=== PATIENT | female | born 1940 | race Caucasian/White ===

== ENCOUNTER 2021-08-12 15:00 | Emergency (ER) | payer MEDICARE, MEDICAID, SELFPAY ==
[2021-08-12 15:08] VITALS: BP 116/72; PULSE 76
[2021-08-12 16:00] VITALS: BP 136/63; PULSE 78; RESP 20; TEMP 35.8; O2SAT 100; BMI 29.2
--- NOTE | 2021-08-12 19:27 | PC.NURSE ---
Pt declining blood test, covid test, and urine test
[2021-08-12 20:21] VITALS: BP 125/51; PULSE 70; RESP 20; TEMP 36.7; O2SAT 96
--- NOTE | 2021-08-13 00:08 | PC.NURSE ---
Addendum entered by Jenise Gaspar 08/13/21 00:15: Pt's HR, RR and SpO2 reassessed at time of encounter. All WNL. Original Note: BINDU Bonilla notified this RN that pt is refusing labwork. This RN, Irene RUANO and Les, multi media specialist to pt. Pt aaox3, oriented to person place and situation, disoriented to time. Pt with granddaughter who states she is also a caregiver for pt. Pt refusing labwork, states I just want to go home, I don't want to be here. Pt's granddaughter also expressing I just wanted her oxygen and heart to be checked because the ambulance said it wasn't normal and she could . Why didn't they do bloodwork in the ambulance? This RN explains to pt and granddaughter that bloodwork is not obtained during EMS transport. This RN explains that upon pt's arrival to ED, orders were placed when pt was triaged and labs were attempted to be obtained at that time. Pt had refused at that time. Pt's granddaughter asks Can you do the bloodwork and then we can go home and come back tomorrow for the results and to have her checked out then? This RN explains that this is an ED and outpatient labs/scheduling a f/u is not a possibility. Pt's granddaughter verbalizes understanding. This RN provides re-education to patient and to family regarding significance of bloodwork as it r/t pt's presenting sx. Pt and granddaughter verbalize understanding, but continue to refuse lab work at this time. Irene RUANO to notify Dr Page of pt's refusal. This RN informs pt and granddaughter that without appropriate lab work, only a very limited assessment of pt is able to be accomplished during today's visit. Pt continues I just want to leave. This RN explains that pt is not being held against her will, though is encouraged to stay in ED to be seen by provider.
[2021-08-13 00:15] VITALS: PULSE 87; RESP 17; O2SAT 97
[2021-08-13 03:04] VITALS: BP 125/62; PULSE 85; RESP 18; TEMP 36.4; O2SAT 97
--- NOTE | 2021-08-13 03:30 | PC.NURSE ---
pt brought back to room, wanting to go home. granddaughter insisting pt be seen when patient is a&o, able to answer questions appropriately, pt refusing lab work and care. Provider in to discuss plan of care and pt rights.
--- NOTE | 2021-08-13 03:31 | ED.ABDPAIN ---
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 At home COVID testing on 08/11 she was negative in family reports patient has been spending more time in bed. On speaking with the patient and on multiple interactions in the waiting area patient is declining all labs, urinalysis, COVID swab, x-ray and continues to states that she wants to go home. She says that she does not know why her family call the ambulance and she denies any current problems at this time. She states that she wants to return home and does not wish to stay here against her will. Patient is alert and oriented and answering questions appropriately. Related Data Allergies Allergy/AdvReac Type Severity Reaction Status Date / Time hydrochlorothiazide Allergy Mild UNKNOWN Unverified 04/19/20 16:52 [Hydrochlorothiazide] penicillin G [Penicillin G] Allergy Mild UNKNOWN Unverified 04/19/20 16:52 penicillin V Allergy Unknown Verified 08/30/13 00:00 chlorthalidone AdvReac Severe hyponatremi Unverified 04/19/20 16:52 [CHLORTHALIDONE] a Review of Systems Review of Systems Pertinent positives and negatives as stated in HPI and 10 point review of systems is otherwise negative. Physical Exam Vital Signs: Vital Signs: Last Vital Signs Temp 97.5 F 08/13/21 03:04 Pulse 85 08/13/21 03:04 Resp 18 08/13/21 03:04 BP 125/62 08/13/21 03:04 Pulse Ox 97 08/13/21 03:04 BMI result Body Mass Index 29.2 VITAL SIGNS: Reviewed. GENERAL: Elderly, dressed appropriately,in no acute distress. HEAD: Normocephalic/atraumatic EYES: EOMI OROPHARYNX: no oral lesions noted, posterior pharynx clear LUNGS: No audible wheeze, tachypnea, increased work of breathing, SpO2<97> CARDIOVASCULAR: Regular rate and rhythm without noted murmurs, no JVD or lower extremity edema. ABDOMEN: Soft, non-tender, non-distended with bowel sounds. MUSCULOSKELETAL: No tenderness, deformities, or effusions noted on gross inspection. EXTREMITIES: No cyanosis, clubbing or edema. SKIN: Inspection of the skin reveals no rashes NEUROLOGIC: Alert and oriented x 3, steady gait noted, strength and sensation to light touch were grossly intact x 4, no facial asymmetry Course Course Course Narrative: 80-year-old female with history and clinical presentation of being brought in by her family, but patient adamantly states that she did not want to get onto the ambulance and does not want to be here in the hospital or undergo any lab or examinations. Patient states that she was unsure why the ambulance was called for her and denies experiencing any shortness of breath, chest pain, abdominal pain and states that she has been eating and drinking fine. The daughter was brought into the emergency room and a conversation was held with the loading rack supervisor to clarify the circumstances surrounding patient's evaluation in the emergency room. This explain to the daughter that the patient could not be held here against her will and that she could not half a workup against her permission. I fully reviewed patient's vital signs which demonstrate that the heart rate is within normal limits, patient is not febrile nor is she tachypneic and she is oxygenating well on room air. There is no evidence unsteady gait and patient communicates appropriately although she is irritated currently and keeps asking to go home and stating that she does not want to be here. The patient's request were honored and it was explained to the daughter that we were unable to do anything further at this time, but if anything changed she should call 911. MDM - Abdominal Pain Lab Data Result diagrams: 08/12/21 Unknown Labs: Lab Results 08/12/21 Range/Units Unknown Sodium Cancelled Potassium Cancelled Chloride Cancelled Carbon Dioxide Cancelled Anion Gap Cancelled BUN Cancelled Creatinine Cancelled Estim Creat Clear Calc Cancelled Estimated GFR Cancelled Random Glucose Cancelled Calcium Cancelled Total Bilirubin Cancelled Direct Bilirubin Cancelled AST Cancelled ALT Cancelled Alkaline Phosphatase Cancelled Total Protein Cancelled Albumin Cancelled Discharge Plan Discharge Clinical Impression: General medical exam Patient Disposition: Home, Self-Care Additional Instructions: Follow-up with your primary care provider. Interventions: ED Discharge Assessment Last Done: 08/13/21 04:13 Discharge Date/Time: 08/13/21 04:24 Print Language: Turkmen [facility] Past Medical History Source: nursing notes reviewed Medical History (Updated 08/13/21 @ 04:06 by Beverly Page MD) HTN (hypertension) Right eye symptoms Surgical History (Updated 08/12/21 @ 16:04 by Tiffany Ace) No pertinent past surgical history Social History Social History Advance Directives: No Advance Directives Information Provided: Yes
== END 2021-08-13 04:24 | disposition home or self-care (01) ==
PROVIDERS: Emergency Provider Student in an Organized Health Care Education/Training Program
DX: R10.9 Unspecified abdominal pain (principal); R05.9 Cough, unspecified; Z79.899 Other long term (current) drug therapy
CPT/HCPCS: 36415; 80053; 82248; 99283; 99284

== ENCOUNTER 2022-07-09 03:55 | Emergency (ER) | payer MEDICARE, MEDICAID, SELFPAY ==
--- NOTE | ~2022-07-09 | CT_ITS ---
EXAMINATION: IV contrast enhanced CT angiography of the head and neck; delayed IV contrast-enhanced CT the head CLINICAL INFORMATION: Left-sided weakness. COMPARISON: CT head 07/09/2022. TECHNIQUE: IV contrast enhanced CT angiography of the head and neck with multiple 3-D reformatted angiographic thick section MIPS images processed on the technologist workstation under concurrent supervision; delayed IV contrast-enhanced CT the head. Vascular stenoses are made with reference to the NASCET criteria less otherwise specified. This CT examination was performed using dose optimization techniques as appropriate, variously including the following: *Automated exposure control *Adjustment of mA and/or kV according to patient size (this includes techniques or standardized protocols for targeted exams where dose is matched to indication/reason for exam; i.e. extremities or head) *Use of iterative reconstruction technique Intravenous Contrast: Omnipaque 350 70 mL DLP: 1547 mGy-cm FINDINGS: IV contrast enhanced CT of the head: No intracranial hemorrhage or tumors are noted. No definitive acute infarcts are visualized. Mild diffuse commensurate prominence of ventricles and sulci is noted along with moderate subcortical and periventricular white matter patchy hypoattenuation. A right ocular lens extraction is noted. CT angiography neck: Diffuse moderate calcific atherosclerosis of the transverse aorta. Concentric calcific and noncalcific atherosclerotic plaque is present in the left and right carotid bulbs and results in mild (less than 50%) bilateral carotid bulb stenoses. Scattered nonocclusive calcific and noncalcific plaque is present in the left and right common carotid arteries. The right vertebral artery is dominant. No occlusions of the cervical segments of the vertebral artery systems noted. CT angiography head: Intraluminal opacification is absent within the distal cavernous and paraclinoid segment of the right internal carotid artery and within the M1 segment of the right middle cerebral artery. Intraluminal opacification is noted in the A1 segment of the right anterior cerebral artery. type origin of the right posterior cerebral artery is noted. Intraluminal opacification is present in the posterior aspect of the right posterior communicating artery and within the visualized right posterior cerebral artery. No intracranial aneurysms identified. Multilevel facet and endplate osteophytosis of the cervical spine is noted. CT/CT angio head neck stroke IMPRESSION: 1. Acute occlusion of the M1 segment of the right middle cerebral artery and distal cavernous and paraclinoid segments of the right internal carotid artery. 2. Mild (less than 50%) bilateral carotid bulb stenoses. 3. No acute intracranial hemorrhage or definitive acute intrarenal infarcts. 4. Moderate white matter chronic small vessel ischemic disease. This critical result was discussed with Rebecca Solorzano MD by telephone at 07/09/2022 5:19 AM and it was ascertained that the content and urgency of the report was understood at the time of direct communication.
--- NOTE | ~2022-07-09 | CT_ITS ---
EXAMINATION: CT HEAD WITHOUT CONTRAST (STROKE PROTOCOL) CLINICAL INFORMATION: Stroke protocol. Left weakness. COMPARISON: CT head 03/01/2015 TECHNIQUE: Contiguous axial imaging was performed from the skull base to vertex without intravenous administration of contrast. This CT examination was performed using dose optimization techniques as appropriate, variously including the following: *Automated exposure control *Adjustment of mA and/or kV according to patient size (this includes techniques or standardized protocols for targeted exams where dose is matched to indication/reason for exam; i.e. extremities or head) *Use of iterative reconstruction technique DLP: 705 mGy-cm FINDINGS: No intracranial hemorrhage or acute infarcts are noted. 5 mm hyperdensity is noted in the expected location of the proximal right middle cerebral artery and may represent thrombus in situ (series 2 image 31). Confluent subcortical and periventricular white matter patchy hypodensities are visualized. Segmental calcific atherosclerosis noted in the cavernous portions of the internal carotid arteries. Mild mucosal thickening present in the maxillary sinus, scattered ethmoid air cells and frontal sinuses. CT/CT head for stroke IMPRESSION: Possible acute thrombus within the M1 segment of the right middle cerebral artery. No intracranial hemorrhage. Moderate chronic microangiopathic ischemic changes. This critical result was discussed with Rebecca Solorzano MD by telephone at 07/09/2022 4:46 AM and it was ascertained that the content and urgency of the report was understood at the time of direct communication.
--- NOTE | ~2022-07-09 | XR_ITS ---
EXAMINATION: XR CHEST CLINICAL INFORMATION: Left-sided weakness. COMPARISON: Chest radiograph 07/06/2018. TECHNIQUE: Frontal view of the chest was obtained. FINDINGS: Diffuse osteopenia noted. The heart size is grossly normal. No effusions or pneumothoraces identified. Making allowances for underpenetrated technique, a normal pattern of pulmonary vasculature is noted. No focal pulmonary consolidation identified. XR/XR chest 1V IMPRESSION: No acute cardiopulmonary abnormalities.
[2022-07-09 04:02] VITALS: BP 133/88; PULSE 120; O2SAT 94
--- NOTE | 2022-07-09 04:03 | ECG_ITS ---
Test Reason : STROKE PROTOCOL Blood Pressure : / mmHG Vent. Rate : 118 BPM Atrial Rate : 000 BPM P-R Int : 000 ms QRS Dur : 086 ms QT Int : 318 ms P-R-T Axes : 000 036 270 degrees QTc Int : 445 ms Atrial fibrillation with rapid ventricular response ST depression, consider subendocardial injury Nonspecific T wave abnormality Abnormal ECG When compared with ECG of 01-MAR-2015 02:18, Atrial fibrillation has replaced Sinus rhythm Vent. rate has increased BY 59 BPM Nonspecific T wave abnormality now evident in Inferior leads Inverted T waves have replaced nonspecific T wave abnormality in Lateral leads Referred By: Rebecca Solorzano Electronically Signed By:BINH BELCHER MD
[2022-07-09 04:08] VITALS: BP 180/86; PULSE 122; RESP 17; O2SAT 95; BMI 28.5
--- NOTE | 2022-07-09 04:29 | ED.NEUROSD ---
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 Mode of arrival: EMS Limitations: no limitations History of Present Illness HPI Narrative: Found on the floor by her granddaughter who also a caregiver patient was not moving her left side with left-sided facial droop as per EMS report patient last was seen normal at 15:00 yesterday about 13 hours ago, however the granddaughter stated that last was seen at 21:00 last night about 7 hours before arrival, patient is refusing transportation to the hospital on arrival to the ED patient is refusing all tests, I spoke with the granddaughter explaining that time is sensitive and the option of intubation and sedation to get the CT scan but daughter who also contacted her family refuse intubating the patient is stating that this was the patient's wishes and patient is not competent to make a decision at this point, patient was given ketamine IV and was able to obtain CT and CTA. Stroke labs at [facility] was contacted at 04:30. Related Data Allergies Allergy/AdvReac Type Severity Reaction Status Date / Time hydrochlorothiazide Allergy Mild UNKNOWN Unverified 04/19/20 16:52 [Hydrochlorothiazide] penicillin G [Penicillin G] Allergy Mild UNKNOWN Unverified 04/19/20 16:52 penicillin V Allergy Unknown Verified 08/30/13 00:00 chlorthalidone AdvReac Severe hyponatremi Unverified 04/19/20 16:52 [CHLORTHALIDONE] a Review of Systems Review of Systems: Yes Unobtainable due to mental status PMFSH Past Medical History Medical History HTN (hypertension) Right eye symptoms Surgical History No pertinent past surgical history Social History Social History Advance Directives: No Advance Directives Information Provided: Yes Physical Exam Vital Signs: Vital Signs: Last Vital Signs Pulse 112 H 07/09/22 05:34 Resp 19 07/09/22 05:34 BP 121/82 07/09/22 05:34 Pulse Ox 98 07/09/22 05:34 O2 Del Method 07/09/22 05:34 BMI result Body Mass Index 28.5 Vital signs have been reviewed as appeared to be correct. Blood pressure elevated. Heart rate rapid. Respiration rate normal. Temperature normal. Oxygen saturation normal. Appearance: Alert. Oriented X3. No acute distress. Head: Normal external exam. Normocephalic. Atraumatic. No Recio signs noted. No raccoon eyes noted Eyes: PERRLA. EOMI. Conjunctiva and sclera normal. Eyelids normal. ENT: TM's Normal. Pharynx normal. Uvula midline. Moist mucous membranes. No trismus noted. No drooling noted. No muffled voice noted. Neck: Normal inspection. Neck supple. FROM. No adenopathy. Thyroid Normal. No meningeal signs. No neck mass noted. CVS: Normal heart rate and rhythm. Heart sound normal. No murmurs noted. Pulses normal throughout. Respiratory: No respiratory distress. Painless inspiration. Breath sounds normal. No wheezes/rales/rhonchi noted. Chest nontender. No accessory muscle usage noted or decreased air movement noted. Abdomen: Soft and nontender. Bowel sounds normal in all 4 quadrants. No distention noted. No organomegaly noted. No visible injury noted. Back: No CVA tenderness. Full range of motion noted. Skin: Skin warm and dry. Normal skin color. Normal skin turgor. No rashes/lesions/lacerations noted. Extremities: No lower extremity edema. Extremities exhibit normal range of motion. Extremities nontender. Neuro: Oriented X 3. Cranial nerve exam: Right facial droop. Right hemiparesis Course Course Course Narrative: 81-year-old female came in with left hemiparesis last seen normal was 7 hours before arrival to the hospital, CT/CTA was delayed because family was resisting intubation and sedation and patient required ketamine to get the CT done which show acute occlusive thrombus in right middle cerebral artery , family is simple minded needed time to understand that the patient's only option to recover from the stroke is going for intervention mechanical thrombectomy at [facility], family is hesitant to intubate the patient during the procedure but finally family agreed to transport the patient to [facility]. Patient also found to have rapid atrial fibrillation which appear to be new (also record not available and family is very poor historian to confirm the history). [facility] stroke intervention lab work conducted I spoke with Dr. Jerez who is on-call at [facility] recommended to transport the patient to the ED and give the patient 300 mg of aspirin rectally and keep the blood pressure around 180/80. Medications Administered Discontinued Medications Generic Name Dose Route Start Last Admin Trade Name Malcolm PRN Reason Stop Dose Admin Aspirin 325 mg 07/09/22 05:34 07/09/22 05:38 Aspirin 300 Mg Supp.Rect SD 07/09/22 05:35 325 mg ONCE ONE Administration Iohexol 70 ml 07/09/22 04:59 07/09/22 05:00 Iohexol 350 Mg/Ml 100 Ml Infus..Btl IV 07/09/22 05:00 70 ml ONCE ONE Administration Ketamine HCl 50 mg 07/09/22 04:25 07/09/22 04:30 Ketamine Hcl/Ns 50 Mg/5 Ml Syringe IVPUSH 07/09/22 04:26 50 mg ONCE ONE Administration Medical Decision Making Medical Decision Making Differential Diagnoses: Differential diagnosis Differential Diagnosis: The differential diagnosis associated with the patient?s presentation includes: Intracranial bleed, ischemic stroke, new onset atrial fibrillation Lab Attestation: I reviewed the patient's lab results. Independent interpretation of EKG, rhythm strip, radiology study: Independent interp EKG,rhythm strip, radiology study I performed an independent interpretation of the: EKG My interpretation is atrial fibrillation with rapid ventricular response at 01:18, normal axis deviation, otherwise normal intervals. Independent historian (e.g., spouse, EMS, friend): Independent historian (e.g., spouse, EMS, friend) Clinical information obtained from an independent historian. History obtained from or confirmed by: Other (Daughter/granddaughter) Additional Comments: Patient is having acute stroke and not able to give a good history. Core Measures Measure exclusions: not indicated NIH Stroke Scale Level of Consciousness: Alert Level of Consciousness Questions: Answers neither question correctly Level of Consciousness Commands: Performs neither task correctly Best Gaze: Normal Visual: No visual loss Facial Palsy: Partial paralysis Motor Arm (Right): No drift Motor Arm (Left): No effort against gravity Motor Leg (Right): No drift Motor Leg (Left): No effort against gravity Limb Ataxia: Absent Sensory: Normal Best Language: No aphasia Dysarthia: Normal Extinction and Inattention: No abnormality Score: 12 Critical Care Time Critical Care Time Critical Care Time: Yes Total Critical Care Time: 75 Attestation: I spent 75 minutes providing critical care service to the patient, this including time spent at the bedside to evaluate the patient, reassess the patient, monitoring vital signs, review labs, and radiographic studies, counseling the patient/family, discussing the case with consultants, disposition the patient. Discharge Plan Discharge Clinical Impression: Cerebrovascular accident, Atrial fibrillation, new onset Patient Disposition: [facility] Transfer Details: [facility] emergency department.
[2022-07-09] MEDS: Ketamine HCl/NS 50 MG/5 ML SYRINGE IVPUSH (04:30)
[2022-07-09 04:33] LABS: Basophils Absolute Auto 0.1 X10*3/uL (0.0-0.2); Basophils Percent Auto 0.8 % (0-2); Eosinophils Absolute Auto 0.1 X10*3/uL (0.0-0.4); Hematocrit 40.1 % (37.0-47.0); Hemoglobin 13.2 g/dl (12.0-16.0); Imm Gran Abs Auto 0.05 X10*3/uL (0.00-0.03); Imm Gran Pct Auto 0.6 % (0.0-0.4); Lymphocytes Absolute Auto 3.3 X10*3/uL (1.2-4.9); Lymphocytes Percent Auto 38.6 % (20-40); MANUAL DIFF FLAG SCAN; Mean Corpuscular HGB Conc 32.9 g/dl (31.0-35.0); Mean Corpuscular Hemoglobin 28.9 pg (27.0-33.0); Mean Corpuscular Volume 87.7 fL (80.0-98.0); Mean Platelet Volume 11.6 fL (9.4-12.3); Monocytes Absolute Auto 0.8 X10*3/uL (0.1-1.2); Monocytes Percent Auto 9.3 % (2-11); Neutrophils Absolute Auto 4.3 x10*3/uL (2.0-8.3); Neutrophils Percent Auto 49.7 % (45-73); Platelet Count 211 X10*3/uL (160-400); Red Blood Count 4.57 X10*6/uL (4.20-5.50); Red Cell Distribution Width 13.6 % (11.0-16.0); SCAN SMEAR FLAG 1; White Blood Count 8.6 X10*3/uL (4.8-10.8)
[2022-07-09 04:38] LABS: Prothrombin Time Whole Bld POC 16.1 sec (11.1-13.5); ~PT, ~INR - Anti Coag Clinic 1.3 (0.9-1.1)
[2022-07-09 04:42] LABS: INTERNATIONAL NORM RATIO 1.1 (0.9-1.1); Prothrombin Time 13.1 SEC (10.0-13.1)
[2022-07-09 04:46] LABS: Stroke Lab Use COMPLETE
[2022-07-09 04:53] LABS: Anion Gap 13 (12-20); Blood Urea Nitrogen 19 mg/dL (9-16); Calcium 9.2 mg/dL (8.4-10.2); Carbon Dioxide 35 mmol/L (22-29); Chloride 95 mmol/L (96-108); Creatinine Clr Calc Pharmacy 42.1; Estimated Glomerular Filt Rate > 60; Glucose Random 114 mg/dL (60-115); Potassium 3.8 mmol/L (3.3-5.1); Sodium 139 mmol/L (135-145)
[2022-07-09 04:55] LABS: SLIDE REVIEW VERIFIED
[2022-07-09 05:00] LABS: Troponin-I High Sensitivity 5.1 ng/L (<3.5-17.0)
[2022-07-09] MEDS: iohexoL 350 MG/ML 100 ML INFUS..BTL 70 ML IV (05:00)
[2022-07-09 05:01] LABS: Glucose, Whole Blood 100 mg/dL (60-115)
--- NOTE | 2022-07-09 05:02 | PC.NURSE ---
Patient back from CT/XRAY at this time on continuous monitoring with this RN present throughout. Delay to CT due to patient requiring ketamine/family unsure what patient's wishes are. Significant time with MD, vice president research, and this RN bedside with family to discuss goals of care. They confirm DNI but are agreeable to ketamine for scan. Patient remains alert, crying for coffee. She is oriented to self only (confused to birthday, other). Patient with wet/gurgly cough/secretions- requiring suctioning several times in CT and afterwards. HR tachycardic 1teens-120s AFIB - EKG complete and reviewed with MD. No hx AFIB per family. Patient takes 3 meds only - 81mg aspirin, 50mg atenolol, and 10mg amlodipine. Patient boosted/repositioned for comfort.
[2022-07-09 05:05] VITALS: BP 161/83; PULSE 119; RESP 19; O2SAT 96
--- NOTE | 2022-07-09 05:09 | PC.NURSE ---
Call out to [facility] Transfer line @[phone]
--- NOTE | 2022-07-09 05:33 | PC.NURSE ---
MD bedside with this RN and manager endoscopy to explain transfer to [facility]
[2022-07-09 05:34] VITALS: BP 121/82; PULSE 112; RESP 19; O2SAT 98
[2022-07-09] MEDS: Aspirin 300 MG SUPP.RECT 325 MG PR (05:38)
--- NOTE | 2022-07-09 05:55 | PC.NURSE ---
patient leaving [facility] [facility] ED now via EMS to [facility] ED. report, paperwork, and CD given to EMS crew.
== END 2022-07-09 06:14 | disposition short-term general hospital (02) ==
PROVIDERS: Emergency Provider Emergency Medicine
DX: I63.9 Cerebral infarction, unspecified (principal); I48.91 Unspecified atrial fibrillation; R29.712 NIHSS score 12; M54.2 Cervicalgia; R51.9 Headache, unspecified; R29.810 Facial weakness; Z79.899 Other long term (current) drug therapy
CPT/HCPCS: 36415; 70450; 70496; 70498; 71045; 80048; 82550; 82947; 84484; 85025; 85610; 85730; 93005; 96374; 99285; Q9967

== ENCOUNTER 2022-08-06 11:36 | Emergency (ER) | payer MEDICARE, MEDICAID, SELFPAY ==
--- NOTE | ~2022-08-06 | XR_ITS ---
EXAMINATION: XR CHEST CLINICAL INFORMATION: Shortness of breath COMPARISON: 07/09/2022 TECHNIQUE: Frontal view of the chest was obtained. FINDINGS: Lungs grossly clear. Heart size normal with normal caliber pulmonary vessels. XR/XR chest 1V IMPRESSION: No active disease.
[2022-08-06 11:50] VITALS: O2SAT 96; BMI 25.7
--- NOTE | 2022-08-06 11:50 | ED.WEAKNESS ---
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 Per family they have a home care nurse that comes and several times a week. She was checking the patient's pulse oximeter and noted that the patient was hypoxic and the patient was referred into the ER for further evaluation. Family have no concerns for they feel like the patient is recovering. She has had a slight cough. Patient has no other complaints. No chest pain, shortness of breath, fever, leg swelling or leg pain. Related Data Previous Rx's Medication Instructions Recorded nystatin 100,000 unit/mL oral 100,000 unit PO DAILY #60 mL 08/06/22 suspension Allergies Allergy/AdvReac Type Severity Reaction Status Date / Time hydrochlorothiazide Allergy Mild UNKNOWN Unverified 04/19/20 16:52 [Hydrochlorothiazide] penicillin G [Penicillin G] Allergy Mild UNKNOWN Unverified 04/19/20 16:52 penicillin V Allergy Unknown Verified 08/30/13 00:00 chlorthalidone AdvReac Severe hyponatremi Unverified 04/19/20 16:52 [CHLORTHALIDONE] a Review of Systems Review of Systems: Yes all other systems are reviewed and are negative Constitutional: Constitutional: Reports no additional constitutional complaints, Denies body ache(s), Denies chills, Denies fever(s), Denies headache(s) and Reports weakness Eyes: Eyes: Reports no additional eye complaints and Denies change in vision ENT: Reports system reviewed and no additional complaints, except as documented, Denies dizziness, Denies headache(s), Denies nasal congestion, Denies nasal discharge and Denies neck pain Cardiovascular: Cardiovascular: Reports no additional cardiovascular complaints, Denies chest pain, Denies leg edema and Denies dyspnea Respiratory: Respiratory: Reports no additional respiratory complaints, Reports cough and Denies dyspnea Gastrointestinal: Gastrointestinal: Reports no additional gastrointestinal complaints, Denies abdominal pain, Denies diarrhea, Denies nausea and Denies vomiting Genitourinary: Genitourinary: Reports no additional female genitourinary complaints and Denies urinary incontinence Musculoskeletal: Musculoskeletal: Reports no additional musculoskeletal complaints, Denies back pain, Denies arthralgias, Denies joint swelling, Denies neck pain, Denies numbness and Denies tingling Integumentary/Breasts: Skin/Breast: Reports system reviewed and no additional complaints, except as docu and Denies rash Neurologic: Reports system reviewed and no additional complaints, except as documented, Denies Abnormal speech present, Denies dizziness, Denies headache(s), Denies numbness, Denies tingling and Reports weakness PMFSH Past Medical History Attestation statement: The following information was validated with the patient. Source: old records reviewed and nursing notes reviewed Medical History HTN (hypertension) Right eye symptoms Surgical History No pertinent past surgical history Social History Social History Advance Directives: No Physical Exam Vital Signs: Vital Signs: Last Vital Signs Temp 97.2 F 08/06/22 12:03 Pulse 87 08/06/22 12:31 Resp 18 08/06/22 12:31 BP 110/62 08/06/22 12:03 Pulse Ox 96 08/06/22 11:50 O2 Del Method 08/06/22 12:03 BMI result Body Mass Index 25.7 Const: General: cooperative, healthy appearing, comfortable and no acute distress Orientation/consciousness: patient oriented x3 Limitations: no limitations HEENT: Head: Yes normal to inspection Ears: hearing grossly normal bilaterally and TM's normal bilaterally General nose exam: Normal external nose present Face and sinus: Yes normal facial exam Mouth: Normal oral and palatal mucosa present Mouth/tongue images: 1. thrush Throat: Yes posterior oropharynx normal, Yes tonsils normal and Yes uvula midline Eyes: General: appearance normal, both eyes and all related structures Pupils: Equal, round and reactive pupils present Neck: Neck: Yes normal visual inspection, Yes full ROM and Yes no lymphadenopathy Chest: Chest palpation & inspection: normal inspection of the chest Resp: Other: Expiratory wheezing throughout Effort & Inspection: normal respiratory effort Cardio: Rate: regular rate Rhythm: regular rhythm Peripheral pulses: Peripheral pulses 2+ throughout GI: Inspection: Yes normal to inspection Palpation (GI): Soft to palpation and nontender Auscultation: normal bowel sounds Back/Spine/Pelvis: Thoracic/Lumbar Spine: thoracic and lumbar spine normal to inspection Skin: General skin exam: no rashes or lesions noted Neuro: General: patient oriented x3, no focal motor deficits and normal sensation to monofilament Cranial nerves: Yes Equal, round and reactive pupils present Cognition (Neuro): normal cognition Speech: No Abnormal speech present Gait exam (Neuro): Normal gait present Motor exam (neuro): 5/5 motor strength present throughout Extrem: General: Yes normal to inspection Course Course Course Narrative: Testing for flu, COVID, RSV are negative. Chest x-ray shows no acute finding. Reviewed labs which show an indeterminate troponin. Patient with no reports of chest pain in a nonischemic EKG. Plan for repeat troponin. BUN mildly elevated. Patient has had decreased oral intake per family. Will give gentle hydration and reassess. Patient has not required any supplemental oxygen while she has been here in the emergency room. Anticipate discharge home Reevaluation(s) Reevaluation #1: TROPONIN X2 FLAT. Granddaughter at bedside. Patient is supposed for Hebert catheter change tomorrow by a home care nurse. She is asking if they can do this today. Therefore nursing will change her Hebert catheter reports she leaves today. Patient has not required any supplemental oxygen here in the emergency room her saturations are 97%. Her wheezing is improved after DuoNeb. Family denies history of asthma but tells me that after patient was released from [facility] she was sent home with both an albuterol inhaler and nebulizer machine to use. Recommend they continue this. Reviewed worrisome signs and symptoms of when to return to the emergency room. Comfortable plan for discharge home. Medications Administered Discontinued Medications Generic Name Dose Route Start Last Admin Trade Name Drewq PRN Reason Stop Dose Admin Albuterol Sulfate 2.5 mg/ 0 mg 08/06/22 12:08 08/06/22 12:26 Ipratropium [place] 0.5 mg INHALE 08/06/22 12:09 2.5 each ONCE ONE Administration Sodium Chloride 500 mls @ 999 mls/hr 08/06/22 14:56 08/06/22 15:45 Ns IV 08/06/22 15:26 Infused .Q31M STA Infusion Medical Decision Making Medical Decision Making [facility] Narrative: 81-year-old female with recent admission for stroke presents with concern from home care nurses the patient is hypoxic. On arrival to the ER patient with pulse oximeter 99% on room air. Patient with wheezing on exam. Patient with reports of cough but no shortness of breath, chest pain, fever, leg swelling or leg pain. Due to recent admission will check labs, chest x-ray, COVID screen Differential Diagnosis Differential Diagnoses: The differential diagnosis associated with the presentation includes Viral syndrome, pneumonia, influenza PE this patient is anticoagulated and compliant with her Eliquis Lab Data [facility] Lab Attestation statement: I reviewed the patient's lab results. Result Diagrams: 08/06/22 13:59 08/06/22 13:59 Labs: Lab Results 08/06/22 08/06/22 08/06/22 Range/Units 12:26 13:59 13:59 WBC 8.6 (4.8-10.8) X10*3/uL RBC 4.66 (4.20-5.50) X10*6/uL Hgb 13.3 (12.0-16.0) g/dl Hct 40.6 (37.0-47.0) % MCV 87.1 (80.0-98.0) fL MCH 28.5 (27.0-33.0) pg MCHC 32.8 (31.0-35.0) g/dl RDW 15.0 (11.0-16.0) % Plt Count 172 (160-400) X10*3/uL MPV 12.6 H (9.4-12.3) fL Immature Gran % (Auto) 0.3 (0.0-0.4) % Neut % (Auto) 71.0 (45-73) % Lymph % (Auto) 19.7 L (20-40) % [place] % (Auto) 7.2 (2-11) % Eos % (Auto) 1.2 (0-4) % Baso % (Auto) 0.6 (0-2) % Lymph # (Auto) 1.7 (1.2-4.9) X10*3/uL [place] # (Auto) 0.6 (0.1-1.2) X10*3/uL Eos # (Auto) 0.1 (0.0-0.4) X10*3/uL Baso # (Auto) 0.1 (0.0-0.2) X10*3/uL Abs Immat Gran (auto) 0.03 (0.00-0.03) X10*3/uL Absolute Neuts (auto) 6.1 (2.0-8.3) x10*3/uL Absolute Nucleated RBC 0.000 (0.0-0.012) X10*3/uL Nucleated RBC % (auto) 0.0 (0.0-0.2) /100WBC PT 22.0 H (10.0-13.1) SEC INR 1.9 H (0.9-1.1) Sodium (135-145) mmol/L Potassium (3.3-5.1) mmol/L Chloride (96-108) mmol/L Carbon Dioxide (22-29) mmol/L Anion Gap (12-20) BUN (9-16) mg/dL Creatinine (0.5-1.4) mg/dL Estim Creat Clear Calc Estimated GFR Random Glucose (60-115) mg/dL Lactic Acid (0.5-2.0) mmol/L Calcium (8.4-10.2) mg/dL Total Bilirubin (0.0-1.0) mg/dL Direct Bilirubin (0.0-0.5) mg/dL AST (5-31) U/L ALT (0-31) U/L Alkaline Phosphatase (39-117) U/L Troponin I High Sens (<3.5-17.0) ng/L B-Natriuretic Peptide (<100) pg/mL Total Protein (6.5-8.0) g/dL Albumin (3.5-5.0) g/dL Influenza Type A (PCR) NEGATIVE (Negative) Influenza Type B (PCR) NEGATIVE (Negative) RSV RNA Qual (PCR) NEGATIVE (Negative) SARS-CoV-2 RNA (RT-PCR) NEGATIVE (Negative) 08/06/22 08/06/22 08/06/22 Range/Units 13:59 13:59 13:59 WBC (4.8-10.8) X10*3/uL RBC (4.20-5.50) X10*6/uL Hgb (12.0-16.0) g/dl Hct (37.0-47.0) % MCV (80.0-98.0) fL MCH (27.0-33.0) pg MCHC (31.0-35.0) g/dl RDW (11.0-16.0) % Plt Count (160-400) X10*3/uL MPV (9.4-12.3) fL Immature Gran % (Auto) (0.0-0.4) % Neut % (Auto) (45-73) % Lymph % (Auto) (20-40) % [place] % (Auto) (2-11) % Eos % (Auto) (0-4) % Baso % (Auto) (0-2) % Lymph # (Auto) (1.2-4.9) X10*3/uL [place] # (Auto) (0.1-1.2) X10*3/uL Eos # (Auto) (0.0-0.4) X10*3/uL Baso # (Auto) (0.0-0.2) X10*3/uL Abs Immat Gran (auto) (0.00-0.03) X10*3/uL Absolute Neuts (auto) (2.0-8.3) x10*3/uL Absolute Nucleated RBC (0.0-0.012) X10*3/uL Nucleated RBC % (auto) (0.0-0.2) /100WBC PT (10.0-13.1) SEC INR (0.9-1.1) Sodium 142 (135-145) mmol/L Potassium 3.4 (3.3-5.1) mmol/L Chloride 102 (96-108) mmol/L Carbon Dioxide 28 (22-29) mmol/L Anion Gap 15 (12-20) BUN 35 H (9-16) mg/dL Creatinine 0.82 (0.5-1.4) mg/dL Estim Creat Clear Calc 51.1 Estimated GFR > 60 Random Glucose 94 (60-115) mg/dL Lactic Acid 0.9 (0.5-2.0) mmol/L Calcium 9.5 (8.4-10.2) mg/dL Total Bilirubin 1.2 H (0.0-1.0) mg/dL Direct Bilirubin 0.5 (0.0-0.5) mg/dL AST 30 (5-31) U/L ALT 17 (0-31) U/L Alkaline Phosphatase 79 (39-117) U/L Troponin I High Sens 63.5 H* D (<3.5-17.0) ng/L B-Natriuretic Peptide (<100) pg/mL Total Protein 6.1 L (6.5-8.0) g/dL Albumin 3.2 L (3.5-5.0) g/dL Influenza Type A (PCR) (Negative) Influenza Type B (PCR) (Negative) RSV RNA Qual (PCR) (Negative) SARS-CoV-2 RNA (RT-PCR) (Negative) 08/06/22 08/06/22 Range/Units 13:59 17:06 WBC (4.8-10.8) X10*3/uL RBC (4.20-5.50) X10*6/uL Hgb (12.0-16.0) g/dl Hct (37.0-47.0) % MCV (80.0-98.0) fL MCH (27.0-33.0) pg MCHC (31.0-35.0) g/dl RDW (11.0-16.0) % Plt Count (160-400) X10*3/uL MPV (9.4-12.3) fL Immature Gran % (Auto) (0.0-0.4) % Neut % (Auto) (45-73) % Lymph % (Auto) (20-40) % [place] % (Auto) (2-11) % Eos % (Auto) (0-4) % Baso % (Auto) (0-2) % Lymph # (Auto) (1.2-4.9) X10*3/uL [place] # (Auto) (0.1-1.2) X10*3/uL Eos # (Auto) (0.0-0.4) X10*3/uL Baso # (Auto) (0.0-0.2) X10*3/uL Abs Immat Gran (auto) (0.00-0.03) X10*3/uL Absolute Neuts (auto) (2.0-8.3) x10*3/uL Absolute Nucleated RBC (0.0-0.012) X10*3/uL Nucleated RBC % (auto) (0.0-0.2) /100WBC PT (10.0-13.1) SEC INR (0.9-1.1) Sodium (135-145) mmol/L Potassium (3.3-5.1) mmol/L Chloride (96-108) mmol/L Carbon Dioxide (22-29) mmol/L Anion Gap (12-20) BUN (9-16) mg/dL Creatinine (0.5-1.4) mg/dL Estim Creat Clear Calc Estimated GFR Random Glucose (60-115) mg/dL Lactic Acid (0.5-2.0) mmol/L Calcium (8.4-10.2) mg/dL Total Bilirubin (0.0-1.0) mg/dL Direct Bilirubin (0.0-0.5) mg/dL AST (5-31) U/L ALT (0-31) U/L Alkaline Phosphatase (39-117) U/L Troponin I High Sens 73.7 H* (<3.5-17.0) ng/L B-Natriuretic Peptide 101 H (<100) pg/mL Total Protein (6.5-8.0) g/dL Albumin (3.5-5.0) g/dL Influenza Type A (PCR) (Negative) Influenza Type B (PCR) (Negative) RSV RNA Qual (PCR) (Negative) SARS-CoV-2 RNA (RT-PCR) (Negative) Independent Interpretation I performed an independent interpretation of an: EKG and Plain X-Ray (Independently reviewed the chest x-ray which shows no acute finding) Interpretation: I independently reviewed the EKG which shows AFib with rate of 74, normal QRS, normal QT Radiology Impression Discussion of test interpretation with radiology: I have reviewed the radiologist's reading. Radiologist Impression: [address] [address] XRay Report Signed Patient: Michaela Bragg MR#: [id number] : 1940 Acct:[id number] Age/Sex: 81 / F ADM Date: 08/06/22 Loc: .ED Attending Dr: Ordering Physician: Natividad Gloria NP Date of Service: 08/06/22 Procedure(s): XR chest 1V Accession Number(s): [id number] cc: Natividad Gloria NP~ EXAMINATION: XR CHEST CLINICAL INFORMATION: Shortness of breath COMPARISON: 07/09/2022 TECHNIQUE: Frontal view of the chest was obtained. FINDINGS: Lungs grossly clear. Heart size normal with normal caliber pulmonary vessels. XR/XR chest 1V IMPRESSION: No active disease. ? Independent Historian Clinical information obtained from an independent historian. History obtained from or confirmed by: EMS and Other (caregiver) External Record Review External record reviewed: Outpatient record (Records from [facility]) Discharge Plan Discharge Clinical Impression: Encounter for medical screening examination, Dehydration, mild, Thrush Patient Disposition: Home, Self-Care Instructions: Dehydration (ED), Oral Candidiasis (ED), Normal Exam (ED) Additional Instructions: Las pruebas de COVID y gripe son negativas. La radiograf?a no muestra signos de neumon?a. Use haas inhalador seg?n sea necesario. Regresar por empeoramiento de los s?ntomas. Prescriptions: New nystatin 100,000 unit/mL suspension 100,000 unit PO DAILY Qty: 60 0RF Rx Instructions: administer 1/2 of dose in each side of the mouth Referrals: Opal Antunez NP [Primary Care Provider] -
[2022-08-06 12:03] VITALS: BP 110/62; PULSE 66; RESP 18; TEMP 36.2
--- NOTE | 2022-08-06 12:03 | ECG_ITS ---
Test Reason : Weakness Blood Pressure : / mmHG Vent. Rate : 074 BPM Atrial Rate : 000 BPM P-R Int : 000 ms QRS Dur : 090 ms QT Int : 362 ms P-R-T Axes : 000 001 128 degrees QTc Int : 401 ms Atrial fibrillation Moderate voltage criteria for LVH, may be normal variant ( R in aVL , Neri product ) ST & T wave abnormality, consider lateral ischemia Abnormal ECG When compared with ECG of 09-JUL-2022 04:19, Vent. rate has decreased BY 44 BPM Referred By: Natividad Gloria Electronically Signed By:LETTY PHILIP
[2022-08-06 12:31] VITALS: PULSE 87; RESP 18; O2SAT 92
[2022-08-06 13:18] LABS: Influenza A PCR NEGATIVE (Negative); Influenza B PCR NEGATIVE (Negative); Resp Syncy Virus RNA Qual PCR NEGATIVE (Negative); SARS COV2 PCR INHOUSE NEGATIVE (Negative)
[2022-08-06 14:03] LABS: MANUAL DIFF FLAG NO
[2022-08-06 14:05] LABS: Basophils Absolute Auto 0.1 X10*3/uL (0.0-0.2); Basophils Percent Auto 0.6 % (0-2); Eosinophils Absolute Auto 0.1 X10*3/uL (0.0-0.4); Eosinophils Percent Auto 1.2 % (0-4); Hematocrit 40.6 % (37.0-47.0); Hemoglobin 13.3 g/dl (12.0-16.0); Imm Gran Abs Auto 0.03 X10*3/uL (0.00-0.03); Imm Gran Pct Auto 0.3 % (0.0-0.4); Lymphocytes Absolute Auto 1.7 X10*3/uL (1.2-4.9); Lymphocytes Percent Auto 19.7 % (20-40); Mean Corpuscular HGB Conc 32.8 g/dl (31.0-35.0); Mean Corpuscular Hemoglobin 28.5 pg (27.0-33.0); Mean Corpuscular Volume 87.1 fL (80.0-98.0); Mean Platelet Volume 12.6 fL (9.4-12.3); Monocytes Absolute Auto 0.6 X10*3/uL (0.1-1.2); Monocytes Percent Auto 7.2 % (2-11); Neutrophils Absolute Auto 6.1 x10*3/uL (2.0-8.3); Platelet Count 172 X10*3/uL (160-400); Red Blood Count 4.66 X10*6/uL (4.20-5.50); White Blood Count 8.6 X10*3/uL (4.8-10.8)
[2022-08-06 14:15] LABS: Lactic Acid 0.9 mmol/L (0.5-2.0)
[2022-08-06 14:24] LABS: INTERNATIONAL NORM RATIO 1.9 (0.9-1.1)
[2022-08-06 14:25] LABS: B Type Natriuretic Peptide 101 pg/mL (<100)
[2022-08-06 14:30] LABS: Troponin-I High Sensitivity 63.5 ng/L (<3.5-17.0)
[2022-08-06 14:32] LABS: Alanine Aminotransferase 17 U/L (0-31); Albumin Level 3.2 g/dL (3.5-5.0); Alkaline Phosphatase 79 U/L (39-117); Anion Gap 15 (12-20); Aspartate Amino Transferase 30 U/L (5-31); Bilirubin Direct 0.5 mg/dL (0.0-0.5); Blood Urea Nitrogen 35 mg/dL (9-16); Calcium 9.5 mg/dL (8.4-10.2); Carbon Dioxide 28 mmol/L (22-29); Chloride 102 mmol/L (96-108); Creatinine Clr Calc Pharmacy 51.1; Estimated Glomerular Filt Rate > 60; Glucose Random 94 mg/dL (60-115); Potassium 3.4 mmol/L (3.3-5.1); Sodium 142 mmol/L (135-145); Total Protein 6.1 g/dL (6.5-8.0)
[2022-08-06 14:38] LABS: Bilirubin Total 1.2 mg/dL (0.0-1.0)
[2022-08-06] MEDS: 0.9 % Sodium Chloride 500 ML 999 ML IV (15:12)
--- NOTE | 2022-08-06 15:19 | MHC.EDTECH ---
spoke with Natividad about blood cultures being drawn. Plan is to hold for now.
[2022-08-06 17:37] LABS: Troponin-I High Sensitivity 73.7 ng/L (<3.5-17.0)
== END 2022-08-06 19:08 | disposition home or self-care (01) ==
PROVIDERS: Nurse Practitioner Family; Emergency Provider Emergency Medicine Emergency Medical Services; PCP Nurse Practitioner Primary Care
DX: E86.0 Dehydration (principal); B37.9 Candidiasis, unspecified; R06.2 Wheezing; R09.02 Hypoxemia; E11.9 Type 2 diabetes mellitus without complications; I10 Essential (primary) hypertension; E78.5 Hyperlipidemia, unspecified; I48.91 Unspecified atrial fibrillation; Z79.01 Long term (current) use of anticoagulants; Z20.822 Contact with and (suspected) exposure to COVID-19
CPT/HCPCS: 0241U; 36415; 51702; 71045; 80048; 80076; 83605; 83880; 84484; 85025; 85610; 87040; 93005; 94640; 96360; 99284

== ENCOUNTER 2022-08-24 19:27 | Observation (INO) | payer MEDICARE, MEDICAID, SELFPAY ==
--- NOTE | ~2022-08-24 | CT_ITS ---
EXAMINATION: CT HEAD WITHOUT CONTRAST CLINICAL INFORMATION: Altered mental status. Syncope. On Eliquis. COMPARISON: 07/09/2022 TECHNIQUE: Contiguous axial imaging was performed from the skull base to vertex without intravenous contrast. This CT examination was performed using dose optimization techniques as appropriate, variously including the following: * Automated exposure control * Adjustment of mA and/or kV according to patient size (this includes techniques or standardized protocols for targeted exams where dose is matched to indication/reason for exam; i.e. extremities or head) Use of iterative reconstruction technique DLP: 573 mGy-cm. FINDINGS: Evolution of a right MCA territory infarct. This is a change from prior. There is no evidence of acute intracranial hemorrhage or territorial infarction. No abnormal mass effect or midline shift is seen. Mcdonough to white matter differentiation is otherwise well preserved. No extra-axial fluid collections are identified. No hydrocephalus. Proportional prominence of the ventricles and sulcal spaces is consistent with mild volume loss. Patchy periventricular and deep white matter hypoattenuation is consistent with moderate small vessel ischemic changes. Chronic lacunar infarct in the left cerebellar hemisphere. The osseous structures and soft tissues are normal. Partial effusion of the bilateral mastoid air cells. Layering fluid in the left sphenoid sinus and right maxillary sinus. CT/CT head/brain wo IV con IMPRESSION: No acute intracranial pathology. Evolution of the right MCA territory infarct.
[2022-08-24 19:32] VITALS: BP 117/76; BP 90/40; PULSE 103; PULSE 88; RESP 16; O2SAT 85; BMI 21.5
--- NOTE | 2022-08-24 19:32 | ECG_ITS ---
Test Reason : syncope Blood Pressure : / mmHG Vent. Rate : 107 BPM Atrial Rate : 000 BPM P-R Int : 000 ms QRS Dur : 086 ms QT Int : 326 ms P-R-T Axes : 000 -07 186 degrees QTc Int : 435 ms Atrial fibrillation with rapid ventricular response Moderate voltage criteria for LVH, may be normal variant ( R in aVL , Neri product ) Nonspecific ST and T wave abnormality Abnormal ECG When compared with ECG of 06-AUG-2022 14:01, increase in ventricular rate Referred By: Generic ED Physician Electronically Signed By:LETTY PHILIP
--- NOTE | 2022-08-24 19:56 | ED.SYNCOPE ---
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 Patient was in the bathroom family was giving her the shower sitting on his chair suddenly patient passed out became unresponsive lasted for 4-5 minutes by the time EMS came patient was back to normal. No seizure activity no head injury. Patient has similar episode 2 weeks ago which lasted for only 1-2 minute and was unable to see the PCP yet. Otherwise patient today was at stable health denies any chest pain no fever chills no cough Related Data Home Medications Medication Instructions Recorded Confirmed apixaban 5 mg tablet (Eliquis) 1 tab PO BID 08/24/22 08/24/22 aspirin 81 mg tablet,delayed 1 tab PO QAM 08/24/22 08/24/22 release atorvastatin 40 mg tablet 1 tab PO DAILY 08/24/22 08/24/22 diltiazem HCl 60 mg tablet 0.5 tab PO Q6H 08/24/22 08/24/22 doxazosin 2 mg tablet 1 tab PO DAILY 08/24/22 08/24/22 metoprolol tartrate 100 mg tablet 1 tab PO BID 08/24/22 08/24/22 Previous Rx's Medication Instructions Recorded nystatin 100,000 unit/mL oral 100,000 unit PO DAILY #60 mL 08/06/22 suspension Allergies Allergy/AdvReac Type Severity Reaction Status Date / Time hydrochlorothiazide Allergy Mild UNKNOWN Verified 08/24/22 19:41 [Hydrochlorothiazide] penicillin G [Penicillin G] Allergy Mild UNKNOWN Verified 08/24/22 19:41 penicillin V Allergy Unknown Unknown Verified 08/24/22 19:41 chlorthalidone AdvReac Severe hyponatremi Verified 08/24/22 19:41 [CHLORTHALIDONE] a Review of Systems Review of Systems: Yes all other systems are reviewed and are negative COUNTS INCLUDE 234 BEDS AT THE [facility] Past Medical History Medical History Acute right MCA stroke Atrial fibrillation HTN (hypertension) Right eye symptoms 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 Oriented X2-3. No acute distress. Eyes: Left corneal opacity, No Nystagmus ENT: Pharynx normal. Oral Mucosa moist Neck: Normal inspection. Neck supple. CVS: Irregularly irregular heart rate. Pulses normal. Respiratory: No respiratory distress. Equal air entry bilateral, no wheezing/rales/rhonchi Abdomen: Soft and nontender. Bowel sounds are present, no mass palpable, no CVA tenderness Skin: Skin warm and dry. Normal skin color. Normal skin turgor. Extremities: No lower extremity edema. No calf tenderness Neuro: Oriented X2- 3. Left-sided residual focal deficit. No sensory deficit.No cerebellar signs , cranial nerves II-XII intact Medical Decision Making Medical Decision Making [facility] Narrative: Patient with recurrent syncope episode etiology not very clear likely cardiac origin possible Alexis arrhythmias/sick sinus syndrome/medication side-effect of diltiazem and metoprolol will continue to watch admit for further evaluation Differential Diagnosis Differential Diagnoses: The differential diagnosis associated with the presentation includes CVA/acute mi/sick sinus syndrome/cardiac arrhythmias/atrial fibrillation/seizure Consult Healthcare Provider Management of the patient was discussed with: Hospitalist Lab Data [facility] Lab Attestation statement: I reviewed the patient's lab results. 08/24/22 20:18 08/24/22 20:18 Labs: Lab Results 08/24/22 08/24/22 08/24/22 Range/Units 20:18 20:18 20:18 WBC 8.0 (4.8-10.8) X10*3/uL RBC 4.66 (4.20-5.50) X10*6/uL Hgb 13.3 (12.0-16.0) g/dl Hct 40.5 (37.0-47.0) % MCV 86.9 (80.0-98.0) fL MCH 28.5 (27.0-33.0) pg MCHC 32.8 (31.0-35.0) g/dl RDW 15.1 (11.0-16.0) % Plt Count 183 (160-400) X10*3/uL MPV 11.1 (9.4-12.3) fL Immature Gran % (Auto) 0.4 (0.0-0.4) % Neut % (Auto) 68.9 (45-73) % Lymph % (Auto) 20.9 (20-40) % [place] % (Auto) 8.6 (2-11) % Eos % (Auto) 0.8 (0-4) % Baso % (Auto) 0.4 (0-2) % Lymph # (Auto) 1.7 (1.2-4.9) X10*3/uL [place] # (Auto) 0.7 (0.1-1.2) X10*3/uL Eos # (Auto) 0.1 (0.0-0.4) X10*3/uL Baso # (Auto) 0.0 (0.0-0.2) X10*3/uL Abs Immat Gran (auto) 0.03 (0.00-0.03) X10*3/uL Absolute Neuts (auto) 5.5 (2.0-8.3) x10*3/uL Absolute Nucleated RBC 0.000 (0.0-0.012) X10*3/uL Nucleated RBC % (auto) 0.0 (0.0-0.2) /100WBC PT (10.0-13.1) SEC INR (0.9-1.1) Sodium 141 (135-145) mmol/L Potassium 3.6 (3.3-5.1) mmol/L Chloride 95 L (96-108) mmol/L Carbon Dioxide 30 H (22-29) mmol/L Anion Gap 20 (12-20) BUN 16 (9-16) mg/dL Creatinine 0.86 (0.5-1.4) mg/dL Estim Creat Clear Calc 44.5 Estimated GFR > 60 Random Glucose 147 H (60-115) mg/dL Calcium 9.0 (8.4-10.2) mg/dL Total Bilirubin 2.1 H (0.0-1.0) mg/dL Direct Bilirubin 0.8 H (0.0-0.5) mg/dL AST 42 H (5-31) U/L ALT 37 H (0-31) U/L Alkaline Phosphatase 97 (39-117) U/L Troponin I High Sens 47.8 H (<3.5-17.0) ng/L Total Protein 6.2 L (6.5-8.0) g/dL Albumin 3.4 L (3.5-5.0) g/dL COVID-19 (SUZANNE) (Negative) COVID-19 Clin Com 08/24/22 08/24/22 08/24/22 Range/Units 20:18 20:18 20:34 WBC (4.8-10.8) X10*3/uL RBC (4.20-5.50) X10*6/uL Hgb (12.0-16.0) g/dl Hct (37.0-47.0) % MCV (80.0-98.0) fL MCH (27.0-33.0) pg MCHC (31.0-35.0) g/dl RDW (11.0-16.0) % Plt Count (160-400) X10*3/uL MPV (9.4-12.3) fL Immature Gran % (Auto) (0.0-0.4) % Neut % (Auto) (45-73) % Lymph % (Auto) (20-40) % [place] % (Auto) (2-11) % Eos % (Auto) (0-4) % Baso % (Auto) (0-2) % Lymph # (Auto) (1.2-4.9) X10*3/uL [place] # (Auto) (0.1-1.2) X10*3/uL Eos # (Auto) (0.0-0.4) X10*3/uL Baso # (Auto) (0.0-0.2) X10*3/uL Abs Immat Gran (auto) (0.00-0.03) X10*3/uL Absolute Neuts (auto) (2.0-8.3) x10*3/uL Absolute Nucleated RBC (0.0-0.012) X10*3/uL Nucleated RBC % (auto) (0.0-0.2) /100WBC PT 20.7 H (10.0-13.1) SEC INR 1.8 H (0.9-1.1) Sodium (135-145) mmol/L Potassium (3.3-5.1) mmol/L Chloride (96-108) mmol/L Carbon Dioxide (22-29) mmol/L Anion Gap (12-20) BUN (9-16) mg/dL Creatinine (0.5-1.4) mg/dL Estim Creat Clear Calc Estimated GFR Random Glucose (60-115) mg/dL Calcium (8.4-10.2) mg/dL Total Bilirubin Cancelled (0.0-1.0) mg/dL Direct Bilirubin Cancelled (0.0-0.5) mg/dL AST Cancelled (5-31) U/L ALT Cancelled (0-31) U/L Alkaline Phosphatase Cancelled (39-117) U/L Troponin I High Sens (<3.5-17.0) ng/L Total Protein Cancelled (6.5-8.0) g/dL Albumin Cancelled (3.5-5.0) g/dL COVID-19 (SUZANNE) Negative (Negative) COVID-19 Clin Com See Note Independent Interpretation I performed an independent interpretation of an: EKG Interpretation: Atrial fibrillation with heart rate 107 beats per minute no acute ST-T changes no acute ischemia L via Discharge Plan Discharge Clinical Impression: Syncope, Atrial fibrillation Patient Disposition: Admitted As Inpatient
[2022-08-24 20:23] LABS: MANUAL DIFF FLAG NO
[2022-08-24 20:24] LABS: Basophils Percent Auto 0.4 % (0-2); Eosinophils Absolute Auto 0.1 X10*3/uL (0.0-0.4); Eosinophils Percent Auto 0.8 % (0-4); Hematocrit 40.5 % (37.0-47.0); Hemoglobin 13.3 g/dl (12.0-16.0); Imm Gran Abs Auto 0.03 X10*3/uL (0.00-0.03); Imm Gran Pct Auto 0.4 % (0.0-0.4); Lymphocytes Absolute Auto 1.7 X10*3/uL (1.2-4.9); Lymphocytes Percent Auto 20.9 % (20-40); Mean Corpuscular HGB Conc 32.8 g/dl (31.0-35.0); Mean Corpuscular Hemoglobin 28.5 pg (27.0-33.0); Mean Corpuscular Volume 86.9 fL (80.0-98.0); Mean Platelet Volume 11.1 fL (9.4-12.3); Monocytes Absolute Auto 0.7 X10*3/uL (0.1-1.2); Monocytes Percent Auto 8.6 % (2-11); Neutrophils Absolute Auto 5.5 x10*3/uL (2.0-8.3); Neutrophils Percent Auto 68.9 % (45-73); Platelet Count 183 X10*3/uL (160-400); Red Blood Count 4.66 X10*6/uL (4.20-5.50); Red Cell Distribution Width 15.1 % (11.0-16.0)
[2022-08-24 20:31] LABS: INTERNATIONAL NORM RATIO 1.8 (0.9-1.1); Prothrombin Time 20.7 SEC (10.0-13.1)
[2022-08-24 20:43] LABS: Troponin-I High Sensitivity 47.8 ng/L (<3.5-17.0)
[2022-08-24 20:48] LABS: Alanine Aminotransferase 37 U/L (0-31); Albumin Level 3.4 g/dL (3.5-5.0); Alkaline Phosphatase 97 U/L (39-117); Anion Gap 20 (12-20); Aspartate Amino Transferase 42 U/L (5-31); Bilirubin Direct 0.8 mg/dL (0.0-0.5); Bilirubin Total 2.1 mg/dL (0.0-1.0); Blood Urea Nitrogen 16 mg/dL (9-16); Carbon Dioxide 30 mmol/L (22-29); Chloride 95 mmol/L (96-108); Creatinine Clr Calc Pharmacy 44.5; Estimated Glomerular Filt Rate > 60; Glucose Random 147 mg/dL (60-115); Potassium 3.6 mmol/L (3.3-5.1); Sodium 141 mmol/L (135-145); Total Protein 6.2 g/dL (6.5-8.0)
[2022-08-24 21:03] LABS: COVID-19 Test Negative (Negative); IDNOW Serial# 6674DD1D
--- NOTE | 2022-08-24 22:19 | P.HPHOSP_ITS ---
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 As per the granddaughter at bedside, she was giving but to the patient while she was sitting on chair. Suddenly the patient passed out and became unresponsive for about couple of minutes. She called EMS and by the time EMS arrived patient was back to baseline. No facial droop, drooling of saliva, jerking movement of extremities, eye rolling, focal weakness, tongue bite, urinary or bowel incontinence. Patient is a poor historian and does not recall the events. Denies chest discomfort, dizziness, lightheadedness prior to the episode. Patient is getting physical therapy for the stroke that happened in t he week of July. Patient denies any acute complaints at this time. in the emergency department, CT head without any acute events Review of Systems Review of Systems: Yes Unobtainable due to mental condition [facility] Medical History Acute right MCA stroke Atrial fibrillation HTN (hypertension) Right eye symptoms 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 Pertinent family history: Not significant Surgical History H/O carotid endarterectomy Social History Smoked in Last 30 Days: No Use of substances other than those prescribed or required for medical reasons: No Advance Directives: No Advance Directives Information Provided: No Meds Allergies Allergy/AdvReac Type Severity Reaction Status Date / Time hydrochlorothiazide Allergy Mild UNKNOWN Verified 08/24/22 19:41 [Hydrochlorothiazide] penicillin G [Penicillin G] Allergy Mild UNKNOWN Verified 08/24/22 19:41 penicillin V Allergy Unknown Unknown Verified 08/24/22 19:41 chlorthalidone AdvReac Severe hyponatremi Verified 08/24/22 19:41 [CHLORTHALIDONE] a Active Medications: Current Medications Pharmacy Consult (Consult Rx Perform Med Rec) 1 each MISCELLANE ONCE PRN PRN Reason: Consult order Home Medications Medication Instructions Recorded Confirmed Last Taken Type apixaban 5 mg tablet (Eliquis) 1 tab PO BID 08/24/22 08/24/22 Unknown History aspirin 81 mg tablet,delayed 1 tab PO QAM 08/24/22 08/24/22 Unknown History release atorvastatin 40 mg tablet 1 tab PO DAILY 08/24/22 08/24/22 Unknown History diltiazem HCl 60 mg tablet 0.5 tab PO Q6H 08/24/22 08/24/22 Unknown History doxazosin 2 mg tablet 1 tab PO DAILY 08/24/22 08/24/22 Unknown History metoprolol tartrate 100 mg tablet 1 tab PO BID 08/24/22 08/24/22 Unknown History Physical Exam Vital Signs and Narrative: Vital Signs: Last Vital Signs Pulse 103 H 08/24/22 19:32 Resp 16 08/24/22 19:32 BP 117/76 08/24/22 19:32 O2 Del Method 08/24/22 19:32 BMI result Body Mass Index 21.5 elderly female lying in bed in no distress Neck supple, no JVD Irregularly irregular, S1-S2 heard Regular breath sounds bilaterally, no wheezing or crackles appreciated Abdomen soft nontender, no guarding, no rigidity Patient is awake, alert and oriented to self and place, disoriented to time and person; no acute motor deficits Psych: Normal mood No pedal edema Results Labs 08/24/22 20:18 08/24/22 20:18 Labs: Laboratory Results - last 24 hr 08/24/22 08/24/22 08/24/22 20:18 20:18 20:18 MCV 86.9 MCH 28.5 MCHC 32.8 RDW 15.1 Plt Count 183 MPV 11.1 Immature Gran % (Auto) 0.4 Neut % (Auto) 68.9 Lymph % (Auto) 20.9 [place] % (Auto) 8.6 Eos % (Auto) 0.8 Baso % (Auto) 0.4 Lymph # (Auto) 1.7 [place] # (Auto) 0.7 Eos # (Auto) 0.1 Baso # (Auto) 0.0 Abs Immat Gran (auto) 0.03 Absolute Neuts (auto) 5.5 Absolute Nucleated RBC 0.000 Nucleated RBC % (auto) 0.0 PT INR Anion Gap 20 Estim Creat Clear Calc 44.5 Estimated GFR > 60 Random Glucose 147 H Calcium 9.0 Total Bilirubin 2.1 H Direct Bilirubin 0.8 H AST 42 H ALT 37 H Alkaline Phosphatase 97 Troponin I High Sens 47.8 H Total Protein 6.2 L Albumin 3.4 L COVID-19 (SU[facility]ANNE) COVID-19 Clin Com 08/24/22 08/24/22 08/24/22 20:18 20:18 20:34 MCV MCH MCHC RDW Plt Count MPV Immature Gran % (Auto) Neut % (Auto) Lymph % (Auto) [place] % (Auto) Eos % (Auto) Baso % (Auto) Lymph # (Auto) [place] # (Auto) Eos # (Auto) Baso # (Auto) Abs Immat Gran (auto) Absolute Neuts (auto) Absolute Nucleated RBC Nucleated RBC % (auto) PT 20.7 H INR 1.8 H Anion Gap Estim Creat Clear Calc Estimated GFR Random Glucose Calcium Total Bilirubin Cancelled Direct Bilirubin Cancelled AST Cancelled ALT Cancelled Alkaline Phosphatase Cancelled Troponin I High Sens Total Protein Cancelled Albumin Cancelled COVID-19 (SUZANNE) Negative COVID-19 Clin Com See Note Assessment and Plan (1) Syncope: Status: Acute Plan This is a 81-year-old female with pertinent history of essential hypertension, 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 #. questionable syncope: Unclear etiology. Obtain orthostatic vital signs. Will keep patient on monitoring and evaluation advisor to rule out cardiogenic etiology. #. paroxysmal atrial fibrillation on Eliquis. Continue rate-controlling agents #. essential hypertension: Continue home anti hypertensives #. right MCA stroke: On antiplatelet agent and statin. Continue physical therapy while in the hospital #. elevated troponin: Likely due to increased demand. No chest pain. Repeat troponin Med rec pending DVT prophylaxis: Eliquis Full code . Discussed with granddaughter at bedside Cardiac diet Time Spent With Patient Time: Total time managing care of this patient today ____ minutes. Quality Stroke Does the patient have a stroke diagnosis?: No VTE Prior VTE?: No VTE Risk Level:: Medical - moderate - high VTE Device Contraindication: Treatment Not Indicated VTE Drug Contraindication: N/A - Med Ordered
--- NOTE | 2022-08-24 22:26 | PC.NURSE ---
med rec performed by this rn. Dr Leggett made aware. pt home pct at bedside. pt resting on back at this time
[2022-08-24 23:19] VITALS: O2SAT 94
[2022-08-24 23:49] VITALS: BP 107/62; PULSE 107; RESP 15; O2SAT 99
[2022-08-25] VITALS (9 sets, daily range): BP systolic 98–168; BP diastolic 54–108; PULSE 67–113; RESP 18–20; TEMP 36.1–37.1; O2SAT 92–99; BMI 20.4
--- NOTE | 2022-08-25 00:28 | PC.NURSE ---
This RN at bedside attempting IV access. Family asking why and if an IV is necessary as pt is sleeping, resting comfortably at this time. This RN explaining that nothing was ordered IV however since she is being admitted, the provider ordered one. Family refusing at this time. Primary RN Pamela aware.
--- NOTE | 2022-08-25 01:32 | PC.NURSE ---
nurse to nurse report given to kaya. pt comfortable on back at this time. pt granddaughter present at bedside at this time
--- NOTE | 2022-08-25 02:53 | PC.NURSE ---
Pt arrived from the ED per stretcher, alert, w/ pt's granddaughter, ux developer designer called to assist, pt is oriented x2, forgetful, most of the questions were answered by the granddaughter, denies any pain, west cath noted intact to urine bag with foul smelling yellow and cloudy urine, Af 90s-100 in tele, instructed to use call roberts with needs, bed alarm on, IV inserted aseptically on the rt forearm g 20, pt complied and tolerated.
[2022-08-25 06:05] LABS: MANUAL DIFF FLAG NO
[2022-08-25 06:08] LABS: Basophils Percent Auto 0.6 % (0-2); Eosinophils Absolute Auto 0.1 X10*3/uL (0.0-0.4); Eosinophils Percent Auto 0.8 % (0-4); Hematocrit 35.8 % (37.0-47.0); Hemoglobin 11.6 g/dl (12.0-16.0); Imm Gran Abs Auto 0.02 X10*3/uL (0.00-0.03); Imm Gran Pct Auto 0.3 % (0.0-0.4); Lymphocytes Absolute Auto 1.7 X10*3/uL (1.2-4.9); Lymphocytes Percent Auto 26.8 % (20-40); Mean Corpuscular HGB Conc 32.4 g/dl (31.0-35.0); Mean Corpuscular Hemoglobin 28.9 pg (27.0-33.0); Mean Corpuscular Volume 89.3 fL (80.0-98.0); Mean Platelet Volume 11.8 fL (9.4-12.3); Monocytes Absolute Auto 0.7 X10*3/uL (0.1-1.2); Monocytes Percent Auto 10.5 % (2-11); Neutrophils Absolute Auto 3.8 x10*3/uL (2.0-8.3); Platelet Count 149 X10*3/uL (160-400); Red Blood Count 4.01 X10*6/uL (4.20-5.50); Red Cell Distribution Width 14.9 % (11.0-16.0); White Blood Count 6.2 X10*3/uL (4.8-10.8)
[2022-08-25 06:26] LABS: Troponin-I High Sensitivity 41.1 ng/L (<3.5-17.0)
[2022-08-25 06:43] LABS: Anion Gap 16 (12-20); Blood Urea Nitrogen 18 mg/dL (9-16); Calcium 8.3 mg/dL (8.4-10.2); Carbon Dioxide 28 mmol/L (22-29); Chloride 98 mmol/L (96-108); Creatinine Clr Calc Pharmacy 54.1; Estimated Glomerular Filt Rate > 60; Glucose Random 92 mg/dL (60-115); Potassium 3.4 mmol/L (3.3-5.1); Sodium 139 mmol/L (135-145)
--- NOTE | 2022-08-25 08:37 | MHC.CM.PN ---
CM spoke with Patient's Granddaughter/Isabel @[phone] and addressed ODELL. Patient lives in an apartment with her Granddaughter/Soy JORDAN(40 hours/week)/Isabel and she uses a walker to assist with mobility. Home/resume said services is the goal and CM has initiated and will follow for dc planning. Patient has received no Covid vax and her PCP is Dr. Oniel Antunez.
[2022-08-25] MEDS: dilTIAZem HCL 30 MG TABLET PO ×3 (09:19→20:04)
[2022-08-25] MEDS: Atorvastatin Calcium 40 MG TABLET PO (09:19)
[2022-08-25] MEDS: Aspirin Enteric Coated 81 MG TABLET.DR PO (09:20)
[2022-08-25] MEDS: Doxazosin Mesylate 2 MG TABLET PO (09:20)
[2022-08-25] MEDS: Metoprolol Tartrate 100 MG TABLET PO ×2 (09:20→20:04)
[2022-08-25] MEDS: Apixaban 5 MG TABLET PO ×2 (09:20→20:04)
[2022-08-25] MEDS: 0.9 % Sodium Chloride Flush 3 ML SYRINGE IVFLUSH ×3 (09:20→20:05)
--- NOTE | 2022-08-25 09:34 | PHA.MEDREC ---
Pharmacy Consult ? Medication Reconciliation Pharmacy has completed the medication reconciliation.
--- NOTE | 2022-08-25 11:07 | PM.NEUROCN ---
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 Apparently yesterday she was sitting when she became unresponsive and passed out. There was no convulsion. It lasted for few seconds to a minute or so and then she was okay. Couple of weeks ago she was at therapy and was walking when something happened to her she held her belly hunched over and almost fell but did not fall or pass out. Family stated that her memory was good. Review of Systems Review of Systems: No recent cold or flu-like illness or complain of headaches PMF[facility] Past Medical History Medical History Acute right MCA stroke Atrial fibrillation HTN (hypertension) Right eye symptoms 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 Surgical History Surgical History H/O carotid endarterectomy Social History Social History Household Members: Family and Caregiver Housing: Apartment Do you presently have visiting nurse or other home services: Yes Patient Tobacco Use Status: Never used Tobacco service: No Current occupational status: disabled Meds Allergies Allergy/AdvReac Type Severity Reaction Status Date / Time hydrochlorothiazide Allergy Mild UNKNOWN Verified 08/24/22 19:41 [Hydrochlorothiazide] penicillin G [Penicillin G] Allergy Mild UNKNOWN Verified 08/24/22 19:41 penicillin V Allergy Unknown Unknown Verified 08/24/22 19:41 chlorthalidone AdvReac Severe hyponatremi Verified 08/24/22 19:41 [CHLORTHALIDONE] a Active Medications: Current Medications Acetaminophen (Acetaminophen 325 Mg Tablet) 650 mg PO Q6H PRN PRN Reason: Pain, Mild (Pain Scale 1-3) Apixaban (Apixaban 5 Mg Tablet) 5 mg PO BID RHIANNON Last Admin: 08/25/22 09:20 Dose: 5 mg Aspirin (Aspirin Enteric Coated 81 Mg Tablet.) 81 mg PO DAILY [facility] Last Admin: 08/25/22 09:20 Dose: 81 mg Atorvastatin Calcium (Atorvastatin Calcium 40 Mg Tablet) 40 mg PO DAILY [facility] Last Admin: 08/25/22 09:19 Dose: 40 mg Diltiazem HCl (Diltiazem Hcl 30 Mg Tablet) 30 mg PO Q6H [facility]; Protocol Last Admin: 08/25/22 09:19 Dose: 30 mg Doxazosin Mesylate (Doxazosin Mesylate 2 Mg Tablet) 2 mg PO DAILY [facility]; Protocol Last Admin: 08/25/22 09:20 Dose: 2 mg Melatonin (Melatonin 3 Mg Tablet) 6 mg PO BEDTIME PRN PRN Reason: Insomnia Metoprolol Tartrate (Metoprolol Tartrate 100 Mg Tablet) 100 mg PO BID [facility]; Protocol Last Admin: 08/25/22 09:20 Dose: 100 mg Ondansetron HCl (Ondansetron Hcl 4 Mg/2 Ml Vial) 4 mg IVPUSH Q8H PRN PRN Reason: Nausea and Vomiting Pharmacy Consult (Consult Rx Perform Med Rec) 1 each MISCELLANE ONCE PRN PRN Reason: Consult order Sodium Chloride (0.9 % Sodium Chloride Flush 3 Ml Syringe) 3 ml IVFLUSH QSHIFT [facility] Last Admin: 08/25/22 09:20 Dose: 3 ml Home Medications Medication Instructions Recorded Confirmed Last Taken Type apixaban 5 mg tablet (Eliquis) 1 tab PO BID 08/24/22 08/24/22 Unknown History aspirin 81 mg tablet,delayed 1 tab PO QAM 08/24/22 08/24/22 Unknown History release atorvastatin 40 mg tablet 1 tab PO DAILY 08/24/22 08/24/22 Unknown History diltiazem HCl 60 mg tablet 0.5 tab PO Q6H 08/24/22 08/24/22 Unknown History doxazosin 2 mg tablet 1 tab PO DAILY 08/24/22 08/24/22 Unknown History metoprolol tartrate 100 mg tablet 1 tab PO BID 08/24/22 08/24/22 Unknown History Physical Exam Vital Signs: Vital Signs: Last Vital Signs Temp 96.9 F 08/25/22 07:29 Pulse 111 H 08/25/22 07:47 Resp 20 08/25/22 07:29 BP 130/66 08/25/22 07:47 Pulse Ox 99 08/25/22 07:29 O2 Del Method 08/25/22 07:29 O2 Flow Rate 2 08/25/22 07:29 Oxygen Flow Rate 2 08/24/22 23:19 BMI result Body Mass Index 20.4 Neuro: Other: Left eye was opaque. Right eye visual dimas were okay. She was alert and awake with normal spontaneity of speech fluency comprehension and affect. She was following commands. She recognize all family members in her room. Face seems symmetrical. Left hemiparesis. The might also be left hemianopsia. Results Labs 08/25/22 05:36 08/25/22 05:36 Labs: Short CBC 08/24/22 08/25/22 Range/Units 20:18 05:36 WBC 8.0 6.2 (4.8-10.8) X10*3/uL Hgb 13.3 11.6 L (12.0-16.0) g/dl Hct 40.5 35.8 L (37.0-47.0) % Plt Count 183 149 L (160-400) X10*3/uL BMP 08/24/22 08/25/22 20:18 05:36 Sodium 141 139 Potassium 3.6 3.4 Chloride 95 L 98 Carbon Dioxide 30 H 28 BUN 16 18 H Creatinine 0.86 0.69 Calcium 9.0 8.3 L D Liver Function 08/24/22 08/24/22 Range/Units 20:18 20:18 Total Bilirubin 2.1 H Cancelled (0.0-1.0) mg/dL Direct Bilirubin 0.8 H Cancelled (0.0-0.5) mg/dL AST 42 H Cancelled (5-31) U/L ALT 37 H Cancelled (0-31) U/L Alkaline Phosphatase 97 Cancelled (39-117) U/L Albumin 3.4 L Cancelled (3.5-5.0) g/dL Noncontrast head CT revealed a large right middle cerebral artery chronic infarction extensive microvascular ischemic changes and some atrophy. CTA in July revealed right M1 occlusion. Assessment and Plan (1) Syncope: Status: Acute 81 years old woman with large right middle cerebral artery infarct causing left hemiparesis in July associated with M1 occlusion. This time she was brought to hospital after an episode of unresponsiveness. She was back to baseline. This episode could have been a seizure and she was at high risk for seizure disorder. If possible an EEG should be done. If EEGs was not possible and there was no other cause of syncope, I would consider starting her on an anti epileptic such as levetiracetam 250 mg twice a day. Time Spent With Patient Time: Total time managing care of this patient today ____ minutes. Procedures Date of Service Date of Service: 08/25/22
--- NOTE | 2022-08-25 12:18 | HO.PM.IMPN ---
Subjective Subjective Date of Service: 08/25/22 Interval History: All info via industrial workers; no events since admission Review of Systems Denies chest pain Denies shortness of breath Denies nausea vomiting diarrhea Physical Exam Vital Signs: Vital Signs: Last Vital Signs Temp 97.8 F 08/25/22 11:13 Pulse 74 08/25/22 11:13 Resp 20 08/25/22 11:13 BP 98/54 L 08/25/22 11:13 Pulse Ox 96 08/25/22 11:13 O2 Del Method 08/25/22 11:13 O2 Flow Rate 2 08/25/22 07:29 Oxygen Flow Rate 2 08/24/22 23:19 BMI result Body Mass Index 20.4 Const: Other: Awake alert no acute distress Resp: Other: Clear to auscultation bilaterally no rales rhonchi or wheezes Cardio: Other: No S4; positive S1-S2; no S3 murmurs rubs or gallops GI: Other: Soft nontender nondistended normoactive bowel sounds Neuro: Other: Left hemiparesis Extrem: Other: No edema bilaterally Objective Data Active Medications Acetaminophen (Acetaminophen 325 Mg Tablet) 650 mg PO Q6H PRN PRN Reason: Pain, Mild (Pain Scale 1-3) Apixaban (Apixaban 5 Mg Tablet) 5 mg PO BID COUNTS INCLUDE 234 BEDS AT THE [facility] Last Admin: 08/25/22 09:20 Dose: 5 mg Documented By: JENSEN Aspirin (Aspirin Enteric Coated 81 Mg Tablet.) 81 mg PO DAILY COUNTS INCLUDE 234 BEDS AT THE [facility] Last Admin: 08/25/22 09:20 Dose: 81 mg Documented By: JENSEN Atorvastatin Calcium (Atorvastatin Calcium 40 Mg Tablet) 40 mg PO DAILY COUNTS INCLUDE 234 BEDS AT THE [facility] Last Admin: 08/25/22 09:19 Dose: 40 mg Documented By: JENSEN Diltiazem HCl (Diltiazem Hcl 30 Mg Tablet) 30 mg PO Q6H COUNTS INCLUDE 234 BEDS AT THE [facility]; Protocol Last Admin: 08/25/22 09:19 Dose: 30 mg Documented By: JENSEN Doxazosin Mesylate (Doxazosin Mesylate 2 Mg Tablet) 2 mg PO DAILY COUNTS INCLUDE 234 BEDS AT THE [facility]; Protocol Last Admin: 08/25/22 09:20 Dose: 2 mg Documented By: JENSEN Melatonin (Melatonin 3 Mg Tablet) 6 mg PO BEDTIME PRN PRN Reason: Insomnia Metoprolol Tartrate (Metoprolol Tartrate 100 Mg Tablet) 100 mg PO BID COUNTS INCLUDE 234 BEDS AT THE [facility]; Protocol Last Admin: 08/25/22 09:20 Dose: 100 mg Documented By: JENSEN Ondansetron HCl (Ondansetron Hcl 4 Mg/2 Ml Vial) 4 mg IVPUSH Q8H PRN PRN Reason: Nausea and Vomiting Pharmacy Consult (Consult Rx Perform Med Rec) 1 each MISCELLANE ONCE PRN PRN Reason: Consult order Sodium Chloride (0.9 % Sodium Chloride Flush 3 Ml Syringe) 3 ml IVFLUSH QSHIFT COUNTS INCLUDE 234 BEDS AT THE [facility] Last Admin: 08/25/22 09:20 Dose: 3 ml Documented By: JENSEN Labs 08/25/22 05:36 08/25/22 05:36 Labs: Laboratory Results - last 24 hr 08/24/22 08/24/22 08/24/22 20:18 20:18 20:18 MCV 86.9 MCH 28.5 MCHC 32.8 RDW 15.1 Plt Count 183 MPV 11.1 Immature Gran % (Auto) 0.4 Neut % (Auto) 68.9 Lymph % (Auto) 20.9 [place] % (Auto) 8.6 Eos % (Auto) 0.8 Baso % (Auto) 0.4 Lymph # (Auto) 1.7 [place] # (Auto) 0.7 Eos # (Auto) 0.1 Baso # (Auto) 0.0 Abs Immat Gran (auto) 0.03 Absolute Neuts (auto) 5.5 Absolute Nucleated RBC 0.000 Nucleated RBC % (auto) 0.0 PT INR Anion Gap 20 Estim Creat Clear Calc 44.5 Estimated GFR > 60 Random Glucose 147 H Calcium 9.0 Total Bilirubin 2.1 H Direct Bilirubin 0.8 H AST 42 H ALT 37 H Alkaline Phosphatase 97 Troponin I High Sens 47.8 H Total Protein 6.2 L Albumin 3.4 L COVID-19 ([facility]) COVID-19 Clin Com 08/24/22 08/24/22 08/24/22 20:18 20:18 20:34 MCV MCH MCHC RDW Plt Count MPV Immature Gran % (Auto) Neut % (Auto) Lymph % (Auto) [place] % (Auto) Eos % (Auto) Baso % (Auto) Lymph # (Auto) [place] # (Auto) Eos # (Auto) Baso # (Auto) Abs Immat Gran (auto) Absolute Neuts (auto) Absolute Nucleated RBC Nucleated RBC % (auto) PT 20.7 H INR 1.8 H Anion Gap Estim Creat Clear Calc Estimated GFR Random Glucose Calcium Total Bilirubin Cancelled Direct Bilirubin Cancelled AST Cancelled ALT Cancelled Alkaline Phosphatase Cancelled Troponin I High Sens Total Protein Cancelled Albumin Cancelled COVID-19 ([facility]) Negative COVID-19 Clin Com See Note 08/25/22 08/25/22 08/25/22 05:36 05:36 05:36 MCV 89.3 MCH 28.9 MCHC 32.4 RDW 14.9 Plt Count 149 L MPV 11.8 Immature Gran % (Auto) 0.3 Neut % (Auto) 61.0 Lymph % (Auto) 26.8 [place] % (Auto) 10.5 Eos % (Auto) 0.8 Baso % (Auto) 0.6 Lymph # (Auto) 1.7 [place] # (Auto) 0.7 Eos # (Auto) 0.1 Baso # (Auto) 0.0 Abs Immat Gran (auto) 0.02 Absolute Neuts (auto) 3.8 Absolute Nucleated RBC 0.000 Nucleated RBC % (auto) 0.0 PT INR Anion Gap 16 Estim Creat Clear Calc 54.1 Estimated GFR > 60 Random Glucose 92 Calcium 8.3 L D Total Bilirubin Direct Bilirubin AST ALT Alkaline Phosphatase Troponin I High Sens 41.1 H Total Protein Albumin COVID-19 ([facility]) COVID-19 Clin Com Assessment and Plan (1) Syncope: Status: Acute (2) Paroxysmal A-fib: Status: Acute (3) HTN (hypertension): Status: Acute (4) Acute right MCA stroke: Status: Acute Plan This is a 81-year-old female with pertinent history of essential hypertension, 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 Granddaughter describes mild abdominal pain and nausea prior to event; states event lasted only minutes and then grandmother returned to baseline 1. Vasovagal syncope -monitor overnight AFib with controlled ventricular rate -check EEG to rule out seizure -as per Neurology; history of large MCA stroke status post embolectomy .... Keppra 250 b.i.d. 2.Paroxysmal atrial fibrillation -continue Eliquis -acceptable rate control on calcium channel she/beta-she -adjust as indicated 3.Hypertension -acceptable control on current therapies -adjust as indicated 4.Right MCA stroke -Eliquis/ASA/statin Eliquis Full code . Requires ongoing hospitalization for continued monitoring in completing his seizure workup Time Spent With Patient Time: Total time managing care of this patient today ____ minutes. Quality Stroke Does the patient have a stroke diagnosis?: No VTE Prior VTE?: No VTE Risk Level:: Medical - moderate - high VTE Device Contraindication: Treatment Not Indicated VTE Drug Contraindication: N/A - Med Ordered
[2022-08-25] MEDS: levETIRAcetam 250 MG TABLET PO ×2 (13:26→20:04)
--- NOTE | 2022-08-25 14:50 | PC.NURSE ---
Patient returns from EEG at this time, per support service tech could not complete test because hair was knotted. Patient's hair combed out and prepped to attempt testing again tomorrow. Dr. Monaco aware.
[2022-08-25] MEDS: Acetaminophen 325 MG TABLET 650 MG PO (20:03)
--- NOTE | 2022-08-26 | EEG_ITS ---
This is a 16-channel EEG with an EKG lead. The patient is reported awake but unable to follow commands during the tracing. Background EEG rhythm is slow to medium amplitude, mixed theta beta with no obvious asymmetry and paroxysmal tendency. Photic stimulation does not produce any significant driving. Hyperventilation is not performed. Cardiac lead revealed irregularly irregular rhythm. No definite sharp waves, spikes, or paroxysmal tendencies noted. IMPRESSION: 1. Generalized slowing with no evidence of seizure disorder. 2. Irregularly irregular cardiac rhythm. MD JHOAN Renee/MAR / [id number]
[2022-08-26 04:00] VITALS: BP 138/60; PULSE 86; RESP 20; TEMP 37.1; O2SAT 98
[2022-08-26 07:45] VITALS: BP 121/60; PULSE 99; RESP 12; TEMP 36.1; O2SAT 100
[2022-08-26] MEDS: 0.9 % Sodium Chloride Flush 3 ML SYRINGE IVFLUSH ×3 (09:20→21:27)
[2022-08-26] MEDS: Metoprolol Tartrate 100 MG TABLET PO ×2 (09:20→21:26)
[2022-08-26] MEDS: levETIRAcetam 250 MG TABLET PO ×2 (09:20→21:26)
[2022-08-26] MEDS: Apixaban 5 MG TABLET PO ×2 (09:20→21:27)
[2022-08-26] MEDS: Doxazosin Mesylate 2 MG TABLET PO (09:20)
[2022-08-26] MEDS: Aspirin Enteric Coated 81 MG TABLET.DR PO (09:20)
[2022-08-26] MEDS: dilTIAZem HCL 30 MG TABLET PO ×3 (09:20→21:26)
[2022-08-26] MEDS: Atorvastatin Calcium 40 MG TABLET PO (09:20)
[2022-08-26 12:00] VITALS: BP 100/60; PULSE 84; RESP 16; TEMP 36.3; O2SAT 94
--- NOTE | 2022-08-26 13:57 | MHC.CM.PN ---
per rounds pt might be dcd today plan remanis home with manas
--- NOTE | 2022-08-26 14:34 | P.PNIM_ITS ---
Subjective Subjective Date of Service: 08/26/22 Interval History: No seizure activity/vagal episode since admission Review of Systems Denies chest pain Denies shortness of breath Denies nausea vomiting diarrhea Physical Exam Vital Signs: Vital Signs: Last Vital Signs Temp 97.3 F 08/26/22 12:00 Pulse 84 08/26/22 12:00 Resp 16 08/26/22 12:00 BP 100/60 08/26/22 12:00 Pulse Ox 94 08/26/22 12:00 O2 Del Method 08/26/22 12:00 O2 Flow Rate 2 08/26/22 12:00 Oxygen Flow Rate 2 08/24/22 23:19 BMI result Body Mass Index 20.4 Const: Other: Awake alert no acute distress Resp: Other: Clear to auscultation bilaterally no rales rhonchi or wheezes Cardio: Other: No S4; positive S1-S2; no S3 murmurs rubs or gallops GI: Other: Soft nontender nondistended normoactive bowel sounds Neuro: Other: Left hemiparesis Extrem: Other: No edema bilaterally Objective Data Active Medications Acetaminophen (Acetaminophen 325 Mg Tablet) 650 mg PO Q6H PRN PRN Reason: Pain, Mild (Pain Scale 1-3) Last Admin: 08/25/22 20:03 Dose: 650 mg Documented By: NBA Apixaban (Apixaban 5 Mg Tablet) 5 mg PO BID [facility] Last Admin: 08/26/22 09:20 Dose: 5 mg Documented By: RADHA Aspirin (Aspirin Enteric Coated 81 Mg Tablet.) 81 mg PO DAILY [facility] Last Admin: 08/26/22 09:20 Dose: 81 mg Documented By: RADHA Atorvastatin Calcium (Atorvastatin Calcium 40 Mg Tablet) 40 mg PO DAILY [facility] Last Admin: 08/26/22 09:20 Dose: 40 mg Documented By: RADHA Diltiazem HCl (Diltiazem Hcl 30 Mg Tablet) 30 mg PO Q6H [facility]; Protocol Last Admin: 08/26/22 13:59 Dose: 30 mg Documented By: RADHA Doxazosin Mesylate (Doxazosin Mesylate 2 Mg Tablet) 2 mg PO DAILY [facility]; Protocol Last Admin: 08/26/22 09:20 Dose: 2 mg Documented By: RADHA Levetiracetam (Levetiracetam 250 Mg Tablet) 250 mg PO BID [facility] Last Admin: 08/26/22 09:20 Dose: 250 mg Documented By: RADHA Melatonin (Melatonin 3 Mg Tablet) 6 mg PO BEDTIME PRN PRN Reason: Insomnia Metoprolol Tartrate (Metoprolol Tartrate 100 Mg Tablet) 100 mg PO BID [facility]; P rotocol Last Admin: 08/26/22 09:20 Dose: 100 mg Documented By: RADHA Ondansetron HCl (Ondansetron Hcl 4 Mg/2 Ml Vial) 4 mg IVPUSH Q8H PRN PRN Reason: Nausea and Vomiting Pharmacy Consult (Consult Rx Perform Med Rec) 1 each MISCELLANE ONCE PRN PRN Reason: Consult order Sodium Chloride (0.9 % Sodium Chloride Flush 3 Ml Syringe) 3 ml IVFLUSH QSHIFT [facility] Last Admin: 08/26/22 14:00 Dose: 3 ml Documented By: RADHA Labs 08/25/22 05:36 08/25/22 05:36 Assessment and Plan (1) Syncope: Status: Acute (2) Paroxysmal A-fib: Status: Acute (3) HTN (hypertension): Status: Acute (4) Acute right MCA stroke: Status: Acute Plan This is a 81-year-old female with pertinent history of essential hypertension, 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 Granddaughter describes mild abdominal pain and nausea prior to event; states event lasted only minutes and then grandmother returned to baseline 1. Vasovagal syncope -monitor overnight AFib with controlled ventricular rate -EEG ; await reading -as per Neurology; history of large MCA stroke status post embolectomy .... Keppra 250 b.i.d. 2.Paroxysmal atrial fibrillation -continue Eliquis -acceptable rate control on calcium channel she/beta-she -adjust as indicated 3.Hypertension -acceptable control on current therapies -adjust as indicated 4.Right MCA stroke -Eliquis/ASA/statin Eliquis Full code . Requires ongoing hospitalization for continued monitoring in completing his seizure workup Time Spent With Patient Time: Total time managing care of this patient today ____ minutes. Quality Stroke Does the patient have a stroke diagnosis?: No VTE Prior VTE?: No VTE Risk Level:: Medical - moderate - high VTE Device Contraindication: Treatment Not Indicated VTE Drug Contraindication: N/A - Med Ordered
[2022-08-26 15:21] VITALS: BP 97/55; PULSE 60; RESP 17; TEMP 37.2; O2SAT 100
[2022-08-26 19:43] VITALS: BP 129/70; PULSE 80; RESP 18; TEMP 37; O2SAT 98
[2022-08-26 23:36] VITALS: BP 115/56; PULSE 73; RESP 16; TEMP 36.4; O2SAT 100
[2022-08-27 04:00] VITALS: BP 124/85; PULSE 114; RESP 18; TEMP 36.6; O2SAT 99
[2022-08-27 07:15] VITALS: BP 117/61; PULSE 75; RESP 12; TEMP 37.2; O2SAT 100
[2022-08-27] MEDS: Metoprolol Tartrate 100 MG TABLET PO ×2 (09:02→19:53)
[2022-08-27] MEDS: Doxazosin Mesylate 2 MG TABLET PO (09:02)
[2022-08-27] MEDS: Aspirin Enteric Coated 81 MG TABLET.DR PO (09:02)
[2022-08-27] MEDS: dilTIAZem HCL 30 MG TABLET PO (09:02)
[2022-08-27] MEDS: Atorvastatin Calcium 40 MG TABLET PO (09:02)
[2022-08-27] MEDS: Apixaban 5 MG TABLET PO ×2 (09:03→19:53)
[2022-08-27] MEDS: 0.9 % Sodium Chloride Flush 3 ML SYRINGE IVFLUSH ×2 (09:03→19:59)
[2022-08-27] MEDS: levETIRAcetam 250 MG TABLET PO ×2 (09:03→19:53)
--- NOTE | 2022-08-27 10:30 | PC.NURSE ---
pt Rhythm at the baseline is Afib At 0956, pt HR dropped to 40s-60s. Assessed pt- Asymptomatic At 10:11, pt had 3.0 paused. Assessed pt- Asymptomatic At 10:17, pt had 3,2 paused. Assessed pt- Asymptomatic MD notified about events. Continue to monitor
--- NOTE | 2022-08-27 11:33 | MHC.STROKE ---
Addendum entered by Emma Melendez RN 08/29/22 09:54: I ROUNDED ON THE PATIENT AND SPOKE WITH THE GREAT GRANDSON THIS MORNING. I CONFIRMED THAT SHE WAS TAKING HER PRESCRIBED MEDICINES AT HOME, HE SAID THEY HAD TO CRUSH THEM FIRST. HER APPETITE HAS BEEN INCONSISTENT AND I REFERRED HER TO THE [employer] TO EVALUATE HER CALORIE INTACT. I GOT AN UPDATE FROM THE RN BERTHA AND HE AND I ARE ALSO RECOMMENDING A SPEECH EVALUATION DUE TO HER INCONSISTENCIES WITH SWALLOW AND WILL LIKE THEIR RECOMMENDATIONS. HE WILL RECOMMEND THIS TO THE PROVIDER IN PATIENT CARE ROUNDS. Original Note: THIS PATIENT IS KNOWN TO THE STROKE SERVICE FROM 07/09/22 WHEN SHE CAME IN WITH A LARGE RIGHT MCA STROKE AND WAS TRANSFERRED TO [facility] FOR A THROMBECTOMY WHICH SHE DID RECEIVED. 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 I MET WITH THE GRANDDAUGHTER AND GRANDSON, THEY SAID SHE WENT O REHAB FOR 4 HOURS AND REFUSED TO STAY THERE. THEY TOOK HER HOME AND HAVE BEEN CARING FOR HER EVER SINCE. THEY WERE ABLE TO GET A HOSPITAL BED AND HAVE ALL THE DME ITEMS THEY NEED. I DID REINFORCE STROKE EDUCATION, AND I GAVE THEM ADDITIONAL INFORMATION TO ASSIST THEM, I ALSO GAVE THEM A SCREEN SHOT OF HER CT SCAN AND THE LOCATION OF THE STROKE AND CORRELATING SYMPTOMS. I THANKED THEM FOR THE CARE THEY PROVIDE AND ASKED IF THERE WAS ANYTHING ADDITIONAL THEY NEED. I ENCOURAGED THEM TO CONTACT ME IF THEY HAD ANY FURTHER QUESTIONS.
[2022-08-27 11:52] VITALS: BP 111/51; PULSE 62; RESP 12; TEMP 36.5; O2SAT 99
--- NOTE | 2022-08-27 12:37 | MHC.CM.PN ---
per rounds pt not ready for dc going to have an egd plan rmanins home with manas
--- NOTE | 2022-08-27 15:01 | P.PNIM_ITS ---
Subjective Subjective Date of Service: 08/27/22 Interval History: EEG reviewed; no seizure activities. Noted to have bradycardia on monitor with prolonged pauses Review of Systems Denies chest pain Denies shortness of breath Denies nausea vomiting diarrhea Physical Exam Vital Signs: Vital Signs: Last Vital Signs Temp 97.7 F 08/27/22 11:52 Pulse 62 08/27/22 11:52 Resp 12 08/27/22 11:52 BP 111/51 L 08/27/22 11:52 Pulse Ox 99 08/27/22 11:52 O2 Del Method 08/27/22 11:52 O2 Flow Rate 2 08/27/22 11:52 Oxygen Flow Rate 2 08/24/22 23:19 BMI result Body Mass Index 20.4 Const: Other: Awake alert no acute distress Resp: Other: Clear to auscultation bilaterally no rales rhonchi or wheezes Cardio: Other: No S4; positive S1-S2; no S3 murmurs rubs or gallops GI: Other: Soft nontender nondistended normoactive bowel sounds Neuro: Other: Left hemiparesis Extrem: Other: No edema bilaterally Objective Data Active Medications Acetaminophen (Acetaminophen 325 Mg Tablet) 650 mg PO Q6H PRN PRN Reason: Pain, Mild (Pain Scale 1-3) Last Admin: 08/25/22 20:03 Dose: 650 mg Apixaban (Apixaban 5 Mg Tablet) 5 mg PO BID [facility] Last Admin: 08/27/22 09:03 Dose: 5 mg Documented By: RADHA Aspirin (Aspirin Enteric Coated 81 Mg Tablet.) 81 mg PO DAILY [facility] Last Admin: 08/27/22 09:02 Dose: 81 mg Documented By: RADHA Atorvastatin Calcium (Atorvastatin Calcium 40 Mg Tablet) 40 mg PO DAILY [facility] Last Admin: 08/27/22 09:02 Dose: 40 mg Documented By: RADHA Doxazosin Mesylate (Doxazosin Mesylate 2 Mg Tablet) 2 mg PO DAILY [facility]; Protocol Last Admin: 08/27/22 09:02 Dose: 2 mg Documented By: RADHA Fluconazole (Fluconazole 100 Mg Tablet) 100 mg PO DAILY [facility] Levetiracetam (Levetiracetam 250 Mg Tablet) 250 mg PO BID [facility] Last Admin: 08/27/22 09:03 Dose: 250 mg Documented By: RADHA Melatonin (Melatonin 3 Mg Tablet) 6 mg PO BEDTIME PRN PRN Reason: Insomnia Metoprolol Tartrate (Metoprolol Tartrate 100 Mg Tablet) 100 mg PO BID [facility]; Protocol Last Admin: 08/27/22 09:02 Dose: 100 mg Documented By: RADHA Ondansetron HCl (Ondansetron Hcl 4 Mg/2 Ml Vial) 4 mg IVPUSH Q8H PRN PRN Reason: Nausea and Vomiting Pharmacy Consult (Consult Rx Perform Med Rec) 1 each MISCELLANE ONCE PRN PRN Reason: Consult order Sodium Chloride (0.9 % Sodium Chloride Flush 3 Ml Syringe) 3 ml IVFLUSH QSHIFT [facility] Last Admin: 08/27/22 09:03 Dose: 3 ml Documented By: RADHA Labs 08/25/22 05:36 08/25/22 05:36 Assessment and Plan (1) Syncope: Status: Acute (2) Paroxysmal A-fib: Status: Acute (3) HTN (hypertension): Status: Acute (4) Acute right MCA stroke: Status: Acute Plan This is a 81-year-old female with pertinent history of essential hypertension, 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 Granddaughter describes mild abdominal pain and nausea prior to event; states event lasted only minutes and then grandmother returned to baseline 1. Vasovagal syncope -monitor overnight AFib : Noted to be bradycardic with prolonged pauses -EEG without evidence of acute seizure activity; given history of large MCA stroke status post embolectomy be will continue Keppra 250 b.i.d. 2.Paroxysmal atrial fibrillation -continue Eliquis -Cardizem DC'd: Continue metoprolol and follow response of rate -cardiology consult 3.Hypertension -acceptable control on current therapies -adjust as indicated 4.Right MCA stroke -Eliquis/ASA/statin Eliquis Full code . Requires ongoing hospitalization for continued monitoring in completing his seizure workup Time Spent With Patient Time: Total time managing care of this patient today ____ minutes. Quality Stroke Does the patient have a stroke diagnosis?: No VTE Prior VTE?: No VTE Risk Level:: Medical - moderate - high VTE Device Contraindication: Treatment Not Indicated VTE Drug Contraindication: N/A - Med Ordered
[2022-08-27 15:48] VITALS: BP 133/61; PULSE 95; RESP 18; TEMP 37.1; O2SAT 97
[2022-08-27 19:23] VITALS: BP 119/56; PULSE 94; RESP 18; TEMP 37; O2SAT 97
[2022-08-27 23:06] VITALS: BP 97/59; PULSE 78; RESP 18; TEMP 37.1; O2SAT 94
[2022-08-28 03:12] VITALS: BP 125/73; PULSE 93; RESP 20; TEMP 37.1; O2SAT 98
[2022-08-28 07:30] VITALS: BP 140/70; PULSE 108; RESP 20; TEMP 36.7; O2SAT 99
[2022-08-28] MEDS: Apixaban 5 MG TABLET PO ×2 (08:49→21:46)
[2022-08-28] MEDS: levETIRAcetam 250 MG TABLET PO ×2 (08:49→21:46)
[2022-08-28] MEDS: Atorvastatin Calcium 40 MG TABLET PO (08:49)
[2022-08-28] MEDS: Fluconazole 100 MG TABLET PO (08:49)
[2022-08-28] MEDS: Doxazosin Mesylate 2 MG TABLET PO (08:49)
[2022-08-28] MEDS: Aspirin Enteric Coated 81 MG TABLET.DR PO (08:49)
[2022-08-28] MEDS: 0.9 % Sodium Chloride Flush 3 ML SYRINGE IVFLUSH ×2 (08:49→20:13)
[2022-08-28] MEDS: Metoprolol Tartrate 100 MG TABLET PO ×2 (08:50→21:46)
--- NOTE | 2022-08-28 09:41 | PM.CNCAR ---
History of Present Illness History of Present Illness Date of Service: 08/28/22 Chief complaint: Syncope Narrative: This is a cardiology consultation regarding pauses on telemetry. Patient herself does not really say much. Discussed with daughter who stated that she was recently at [facility]. Those records were reviewed. It seems that she was admitted for management of stroke with right internal carotid artery occlusion; underwent mechanical thrombectomy. It seems that she was also intubated. Then had atrial fibrillation rapid rate and respiratory failure. She was apparently on a Cardizem drip. Then orally meds were adjusted. The time of discharge, she was put on metoprolol diltiazem as well as digoxin. It seems that she is recently started on anticoagulation. Current consultation is because of pauses that the hospital is noted on telemetry. Patient herself does not have any clear cardiac symptoms. Seems very frail. Based on admission documentation, brought in for syncope. Review of Systems Review of Systems: Yes all other systems are reviewed and are negative Constitutional: Constitutional: Reports as per HPI Eyes: Eyes: Reports as per HPI ENT: Reports as per HPI Cardiovascular: Cardiovascular: Reports as per HPI, Denies acrocyanosis, Denies cool extremities, Denies chest pain, Denies leg edema, Denies lightheadedness, Denies palpitations and Denies dyspnea Respiratory: Respiratory: Reports as per HPI, Reports no additional respiratory complaints and Denies dyspnea Gastrointestinal: Gastrointestinal: Reports as per HPI and Reports no additional gastrointestinal complaints Genitourinary: Genitourinary: Reports as per HPI Musculoskeletal: Musculoskeletal: Reports no additional musculoskeletal complaints and Reports as per HPI Integumentary/Breasts: Skin/Breast: Reports system reviewed and no additional complaints, except as docu Neurologic: Reports system reviewed and no additional complaints, except as documented and Reports as per HPI Psychiatric: Psychiatric: Reports no additional psychiatric complaints and Reports as per HPI Endocrine: Endocrine: Reports no additional endocrine complaints, Reports as per HPI and Denies palpitations Hematologic/Lymphatic: Hematologic/Lymphatic: Reports no additional hematologic/lymphatic complaints and Reports as per HPI Allergic/Immunologic: Allergic/Immunologic: Reports no additional allergic/immunologic complaints and Reports as per HPI [facility] Past Medical History Medical History (Updated 08/28/22 @ 10:04 by Eleazar Lange MD) Acute right MCA stroke Atrial fibrillation HTN (hypertension) Right eye symptoms 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 Family History Family History (Updated 08/28/22 @ 10:02 by Eleazar Lange MD) Mother Heart problem Surgical History Surgical History H/O carotid endarterectomy Social History Social History Household Members: Family and Caregiver Housing: Apartment Do you presently have visiting nurse or other home services: Yes Patient Tobacco Use Status: Never used Tobacco service: No Current occupational status: disabled Meds Allergies Allergy/AdvReac Type Severity Reaction Status Date / Time hydrochlorothiazide Allergy Mild UNKNOWN Verified 08/24/22 19:41 [Hydrochlorothiazide] penicillin G [Penicillin G] Allergy Mild UNKNOWN Verified 08/24/22 19:41 penicillin V Allergy Unknown Unknown Verified 08/24/22 19:41 chlorthalidone AdvReac Severe hyponatremi Verified 08/24/22 19:41 [CHLORTHALIDONE] a Active Medications: Current Medications Acetaminophen (Acetaminophen 325 Mg Tablet) 650 mg PO Q6H PRN PRN Reason: Pain, Mild (Pain Scale 1-3) Last Admin: 08/25/22 20:03 Dose: 650 mg Apixaban (Apixaban 5 Mg Tablet) 5 mg PO BID [facility] Last Admin: 08/28/22 08:49 Dose: 5 mg Aspirin (Aspirin Enteric Coated 81 Mg Tablet.Dr) 81 mg PO DAILY [facility] Last Admin: 08/28/22 08:49 Dose: 81 mg Atorvastatin Calcium (Atorvastatin Calcium 40 Mg Tablet) 40 mg PO DAILY [facility] Last Admin: 08/28/22 08:49 Dose: 40 mg Doxazosin Mesylate (Doxazosin Mesylate 2 Mg Tablet) 2 mg PO DAILY [facility]; Protocol Last Admin: 08/28/22 08:49 Dose: 2 mg Fluconazole (Fluconazole 100 Mg Tablet) 100 mg PO DAILY [facility] Last Admin: 08/28/22 08:49 Dose: 100 mg Levetiracetam (Levetiracetam 250 Mg Tablet) 250 mg PO BID [facility] Last Admin: 08/28/22 08:49 Dose: 250 mg Melatonin (Melatonin 3 Mg Tablet) 6 mg PO BEDTIME PRN PRN Reason: Insomnia Metoprolol Tartrate (Metoprolol Tartrate 100 Mg Tablet) 100 mg PO BID [facility]; Protocol Last Admin: 08/28/22 08:50 Dose: 100 mg Ondansetron HCl (Ondansetron Hcl 4 Mg/2 Ml Vial) 4 mg IVPUSH Q8H PRN PRN Reason: Nausea and Vomiting Pharmacy Consult (Consult Rx Perform Med Rec) 1 each MISCELLANE ONCE PRN PRN Reason: Consult order Sodium Chloride (0.9 % Sodium Chloride Flush 3 Ml Syringe) [facility] Last Admin: 08/28/22 08:49 Dose: 3 ml Home Medications Medication Instructions Recorded Confirmed Last Taken Type apixaban 5 mg tablet (Eliquis) 1 tab PO BID 08/24/22 08/24/22 Unknown History aspirin 81 mg tablet,delayed 1 tab PO QAM 08/24/22 08/24/22 Unknown History release atorvastatin 40 mg tablet 1 tab PO DAILY 08/24/22 08/24/22 Unknown History diltiazem HCl 60 mg tablet 0.5 tab PO Q6H 08/24/22 08/24/22 Unknown History doxazosin 2 mg tablet 1 tab PO DAILY 08/24/22 08/24/22 Unknown History metoprolol tartrate 100 mg tablet 1 tab PO BID 08/24/22 08/24/22 Unknown History Physical Exam Vital Signs: Vital Signs: Last Vital Signs Temp 98.0 F 08/28/22 07:30 Pulse 108 H 08/28/22 07:30 Resp 20 08/28/22 07:30 BP 140/70 H 08/28/22 07:30 Pulse Ox 99 08/28/22 07:30 O2 Del Method 08/28/22 07:30 O2 Flow Rate 2 08/28/22 07:30 Oxygen Flow Rate 2 08/24/22 23:19 BMI result Body Mass Index 20.4 Const: General: comfortable and no acute distress Orientation/consciousness: patient oriented x3 HEENT: Other: Unremarkable Head: Yes normal to inspection Neck: Neck: Yes normal visual inspection Chest: Chest palpation & inspection: normal inspection of the chest Resp: Auscultation: clear to auscultation bilaterally Cardio: Palpation: normal PMI Heart sounds: S1 normal heart sound present, S2 normal heart sound present, no gallops, no murmurs and no rubs GI: Palpation (GI): Soft to palpation Back/Spine/Pelvis: Other: unremarkable Skin: General skin exam: no rashes or lesions noted Neuro: General: patient oriented x3 Extrem: General: Yes normal to inspection Psych: Mental Status: mental status grossly normal Objective Labs and Meds 08/25/22 05:36 08/25/22 05:36 ECG Interpretation: EKG with atrial fibrillation at a rate of 107/Min; what is criteria for LVH; nonspecific ST-T changes. Assessment and Plan (1) Persistent atrial fibrillation: Status: Acute (2) Syncope: Status: Acute Plan In the recent echocardiogram at [facility], LVEF 55-65%. No wall motion abnormalities. Severely dilated left atrium. Low-grade troponin leak at [address] shows no acute pathology. Evaluation of right MCA territory infarct. On telemetry, atrial fibrillation rate of 100-105/Min. With regard to the pauses, 3.2nd pauses today and other on 2nd pause. Nothing quite significant. At the time of discharge from [facility], meds include metoprolol 100 mg b.i.d., diltiazem 60 mg every 6 hours and digoxin 125 mcg daily. Upon review of meds here, it seems diltiazem has been discontinued and she is not on digoxin at all. However, the rate is slightly on the fast side, we can probably add back either. Probably monitor for another day or so. Discussed with Dr. Noyola. Using sign language interpreter to discuss this with daughter. Time Spent With Patient Time: Total time managing care of this patient today 75 minutes. Procedures Date of Service Date of Service: 08/28/22
--- NOTE | 2022-08-28 09:42 | P.PNIM_ITS ---
Subjective Subjective Date of Service: 08/28/22 Interval History: f/u on syncope interval history: no new issues, no new cardiac pauses overnight Physical Exam Vital Signs: Vital Signs: Last Vital Signs Temp 98.0 F 08/28/22 07:30 Pulse 108 H 08/28/22 07:30 Resp 20 08/28/22 07:30 BP 140/70 H 08/28/22 07:30 Pulse Ox 99 08/28/22 07:30 O2 Del Method 08/28/22 07:30 O2 Flow Rate 2 08/28/22 07:30 Oxygen Flow Rate 2 08/24/22 23:19 BMI result Body Mass Index 20.4 Const: Other: General: AO X 3, no acute distress Resp: CTA bilateral CVS: S1,S2, iregular iregular GI: +BS, NT, no distention Skin: No rash Neuro: motor grossly intact Psych: appropriate affect Objective Data Active Medications Acetaminophen (Acetaminophen 325 Mg Tablet) 650 mg PO Q6H PRN PRN Reason: Pain, Mild (Pain Scale 1-3) Last Admin: 08/25/22 20:03 Dose: 650 mg Apixaban (Apixaban 5 Mg Tablet) 5 mg PO BID [facility] Last Admin: 08/28/22 08:49 Dose: 5 mg Documented By: GONZALO Aspirin (Aspirin Enteric Coated 81 Mg Tablet.) 81 mg PO DAILY [facility] Last Admin: 08/28/22 08:49 Dose: 81 mg Documented By: GONZALO Atorvastatin Calcium (Atorvastatin Calcium 40 Mg Tablet) 40 mg PO DAILY [facility] Last Admin: 08/28/22 08:49 Dose: 40 mg Documented By: GONZALO Doxazosin Mesylate (Doxazosin Mesylate 2 Mg Tablet) 2 mg PO DAILY [facility]; Protocol Last Admin: 08/28/22 08:49 Dose: 2 mg Documented By: GONZALO Fluconazole (Fluconazole 100 Mg Tablet) 100 mg PO DAILY [facility] Last Admin: 08/28/22 08:49 Dose: 100 mg Documented By: GONZALO Levetiracetam (Levetiracetam 250 Mg Tablet) 250 mg PO BID [facility] Last Admin: 08/28/22 08:49 Dose: 250 mg Documented By: GONZALO Melatonin (Melatonin 3 Mg Tablet) 6 mg PO BEDTIME PRN PRN Reason: Insomnia Metoprolol Tartrate (Metoprolol Tartrate 100 Mg Tablet) 100 mg PO BID [facility]; Protocol Last Admin: 08/28/22 08:50 Dose: 100 mg Documented By: GONZALO Ondansetron HCl (Ondansetron Hcl 4 Mg/2 Ml Vial) 4 mg IVPUSH Q8H PRN PRN Reason: Nausea and Vomiting Pharmacy Consult (Consult Rx Perform Med Rec) 1 each MISCELLANE ONCE PRN PRN Reason: Consult order Sodium Chloride (0.9 % Sodium Chloride Flush 3 Ml Syringe) 3 ml IVFLUSH QSHIFT [facility] Last Admin: 08/28/22 08:49 Dose: 3 ml Documented By: GONZALO Labs 08/25/22 05:36 08/25/22 05:36 Assessment and Plan (1) Syncope: Status: Acute (2) Paroxysmal A-fib: Status: Acute (3) HTN (hypertension): Status: Acute (4) Acute right MCA stroke: Status: Acute Plan 81-year-old female with pertinent history of essential hypertension, 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 Granddaughter describes mild abdominal pain and nausea prior to event; states event lasted only minutes and then grandmother returned to baseline 1.syncope, believed to be vasovagal but was noted to have episode of bradycardia with up to 3 seconds pause but not necessary cause. Cardiology is assessing this. EEG showed no seizure. 2.Paroxysmal atrial fibrillation -continue Eliquis -Cardizem stopped, to continue metoprolol and monitor -Dr. Lange following 3.Hypertension -acceptable control on current therapies -adjust as indicated 4. remote history of Right MCA stroke d/t carotid occulusion s/p thrombectomy -Eliquis/ASA/statin, Keppra for preventative seizure Eliquis Full code . Requires ongoing hospitalization for continued monitoring in completing his seizure workup Time Spent With Patient Time: Total time managing care of this patient today ____ minutes. Quality Stroke Does the patient have a stroke diagnosis?: No VTE Prior VTE?: No VTE Risk Level:: Medical - moderate - high VTE Device Contraindication: Treatment Not Indicated VTE Drug Contraindication: N/A - Med Ordered
--- NOTE | 2022-08-28 09:43 | MHC.CM.PN ---
PT is recommending STR; CM will follow.
[2022-08-28 11:22] VITALS: BP 118/89; PULSE 95; RESP 20; TEMP 37.1; O2SAT 100
[2022-08-28 15:22] VITALS: BP 115/57; PULSE 82; RESP 15; TEMP 36.7; O2SAT 91
[2022-08-28 19:13] VITALS: BP 97/55; PULSE 99; RESP 15; TEMP 36.4; O2SAT 99
[2022-08-29] VITALS: BP 123/69; PULSE 102; RESP 18; TEMP 36.2; O2SAT 96
[2022-08-29 03:56] VITALS: BP 149/66; PULSE 95; RESP 18; TEMP 36.9; O2SAT 99
[2022-08-29 07:28] VITALS: BP 115/66; PULSE 96; RESP 12; TEMP 36.4; O2SAT 99
[2022-08-29 09:05] VITALS: BP 115/66; PULSE 96; O2SAT 99
[2022-08-29] MEDS: Aspirin Enteric Coated 81 MG TABLET.DR PO (09:21)
[2022-08-29] MEDS: Metoprolol Tartrate 100 MG TABLET PO (09:21)
[2022-08-29] MEDS: 0.9 % Sodium Chloride Flush 3 ML SYRINGE IVFLUSH (09:21)
[2022-08-29] MEDS: Apixaban 5 MG TABLET PO (09:22)
[2022-08-29] MEDS: Doxazosin Mesylate 2 MG TABLET PO (09:22)
[2022-08-29] MEDS: levETIRAcetam 250 MG TABLET PO (09:22)
[2022-08-29] MEDS: Atorvastatin Calcium 40 MG TABLET PO (09:22)
[2022-08-29] MEDS: dilTIAZem HCL CD 120 MG CAP.ER.DEG PO (09:22)
[2022-08-29] MEDS: Fluconazole 100 MG TABLET PO (09:22)
--- NOTE | 2022-08-29 09:31 | PC.NURSE ---
during morning medication administration, patient began refusing about [address] Since pills were mostly crushed in puree, it was difficult to tell what medications were given wholly and which were not. Velext sent to provider
[2022-08-29 11:07] VITALS: BP 139/59; PULSE 100; RESP 16; TEMP 36.8; O2SAT 93
--- NOTE | 2022-08-29 11:10 | P.PNCA_ITS ---
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 She states she is okay and not having any active Review of Systems Review of Systems Yes all other systems are reviewed and are negative Constitutional: Reports as per HPI Eyes: Reports as per HPI Reports as per HPI Cardiovascular: Reports as per HPI, Denies acrocyanosis, Denies cool extremities, Denies chest pain, Denies leg edema, Denies lightheadedness, Denies palpitations and Denies dyspnea Respiratory: Reports as per HPI, Reports no additional respiratory complaints and Denies dyspnea Gastrointestinal: Reports as per HPI and Reports no additional gastrointestinal complaints Genitourinary: Reports as per HPI Musculoskeletal: Reports no additional musculoskeletal complaints and Reports as per HPI Skin/Breast: Reports system reviewed and no additional complaints, except as doc u Reports system reviewed and no additional complaints, except as documented and Reports as per HPI Psychiatric: Reports no additional psychiatric complaints and Reports as per HPI Endocrine: Reports no additional endocrine complaints, Reports as per HPI and Denies palpitations Hematologic/Lymphatic: Reports no additional hematologic/lymphatic complaints and Reports as per HPI Allergic/Immunologic: Reports no additional allergic/immunologic complaints and Reports as per HPI Physical Exam Vital Signs: Last Vital Signs Temp 98.2 F 08/29/22 11:07 Pulse 100 08/29/22 11:07 Resp 16 08/29/22 11:07 BP 139/59 L 08/29/22 11:07 Pulse Ox 93 08/29/22 11:07 O2 Del Method 08/29/22 11:07 O2 Flow Rate 2 08/29/22 07:28 Oxygen Flow Rate 2 08/24/22 23:19 BMI result Body Mass Index 20.4 Const General: comfortable and no acute distress Orientation/consciousness: patient oriented x3 HEENT Other: Unremarkable Head: Yes normal to inspection Neck Neck: Yes normal visual inspection Chest Chest palpation & inspection: normal inspection of the chest Resp Auscultation: clear to auscultation bilaterally Cardio Palpation: normal PMI Heart sounds: S1 normal heart sound present, S2 normal heart sound present, no gallops, no murmurs and no rubs GI Palpation (GI): Soft to palpation Back/Spine/Pelvis Other: unremarkable Skin General skin exam: no rashes or lesions noted Neuro General: patient oriented x3 Extrem General: Yes normal to inspection Psych Mental Status: mental status grossly normal Objective Labs and Meds 08/25/22 05:36 08/25/22 05:36 Progress Note: A&P Assessment and plan (1) Persistent atrial fibrillation: Status: Acute (2) Syncope: Status: Acute Plan In the recent echocardiogram at [facility], LVEF 55-65%. No wall motion abnormalities. Severely dilated left atrium. Low-grade troponin leak at [address] shows no acute pathology. Evaluation of right MCA territory infarct. On reviewing medications from [facility], she was discharged on metoprolol 100 mg b.i.d., diltiazem 60 mg every 6 hours and digoxin 125 mcg daily. She had pauses up to 3.2 seconds on telemetry but nothing more prolonged. Other current time, she is on metoprolol 100 mg b.i.d. and diltiazem 120 mg daily. Her heart rate is about 100/Min. Slightly fast but not too fast. We can probably get an outpatient Holter and then make further changes. Continue anticoagulation. Discussed with hospitalist. Discussed with patient using developer relations manager. However, not sure how much she understood. Yesterday, also discussed with daughter who seems rather understand a bit. Will try to call her for an appointment and if she can come then we can follow- up. Time Spent With Patient Time: Total time managing care of this patient today 40 minutes. Progress Note: Quality Stroke Does the patient have a stroke diagnosis?: No Procedures Date of Service Date of Service: 08/29/22
--- NOTE | 2022-08-29 12:01 | MHC.CLN ---
PO INTAKE VARIABLE SPOKE WITH GREAT GRAND SON WHO AGREED APPETITE IS VARIABLE PT TO TRIAL ENSURE SUPPLEMENTS TO INCREASE KCALS SUPP TO PROVIDE 700KCALS, 40G PROTEIN WITH 100% ACCEPTANCE MONITOR PO INTAKE AND SUPPLEMENT ACCEPTANCE
--- NOTE | 2022-08-29 12:44 | MHC.CM.PN ---
pt to be dcd home at 4 family will be there to meet her by ambulance pts family confirmed that pt will have someone with her 23/02
--- NOTE | 2022-08-29 13:04 | PM.DS ---
DS: Providers Provider Date of Service: 08/29/22 Date of admission: 08/24/22 22:49 Date of discharge: 08/29/22 Primary care physician: Opal Antunez NP Consults: 08/25/22 08:05 Consult to Neurology Routine Consulting Provider: [facility] Reason for consultation: syncope ?seizure Has provider been notified: No 08/27/22 10:22 Consult to Cardiology Routine Consulting Provider: Eleazar Lange Reason for consultation: AFib with pauses Has provider been notified: Yes Attending physician on discharge: Tania Bueno Discharging clinician: Rebecca Tan DS: Diagnosis Discharge Diagnosis (1) Syncope: Status: Acute (2) Persistent atrial fibrillation: Status: Acute DS: Summary Hospital Course Hospital Course: From H&P on day of admission This is a 81-year-old female with pertinent history of essential hypertension, 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 As per the granddaughter at bedside, she was giving but to the patient while she was sitting on chair.? Suddenly the patient passed out and became unresponsive for about couple of minutes.? She called EMS and by the time EMS arrived patient was back to baseline.? No facial droop, drooling of saliva, jerking movement of extremities, eye rolling, focal weakness, tongue bite, urinary or bowel incontinence.? Patient is a poor historian and does not recall the events.? Denies chest discomfort, dizziness, lightheadedness prior to the episode.? Patient is getting physical therapy for the stroke that happened in the 3rd week of July.? Patient denies any acute complaints at this time. ?in the emergency department, CT head without any acute events probable syncope believed to be vasovagal noted to have episode of bradycardia with 3 seconds pause on telemetry- seen by cardiology, less likely contributing factor. Recommend outpatient follow up and holter monitor. Seen by neurology, EEG showed no seizure. Given recent stroke and high risk for seizure disorder she was started on keppra 250 bid no further events during hospitalization recommend outpatient follow up with cardiology and PCP Paroxysmal atrial fibrillation continue Eliquis continued on metorpolol, diltiazem changed to 120 daily. no further pauses noted. outpatient follow up with cardiology as above. history of Right MCA stroke d/t carotid occlusion [place] [facility] [place] continue on Eliquis/ASA/statin Keppra started for preventative seizure seen by speech, recommend mechanical ground diet with thin liquids; can consider outpatient MBSS seen by PT who recommended 24/7 care. Family is able to provide 24/7 care and does not want her to go to rehab. recommend goals of care/code status discussion with PCP Time Spent with Patient Time attestation: Total time managing care of this patient today ____ minutes. Discharge coordination time: Greater than 30 minutes Quality: Safe Use of Opioids Does Pt have an Active Cancer Diagnosis on the Problem List?: No Quality: Stroke Does the patient have a stroke diagnosis?: No Physical Exam Vital Signs: Vital Signs: Last Vital Signs Temp 98.2 F 08/29/22 11:07 Pulse 100 08/29/22 11:07 Resp 16 08/29/22 11:07 BP 139/59 L 08/29/22 11:07 Pulse Ox 93 08/29/22 11:07 O2 Del Method 08/29/22 11:07 O2 Flow Rate 2 08/29/22 07:28 Oxygen Flow Rate 2 08/24/22 23:19 BMI result Body Mass Index 20.4 Const: General: comfortable, alert and awake Nutritional Appearance: thin Resp: Effort & Inspection: normal respiratory effort and able to speak in complete sentences Cardio: Rate: regular rate Heart sounds: S1 normal heart sound present and S2 normal heart sound present GI: Palpation (GI): Soft to palpation Extrem: Other: able to move all extremities, weaker on left side Discharge Plan Discharge Patient Disposition: Home, Self-Care Referrals: Opal Antunez NP [Primary Care Provider] - 1 Week Eleazar Lange MD [Physician] - 1 Week Discharge Medications: New diltiazem HCl [Cardizem CD] 120 mg Capsule,Extended Release 24hr 120 mg PO DAILY 30 Days Qty: 30 0RF Protocol: Hold for SBP/HR < HOLD for SBP < : 90 HOLD for HR < : 60 levetiracetam 250 mg Tablet 250 mg PO BID 30 Days Qty: 60 0RF Continued atorvastatin 40 mg tablet 1 tab PO DAILY metoprolol tartrate 100 mg tablet 1 tab PO BID aspirin 81 mg tablet,delayed release (DR/EC) 1 tab PO QAM doxazosin 2 mg tablet 1 tab PO DAILY Eliquis 5 mg tablet 1 tab PO BID Discontinued diltiazem HCl 60 mg tablet 0.5 tab PO Q6H Discharge Orders: Discharge Order (Routine); Ordered 08/29/22 Ordered By: Rebecca Tan Activity on Discharge: As tolerated Stand Alone Forms: Patient Portal Discharge page Care Plan Goals: see below. Health Concerns: possible syncope - vasovagal in nature at risk for seizure due to recent stroke, started on keprra, take as prescribed call to schedule follow up with cardiology for management of atrial fibrillation, control of heart rate and possible Holter monitor cardizem changed from 60 mg every 6 hours to long acting once daily. stop taking previous dose and start taking cardizem cd call to schedule follow up with PCP seen by speech prior to discharge - rec mechanical ground diet with thin liquids and small sips. recommend small bites 1/4 teaspoon or less, alternate between solids and liquis, moisten solids in sauce/gravy, full supervision during mealtime. do not feed if patient lethargic or not engaged in meal. no straws. Can consider outpatient MBSS per PCP if difficulty swallowing. recommend / care Plan of Treatment: see above Assessment: see discharge summary. would recommend goals of care discussion with PCP Discharge Date/Time: 08/29/22 16:45
[2022-08-29 14:47] VITALS: BP 168/62; PULSE 88; RESP 20; TEMP 36.3; O2SAT 91
--- NOTE | 2022-08-29 16:02 | MHC.SL.SWA ---
Addendum entered and electronically signed by Syl Cuello MA, CCC-NATURAL RESOURCE TECHNICIAN 08/29/22 17:56: D.S. Original Note: Speech Pathologist Impression: Oral Phase Dysphagia Risk of Aspiration Due to: Medically Fragile Weak Cough Dysphasia Diet Status: Downgrade Liquid Consistency and Strategies for Safe Swallow: Liquid Intake Recommendation: Thin Liquid Intake Strategies: Small Sips No Straws Solid Food Consistency: Dietary Recommendations: Grnd/Mech Altered (NDD2) Additional Modifications to Solid Foods: Moisten solids w/ sauce/gravy Oral Medication Intake: Crushed with Puree Please contact the pharmacy regarding appropriate crushable or liquid drug formulations that are available whenever modified delivery is recommended. Compensatory Strategies and Precautions to be Taken for Safe Swallow: Sitting Upright (90 deg) No Straw Liquids from Cup Liquids from Spoon Small Bites and Sips Alternate Liquids/Solids Oral Check Avoid Specific Foods Supervision While Eating and Drinking for Safe Swallow: Total Supervision (1:1) Foods to Avoid: Avoid hard, sticky, and tough to chew foods Swallowing Recommended Treatments: Compens. Strategy Educat. Recommendation for Speech: Outpatient Speech Therapy Inpatient Speech Therapy Comment: Recommend GROUND solids (NDD2), THIN liquids (via teaspoon or controlled small cup sips, no straw), pills CRUSHED in puree. Recommend small bites (1/4 teaspoon or less), alternate between solids and liquids, moisten solids in sauce/gravy. Pt demonstrated difficulty with larger bites of tuna salad sandwich, had to spit out bolus. Pt presented w/ prolonged mastication and clear oral cavity with smaller bites (approx. 1/4 teaspoon). Recommend full supervision during mealtime to monitor for s/s of aspiration, check oral cavity for pocketed food. Do not feed if pt presents lethargic or not engaged in meal. Recommend MBSS as outpatient if patient's difficulty swallowing continues or worsens. Db2 Dba Clinican/Clinical Fellow: Yes: Robyn Ayers Supervisory Statement: I have reviewed and agree with the student/clinical fellow's documentation: Speech Language Pathologist:
== END 2022-08-29 16:45 | disposition home or self-care (01) ==
LOC: HO.ED 19:57 → HO.EDOVER 22:50 → HO.IMC 23:46
PROVIDERS: Admitting Provider Student in an Organized Health Care Education/Training Program; Emergency Provider Internal Medicine; PCP Nurse Practitioner Primary Care; Visit Provider Physician Assistant Medical
DX: R55 Syncope and collapse (principal); I48.0 Paroxysmal atrial fibrillation; I10 Essential (primary) hypertension; I69.354 Hemiplegia and hemiparesis following cerebral infarction affecting left non-dominant side; Z20.822 Contact with and (suspected) exposure to COVID-19; Z79.01 Long term (current) use of anticoagulants; Z79.82 Long term (current) use of aspirin; Z79.02 Long term (current) use of antithrombotics/antiplatelets; Z79.899 Other long term (current) drug therapy
CPT/HCPCS: 36415; 51798; 70450; 80048; 80076; 84484; 85025; 85610; 87635; 92610; 93005; 95816; 97110; 97162; 99222; 99285

== ENCOUNTER → 2022-09-03 10:42 | Outpatient (BNVA) | payer MEDICARE, MEDICAID, SELFPAY | PROVIDERS: PCP Nurse Practitioner Primary Care; Referring Provider Nurse Practitioner Primary Care; Visit Provider Internal Medicine | DX: Z13.89 Encounter for screening for other disorder (principal) | CPT/HCPCS: 99212 ==

== ENCOUNTER 2022-09-03 11:27 | Emergency (ER) | payer MEDICARE, MEDICAID, SELFPAY ==
--- NOTE | ~2022-09-03 | CT_ITS ---
EXAMINATION: CT ABDOMEN AND PELVIS WITHOUT CONTRAST CLINICAL INFORMATION: Abdominal pain, nausea. COMPARISON: None TECHNIQUE: Multidetector volumetric imaging was performed from the superior aspect of the liver through the pubic symphysis. Sagittal and coronal reformatted images were obtained on the technologist's workstation. This CT examination was performed using dose optimization techniques as appropriate, variously including the following: *Automated exposure control *Adjustment of mA and/or kV according to patient size (this includes techniques or standardized protocols for targeted exams where dose is matched to indication/reason for exam; i.e. extremities or head) *Use of iterative reconstruction technique DLP: 771 mGy-cm FINDINGS: LUNG BASES: The visualized lung bases are unremarkable. LIVER, GALLBLADDER, AND BILIARY TREE: Unremarkable. PANCREAS: Moderate fatty atrophy. No pancreatic ductal dilatation. No peripancreatic abnormality. SPLEEN: Unremarkable. ADRENAL GLANDS: Unremarkable. Fluid attenuation adrenal nodules measuring 2.2 cm on the right (image 14, series 3) and left adrenal nodule measuring 1.3 cm present image 57, series 7). KIDNEYS AND URETERS: The kidneys are normal in size, shape, and attenuation. No hydronephrosis, hydroureter, or calculi seen. No perinephric stranding. BLADDER: Unremarkable. GASTROINTESTINAL TRACT: Very small hiatal hernia. The remainder the stomach is unremarkable. Small to moderate second segment duodenal diverticulum without associated abnormality. The remainder of the small bowel as well as the appendix is unremarkable. The proximal colon is unremarkable. Mild to moderate mural thickening is seen in the distal sigmoid colon and rectum, most pronounced in the rectum. Mild surrounding infiltrative changes are seen without focal abnormality. ABDOMINAL WALL: No significant hernia is appreciated. LYMPH NODES: No lymphadenopathy. VASCULAR: The visualized ascending aorta measures up to 4.1 cm (image 2, series 3). Moderate to severe atherosclerosis with generalized ectasia in the descending thoracic aorta inferiorly. The 3.5 cm in transverse dimension (image 1, series 3). No focal aneurysmal dilatation in the infrarenal abdominal segment. PELVIC VISCERA: Small calcifications without suspicious abnormality. No adnexal abnormality. OSSEOUS STRUCTURES: Compression deformities are seen at T12-L1. Mild superior plate compression deformity at L4. CT/CT abdomen pelvis wo IV con IMPRESSION: 1. Mild to moderate mural thickening in the distal sigmoid colon and rectum, most pronounced in the rectum. Mild surrounding infiltrative changes are seen without focal abnormality. These findings are nonspecific, but could be secondary to an infectious/inflammatory colitis. 2. Ascending aortic aneurysm measuring up to 4.1 cm. 3. Bilateral adrenal nodules demonstrate benign features most consistent with adrenal adenomas. 4. Very small hiatal hernia. Small to moderate second segment duodenal diverticulum without associated abnormality. 5. Moderate pancreatic fatty atrophy without acute abnormality. 6. T12, L1 and L4 vertebral body compression deformities are of indeterminate age, but overall demonstrate chronic features. Correlate with physical exam and patient history.
--- NOTE | ~2022-09-03 | XR_ITS ---
EXAMINATION: XR CHEST CLINICAL INFORMATION: Vomiting COMPARISON: August 06, 2022 TECHNIQUE: Frontal view of the chest was obtained. Images rotated. FINDINGS: There are small lung volumes. The cardiopericardial silhouette appears to be mildly enlarged. No evidence of pulmonary edema. No pneumothorax or pleural effusion. Aortic calcification is present. XR/XR chest 1V IMPRESSION: No acute disease.
[2022-09-03 11:34] VITALS: BP 96/50; PULSE 91; RESP 20; TEMP 36.6; O2SAT 99; BMI 27.3
--- NOTE | 2022-09-03 11:34 | ED.NAVMDI ---
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 Patient herself denies any shortness of breath/chest pain/nausea/vomiting/abdominal pain. <Beverly Page MD - Last Filed: 09/03/22 17:37> Related Data Home medications: Home Medications Medication Instructions Recorded Confirmed apixaban 5 mg tablet (Eliquis) 5 mg PO BID 09/03/22 09/03/22 aspirin 81 mg tablet,delayed 81 mg PO QAM 09/03/22 09/03/22 release atorvastatin 40 mg tablet 40 mg PO DAILY 09/03/22 09/03/22 diltiazem HCl 120 mg 120 mg PO DAILY 09/03/22 09/03/22 capsule,extended release 24 hr (Cardizem CD) doxazosin 2 mg tablet 2 mg PO DAILY 09/03/22 09/03/22 metoprolol tartrate 100 mg tablet 100 mg PO BID 09/03/22 09/03/22 Previous Rx's Medication Instructions Recorded levetiracetam 250 mg tablet 250 mg PO BID 30 days #60 tabs 08/29/22 <Natividad Raines NP - Last Filed: 09/03/22 11:38> Allergies/Adverse reactions: Allergies Allergy/AdvReac Type Severity Reaction Status Date / Time hydrochlorothiazide Allergy Mild UNKNOWN Verified 08/24/22 19:41 [Hydrochlorothiazide] penicillin G [Penicillin G] Allergy Mild UNKNOWN Verified 08/24/22 19:41 penicillin V Allergy Unknown Unknown Verified 08/24/22 19:41 chlorthalidone AdvReac Severe hyponatremi Verified 08/24/22 19:41 [CHLORTHALIDONE] a <Natividad Raines NP - Last Filed: 09/03/22 11:38> Review of Systems Review of Systems: Pertinent positives and negatives as stated in HPI <Beverly Page MD - Last Filed: 09/03/22 17:37> PMFSH Past Medical History Source: nursing notes reviewed <Beverly Page MD - Last Filed: 09/03/22 17:37> Medical History: Medical History Acute right MCA stroke Atrial fibrillation HTN (hypertension) Right eye symptoms 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 <Natividad Raines NP - Last Filed: 09/03/22 11:38> Surgical History: Surgical History H/O carotid endarterectomy <Natividad Raines NP - Last Filed: 09/03/22 11:38> Family History Family History: Family History Mother Heart problem <Natividad Raines NP - Last Filed: 09/03/22 11:38> Social History Social History: Social History Household Members: Family and Caregiver Housing: Apartment Do you presently have visiting nurse or other home services: Yes Patient Tobacco Use Status: Never used Tobacco Advance Directives: Yes Advance Directives Information Provided: No Advance Directives on File: No service: No Current occupational status: disabled <Natividad Raines NP - Last Filed: 09/03/22 11:38> Physical Exam Vital Signs: Vital Signs: Last Vital Signs Temp 97.8 F 09/03/22 14:33 Pulse 88 09/03/22 14:33 Resp 14 09/03/22 14:33 BP 112/65 09/03/22 14:33 Pulse Ox 100 09/03/22 14:33 O2 Del Method 09/03/22 14:33 BMI result Body Mass Index 27.3 <Natividad Raines NP - Last Filed: 09/03/22 11:38> Vital Signs: Last Vital Signs Temp 97.8 F 09/03/22 14:33 Pulse 88 09/03/22 14:33 Resp 14 09/03/22 14:33 BP 112/65 09/03/22 14:33 Pulse Ox 100 09/03/22 14:33 O2 Del Method 09/03/22 14:33 BMI result Body Mass Index 27.3 VITAL SIGNS: Reviewed. GENERAL: Well developed, well nourished, in no acute distress. HEAD: Normocephalic/atraumatic EYES: PERRLA, EOMI EARS: Ext canals without abnormality OROPHARYNX: no oral lesions noted, posterior pharynx clear, dry mucosa NECK: Supple, no adenopathy LUNGS: Normal breath sounds. No adventitious sounds or accessory muscle use. SpO2<100> CARDIOVASCULAR: Regular rate and rhythm without noted murmurs, no JVD or lower extremity edema. ABDOMEN: Soft, non-tender, non-distended with bowel sounds. MUSCULOSKELETAL: No tenderness, deformities, or effusions noted on gross inspection. EXTREMITIES: No cyanosis, clubbing or edema. SKIN: Inspection of the skin reveals no rashes NEUROLOGIC: Alert and oriented x 2. Left-sided hemiparesis consistent with prior right MCA stroke <Beverly Page MD - Last Filed: 09/03/22 17:37> Course Course Course Narrative: This is rapid medical exam. deferred additional HPI, ROS, PE to primary provider. 81 yo female with history of afib on eliquis, HLD, HTN, diabetes, recent MCA stroke which required IR for clot retrieval at [facility] 3 weeks ago here with several episodes of vomiting after drinking some water just MEDICAL RECEPTION. No abdominal pain, diarrhea. Will obtain labs, EKG, CXR, covid screen, UA. VSS <Natividad Raines NP - Last Filed: 09/03/22 11:38> Medications Administered Discontinued Medications Generic Name Dose Route Start Last Admin Trade Name Freq PRN Reason Stop Dose Admin Sodium Chloride 500 mls @ 500 mls/hr 09/03/22 13:15 09/03/22 15:09 Ns IV 09/03/22 14:14 Infused .Q1H RHIANNON Infusion Magnesium Sulfate/Dextrose 1 gm in 100 mls @ 100 mls/hr 09/03/22 13:39 09/03/22 15:07 Magnesium Sulfate/D5w IV 09/03/22 14:38 100 mls/hr ONCE ONE Administration Ondansetron HCl 4 mg 09/03/22 14:43 09/03/22 15:08 Ondansetron Hcl 4 Mg/2 Ml Vial IVPUSH 09/03/22 14:44 4 mg ONCE ONE Administration <Natividad Raines NP - Last Filed: 09/03/22 11:38> Medications Administered Discontinued Medications Generic Name Dose Route Start Last Admin Trade Name Malcolm PRN Reason Stop Dose Admin Sodium Chloride 500 mls @ 500 mls/hr 09/03/22 13:15 09/03/22 15:09 Ns IV 09/03/22 14:14 Infused .Q1H RHIANNON Infusion Magnesium Sulfate/Dextrose 1 gm in 100 mls @ 100 mls/hr 09/03/22 13:39 09/03/22 15:07 Magnesium Sulfate/D5w IV 09/03/22 14:38 100 mls/hr ONCE ONE Administration Ondansetron HCl 4 mg 09/03/22 14:43 09/03/22 15:08 Ondansetron Hcl 4 Mg/2 Ml Vial IVPUSH 09/03/22 14:44 4 mg ONCE ONE Administration <Beverly Page MD - Last Filed: 09/03/22 17:37> Medical Decision Making Medical Decision Making MDM Narrative: 81-year-old female with nonspecific nausea and vomiting, she ate breakfast this morning according to family members and has no acute complaints currently. On review of all investigations her lab work is chronically stable with the exception of mildly low magnesium which was repleted with 1 g of magnesium sulfate. EKG shows stable atrial fibrillation without RVR and persistent ST depressions in V4 and V5 which are consistent with prior EKG at previous visit. In addition, she denies any chest pain at this time. Troponins are chronically stable. Patient is noted to become nauseous once again we and will proceed with abdomen pelvis CT scan despite her denying any abdominal pain. Signed out to Dr. Solomon to follow-up CT scan, patient without any subsequent episodes of vomiting and serial troponins are flat and there remains stable chronic changes of patient's EKG without complaints of chest pain. <Beverly Page MD - Last Filed: 09/03/22 17:37> Differential Diagnosis Differential Diagnoses: The differential diagnosis associated with the presentation includes <Beverly Page MD - Last Filed: 09/03/22 17:37> Please see the discussion above <Beverly Page MD - Last Filed: 09/03/22 17:37> Lab Data MDM Lab Attestation statement: I reviewed the patient's lab results. <Beverly Page MD - Last Filed: 09/03/22 17:37> Please see the discussion above <Beverly Page MD - Last Filed: 09/03/22 17:37> Result Diagrams: 09/03/22 12:05 09/03/22 12:05 <Natividad Raines NP - Last Filed: 09/03/22 11:38> Labs: Lab Results 09/03/22 09/03/22 09/03/22 Range/Units 12:05 12:05 12:05 WBC 5.7 (4.8-10.8) X10*3/uL RBC 4.38 (4.20-5.50) X10*6/uL Hgb 12.5 (12.0-16.0) g/dl Hct 39.1 (37.0-47.0) % MCV 89.3 (80.0-98.0) fL MCH 28.5 (27.0-33.0) pg MCHC 32.0 (31.0-35.0) g/dl RDW 14.8 (11.0-16.0) % Plt Count 217 D (160-400) X10*3/uL MPV 11.6 (9.4-12.3) fL Immature Gran % (Auto) 0.9 H (0.0-0.4) % Neut % (Auto) 52.3 (45-73) % Lymph % (Auto) 33.5 (20-40) % [place] % (Auto) 8.2 (2-11) % Eos % (Auto) 4.2 H (0-4) % Baso % (Auto) 0.9 (0-2) % Lymph # (Auto) 1.9 (1.2-4.9) X10*3/uL [place] # (Auto) 0.5 (0.1-1.2) X10*3/uL Eos # (Auto) 0.2 (0.0-0.4) X10*3/uL Baso # (Auto) 0.1 (0.0-0.2) X10*3/uL Abs Immat Gran (auto) 0.05 H (0.00-0.03) X10*3/uL Absolute Neuts (auto) 3.0 (2.0-8.3) x10*3/uL Absolute Nucleated RBC 0.000 (0.0-0.012) X10*3/uL Nucleated RBC % (auto) 0.0 (0.0-0.2) /100WBC Sodium 140 (135-145) mmol/L Potassium 3.3 (3.3-5.1) mmol/L Chloride 99 (96-108) mmol/L Carbon Dioxide 28 (22-29) mmol/L Anion Gap 16 (12-20) BUN 21 H (9-16) mg/dL Creatinine 0.82 (0.5-1.4) mg/dL Estim Creat Clear Calc 43.2 Estimated GFR > 60 Random Glucose 114 (60-115) mg/dL Calcium 9.1 D (8.4-10.2) mg/dL Magnesium 1.5 L (1.6-2.6) mg/dL Total Bilirubin 1.6 H (0.0-1.0) mg/dL Direct Bilirubin 0.5 (0.0-0.5) mg/dL AST 34 H (5-31) U/L ALT 23 (0-31) U/L Alkaline Phosphatase 90 (39-117) U/L Troponin I High Sens 28.0 H (<3.5-17.0) ng/L Total Protein 5.8 L (6.5-8.0) g/dL Albumin 3.1 L (3.5-5.0) g/dL COVID-19 (SUZANNE) (Negative) COVID-19 Clin Com 09/03/22 09/03/22 Range/Units 12:05 16:01 WBC (4.8-10.8) X10*3/uL RBC (4.20-5.50) X10*6/uL Hgb (12.0-16.0) g/dl Hct (37.0-47.0) % MCV (80.0-98.0) fL MCH (27.0-33.0) pg MCHC (31.0-35.0) g/dl RDW (11.0-16.0) % Plt Count (160-400) X10*3/uL MPV (9.4-12.3) fL Immature Gran % (Auto) (0.0-0.4) % Neut % (Auto) (45-73) % Lymph % (Auto) (20-40) % [place] % (Auto) (2-11) % Eos % (Auto) (0-4) % Baso % (Auto) (0-2) % Lymph # (Auto) (1.2-4.9) X10*3/uL [place] # (Auto) (0.1-1.2) X10*3/uL Eos # (Auto) (0.0-0.4) X10*3/uL Baso # (Auto) (0.0-0.2) X10*3/uL Abs Immat Gran (auto) (0.00-0.03) X10*3/uL Absolute Neuts (auto) (2.0-8.3) x10*3/uL Absolute Nucleated RBC (0.0-0.012) X10*3/uL Nucleated RBC % (auto) (0.0-0.2) /100WBC Sodium (135-145) mmol/L Potassium (3.3-5.1) mmol/L Chloride (96-108) mmol/L Carbon Dioxide (22-29) mmol/L Anion Gap (12-20) BUN (9-16) mg/dL Creatinine (0.5-1.4) mg/dL Estim Creat Clear Calc Estimated GFR Random Glucose (60-115) mg/dL Calcium (8.4-10.2) mg/dL Magnesium (1.6-2.6) mg/dL Total Bilirubin (0.0-1.0) mg/dL Direct Bilirubin (0.0-0.5) mg/dL AST (5-31) U/L ALT (0-31) U/L Alkaline Phosphatase (39-117) U/L Troponin I High Sens 22.0 H (<3.5-17.0) ng/L Total Protein (6.5-8.0) g/dL Albumin (3.5-5.0) g/dL COVID-19 (SUZANNE) Negative (Negative) COVID-19 Clin Com See Note <Natividadzeeshan Raines, [employer]PER[employer] - Last Filed: 09/03/22 11:38> Lab Results 09/03/22 09/03/22 09/03/22 Range/Units 12:05 12:05 12:05 WBC 5.7 (4.8-10.8) X10*3/uL RBC 4.38 (4.20-5.50) X10*6/uL Hgb 12.5 (12.0-16.0) g/dl Hct 39.1 (37.0-47.0) % MCV 89.3 (80.0-98.0) fL MCH 28.5 (27.0-33.0) pg MCHC 32.0 (31.0-35.0) g/dl RDW 14.8 (11.0-16.0) % Plt Count 217 D (160-400) X10*3/uL MPV 11.6 (9.4-12.3) fL Immature Gran % (Auto) 0.9 H (0.0-0.4) % Neut % (Auto) 52.3 (45-73) % Lymph % (Auto) 33.5 (20-40) % [place] % (Auto) 8.2 (2-11) % Eos % (Auto) 4.2 H (0-4) % Baso % (Auto) 0.9 (0-2) % Lymph # (Auto) 1.9 (1.2-4.9) X10*3/uL [place] # (Auto) 0.5 (0.1-1.2) X10*3/uL Eos # (Auto) 0.2 (0.0-0.4) X10*3/uL Baso # (Auto) 0.1 (0.0-0.2) X10*3/uL Abs Immat Gran (auto) 0.05 H (0.00-0.03) X10*3/uL Absolute Neuts (auto) 3.0 (2.0-8.3) x10*3/uL Absolute Nucleated RBC 0.000 (0.0-0.012) X10*3/uL Nucleated RBC % (auto) 0.0 (0.0-0.2) /100WBC Sodium 140 (135-145) mmol/L Potassium 3.3 (3.3-5.1) mmol/L Chloride 99 (96-108) mmol/L Carbon Dioxide 28 (22-29) mmol/L Anion Gap 16 (12-20) BUN 21 H (9-16) mg/dL Creatinine 0.82 (0.5-1.4) mg/dL Estim Creat Clear Calc 43.2 Estimated GFR > 60 Random Glucose 114 (60-115) mg/dL Calcium 9.1 D (8.4-10.2) mg/dL Magnesium 1.5 L (1.6-2.6) mg/dL Total Bilirubin 1.6 H (0.0-1.0) mg/dL Direct Bilirubin 0.5 (0.0-0.5) mg/dL AST 34 H (5-31) U/L ALT 23 (0-31) U/L Alkaline Phosphatase 90 (39-117) U/L Troponin I High Sens 28.0 H (<3.5-17.0) ng/L Total Protein 5.8 L (6.5-8.0) g/dL Albumin 3.1 L (3.5-5.0) g/dL COVID-19 (SUZANNE) (Negative) COVID-19 Clin Com 09/03/22 09/03/22 Range/Units 12:05 16:01 WBC (4.8-10.8) X10*3/uL RBC (4.20-5.50) X10*6/uL Hgb (12.0-16.0) g/dl Hct (37.0-47.0) % MCV (80.0-98.0) fL MCH (27.0-33.0) pg MCHC (31.0-35.0) g/dl RDW (11.0-16.0) % Plt Count (160-400) X10*3/uL MPV (9.4-12.3) fL Immature Gran % (Auto) (0.0-0.4) % Neut % (Auto) (45-73) % Lymph % (Auto) (20-40) % [place] % (Auto) (2-11) % Eos % (Auto) (0-4) % Baso % (Auto) (0-2) % Lymph # (Auto) (1.2-4.9) X10*3/uL [place] # (Auto) (0.1-1.2) X10*3/uL Eos # (Auto) (0.0-0.4) X10*3/uL Baso # (Auto) (0.0-0.2) X10*3/uL Abs Immat Gran (auto) (0.00-0.03) X10*3/uL Absolute Neuts (auto) (2.0-8.3) x10*3/uL Absolute Nucleated RBC (0.0-0.012) X10*3/uL Nucleated RBC % (auto) (0.0-0.2) /100WBC Sodium (135-145) mmol/L Potassium (3.3-5.1) mmol/L Chloride (96-108) mmol/L Carbon Dioxide (22-29) mmol/L Anion Gap (12-20) BUN (9-16) mg/dL Creatinine (0.5-1.4) mg/dL Estim Creat Clear Calc Estimated GFR Random Glucose (60-115) mg/dL Calcium (8.4-10.2) mg/dL Magnesium (1.6-2.6) mg/dL Total Bilirubin (0.0-1.0) mg/dL Direct Bilirubin (0.0-0.5) mg/dL AST (5-31) U/L ALT (0-31) U/L Alkaline Phosphatase (39-117) U/L Troponin I High Sens 22.0 H (<3.5-17.0) ng/L Total Protein (6.5-8.0) g/dL Albumin (3.5-5.0) g/dL COVID-19 (SUZANNE) Negative (Negative) COVID-19 Clin Com See Note <Beverly Page MD - Last Filed: 09/03/22 17:37> Independent Interpretation I performed an independent interpretation of an: EKG <Beverly Page MD - Last Filed: 09/03/22 17:37> Interpretation: 1156: Atrial fibrillation, HR-80, no STEMI but noted ST depressions in the lateral leads that appear to be present at baseline, QRS/QTC is within normal limits. 1517: Atrial fibrillation, HR-81, no STEMI, ST depressions persisted in the lateral leads, QRS/QTC is within normal limits. <Beverly Page MD - Last Filed: 09/03/22 17:37> Chronic Conditions Patient?s care impacted by: Hypertension <Beverly Page MD - Last Filed: 09/03/22 17:37> Critical Care Time Critical Care Time Critical Care Time: Yes <Beverly Page MD - Last Filed: 09/03/22 17:37> Total Critical Care Time: 45 <Beverly Page MD - Last Filed: 09/03/22 17:37> Attestation: I personally attest to this time spent taking care of the patient. <Beverly Page MD - Last Filed: 09/03/22 17:37> Discharge Plan Discharge Clinical Impression: Nausea & vomiting <Natividad Raines NP - Last Filed: 09/03/22 11:38> Patient Disposition: Still a Patient <Natividad Raines NP - Last Filed: 09/03/22 11:38> Prescriptions: No Action levetiracetam 250 mg Tablet 250 mg PO BID 30 Days Qty: 60 0RF Eliquis 5 mg tablet 5 mg PO BID aspirin 81 mg tablet,delayed release (DR/EC) 81 mg PO QAM atorvastatin 40 mg tablet 40 mg PO DAILY doxazosin 2 mg tablet 2 mg PO DAILY metoprolol tartrate 100 mg tablet 100 mg PO BID diltiazem HCl [Cardizem CD] 120 mg capsule,extended release 24hr 120 mg PO DAILY Protocol: Hold for SBP/HR < HOLD for SBP < : 90 HOLD for HR < : 60 <Natividad Raines NP - Last Filed: 09/03/22 11:38>
--- NOTE | 2022-09-03 11:36 | ECG_ITS ---
Test Reason : vomiting Blood Pressure : / mmHG Vent. Rate : 080 BPM Atrial Rate : 000 BPM P-R Int : 000 ms QRS Dur : 090 ms QT Int : 374 ms P-R-T Axes : 000 -07 178 degrees QTc Int : 431 ms Atrial fibrillation Moderate voltage criteria for LVH, may be normal variant ( R in aVL , Neri product ) Marked ST abnormality, possible inferolateral subendocardial injury Abnormal ECG When compared with ECG of 24-AUG-2022 19:40, No significant change was found Referred By: Natividad Raines Electronically Signed By:Jacek Cali
[2022-09-03 12:10] LABS: MANUAL DIFF FLAG NO
[2022-09-03 12:16] LABS: Basophils Absolute Auto 0.1 X10*3/uL (0.0-0.2); Basophils Percent Auto 0.9 % (0-2); Eosinophils Absolute Auto 0.2 X10*3/uL (0.0-0.4); Eosinophils Percent Auto 4.2 % (0-4); Hematocrit 39.1 % (37.0-47.0); Hemoglobin 12.5 g/dl (12.0-16.0); Imm Gran Abs Auto 0.05 X10*3/uL (0.00-0.03); Imm Gran Pct Auto 0.9 % (0.0-0.4); Lymphocytes Absolute Auto 1.9 X10*3/uL (1.2-4.9); Lymphocytes Percent Auto 33.5 % (20-40); Mean Corpuscular Hemoglobin 28.5 pg (27.0-33.0); Mean Corpuscular Volume 89.3 fL (80.0-98.0); Mean Platelet Volume 11.6 fL (9.4-12.3); Monocytes Absolute Auto 0.5 X10*3/uL (0.1-1.2); Monocytes Percent Auto 8.2 % (2-11); Neutrophils Percent Auto 52.3 % (45-73); Platelet Count 217 X10*3/uL (160-400); Red Blood Count 4.38 X10*6/uL (4.20-5.50); Red Cell Distribution Width 14.8 % (11.0-16.0); White Blood Count 5.7 X10*3/uL (4.8-10.8)
[2022-09-03 12:24] LABS: COVID-19 Test Negative (Negative); IDNOW Serial# 9DB6401D
[2022-09-03 12:29] LABS: Alanine Aminotransferase 23 U/L (0-31); Albumin Level 3.1 g/dL (3.5-5.0); Alkaline Phosphatase 90 U/L (39-117); Anion Gap 16 (12-20); Aspartate Amino Transferase 34 U/L (5-31); Bilirubin Direct 0.5 mg/dL (0.0-0.5); Bilirubin Total 1.6 mg/dL (0.0-1.0); Blood Urea Nitrogen 21 mg/dL (9-16); Calcium 9.1 mg/dL (8.4-10.2); Carbon Dioxide 28 mmol/L (22-29); Chloride 99 mmol/L (96-108); Creatinine Clr Calc Pharmacy 43.2; Estimated Glomerular Filt Rate > 60; Glucose Random 114 mg/dL (60-115); Magnesium 1.5 mg/dL (1.6-2.6); Potassium 3.3 mmol/L (3.3-5.1); Sodium 140 mmol/L (135-145); Total Protein 5.8 g/dL (6.5-8.0)
[2022-09-03] MEDS: 0.9 % Sodium Chloride 500 ML IV (13:28)
[2022-09-03 14:33] VITALS: BP 112/65; PULSE 88; RESP 14; TEMP 36.6; O2SAT 100
--- NOTE | 2022-09-03 14:43 | ECG_ITS ---
Test Reason : VOMITING Blood Pressure : / mmHG Vent. Rate : 081 BPM Atrial Rate : 000 BPM P-R Int : 000 ms QRS Dur : 088 ms QT Int : 386 ms P-R-T Axes : 000 -12 101 degrees QTc Int : 448 ms Atrial fibrillation Moderate voltage criteria for LVH, may be normal variant ( R in aVL , Neri product ) Nonspecific ST and T wave abnormality Abnormal ECG When compared with ECG of 03-SEP-2022 11:56, No significant change was found Referred By: Beverly Page Electronically Signed By:Jacek Cali
[2022-09-03] MEDS: Magnesium Sulfate/D5W 1 GM/100 ML PIGGYBACK IV (15:07)
[2022-09-03] MEDS: ondansetron HCL 4 MG/2 ML VIAL IVPUSH (15:08)
--- NOTE | 2022-09-03 16:11 | MHC.EDTECH ---
pt soiled. Ileana Valencia and myself changed the pt. pt is now resting comfortable on the stretcher.
[2022-09-03 19:07] VITALS: BP 86/64; PULSE 75; RESP 18; O2SAT 98
[2022-09-03] MEDS: levoFLOXacin 250 MG TABLET PO (19:53)
[2022-09-03] MEDS: metroNIDAZOLE 250 MG TABLET PO (19:53)
== END 2022-09-03 21:15 | disposition home or self-care (01) ==
PROVIDERS: Nurse Practitioner Family; Student in an Organized Health Care Education/Training Program; Emergency Provider Emergency Medicine; PCP Nurse Practitioner Primary Care
DX: R11.12 Projectile vomiting (principal); R11.2 Nausea with vomiting, unspecified; I48.91 Unspecified atrial fibrillation; Z79.01 Long term (current) use of anticoagulants; Z79.899 Other long term (current) drug therapy; Z20.822 Contact with and (suspected) exposure to COVID-19
CPT/HCPCS: 36415; 71045; 74176; 80048; 80076; 83735; 84484; 85025; 87635; 93005; 96361; 96365; 96366; 96375; 99212; 99285; J2405; J3475

== ENCOUNTER → 2022-09-08 14:16 | Outpatient (REF) | payer MEDICARE, MEDICAID, SELFPAY ==
--- NOTE | 2022-09-08 14:19 | HM_ITS ---
Conclusion: 1. Patient was monitored for total period of 2 days and 17 hours 2. Baseline was atrial fibrillation with average heart rate of 83 beats per minute with adequate rate control 3. No significant pauses greater than 3 seconds noted 4. Total of 1259 PVCs accounting for 0.4% total beats account for occasional PVCs 5. No patient reported events MTDD
== END ==
LOC: HO.CARD 14:16
PROVIDERS: PCP Nurse Practitioner Primary Care; Visit Provider Internal Medicine
DX: I48.19 Other persistent atrial fibrillation (principal)
CPT/HCPCS: 93242

== ENCOUNTER 2022-09-11 08:51 | Emergency (ER) | payer MEDICARE, MEDICAID, SELFPAY ==
--- NOTE | ~2022-09-11 | CT_ITS ---
EXAMINATION: CT ABDOMEN AND PELVIS WITHOUT CONTRAST CLINICAL INFORMATION: Vomiting. No bowel movement for 4 days. Colitis. COMPARISON: CT scan abdomen pelvis 09/03/2022 TECHNIQUE: Multidetector volumetric imaging was performed from the superior aspect of the liver through the pubic symphysis. Sagittal and coronal reformatted images were obtained on the technologist's workstation. This CT examination was performed using dose optimization techniques as appropriate, variously including the following: *Automated exposure control *Adjustment of mA and/or kV according to patient size (this includes techniques or standardized protocols for targeted exams where dose is matched to indication/reason for exam; i.e. extremities or head) *Use of iterative reconstruction technique DLP: 408 mGy-cm FINDINGS: LUNG BASES: Heart size is enlarged. Small volume pericardial effusion. Moderate volume of coronary artery calcification. Normal aeration of lung bases. LIVER, GALLBLADDER, AND BILIARY TREE: The liver is normal in size, shape, and attenuation. No focal hepatic lesion or biliary ductal dilatation is present. The gallbladder is unremarkable with no evidence of radiopaque gallstones, gallbladder wall thickening, or obvious pericholecystic inflammatory changes. PANCREAS: Fatty atrophy of the pancreas. SPLEEN: Unremarkable. ADRENAL GLANDS: Stable right adrenal adenoma measuring 2.2 x 1.5 cm. Stable left adrenal adenoma measuring 1.3 cm. KIDNEYS AND URETERS: The kidneys are normal in size, shape, and attenuation. No hydronephrosis, hydroureter, or calculi seen. No perinephric stranding. BLADDER: Unremarkable. GASTROINTESTINAL TRACT: No acute abnormality. There is no bowel wall thickening /edema. There is no bowel obstruction. There is a moderate volume of stool in the colon. The appendix is normal . The small bowel loops are unremarkable. The stomach is normal. There is no hiatal hernia. ABDOMINAL WALL: No significant hernia is appreciated. LYMPH NODES: Normal. VASCULAR: Atherosclerotic vascular calcifications of aorta. There is no aneurysm. PELVIC VISCERA: Unremarkable. 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 There is a compression deformities of the superior endplate of L4 with about 25% loss of height of the central endplate. There is approximately 75% loss of height of the T12 and L1 vertebrae. These appear to be chronic compression deformities. Mild kyphosis of the spine at the thoracolumbar junction. CT/CT abdomen pelvis wo IV con IMPRESSION: 1. No acute abnormality CT scan abdomen pelvis. No evidence of constipation. No acute change of the bowel. 2. Stable bilateral adrenal adenomas. 3. Cardiomegaly. Small pericardial effusion. Fleischner guidelines were followed.
[2022-09-11 08:59] VITALS: BP 136/62; BP 136/80; PULSE 109; RESP 16; O2SAT 95; BMI 27.3
--- NOTE | 2022-09-11 09:00 | ED.NAVMDI ---
HPI - Nausea/Vomiting/Diarrhea General Chief complaint: Abdominal Pain <AUSTIN Seo Last Filed: 09/11/22 16:48> Stated complaint: NAUSEA W/VOMITING PER EMS <AUSTIN Seo Last Filed: 09/11/22 16:48> Time Seen by Provider: 09/11/22 08:55 <AUSTIN Seo - Last Filed: 09/11/22 16:48> Source: patient, family, EMS and old records reviewed <AUSTIN Seo Last Filed: 09/11/22 16:48> Mode of arrival: EMS <AUSTIN Seo Last Filed: 09/11/22 16:48> Limitations: no limitations <AUSTIN Seo Last Filed: 09/11/22 16:48> History of Present Illness HPI Narrative: 81 yo female with history of right MCA stroke in July 2022 s/p thrombectomy right internal carotid artery at [facility], bedbound since, history of afib on apixaban, AAA, HTN, recent diagnosis of colitis on 09/03 currently on Levaquin and Flagyl who presents to the ER from home via EMS for evaluation of nausea and vomiting, unable to tolerate her home medications or any PO. Her granddaughter reports she vomited twice yesterday and once early this morning. She has not had a BM in 4 days. She threw up her medications this morning. Patient c/o diffuse abdominal pain that improved once she vomited. She has no complaints on arrival to the ER. <AUSTIN Seo Last Filed: 09/11/22 16:48> MD elicited complaint: nausea, vomiting and abdominal pain <AUSTIN Seo Last Filed: 09/11/22 16:48> Onset (ago): day(s) <AUSTIN Seo Last Filed: 09/11/22 16:48> Description of vomiting: watery <AUSTIN Seo Last Filed: 09/11/22 16:48> Associated nausea: Yes <AUSTIN Seo Last Filed: 09/11/22 16:48> Associated abdominal pain: Yes <AUSTIN Seo Last Filed: 09/11/22 16:48> Location of pain: diffuse <AUSTIN Seo Last Filed: 09/11/22 16:48> Radiation: diffuse <AUSTIN Seo Last Filed: 09/11/22 16:48> Pain consistency: now resolved <AUSTIN Seo Last Filed: 09/11/22 16:48> Severity: moderate <AUSTIN Seo Last Filed: 09/11/22 16:48> Quality: cramping <AUSTIN Seo Last Filed: 09/11/22 16:48> Exacerbating factors: eating <AUSTIN Seo Last Filed: 09/11/22 16:48> Relieving factors: none <AUSTIN Seo Last Filed: 09/11/22 16:48> Context: recent antibiotic use <AUSTIN Seo Last Filed: 09/11/22 16:48> Associated symptoms: loss of appetite, malaise, nausea/vomiting, weakness and decreased urine output <AUSTIN Seo Last Filed: 09/11/22 16:48> Related Data Home medications: Home Medications Medication Instructions Recorded Confirmed apixaban 5 mg tablet (Eliquis) 5 mg PO BID 09/03/22 09/03/22 aspirin 81 mg tablet,delayed 81 mg PO QAM 09/03/22 09/03/22 release atorvastatin 40 mg tablet 40 mg PO DAILY 09/03/22 09/03/22 diltiazem HCl 120 mg 120 mg PO DAILY 09/03/22 09/03/22 capsule,extended release 24 hr (Cardizem CD) doxazosin 2 mg tablet 2 mg PO DAILY 09/03/22 09/03/22 metoprolol tartrate 100 mg tablet 100 mg PO BID 09/03/22 09/03/22 Previous Rx's Medication Instructions Recorded levetiracetam 250 mg tablet 250 mg PO BID 30 days #60 tabs 08/29/22 levofloxacin 250 mg tablet 250 mg PO DAILY #7 tabs 09/03/22 metronidazole 250 mg tablet 250 mg PO BID #14 tabs 09/03/22 ondansetron 4 mg disintegrating 4 mg PO Q8H PRN nausea and 09/03/22 tablet vomiting #7 tabs cefdinir 250 mg/5 mL oral 300 mg (6 mL) PO BID 7 days #84 mL 09/11/22 suspension ondansetron 4 mg disintegrating 4 mg PO Q8H PRN nausea and 09/11/22 tablet vomiting #10 tabs <AUSTIN Seo - Last Filed: 09/11/22 16:48> Allergies/Adverse reactions: Allergies Allergy/AdvReac Type Severity Reaction Status Date / Time hydrochlorothiazide Allergy Mild UNKNOWN Verified 08/24/22 19:41 [Hydrochlorothiazide] penicillin G [Penicillin G] Allergy Mild UNKNOWN Verified 08/24/22 19:41 penicillin V Allergy Unknown Unknown Verified 08/24/22 19:41 chlorthalidone AdvReac Severe hyponatremi Verified 08/24/22 19:41 [CHLORTHALIDONE] a <AUSTIN Seo - Last Filed: 09/11/22 16:48> Review of Systems Review of Systems: Yes all other systems are reviewed and are negative <AUSTIN Seo - Last Filed: 09/11/22 16:48> Gastrointestinal: Gastrointestinal: Reports nausea <AUSTIN Seo - Last Filed: 09/11/22 16:48> [facility] Past Medical History Medical History: Medical History Acute right MCA stroke Atrial fibrillation HTN (hypertension) Right eye symptoms 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 <AUSTIN Seo - Last Filed: 09/11/22 16:48> Surgical History: Surgical History H/O carotid endarterectomy <AUSTIN Seo - Last Filed: 09/11/22 16:48> Family History Family History: Family History Mother Heart problem <AUSTIN Seo - Last Filed: 09/11/22 16:48> Social History Social History: Social History Household Members: Family and Caregiver Housing: Apartment Do you presently have visiting nurse or other home services: Yes Patient Tobacco Use Status: Never used Tobacco Advance Directives: Yes Advance Directives on File: No service: No Current occupational status: disabled <AUSTIN Seo - Last Filed: 09/11/22 16:48> Physical Exam Vital Signs: Vital Signs: Last Vital Signs Temp 97.6 F 09/11/22 19:46 Pulse 100 09/11/22 19:46 Resp 16 09/11/22 19:46 BP 136/68 09/11/22 19:46 Pulse Ox 94 09/11/22 19:46 O2 Del Method 09/11/22 19:46 O2 Flow Rate 2 09/11/22 12:51 BMI result Body Mass Index 27.3 <AUSTIN Seo - Last Filed: 09/11/22 16:48> Vital Signs: Last Vital Signs Temp 97.6 F 09/11/22 19:46 Pulse 100 09/11/22 19:46 Resp 16 09/11/22 19:46 BP 136/68 09/11/22 19:46 Pulse Ox 94 09/11/22 19:46 O2 Del Method 09/11/22 19:46 O2 Flow Rate 2 09/11/22 12:51 BMI result Body Mass Index 27.3 <Won Patricio MD - Last Filed: 09/13/22 01:24> Appearance: Alert elderly female. Oriented X2. No acute distress. Eyes: Pupils equal, round and reactive to light. Hazy cornea on the left with deviation to the left, chronic ENT: Pharynx with dry mucus membranes. Neck: Normal inspection. Neck supple. CVS: Normal heart rate and rhythm. Pulses normal. Respiratory: No respiratory distress. Breath sounds normal. Abdomen: Soft and nontender. present +BS x4 Skin: Skin warm and dry. Normal skin color. Poor skin turgor. No rashes. Extremities: No lower extremity edema. Neuro: Oriented to person and place, not to time. left sided UE weakness >RUE. unable to life either <AUSTIN Seo - Last Filed: 09/11/22 16:48> Course Course Course Narrative: 81 yo bedbound female with history of recent MCA stroke, afib, recent colitis on levaquin and flagyl presenting to the ER for evaluation of 3 episodes of vomiting, decreased PO intake and abd pain. Abd soft with good bowel sounds on arrival, nontender. Will get labs and CT scan for further evaluation. <AUSTIN Seo - Last Filed: 09/11/22 16:48> Reevaluation(s) Reevaluation #1: Lab workup was unremarkable. CT scan is unremarkable. No evidence of colitis. Additional history was taken from the patient's granddaughter who is the caregiver. She reports that the patient has had decreased p.o. intake, difficulty tolerating crushed pills in puree since her stroke. She does not have a good appetite. She states that with the crushed pills she often complains of a bitter taste and has nausea or vomiting afterward. She was given p.o. trial here and is tolerating alfonso cynthia and crackers. She complains of constipation, bowel regimen ordered. No evidence of obstruction, bowel sounds remain normal. If she continues tolerate p.o. and has no vomiting or abdominal pain here, will plan to discharge home with rina Pelayo. She has a appointment with her PCP on Thursday to help get more care at home. Family abdomen on keeping her home and not putting her in a rehab or long-term care facility. <AUSTIN Seo - Last Filed: 09/11/22 16:48> Reevaluation #2: Patient found to have a urinary tract infection. Will give 1 dose of IV Rocephin now and plan to discharge home with oral antibiotics that are liquid form to the she tolerates them better. Patient's current ever did like to take her home tonight. Will need EMS transport home given bedbound status. They will follow up with PCP on Thursday. Comfortable discharge home with oral antibiotics and antiemetics. Discussed results and importance of close follow-up with the granddaughter. She expressed understanding all questions were answered. Stable for discharge home. <AUSTIN Seo - Last Filed: 09/11/22 16:48> Medications Administered Discontinued Medications Generic Name Dose Route Start Last Admin Trade Name Freq PRN Reason Stop Dose Admin Docusate Sodium 200 mg 09/11/22 15:33 09/11/22 15:51 Docusate Sodium 100 Mg Capsule PO 09/11/22 15:34 200 mg ONCE ONE Administration Sodium Chloride 1,000 mls @ 999 mls/hr 09/11/22 09:15 09/11/22 11:02 Ns IVCONT 09/11/22 10:15 Infused .Q1H1M RHIANNON Infusion Magnesium Sulfate 2 gm in 50 mls @ 25 mls/hr 09/11/22 12:19 09/11/22 17:53 Magnesium Sulfate/H2o IV 09/11/22 14:18 Infused ONCE ONE Infusion Ceftriaxone Sodium 1 gm/ 50 mls @ 100 mls/hr 09/11/22 16:40 09/11/22 17:53 Sodium Chloride IV 09/11/22 17:09 Infused ONCE ONE Infusion Ondansetron HCl 4 mg 09/11/22 09:01 09/11/22 09:49 Ondansetron Hcl 4 Mg/2 Ml Vial IVPUSH 09/11/22 09:02 4 mg ONCE ONE Administration Polyethylene Glycol 17 gm 09/11/22 15:33 09/11/22 15:51 Polyethylene Glycol 3350 17 Gm Powd.Pack PO 09/11/22 15:34 17 gm ONCE ONE Administration Senna 15 ml 09/11/22 15:33 09/11/22 15:52 Senna [place] Extract Oral Syrup 15 Ml Syrup PO 09/11/22 15:34 15 ml ONCE ONE Administration <AUSTIN Seo - Last Filed: 09/11/22 16:48> Medications Administered Discontinued Medications Generic Name Dose Route Start Last Admin Trade Name Freq PRN Reason Stop Dose Admin Docusate Sodium 200 mg 09/11/22 15:33 09/11/22 15:51 Docusate Sodium 100 Mg Capsule PO 09/11/22 15:34 200 mg ONCE ONE Administration Sodium Chloride 1,000 mls @ 999 mls/hr 09/11/22 09:15 09/11/22 11:02 Ns IVCONT 09/11/22 10:15 Infused .Q1H1M RHIANNON Infusion Magnesium Sulfate 2 gm in 50 mls @ 25 mls/hr 09/11/22 12:19 09/11/22 17:53 Magnesium Sulfate/H2o IV 09/11/22 14:18 Infused ONCE ONE Infusion Ceftriaxone Sodium 1 gm/ 50 mls @ 100 mls/hr 09/11/22 16:40 09/11/22 17:53 Sodium Chloride IV 09/11/22 17:09 Infused ONCE ONE Infusion Ondansetron HCl 4 mg 09/11/22 09:01 09/11/22 09:49 Ondansetron Hcl 4 Mg/2 Ml Vial IVPUSH 09/11/22 09:02 4 mg ONCE ONE Administration Polyethylene Glycol 17 gm 09/11/22 15:33 09/11/22 15:51 Polyethylene Glycol 3350 17 Gm Powd.Pack PO 09/11/22 15:34 17 gm ONCE ONE Administration Senna 15 ml 09/11/22 15:33 09/11/22 15:52 Senna [place] Extract Oral Syrup 15 Ml Syrup PO 09/11/22 15:34 15 ml ONCE ONE Administration <Won Patricio MD - Last Filed: 09/13/22 01:24> Medical Decision Making Differential Diagnosis Differential Diagnoses: The differential diagnosis associated with the presentation includes <AUSTIN Seo - Last Filed: 09/11/22 16:48> Gastroenteritis, bowel obstruction, dysphagia, UTI, constipation, dehydration, ACS <AUSTIN Seo - Last Filed: 09/11/22 16:48> Admission/Observation Consideration of admission/observation: Escalation of care including admission/observation considered <AUSTIN Seo - Last Filed: 09/11/22 16:48> Lab Data MDM Lab Attestation statement: I reviewed the patient's lab results. <AUSTIN Seo - Last Filed: 09/11/22 16:48> No major metabolic derangement, stable anemia no leukocytosis <AUSTIN Seo - Last Filed: 09/11/22 16:48> Result Diagrams: 09/11/22 09:20 09/11/22 09:20 <AUSTIN Seo Last Filed: 09/11/22 16:48> Labs: Lab Results 09/11/22 09/11/22 09/11/22 Range/Units 09:20 09:20 09:20 WBC 7.4 (4.8-10.8) X10*3/uL RBC 3.91 L (4.20-5.50) X10*6/uL Hgb 11.2 L (12.0-16.0) g/dl Hct 34.2 L (37.0-47.0) % MCV 87.5 (80.0-98.0) fL MCH 28.6 (27.0-33.0) pg MCHC 32.7 (31.0-35.0) g/dl RDW 15.6 (11.0-16.0) % Plt Count 204 (160-400) X10*3/uL MPV 11.9 (9.4-12.3) fL Immature Gran % (Auto) 0.5 H (0.0-0.4) % Neut % (Auto) 65.0 (45-73) % Lymph % (Auto) 21.7 (20-40) % [place] % (Auto) 11.1 H (2-11) % Eos % (Auto) 0.9 (0-4) % Baso % (Auto) 0.8 (0-2) % Lymph # (Auto) 1.6 (1.2-4.9) X10*3/uL [place] # (Auto) 0.8 (0.1-1.2) X10*3/uL Eos # (Auto) 0.1 (0.0-0.4) X10*3/uL Baso # (Auto) 0.1 (0.0-0.2) X10*3/uL Abs Immat Gran (auto) 0.04 H (0.00-0.03) X10*3/uL Absolute Neuts (auto) 4.8 (2.0-8.3) x10*3/uL Absolute Nucleated RBC 0.000 (0.0-0.012) X10*3/uL Nucleated RBC % (auto) 0.0 (0.0-0.2) /100WBC Sodium (135-145) mmol/L Potassium (3.3-5.1) mmol/L Chloride (96-108) mmol/L Carbon Dioxide (22-29) mmol/L Anion Gap (12-20) BUN (9-16) mg/dL Creatinine (0.5-1.4) mg/dL Estim Creat Clear Calc Estimated GFR Random Glucose (60-115) mg/dL Calcium (8.4-10.2) mg/dL Magnesium (1.6-2.6) mg/dL Total Bilirubin (0.0-1.0) mg/dL Direct Bilirubin (0.0-0.5) mg/dL AST (5-31) U/L ALT (0-31) U/L Alkaline Phosphatase (39-117) U/L Total Protein (6.5-8.0) g/dL Albumin (3.5-5.0) g/dL Lipase (8-78) U/L Urine Color Urine Appearance Urine pH (5.0-9.0) Ur Specific [place] (1.005-1.025) Urine Protein (Neg-Trace) mg/dL Urine Glucose (UA) (Negative) mg/dL Urine Ketones (Negative) mg/dL Urine Blood (Negative) Urine Nitrite (Negative) Ur Leukocyte Esterase (Negative) Urine RBC (0-2) /HPF Urine WBC (0-5) /HPF Ur Squamous Epith Cells (0-2) /HPF Urine Bacteria (None Seen) Hyaline Casts (0-2) /LPF COVID-19 (SUZANNE) Negative (Negative) COVID-19 Clin Com See Note Influenza Type A (JESÚS) Negative (Negative) Influenza Type B (JESÚS) Negative (Negative) Influenza A & B Note See Note 09/11/22 09/11/22 Range/Units 10:52 16:14 WBC (4.8-10.8) X10*3/uL RBC (4.20-5.50) X10*6/uL Hgb (12.0-16.0) g/dl Hct (37.0-47.0) % MCV (80.0-98.0) fL MCH (27.0-33.0) pg MCHC (31.0-35.0) g/dl RDW (11.0-16.0) % Plt Count (160-400) X10*3/uL MPV (9.4-12.3) fL Immature Gran % (Auto) (0.0-0.4) % Neut % (Auto) (45-73) % Lymph % (Auto) (20-40) % [place] % (Auto) (2-11) % Eos % (Auto) (0-4) % Baso % (Auto) (0-2) % Lymph # (Auto) (1.2-4.9) X10*3/uL [place] # (Auto) (0.1-1.2) X10*3/uL Eos # (Auto) (0.0-0.4) X10*3/uL Baso # (Auto) (0.0-0.2) X10*3/uL Abs Immat Gran (auto) (0.00-0.03) X10*3/uL Absolute Neuts (auto) (2.0-8.3) x10*3/uL Absolute Nucleated RBC (0.0-0.012) X10*3/uL Nucleated RBC % (auto) (0.0-0.2) /100WBC Sodium 143 (135-145) mmol/L Potassium 3.2 L (3.3-5.1) mmol/L Chloride 102 (96-108) mmol/L Carbon Dioxide 31 H (22-29) mmol/L Anion Gap 13 (12-20) BUN 13 (9-16) mg/dL Creatinine 0.70 (0.5-1.4) mg/dL Estim Creat Clear Calc 50.7 Estimated GFR > 60 Random Glucose 107 (60-115) mg/dL Calcium 8.3 L D (8.4-10.2) mg/dL Magnesium 1.2 L* (1.6-2.6) mg/dL Total Bilirubin 1.4 H (0.0-1.0) mg/dL Direct Bilirubin 0.4 (0.0-0.5) mg/dL AST 25 (5-31) U/L ALT 14 (0-31) U/L Alkaline Phosphatase 62 (39-117) U/L Total Protein 5.0 L (6.5-8.0) g/dL Albumin 2.7 L (3.5-5.0) g/dL Lipase 5 L (8-78) U/L Urine Color Dark Yellow Urine Appearance Cloudy Urine pH 5.5 (5.0-9.0) Ur Specific [place] 1.015 (1.005-1.025) Urine Protein Trace (Neg-Trace) mg/dL Urine Glucose (UA) Negative (Negative) mg/dL Urine Ketones Trace (Negative) mg/dL Urine Blood Large (3+) H (Negative) Urine Nitrite Negative (Negative) Ur Leukocyte Esterase Large (3+) H (Negative) Urine RBC >20 H (0-2) /HPF Urine WBC 0-5 (0-5) /HPF Ur Squamous Epith Cells 3-5 (0-2) /HPF Urine Bacteria Trace (None Seen) Hyaline Casts 6-10 (0-2) /LPF COVID-19 (SUZANNE) (Negative) COVID-19 Clin Com Influenza Type A (JESÚS) (Negative) Influenza Type B (JESÚS) (Negative) Influenza A & B Note <AUSTIN Seo - Last Filed: 09/11/22 16:48> Lab Results 09/11/22 09/11/22 09/11/22 Range/Units 09:20 09:20 09:20 WBC 7.4 (4.8-10.8) X10*3/uL RBC 3.91 L (4.20-5.50) X10*6/uL Hgb 11.2 L (12.0-16.0) g/dl Hct 34.2 L (37.0-47.0) % MCV 87.5 (80.0-98.0) fL MCH 28.6 (27.0-33.0) pg MCHC 32.7 (31.0-35.0) g/dl RDW 15.6 (11.0-16.0) % Plt Count 204 (160-400) X10*3/uL MPV 11.9 (9.4-12.3) fL Immature Gran % (Auto) 0.5 H (0.0-0.4) % Neut % (Auto) 65.0 (45-73) % Lymph % (Auto) 21.7 (20-40) % [place] % (Auto) 11.1 H (2-11) % Eos % (Auto) 0.9 (0-4) % Baso % (Auto) 0.8 (0-2) % Lymph # (Auto) 1.6 (1.2-4.9) X10*3/uL [place] # (Auto) 0.8 (0.1-1.2) X10*3/uL Eos # (Auto) 0.1 (0.0-0.4) X10*3/uL Baso # (Auto) 0.1 (0.0-0.2) X10*3/uL Abs Immat Gran (auto) 0.04 H (0.00-0.03) X10*3/uL Absolute Neuts (auto) 4.8 (2.0-8.3) x10*3/uL Absolute Nucleated RBC 0.000 (0.0-0.012) X10*3/uL Nucleated RBC % (auto) 0.0 (0.0-0.2) /100WBC Sodium (135-145) mmol/L Potassium (3.3-5.1) mmol/L Chloride (96-108) mmol/L Carbon Dioxide (22-29) mmol/L Anion Gap (12-20) BUN (9-16) mg/dL Creatinine (0.5-1.4) mg/dL Estim Creat Clear Calc Estimated GFR Random Glucose (60-115) mg/dL Calcium (8.4-10.2) mg/dL Magnesium (1.6-2.6) mg/dL Total Bilirubin (0.0-1.0) mg/dL Direct Bilirubin (0.0-0.5) mg/dL AST (5-31) U/L ALT (0-31) U/L Alkaline Phosphatase (39-117) U/L Total Protein (6.5-8.0) g/dL Albumin (3.5-5.0) g/dL Lipase (8-78) U/L Urine Color Urine Appearance Urine pH (5.0-9.0) Ur Specific [place] (1.005-1.025) Urine Protein (Neg-Trace) mg/dL Urine Glucose (UA) (Negative) mg/dL Urine Ketones (Negative) mg/dL Urine Blood (Negative) Urine Nitrite (Negative) Ur Leukocyte Esterase (Negative) Urine RBC (0-2) /HPF Urine WBC (0-5) /HPF Ur Squamous Epith Cells (0-2) /HPF Urine Bacteria (None Seen) Hyaline Casts (0-2) /LPF COVID-19 (SUZANNE) Negative (Negative) COVID-19 Clin Com See Note Influenza Type A (JESÚS) Negative (Negative) Influenza Type B (JESÚS) Negative (Negative) Influenza A & B Note See Note 09/11/22 09/11/22 Range/Units 10:52 16:14 WBC (4.8-10.8) X10*3/uL RBC (4.20-5.50) X10*6/uL Hgb (12.0-16.0) g/dl Hct (37.0-47.0) % MCV (80.0-98.0) fL MCH (27.0-33.0) pg MCHC (31.0-35.0) g/dl RDW (11.0-16.0) % Plt Count (160-400) X10*3/uL MPV (9.4-12.3) fL Immature Gran % (Auto) (0.0-0.4) % Neut % (Auto) (45-73) % Lymph % (Auto) (20-40) % [place] % (Auto) (2-11) % Eos % (Auto) (0-4) % Baso % (Auto) (0-2) % Lymph # (Auto) (1.2-4.9) X10*3/uL [place] # (Auto) (0.1-1.2) X10*3/uL Eos # (Auto) (0.0-0.4) X10*3/uL Baso # (Auto) (0.0-0.2) X10*3/uL Abs Immat Gran (auto) (0.00-0.03) X10*3/uL Absolute Neuts (auto) (2.0-8.3) x10*3/uL Absolute Nucleated RBC (0.0-0.012) X10*3/uL Nucleated RBC % (auto) (0.0-0.2) /100WBC Sodium 143 (135-145) mmol/L Potassium 3.2 L (3.3-5.1) mmol/L Chloride 102 (96-108) mmol/L Carbon Dioxide 31 H (22-29) mmol/L Anion Gap 13 (12-20) BUN 13 (9-16) mg/dL Creatinine 0.70 (0.5-1.4) mg/dL Estim Creat Clear Calc 50.7 Estimated GFR > 60 Random Glucose 107 (60-115) mg/dL Calcium 8.3 L D (8.4-10.2) mg/dL Magnesium 1.2 L* (1.6-2.6) mg/dL Total Bilirubin 1.4 H (0.0-1.0) mg/dL Direct Bilirubin 0.4 (0.0-0.5) mg/dL AST 25 (5-31) U/L ALT 14 (0-31) U/L Alkaline Phosphatase 62 (39-117) U/L Total Protein 5.0 L (6.5-8.0) g/dL Albumin 2.7 L (3.5-5.0) g/dL Lipase 5 L (8-78) U/L Urine Color Dark Yellow Urine Appearance Cloudy Urine pH 5.5 (5.0-9.0) Ur Specific [place] 1.015 (1.005-1.025) Urine Protein Trace (Neg-Trace) mg/dL Urine Glucose (UA) Negative (Negative) mg/dL Urine Ketones Trace (Negative) mg/dL Urine Blood Large (3+) H (Negative) Urine Nitrite Negative (Negative) Ur Leukocyte Esterase Large (3+) H (Negative) Urine RBC >20 H (0-2) /HPF Urine WBC 0-5 (0-5) /HPF Ur Squamous Epith Cells 3-5 (0-2) /HPF Urine Bacteria Trace (None Seen) Hyaline Casts 6-10 (0-2) /LPF COVID-19 (SUZANNE) (Negative) COVID-19 Clin Com Influenza Type A (JESÚS) (Negative) Influenza Type B (JESÚS) (Negative) Influenza A & B Note <Won Patricio MD - Last Filed: 09/13/22 01:24> Independent Interpretation I performed an independent interpretation of an: CT Scan <AUSTIN Seo - Last Filed: 09/11/22 16:48> Interpretation: No visualized bowel obstruction, no appreciated colitis <AUSTIN Seo - Last Filed: 09/11/22 16:48> Radiology Impression Discussion of test interpretation with radiology: I have reviewed the radiologist's reading. <AUSTIN Seo - Last Filed: 09/11/22 16:48> Radiologist Impression: CT/CT abdomen pelvis wo IV con IMPRESSION: 1.? No acute abnormality CT scan abdomen pelvis. No evidence of constipation. No acute change of the bowel. 2.? Stable bilateral adrenal adenomas. 3.? Cardiomegaly. Small pericardial effusion. <AUSTIN Seo - Last Filed: 09/11/22 16:48> Independent Historian Clinical information obtained from an independent historian. History obtained from or confirmed by: Other (Patient's granddaughter which is her caregiver/RADIATION ONCOLOGY MANAGER) <AUSTIN Seo - Last Filed: 09/11/22 16:48> External Record Review External record reviewed: Inpatient record, Office record, Outpatient record, Prior outpatient labs and Prior outpatient radiology <AUSTIN Seo - Last Filed: 09/11/22 16:48> Prescription Management I considered prescription management with: Pain Medication and Antibiotic <AUSTIN Seo - Last Filed: 09/11/22 16:48> Chronic Conditions Patient?s care impacted by: Other (stroke) <AUSTIN Seo - Last Filed: 09/11/22 16:48> Attestation Attending Attestation: I reviewed SOCIAL SECURITY BENEFITS INTERVIEWER/PA/Resident note, assessment and plan. I agree with the documentation, assessment and plan unless otherwise stated. <Won Patricio MD - Last Filed: 09/13/22 01:24> Critical Care Time Critical Care Time Critical Care Time: No <AUSTIN Seo - Last Filed: 09/11/22 16:48> Discharge Plan Discharge Clinical Impression: Acute UTI, Vomiting, Dysphagia <AUSTIN Seo - Last Filed: 09/11/22 16:48> Patient Disposition: Home, Self-Care <AUSTIN Seo - Last Filed: 09/11/22 16:48> Instructions: Acute Nausea and Vomiting (ED), Urinary Tract Infection in Older Adults (ED) <AUSTIN Seo - Last Filed: 09/11/22 16:48> Additional Instructions: Your labs today were unremarkable. Your CT scan was normal Urine test showed infection Recommend STOP taking the previously prescribed antibiotics, and START the new antibiotic tomorrow - she was given 1st dose in the ER today. Take the prescribed nausea medication as needed Stick to a bland diet while you are not feeling well. Make sure you are drinking plenty of fluids. Follow-up with your doctor on Thursday as scheduled. Tus laboratorios de hoy fueron normales. Vivar tomograf?a computarizada fue normal Examen de orina mostr? infecci?n Recomiende DEJAR de edu los antibi?ticos recetados anteriormente y COMENZAR el nuevo antibi?maricruz ma?vaishali; hoy se le administr? la primera dosis en la madeline de emergencias. [place] el medicamento recetado para las n?useas seg?n sea necesario. Sigue ino dieta blanda mientras no te sientas basilia. Aseg?rese de beber muchos l?quidos. Seguimiento con vivar m?dico el seg?n lo programado. <AUSTIN Seo - Last Filed: 09/11/22 16:48> Prescriptions: New ondansetron 4 mg tablet,disintegrating 4 mg PO Q8H PRN (Reason: nausea and vomiting) Qty: 10 0RF cefdinir 250 mg/5 mL suspension for reconstitution 300 mg PO BID 7 Days Qty: 84 0RF No Action levetiracetam 250 mg Tablet 250 mg PO BID 30 Days Qty: 60 0RF Eliquis 5 mg tablet 5 mg PO BID aspirin 81 mg tablet,delayed release (DR/EC) 81 mg PO QAM atorvastatin 40 mg tablet 40 mg PO DAILY doxazosin 2 mg tablet 2 mg PO DAILY metoprolol tartrate 100 mg tablet 100 mg PO BID levofloxacin 250 mg tablet 250 mg PO DAILY Qty: 7 0RF metronidazole 250 mg tablet 250 mg PO BID Qty: 14 0RF ondansetron 4 mg tablet,disintegrating 4 mg PO Q8H PRN (Reason: nausea and vomiting) Qty: 7 0RF diltiazem HCl [Cardizem CD] 120 mg capsule,extended release 24hr 120 mg PO DAILY Protocol: Hold for SBP/HR < HOLD for SBP < : 90 HOLD for HR < : 60 <AUSTIN Seo - Last Filed: 09/11/22 16:48> Referrals: Opal Antunez, [employer] [Primary Care Provider] - <AUSTIN Seo - Last Filed: 09/11/22 16:48> Interventions: ED Discharge Assessment Last Done: 09/11/22 20:47 <AUSTIN Seo - Last Filed: 09/11/22 16:48> Discharge Date/Time: 09/11/22 20:49 <AUSTIN Seo - Last Filed: 09/11/22 16:48> Print Language: French <AUSTIN Seo - Last Filed: 09/11/22 16:48>
--- NOTE | 2022-09-11 09:07 | ECG_ITS ---
Test Reason : weakness Blood Pressure : / mmHG Vent. Rate : 097 BPM Atrial Rate : 000 BPM P-R Int : 000 ms QRS Dur : 090 ms QT Int : 306 ms P-R-T Axes : 000 -05 175 degrees QTc Int : 388 ms Atrial fibrillation Moderate voltage criteria for LVH, may be normal variant ( R in aVL , Neri product ) ST & T wave abnormality, consider lateral ischemia Abnormal ECG When compared with ECG of 03-SEP-2022 15:17, QT has shortened Referred By: Vangie Burks Electronically Signed By:BINH BELCHER MD
[2022-09-11 09:45] LABS: MANUAL DIFF FLAG NO
[2022-09-11] MEDS: ondansetron HCL 4 MG/2 ML VIAL IVPUSH (09:49)
[2022-09-11] MEDS: 0.9 % Sodium Chloride 1,000 ML 999 ML IVCONT (09:49)
[2022-09-11 09:51] LABS: Basophils Absolute Auto 0.1 X10*3/uL (0.0-0.2); Basophils Percent Auto 0.8 % (0-2); Eosinophils Absolute Auto 0.1 X10*3/uL (0.0-0.4); Eosinophils Percent Auto 0.9 % (0-4); Hematocrit 34.2 % (37.0-47.0); Hemoglobin 11.2 g/dl (12.0-16.0); Imm Gran Abs Auto 0.04 X10*3/uL (0.00-0.03); Imm Gran Pct Auto 0.5 % (0.0-0.4); Lymphocytes Absolute Auto 1.6 X10*3/uL (1.2-4.9); Lymphocytes Percent Auto 21.7 % (20-40); Mean Corpuscular HGB Conc 32.7 g/dl (31.0-35.0); Mean Corpuscular Hemoglobin 28.6 pg (27.0-33.0); Mean Corpuscular Volume 87.5 fL (80.0-98.0); Mean Platelet Volume 11.9 fL (9.4-12.3); Monocytes Absolute Auto 0.8 X10*3/uL (0.1-1.2); Monocytes Percent Auto 11.1 % (2-11); Neutrophils Absolute Auto 4.8 x10*3/uL (2.0-8.3); Platelet Count 204 X10*3/uL (160-400); Red Blood Count 3.91 X10*6/uL (4.20-5.50); Red Cell Distribution Width 15.6 % (11.0-16.0); White Blood Count 7.4 X10*3/uL (4.8-10.8)
[2022-09-11 10:02] VITALS: BP 134/55; PULSE 80; RESP 18; TEMP 36.7; O2SAT 100
[2022-09-11 10:02] LABS: COVID-19 Test Negative (Negative); IDNOW Serial# 55D5AD1C
[2022-09-11 10:09] LABS: IDNOW Serial# 9DB6401D; Influenza A Negative (Negative); Influenza B2 Negative (Negative)
[2022-09-11 11:39] LABS: Alanine Aminotransferase 14 U/L (0-31); Albumin Level 2.7 g/dL (3.5-5.0); Alkaline Phosphatase 62 U/L (39-117); Anion Gap 13 (12-20); Aspartate Amino Transferase 25 U/L (5-31); Bilirubin Direct 0.4 mg/dL (0.0-0.5); Bilirubin Total 1.4 mg/dL (0.0-1.0); Blood Urea Nitrogen 13 mg/dL (9-16); Calcium 8.3 mg/dL (8.4-10.2); Carbon Dioxide 31 mmol/L (22-29); Chloride 102 mmol/L (96-108); Creatinine Clr Calc Pharmacy 50.7; Estimated Glomerular Filt Rate > 60; Glucose Random 107 mg/dL (60-115); Lipase 5 U/L (8-78); Magnesium 1.2 mg/dL (1.6-2.6); Potassium 3.2 mmol/L (3.3-5.1); Sodium 143 mmol/L (135-145)
[2022-09-11] MEDS: Magnesium Sulfate/H2O 2 GM/50 ML PIGGYBACK IV (12:47)
[2022-09-11 12:51] VITALS: BP 124/61; PULSE 95; RESP 16; O2SAT 99
[2022-09-11] MEDS: polyethylene glycoL 3350 17 GM POWD.PACK PO (15:51)
[2022-09-11] MEDS: Docusate Sodium 100 MG CAPSULE 200 MG PO (15:51)
[2022-09-11 16:33] LABS: Appearance Urine Cloudy; Color Urine Dark Yellow; Glucose Urine UA Negative (Negative); Leukocyte Esterase Urine Large (3+) (Negative); Nitrite Urine Negative (Negative); PH 5.5 (5.0-9.0); Specific Gravity - Urine 1.015 (1.005-1.025); UMIC TRIGGER UACC YES; Urine Blood Large (3+) (Negative); Urine Ketones Trace mg/dL (Negative); Urine Protein Trace mg/dL (Neg-Trace)
[2022-09-11 16:44] LABS: Bacteria Urine Trace (None Seen); RBC Urine >20 /HPF (0-2); UACC Culture Trigger YES; WBC Urine 0-5 /HPF (0-5)
[2022-09-11] MEDS: cefTRIAXone sodium 1 GM in 0.9 % Sodium Chloride 50 ML IV (16:52)
--- NOTE | 2022-09-11 16:52 | MHC.EDTECH ---
Brought patient ice water.
[2022-09-11 19:46] VITALS: BP 136/68; PULSE 100; RESP 16; TEMP 36.4; O2SAT 94
== END 2022-09-11 20:49 | disposition home or self-care (01) ==
PROVIDERS: Physician Assistant; Emergency Provider Emergency Medicine; PCP Nurse Practitioner Primary Care
DX: N39.0 Urinary tract infection, site not specified (principal); R11.10 Vomiting, unspecified; R13.10 Dysphagia, unspecified; Z20.822 Contact with and (suspected) exposure to COVID-19; I10 Essential (primary) hypertension; I48.91 Unspecified atrial fibrillation; Z86.73 Personal history of transient ischemic attack (TIA), and cerebral infarction without residual deficits; Z79.01 Long term (current) use of anticoagulants; Z79.899 Other long term (current) drug therapy; I48.19 Other persistent atrial fibrillation
CPT/HCPCS: 74176; 80048; 80076; 81001; 83690; 83735; 85025; 87086; 87502; 87635; 93005; 96361; 96365; 96366; 96375; 99284; 99285; J0696; J2405; J3475

== ENCOUNTER 2022-09-15 11:38 | Inpatient (IN) | payer MEDICARE, MEDICAID, SELFPAY ==
[2022-09-15] VITALS (14 sets, daily range): BP systolic 79–130; BP diastolic 37–74; PULSE 59–98; RESP 11–15; TEMP 36.2–37.7; O2SAT 88–100; BMI 25.9
--- NOTE | ~2022-09-15 | XR_ITS ---
EXAMINATION: XR CHEST CLINICAL INFORMATION: Cough COMPARISON: Chest radiographs 09/03/2022, 08/06/2022, 07/09/2022; CT abdomen 09/11/2022 TECHNIQUE: Portable upright AP view of the chest was obtained. FINDINGS: Exam performed with patient slightly rotated to left. There are low lung volumes. No lobar or segmental airspace consolidation or groundglass opacity or effusion. Heart size within normal. Vascularity within normal. There is some mild coarsening of the central bronchiolar markings again seen. XR/XR chest 1V IMPRESSION: No acute intrathoracic disease.
--- NOTE | ~2022-09-15 | CT_ITS ---
EXAMINATION: CT CHEST, ABDOMEN AND PELVIS WITH CONTRAST CLINICAL INFORMATION: Cough. Abdominal pain. COMPARISON: CT abdomen pelvis 09/11/2022. Chest x-ray 09/15/2022 TECHNIQUE: Multidetector volumetric CT imaging of the chest, abdomen and pelvis was obtained after the administration of 85 mL of intravenous Omnipaque 350 without immediate adverse reactions. Coronal and sagittal reformatted images are performed at CT scanner [This CT examination was performed using dose optimization techniques as appropriate, variously including the following: *Automated exposure control *Adjustment of mA and/or kV according to patient size (this includes techniques or standardized protocols for targeted exams where dose is matched to indication/reason for exam; i.e. extremities or head) *Use of iterative reconstruction technique] DLP: 822 mGy-cm. FINDINGS: There is breathing motion which limits study. CT CHEST: Lungs: Dependent atelectasis left lung base. Right lung normally aerated. No evidence of central pulmonary emboli. Mediastinum: There is no mediastinal mass or significant lymphadenopathy. Heart size is prominent. No pericardial effusion. Moderate volume of coronary calcification. No aneurysm of aorta. Ascending aorta measures 3.8 cm transverse. No aortic dissection. There are scattered vascular wall calcifications of thoracic aorta. There is a moderate volume of calcifications of thoracic aortic wall. Heart size is enlarged. Moderate volume of coronary artery calcification. 5 mm hypodense nodule right lobe of thyroid. No further follow-up imaging recommended. Pleura: Trace dependent left pleural effusion. Axilla: No lymphadenopathy. CT ABDOMEN AND PELVIS: Liver, Gallbladder and Biliary Tree: The liver is normal in size, shape, and attenuation. No focal hepatic lesion or biliary ductal dilatation is present. The gallbladder is unremarkable with no evidence of radiopaque gallstones, gallbladder wall thickening, or obvious pericholecystic inflammatory changes. Pancreas: Diffuse fatty atrophy of the pancreas. Spleen: Spleen normal in size and contour. No focal lesion. Adrenal Glands: Stable right adrenal gland adenoma measuring 2 x 1.6 cm. Stable left adrenal adenoma measuring 1.3 cm. Kidneys and Ureters: The kidneys are normal in size, shape, and attenuation. No hydronephrosis, hydroureter, or calculi seen. No perinephric stranding. Bladder: Unremarkable. Gastrointestinal Tract: No acute abnormality. There is no bowel wall thickening /edema. There is no bowel obstruction. There is a moderate volume of stool in the colon. The appendix is normal . The small bowel loops are unremarkable. The stomach is normal. There is no hiatal hernia. Mesentery: No focal inflammation. No free fluid. No free air. Abdominal Wall: No significant hernia is appreciated. Lymph Nodes: Normal. Vascular: Vascular calcifications throughout the abdomen and pelvis. There is no aneurysm. Pelvic Viscera: Unremarkable. Osseous Structures: Multilevel degenerative spondylosis spine. Stable Compression deformity of T12 and L1 with about 75% loss of height of vertebrae. Stable Compression deformity of the L4 vertebrae with about 25% loss of height. Multilevel degenerative spondylosis spine. Mild kyphosis of the spine at thoracolumbar junction. CT/CT abdomen pelvis w IV con IMPRESSION: 1. Dependent atelectasis left lung base. 2. Trace dependent left pleural effusion. 3. Cardiomegaly. 4. Stable bilateral adrenal adenomas. 5. No acute abnormality the abdomen or pelvis.
--- NOTE | 2022-09-15 11:53 | ECG_ITS ---
Test Reason : HYPOTENSION Blood Pressure : / mmHG Vent. Rate : 058 BPM Atrial Rate : 000 BPM P-R Int : 000 ms QRS Dur : 090 ms QT Int : 400 ms P-R-T Axes : 000 -01 123 degrees QTc Int : 392 ms Atrial fibrillation with slow ventricular response Minimal voltage criteria for LVH, may be normal variant ( R in aVL ) Nonspecific ST and T wave abnormality Abnormal ECG When compared with ECG of 11-SEP-2022 09:21, Vent. rate has decreased BY 39 BPM Referred By: Kaur Haskins Electronically Signed By:Jacek Cali
--- NOTE | 2022-09-15 11:57 | ED.GENADULT ---
HPI - General Adult General Chief complaint: General Medical Stated complaint: From home, Low BP (100/64) per EMS Time Seen by Provider: 09/15/22 11:53 Source: patient, family (daughter) and EMS Mode of arrival: EMS Limitations: no limitations History of Present Illness HPI narrative: 81 [id number], divehi speaking only, presents with daughter from home c/o abdominal pain and low blood pressure. Daughter sts pt took blood pressure medications this morning and rechecked with low reading. Also reports pt has c/o generalized abdominal pain over the past few days. Recently treated for UTI here on 09/11. Last BM 9 days ago. Denies fever, chills, fatigue, dysuria, N/V/D, rashes. 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 Onset (ago): hour(s) Severity: mild Relieving factors: none Exacerbating factors: none Treatments prior to arrival: none Related Data Home Medications Medication Instructions Recorded Confirmed apixaban 5 mg tablet (Eliquis) 5 mg PO BID 09/03/22 09/15/22 aspirin 81 mg tablet,delayed 81 mg PO QAM 09/03/22 09/15/22 release atorvastatin 40 mg tablet 40 mg PO DAILY 09/03/22 09/15/22 diltiazem HCl 120 mg 120 mg PO DAILY 09/03/22 09/15/22 capsule,extended release 24 hr (Cardizem CD) doxazosin 2 mg tablet 2 mg PO DAILY 09/03/22 09/15/22 metoprolol tartrate 100 mg tablet 100 mg PO BID 09/03/22 09/15/22 Previous Rx's Medication Instructions Recorded levetiracetam 250 mg tablet 250 mg PO BID 30 days #60 tabs 08/29/22 Allergies Allergy/AdvReac Type Severity Reaction Status Date / Time hydrochlorothiazide Allergy Mild UNKNOWN Verified 08/24/22 19:41 [Hydrochlorothiazide] penicillin G [Penicillin G] Allergy Mild UNKNOWN Verified 08/24/22 19:41 penicillin V Allergy Unknown Unknown Verified 08/24/22 19:41 chlorthalidone AdvReac Severe hyponatremi Verified 08/24/22 19:41 [CHLORTHALIDONE] a Review of Systems Constitutional: Constitutional: Reports no additional constitutional complaints, Denies chills, Denies fever(s) and Denies night sweats Eyes: Eyes: Reports no additional eye complaints, Denies blurry vision, Denies change in vision, Denies diplopia, Denies eye discharge, Denies loss of vision and Denies eye pain ENT: Denies dizziness Cardiovascular: Cardiovascular: Reports no additional cardiovascular complaints, Denies chest pain, Denies lightheadedness, Denies Loss of Consciousness and Denies dyspnea Respiratory: Respiratory: Reports no additional respiratory complaints, Denies cough and Denies dyspnea Gastrointestinal: Gastrointestinal: Reports no additional gastrointestinal complaints, Reports abdominal pain, Denies melena, Denies hematochezia, Denies change in bowel habits, Denies change in stool character and Reports constipation Genitourinary: Genitourinary: Denies hematuria, Denies urinary frequency, Denies dysuria, Denies urinary incontinence, Denies urinary hesitancy and Denies urinary urgency Musculoskeletal: Musculoskeletal: Reports no additional musculoskeletal complaints, Denies numbness and Denies tingling Neurologic: Denies dizziness, Denies loss of vision, Denies numbness and Denies tingling Psychiatric: Psychiatric: Reports no additional psychiatric complaints Endocrine: Endocrine: Reports no additional endocrine complaints Hematologic/Lymphatic: Hematologic/Lymphatic: Reports no additional hematologic/lymphatic complaints Allergic/Immunologic: Allergic/Immunologic: Reports no additional allergic/immunologic complaints PMFSH Past Medical History Attestation statement: The following information was validated with the patient. 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 Surgical History H/O carotid endarterectomy Family History Family History Mother Heart problem Social History Social History Household Members: Family and Caregiver Housing: Apartment Do you presently have visiting nurse or other home services: Yes Alcohol intake: never Patient Tobacco Use Status: Never used Tobacco Smoked in Last 30 Days: No Use of substances other than those prescribed or required for medical reasons: No Advance Directives: Yes Advance Directives on File: No Nutrition Risks: Dental problems and Difficulty chewing service: No Current occupational status: disabled Physical Exam ED Vital Signs: Vital Signs - 24 hr 09/15/22 11:44 09/15/22 12:11 09/15/22 12:39 Temperature 99.8 F Pulse Rate 59 62 59 Respiratory Rate 14 13 14 Blood Pressure 81/50 L 79/41 L 85/37 L Pulse Oximetry 96 94 93 Oxygen Delivery Method Room Air Room Air Room Air Oxygen Flow Rate 09/15/22 13:01 09/15/22 14:12 09/15/22 14:46 Temperature 97.6 F Pulse Rate 72 81 74 Respiratory Rate 13 15 13 Blood Pressure 107/55 L 101/44 L 93/43 L Pulse Oximetry 96 93 92 Oxygen Delivery Method Room Air Room Air Room Air Oxygen Flow Rate 09/15/22 15:24 09/15/22 15:30 09/15/22 16:07 Temperature Pulse Rate 71 88 80 Respiratory Rate 13 12 13 Blood Pressure 86/40 L 105/45 L 103/55 L Pulse Oximetry 88 L 100 98 Oxygen Delivery Method Room Air Nasal Cannula Nasal Cannula Oxygen Flow Rate 2 2 BMI result Body Mass Index 25.9 Const General: cooperative, no acute distress, alert and awake Nutritional Appearance: well nourished Orientation/consciousness: patient oriented x3 Limitations: no limitations [facility] Head: Yes normal to inspection and Yes atraumatic Ears: hearing grossly normal bilaterally and external ears normal General nose exam: Normal external nose present, no nasal discharge noted and no epistaxis Face and sinus: Yes normal facial exam, No abrasion and No laceration Mouth: Normal oral and palatal mucosa present, no drooling and no muffled voice Eyes General: appearance normal, both eyes and all related structures Periorbital: periorbital findings normal Eyelids: Yes eyelids normal Conjunctivae: conjunctivae normal Pupils: Equal, round and reactive pupils present EOM: EOMs intact bilaterally Neck Neck: Yes normal visual inspection, Yes full ROM and Yes no lymphadenopathy Chest Chest palpation & inspection: normal inspection of the chest Resp Effort & Inspection: normal respiratory effort and able to speak in complete sentences Auscultation: crackles and diminished lung sounds on the right in the lower lung dimas and throughout and on the left in the lower lung dimas Cardio Rhythm: abnormal rhythm GI Inspection: Yes distended Palpation (GI): Firmness to palpation present (GI) Auscultation: normal bowel sounds Neuro General: patient oriented x3 and moves all extremities Cranial nerves: Yes Equal, round and reactive pupils present Cognition (Neuro): normal cognition Motor exam (neuro): 5/5 motor strength present throughout Sensory Exam: Normal double simultaneous stimulation for sensation Coordination: [id number] test normal Extrem General: Yes normal to inspection, Yes full ROM and Yes capillary refill normal Psych Appearance: grossly normal Mental Status: mental status grossly normal Affect: normal affect Attitude: cooperative Thought process: Normal thought process present Thought content: Normal thought content present Insight: Good insight present (Psych) Medications Administered Discontinued Medications Generic Name Dose Route Start Last Admin Trade Name Freq PRN Reason Stop Dose Admin Sodium Chloride 1,746 mls @ 1,746 mls/hr 09/15/22 11:53 09/15/22 14:10 Ns 30 ml/kg infuse over 1 hr (1746 ml) 09/15/22 12:52 Infused IV Infusion .Q1H STA Magnesium Sulfate 2 gm in 50 mls @ 25 mls/hr 09/15/22 12:53 09/15/22 14:46 Magnesium Sulfate/H2o IV 09/15/22 14:52 Infused ONCE ONE Infusion Iohexol 100 ml 09/15/22 14:03 09/15/22 14:05 Iohexol 350 Mg/Ml 100 Ml Infus..Btl IV 09/15/22 14:04 85 ml ONCE ONE Administration Potassium Chloride 40 meq 09/15/22 12:55 09/15/22 13:04 Potassium Chloride Packet 20 Meq Packet PO 09/15/22 12:56 40 meq ONCE ONE Administration Medical Decision Making Medical Decision Making [facility] Narrative: Patient is an 81 year old assigned female at with a history of atrial fibrillation, on Eliquis, presenting to the emergency department today with low blood pressure. Patient's physical exam showed hypoxia of 88% on room air and initially low blood pressures of 80/50. Patient's blood work showed a potassium of 3.2 and a magnesium of 1.4. Patient was given IV magnesium and PO potassium. Patient's urine showed no acute process. Patient's EKG showed a-fib which is consistent with the patient's baseline. Patient's chest x-ray showed no acute process. Patient's chest and abdomen/pelvis CT showed small left pleural effusion and mild stool burden in the colon but was otherwise unremarkable. Patient was placed on 2lpm of oxygen via nasal cannula which brought her up to 100%. Patient was given 1L of NS which resolved her low blood pressure. Patient's clinical presentation is most consistent with hypoxia and general deconditioning. Patient's clinical presentation is not consistent with sepsis (@1600). I explained my physical exam findings as well as all test results to the patient and the patient's daughter. I answered all questions asked by the patient and the patient's daughter. I spoke to the hospitalist team who agreed to admission. Patient and the patient's daughter verbalized agreement and understanding with this treatment plan and admission. Differential Diagnosis Differential Diagnoses: The differential diagnosis associated with the presentation includes general deconditioning, hypoxia Consult Healthcare Provider Management of the patient was discussed with: Hospitalist (agreed to hospital admission) Lab Data MDM Lab Attestation statement: I reviewed the patient's lab results. 09/15/22 12:01 09/15/22 12:00 Labs: Lab Results 09/15/22 09/15/22 09/15/22 Range/Units 12:00 12:00 12:01 WBC 6.2 (4.8-10.8) X10*3/uL RBC 3.80 L (4.20-5.50) X10*6/uL Hgb 11.0 L (12.0-16.0) g/dl Hct 33.6 L (37.0-47.0) % MCV 88.4 (80.0-98.0) fL MCH 28.9 (27.0-33.0) pg MCHC 32.7 (31.0-35.0) g/dl RDW 15.2 (11.0-16.0) % Plt Count 212 (160-400) X10*3/uL MPV 11.7 (9.4-12.3) fL Immature Gran % (Auto) 0.5 H (0.0-0.4) % Neut % (Auto) 45.7 (45-73) % Lymph % (Auto) 36.6 (20-40) % [place] % (Auto) 11.1 H (2-11) % Eos % (Auto) 5.0 H (0-4) % Baso % (Auto) 1.1 (0-2) % Lymph # (Auto) 2.3 (1.2-4.9) X10*3/uL [place] # (Auto) 0.7 (0.1-1.2) X10*3/uL Eos # (Auto) 0.3 (0.0-0.4) X10*3/uL Baso # (Auto) 0.1 (0.0-0.2) X10*3/uL Abs Immat Gran (auto) 0.03 (0.00-0.03) X10*3/uL Absolute Neuts (auto) 2.9 (2.0-8.3) x10*3/uL Absolute Nucleated RBC 0.000 (0.0-0.012) X10*3/uL Nucleated RBC % (auto) 0.0 (0.0-0.2) /100WBC PT (10.0-13.1) SEC INR (0.9-1.1) APTT (26.0-36.4) SEC Sodium 139 (135-145) mmol/L Potassium 3.2 L (3.3-5.1) mmol/L Chloride 97 (96-108) mmol/L Carbon Dioxide 30 H (22-29) mmol/L Anion Gap 15 (12-20) BUN 14 (9-16) mg/dL Creatinine 0.66 (0.5-1.4) mg/dL Estim Creat Clear Calc 50.2 Estimated GFR > 60 Random Glucose 113 (60-115) mg/dL Lactic Acid 1.6 (0.5-2.0) mmol/L Calcium 8.6 (8.4-10.2) mg/dL Magnesium 1.4 L* (1.6-2.6) mg/dL Total Bilirubin 1.4 H (0.0-1.0) mg/dL AST 19 (5-31) U/L ALT 9 (0-31) U/L Alkaline Phosphatase 65 (39-117) U/L B-Natriuretic Peptide (<100) pg/mL Total Protein 5.4 L (6.5-8.0) g/dL Albumin 2.8 L (3.5-5.0) g/dL Urine Color Urine Appearance Urine pH (5.0-9.0) Ur Specific [place] (1.005-1.025) Urine Protein (Neg-Trace) mg/dL Urine Glucose (UA) (Negative) mg/dL Urine Ketones (Negative) mg/dL Urine Blood (Negative) Urine Nitrite (Negative) Ur Leukocyte Esterase (Negative) Urine RBC (0-2) /HPF Urine WBC (0-5) /HPF Ur Squamous Epith Cells (0-2) /HPF Urine Bacteria (None Seen) Hyaline Casts (0-2) /LPF Respiratory Panel John Adenovirus (Rapid PCR) (Not Detect.) B.pert (TEM-PCR) (Not Detect.) B.parapertussis DNA PCR (Not Detect.) C. pneumoniae DNA (PCR) (Not Detect.) Coronavirus OC43 (PCR) (Not Detect.) Coronavirus HKU1 (PCR) (Not Detect.) Coronavirus 229E (PCR) (Not Detect.) Coronavirus NL63 (PCR) (Not Detect.) Human Metapneumovir PCR (Not Detect.) Influenza A (RT-PCR) (Not Detect.) Influenza Type A (PCR) (Negative) Influenza B (RT-PCR) (Not Detect.) Influenza Type B (PCR) (Negative) M. pneumoniae (PCR) (Not Detect.) Parainfluenza 1 (PCR) (Not Detect.) Parainfluenza 2 (PCR) (Not Detect.) Parainfluenza 3 (PCR) (Not Detect.) Parainfluenza 4 (PCR) (Not Detect.) RSV (PCR) (Not Detect.) RSV RNA Qual (PCR) (Negative) Entero/Rhino (PCR) (Not Detect.) SARS-CoV-2 RNA (RT-PCR) (Negative) 09/15/22 09/15/22 09/15/22 Range/Units 12:01 12:01 12:06 WBC (4.8-10.8) X10*3/uL RBC (4.20-5.50) X10*6/uL Hgb (12.0-16.0) g/dl Hct (37.0-47.0) % MCV (80.0-98.0) fL MCH (27.0-33.0) pg MCHC (31.0-35.0) g/dl RDW (11.0-16.0) % Plt Count (160-400) X10*3/uL MPV (9.4-12.3) fL Immature Gran % (Auto) (0.0-0.4) % Neut % (Auto) (45-73) % Lymph % (Auto) (20-40) % [place] % (Auto) (2-11) % Eos % (Auto) (0-4) % Baso % (Auto) (0-2) % Lymph # (Auto) (1.2-4.9) X10*3/uL [place] # (Auto) (0.1-1.2) X10*3/uL Eos # (Auto) (0.0-0.4) X10*3/uL Baso # (Auto) (0.0-0.2) X10*3/uL Abs Immat Gran (auto) (0.00-0.03) X10*3/uL Absolute Neuts (auto) (2.0-8.3) x10*3/uL Absolute Nucleated RBC (0.0-0.012) X10*3/uL Nucleated RBC % (auto) (0.0-0.2) /100WBC PT 20.7 H (10.0-13.1) SEC INR 1.8 H (0.9-1.1) APTT 32.0 (26.0-36.4) SEC Sodium (135-145) mmol/L Potassium (3.3-5.1) mmol/L Chloride (96-108) mmol/L Carbon Dioxide (22-29) mmol/L Anion Gap (12-20) BUN (9-16) mg/dL Creatinine (0.5-1.4) mg/dL Estim Creat Clear Calc Estimated GFR Random Glucose (60-115) mg/dL Lactic Acid (0.5-2.0) mmol/L Calcium (8.4-10.2) mg/dL Magnesium (1.6-2.6) mg/dL Total Bilirubin (0.0-1.0) mg/dL AST (5-31) U/L ALT (0-31) U/L Alkaline Phosphatase (39-117) U/L B-Natriuretic Peptide 163 H (<100) pg/mL Total Protein (6.5-8.0) g/dL Albumin (3.5-5.0) g/dL Urine Color Urine Appearance Urine pH (5.0-9.0) Ur Specific [place] (1.005-1.025) Urine Protein (Neg-Trace) mg/dL Urine Glucose (UA) (Negative) mg/dL Urine Ketones (Negative) mg/dL Urine Blood (Negative) Urine Nitrite (Negative) Ur Leukocyte Esterase (Negative) Urine RBC (0-2) /HPF Urine WBC (0-5) /HPF Ur Squamous Epith Cells (0-2) /HPF Urine Bacteria (None Seen) Hyaline Casts (0-2) /LPF Respiratory Panel John Adenovirus (Rapid PCR) (Not Detect.) B.pert (TEM-PCR) (Not Detect.) B.parapertussis DNA PCR (Not Detect.) C. pneumoniae DNA (PCR) (Not Detect.) Coronavirus OC43 (PCR) (Not Detect.) Coronavirus HKU1 (PCR) (Not Detect.) Coronavirus 229E (PCR) (Not Detect.) Coronavirus NL63 (PCR) (Not Detect.) Human Metapneumovir PCR (Not Detect.) Influenza A (RT-PCR) (Not Detect.) Influenza Type A (PCR) NEGATIVE (Negative) Influenza B (RT-PCR) (Not Detect.) Influenza Type B (PCR) NEGATIVE (Negative) M. pneumoniae (PCR) (Not Detect.) Parainfluenza 1 (PCR) (Not Detect.) Parainfluenza 2 (PCR) (Not Detect.) Parainfluenza 3 (PCR) (Not Detect.) Parainfluenza 4 (PCR) (Not Detect.) RSV (PCR) (Not Detect.) RSV RNA Qual (PCR) NEGATIVE (Negative) Entero/Rhino (PCR) (Not Detect.) SARS-CoV-2 RNA (RT-PCR) NEGATIVE (Negative) 09/15/22 09/15/22 Range/Units 12:33 15:25 WBC (4.8-10.8) X10*3/uL RBC (4.20-5.50) X10*6/uL Hgb (12.0-16.0) g/dl Hct (37.0-47.0) % MCV (80.0-98.0) fL MCH (27.0-33.0) pg MCHC (31.0-35.0) g/dl RDW (11.0-16.0) % Plt Count (160-400) X10*3/uL MPV (9.4-12.3) fL Immature Gran % (Auto) (0.0-0.4) % Neut % (Auto) (45-73) % Lymph % (Auto) (20-40) % [place] % (Auto) (2-11) % Eos % (Auto) (0-4) % Baso % (Auto) (0-2) % Lymph # (Auto) (1.2-4.9) X10*3/uL [place] # (Auto) (0.1-1.2) X10*3/uL Eos # (Auto) (0.0-0.4) X10*3/uL Baso # (Auto) (0.0-0.2) X10*3/uL Abs Immat Gran (auto) (0.00-0.03) X10*3/uL Absolute Neuts (auto) (2.0-8.3) x10*3/uL Absolute Nucleated RBC (0.0-0.012) X10*3/uL Nucleated RBC % (auto) (0.0-0.2) /100WBC PT (10.0-13.1) SEC INR (0.9-1.1) APTT (26.0-36.4) SEC Sodium (135-145) mmol/L Potassium (3.3-5.1) mmol/L Chloride (96-108) mmol/L Carbon Dioxide (22-29) mmol/L Anion Gap (12-20) BUN (9-16) mg/dL Creatinine (0.5-1.4) mg/dL Estim Creat Clear Calc Estimated GFR Random Glucose (60-115) mg/dL Lactic Acid (0.5-2.0) mmol/L Calcium (8.4-10.2) mg/dL Magnesium (1.6-2.6) mg/dL Total Bilirubin (0.0-1.0) mg/dL AST (5-31) U/L ALT (0-31) U/L Alkaline Phosphatase (39-117) U/L B-Natriuretic Peptide (<100) pg/mL Total Protein (6.5-8.0) g/dL Albumin (3.5-5.0) g/dL Urine Color Dark Yellow Urine Appearance Clear Urine pH 6.0 (5.0-9.0) Ur Specific [place] 1.015 (1.005-1.025) Urine Protein Trace (Neg-Trace) mg/dL Urine Glucose (UA) Negative (Negative) mg/dL Urine Ketones Trace (Negative) mg/dL Urine Blood Negative (Negative) Urine Nitrite Negative (Negative) Ur Leukocyte Esterase Small (1+) H (Negative) Urine RBC 0-2 (0-2) /HPF Urine WBC 0-5 (0-5) /HPF Ur Squamous Epith Cells 0-2 (0-2) /HPF Urine Bacteria None Seen (None Seen) Hyaline Casts 0-2 (0-2) /LPF Respiratory Panel John See Note Adenovirus (Rapid PCR) Not Detected (Not Detect.) B.pert (TEM-PCR) Not Detected (Not Detect.) B.parapertussis DNA PCR Not Detected (Not Detect.) C. pneumoniae DNA (PCR) Not Detected (Not Detect.) Coronavirus OC43 (PCR) Not Detected (Not Detect.) Coronavirus HKU1 (PCR) Not Detected (Not Detect.) Coronavirus 229E (PCR) Not Detected (Not Detect.) Coronavirus NL63 (PCR) Not Detected (Not Detect.) Human Metapneumovir PCR Not Detected (Not Detect.) Influenza A (RT-PCR) Not Detected (Not Detect.) Influenza Type A (PCR) (Negative) Influenza B (RT-PCR) Not Detected (Not Detect.) Influenza Type B (PCR) (Negative) M. pneumoniae (PCR) Not Detected (Not Detect.) Parainfluenza 1 (PCR) Not Detected (Not Detect.) Parainfluenza 2 (PCR) Not Detected (Not Detect.) Parainfluenza 3 (PCR) Not Detected (Not Detect.) Parainfluenza 4 (PCR) Not Detected (Not Detect.) RSV (PCR) Not Detected (Not Detect.) RSV RNA Qual (PCR) (Negative) Entero/Rhino (PCR) Not Detected (Not Detect.) SARS-CoV-2 RNA (RT-PCR) Not Detected (Negative) Independent Interpretation I performed an independent interpretation of an: EKG Interpretation: Vent. Rate: 058 BPM ? ? Atrial Rate: 000 BPM P-R Int: 000 ms? QRS Dur: 090 ms QT Int: 400 ms ? ? ? P-R-T Axes: 000 -01 123 degrees QTc Int: 392 ms ? Atrial fibrillation with slow ventricular response Minimal voltage criteria for LVH, may be normal variant ( R in aVL ) Nonspecific ST and T wave abnormality Abnormal ECG When compared with ECG of 11-SEP-2022 09:21, Vent. rate has decreased BY? 39 BPM DD/ 1212 Radiology Impression Radiologist Impression: My interpretation is in agreement with the radiologist's impression of these imaging studies. EXAMINATION: XR CHEST CLINICAL INFORMATION: Cough COMPARISON: Chest radiographs 09/03/2022, 08/06/2022, 07/09/2022; CT abdomen 09/11/2022 TECHNIQUE: Portable upright AP view of the chest was obtained. FINDINGS: Exam performed with patient slightly rotated to left. There are low lung volumes. No lobar or segmental airspace consolidation or groundglass opacity or effusion. Heart size within normal. Vascularity within normal. There is some mild coarsening of the central bronchiolar markings again seen. XR/XR chest 1V IMPRESSION: No acute intrathoracic disease. Dictated By: Gene Mason MD Signed By: Electronically signed by Gene Mason MD 09/15/22 1326 EXAMINATION: CT CHEST, ABDOMEN AND PELVIS WITH CONTRAST CLINICAL INFORMATION: Cough. Abdominal pain.? COMPARISON: CT abdomen pelvis 09/11/2022. Chest x-ray 09/15/2022? TECHNIQUE: Multidetector volumetric CT imaging of the chest, abdomen and pelvis was obtained after the administration of 85 mL of intravenous Omnipaque 350 without immediate adverse reactions. Coronal and sagittal reformatted images are performed at CT scanner [This CT examination was performed using dose optimization techniques as appropriate, variously including the following: *Automated exposure control *Adjustment of mA and/or kV according to patient size (this includes techniques or standardized protocols for targeted exams where dose is matched to indication/reason for exam; i.e. extremities or head) *Use of iterative reconstruction technique] DLP: 822 mGy-cm. FINDINGS: There is breathing motion which limits study. CT CHEST: Lungs: Dependent atelectasis left lung base. Right lung normally aerated. No evidence of central pulmonary emboli. Mediastinum: There is no mediastinal mass or significant lymphadenopathy. Heart size is prominent. No pericardial effusion. Moderate volume of coronary calcification. No aneurysm of aorta. Ascending aorta measures 3.8 cm transverse. No aortic dissection. There are scattered vascular wall calcifications of thoracic aorta. There is a moderate volume of calcifications of thoracic aortic wall.? Heart size is enlarged. Moderate volume of coronary artery calcification. 5 mm hypodense nodule right lobe of thyroid. No further follow-up imaging recommended. Pleura: Trace dependent left pleural effusion.? Axilla: No lymphadenopathy.? CT ABDOMEN AND PELVIS: Liver, Gallbladder and Biliary Tree: The liver is normal in size, shape, and attenuation. No focal hepatic lesion or biliary ductal dilatation is present. The gallbladder is unremarkable with no evidence of radiopaque gallstones, gallbladder wall thickening, or obvious pericholecystic inflammatory changes.? Pancreas: Diffuse fatty atrophy of the pancreas.? Spleen: Spleen normal in size and contour. No focal lesion.? Adrenal Glands: Stable right adrenal gland adenoma measuring 2 x 1.6 cm. Stable left adrenal adenoma measuring 1.3 cm. Kidneys and Ureters: The kidneys are normal in size, shape, and attenuation. No hydronephrosis, hydroureter, or calculi seen. No perinephric stranding. ? Bladder: Unremarkable.? Gastrointestinal Tract: No acute abnormality. There is no bowel wall thickening /edema. There is no bowel obstruction. There is a moderate volume of stool in the colon. The appendix is normal . The small bowel loops are unremarkable. The stomach is normal. There is no hiatal hernia.? Mesentery: No focal inflammation. No free fluid. No free air. Abdominal Wall: No significant hernia is appreciated.? Lymph Nodes: Normal. Vascular: Vascular calcifications throughout the abdomen and pelvis. There is no aneurysm. Pelvic Viscera: Unremarkable.? Osseous Structures: Multilevel degenerative spondylosis spine. Stable Compression deformity of T12 and L1 with about 75% loss of height of vertebrae. Stable Compression deformity of the L4 vertebrae with about 25% loss of height. Multilevel degenerative spondylosis spine. Mild kyphosis of the spine at thoracolumbar junction.? CT/CT abdomen pelvis w IV con IMPRESSION: 1.? Dependent atelectasis left lung base. 2.? Trace dependent left pleural effusion. 3.? Cardiomegaly. 4.? Stable bilateral adrenal adenomas. 5.? No acute abnormality the abdomen or pelvis. Dictated By: Ramón Kasper MD Signed By: Electronically signed by Ramón Kasper MD 09/15/22 1153 Independent Historian Clinical information obtained from an independent historian. History obtained from or confirmed by: Other (Patient's daughter) Critical Care Time Critical Care Time Critical Care Time: Yes Total Critical Care Time: 30 Attestation: I spent 30 minutes of Critical Care Time with this patient. This does not include time spent on separately reported billable procedures. Discharge Plan Discharge Clinical Impression: Hypokalemia, Hypomagnesemia, Hypoxia Patient Disposition: Admitted As Inpatient
--- NOTE | 2022-09-15 12:05 | PHA.MEDREC ---
Pharmacy Consult ? Medication Reconciliation Pharmacy has completed the medication reconciliation. Patient had a recent admission
[2022-09-15 12:06] LABS: MANUAL DIFF FLAG NO
[2022-09-15 12:09] LABS: Basophils Absolute Auto 0.1 X10*3/uL (0.0-0.2); Basophils Percent Auto 1.1 % (0-2); Eosinophils Absolute Auto 0.3 X10*3/uL (0.0-0.4); Hematocrit 33.6 % (37.0-47.0); Imm Gran Abs Auto 0.03 X10*3/uL (0.00-0.03); Imm Gran Pct Auto 0.5 % (0.0-0.4); Lymphocytes Absolute Auto 2.3 X10*3/uL (1.2-4.9); Lymphocytes Percent Auto 36.6 % (20-40); Mean Corpuscular HGB Conc 32.7 g/dl (31.0-35.0); Mean Corpuscular Hemoglobin 28.9 pg (27.0-33.0); Mean Corpuscular Volume 88.4 fL (80.0-98.0); Mean Platelet Volume 11.7 fL (9.4-12.3); Monocytes Absolute Auto 0.7 X10*3/uL (0.1-1.2); Monocytes Percent Auto 11.1 % (2-11); Neutrophils Absolute Auto 2.9 x10*3/uL (2.0-8.3); Neutrophils Percent Auto 45.7 % (45-73); Platelet Count 212 X10*3/uL (160-400); Red Cell Distribution Width 15.2 % (11.0-16.0); White Blood Count 6.2 X10*3/uL (4.8-10.8)
[2022-09-15 12:20] LABS: Lactic Acid 1.6 mmol/L (0.5-2.0)
[2022-09-15 12:52] LABS: Alanine Aminotransferase 9 U/L (0-31); Albumin Level 2.8 g/dL (3.5-5.0); Alkaline Phosphatase 65 U/L (39-117); Anion Gap 15 (12-20); Aspartate Amino Transferase 19 U/L (5-31); Bilirubin Total 1.4 mg/dL (0.0-1.0); Blood Urea Nitrogen 14 mg/dL (9-16); Calcium 8.6 mg/dL (8.4-10.2); Carbon Dioxide 30 mmol/L (22-29); Chloride 97 mmol/L (96-108); Creatinine Clr Calc Pharmacy 50.2; Estimated Glomerular Filt Rate > 60; Glucose Random 113 mg/dL (60-115); Magnesium 1.4 mg/dL (1.6-2.6); Potassium 3.2 mmol/L (3.3-5.1); Sodium 139 mmol/L (135-145); Total Protein 5.4 g/dL (6.5-8.0)
[2022-09-15 12:56] LABS: Appearance Urine Clear; Color Urine Dark Yellow; Glucose Urine UA Negative (Negative); Leukocyte Esterase Urine Small (1+) (Negative); Nitrite Urine Negative (Negative); Specific Gravity - Urine 1.015 (1.005-1.025); UMIC TRIGGER UACC YES; Urine Blood Negative (Negative); Urine Ketones Trace mg/dL (Negative); Urine Protein Trace mg/dL (Neg-Trace)
[2022-09-15 13:03] LABS: Influenza A PCR NEGATIVE (Negative); Influenza B PCR NEGATIVE (Negative); Resp Syncy Virus RNA Qual PCR NEGATIVE (Negative); SARS COV2 PCR INHOUSE NEGATIVE (Negative)
[2022-09-15 13:04] LABS: Bacteria Urine None Seen (None Seen); Hyaline Casts Urine 0-2 /LPF (0-2); RBC Urine 0-2 /HPF (0-2); Squamous Epithelial Cell Urine 0-2 /HPF (0-2); UACC Culture Trigger YES; WBC Urine 0-5 /HPF (0-5)
[2022-09-15] MEDS: Potassium Chloride Packet 20 MEQ PACKET 40 MEQ PO (13:04)
[2022-09-15] MEDS: Magnesium Sulfate/H2O 2 GM/50 ML PIGGYBACK IV (13:04)
--- NOTE | 2022-09-15 13:17 | PC.NURSE ---
sepsis fluids decreased per [place]USTIN Dietrich/Dr Gonzalez as pt at risk for ? CHF. will only given 1L NS instead of ordered 30cc/kg
[2022-09-15 13:22] LABS: B Type Natriuretic Peptide 163 pg/mL (<100)
[2022-09-15] MEDS: iohexoL 350 MG/ML 100 ML INFUS..BTL IV (14:05)
[2022-09-15 15:14] LABS: INTERNATIONAL NORM RATIO 1.8 (0.9-1.1); Prothrombin Time 20.7 SEC (10.0-13.1)
[2022-09-15 17:01] LABS: Adenovirus PCR Not Detected (Not Detect.); Bordetella parapertussis PCR Not Detected (Not Detect.); Bordetella pertussis PCR Not Detected (Not Detect.); Chlamydia pneumoniae PCR Not Detected (Not Detect.); Coronavirus 229E PCR Not Detected (Not Detect.); Coronavirus HKU1 PCR Not Detected (Not Detect.); Coronavirus NL63 PCR Not Detected (Not Detect.); Coronavirus OC43 PCR Not Detected (Not Detect.); Human metapneumovirus PCR Not Detected (Not Detect.); Influenza A PCR Not Detected (Not Detect.); Influenza B PCR Not Detected (Not Detect.); Mycoplasma pneumoniae PCR Not Detected (Not Detect.); Parainfluenza 1 PCR Not Detected (Not Detect.); Parainfluenza 2 PCR Not Detected (Not Detect.); Parainfluenza 3 PCR Not Detected (Not Detect.); Parainfluenza 4 PCR Not Detected (Not Detect.); RSV PCR Not Detected (Not Detect.); Rhino/Enterovirus PCR Not Detected (Not Detect.); SARS-CoV-2 PCR Not Detected (Not Detect.)
--- NOTE | 2022-09-15 17:04 | P.HPHOSP_ITS ---
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, history of paroxysmal atrial fibrillation on Eliquis, history of essential hypertension recently patient evaluated in the emergency room on September 03 and diagnosed to have colitis was treated with antibiotics, on September 11 patient was re-evaluated in the emergency room with symptoms of nausea vomiting and was diagnosed to have UTI, antibiotic was prescribed but as per family pharmacy did not have the antibiotics so no antibiotic was dispensed, therefore patient was not treated, patient was brought in to [place] [facility] this morning since patient was noted to have low blood pressures at home after receiving morning antihypertensives, patient also complained of abdominal pain with last bowel movement 9 days ago, most of the history obtained by patient's granddaughter at bedside via supervisor furnace process since patient is somnolent easily arousable but unable to provide detailed history, patient had no chest pain, no palpitation, she is bedbound for last 2 months no history of alcohol no smoking patient tolerates diet no nausea, no vomiting, no recent fevers, workup in the emergency room showed a low magnesium 1.4, potassium 3.2, INR of 1.8, normal WBC, stable hematocrit and platelet count, CT abdomen pelvis and CT chest showed no acute abnormality other than moderate stool, urinalysis is unremarkable, on arrival patient was noted to have low blood pressures 81/50 patient was treated with IV fluids blood pressure now 103/55, patient is mentating fine is speech remains clear now being admitted to [facility] due to multiple electrolyte abnormality and hypotension. Review of Systems Review of Systems: General no headache, no dizziness no fever chills. CVS no chest pain, no palpitation. Respiratory no cough, no sob Gastrointestinal no nausea, no vomiting, no abdominal pain no urgency, no frequency Yes all other systems are reviewed and are negative [facility] Medical History Acute right MCA stroke Atrial fibrillation HTN (hypertension) Right eye symptoms 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 Family History Mother Heart problem Surgical History H/O carotid endarterectomy Social History Household Members: Family and Caregiver Housing: Apartment Do you presently have visiting nurse or other home services: Yes Alcohol intake: never Patient Tobacco Use Status: Never used Tobacco Smoked in Last 30 Days: No Use of substances other than those prescribed or required for medical reasons: No Advance Directives: Yes Advance Directives on File: No service: No Current occupational status: disabled Meds Allergies Allergy/AdvReac Type Severity Reaction Status Date / Time hydrochlorothiazide Allergy Mild UNKNOWN Verified 08/24/22 19:41 [Hydrochlorothiazide] penicillin G [Penicillin G] Allergy Mild UNKNOWN Verified 08/24/22 19:41 penicillin V Allergy Unknown Unknown Verified 08/24/22 19:41 chlorthalidone AdvReac Severe hyponatremi Verified 08/24/22 19:41 [CHLORTHALIDONE] a Active Medications: Current Medications Acetaminophen (Acetaminophen 325 Mg Tablet) 650 mg PO Q6H PRN PRN Reason: Pain, Mild (Pain Scale 1-3) Benzonatate (Benzonatate 100 Mg Capsule) 100 mg PO TID PRN PRN Reason: Cough Docusate Sodium (Docusate Sodium 100 Mg Capsule) 100 mg PO BID RHIANNON Magnesium Hydroxide (Milk Of Magnesia 30 Ml Oral.Susp) 30 ml PO DAILY PRN PRN Reason: Constipation Ondansetron HCl (Ondansetron Hcl 4 Mg/2 Ml Vial) 4 mg IVPUSH Q8H PRN PRN Reason: Nausea and Vomiting Pharmacy Consult (Consult Rx Perform Med Rec) 1 each MISCELLANE ONCE PRN PRN Reason: Consult order Sodium Chloride (0.9 % Sodium Chloride Flush 3 Ml Syringe) 3 ml IVFLUSH QSHIFT [facility] Home Medications Medication Instructions Recorded Confirmed Last Taken Type apixaban 5 mg tablet (Eliquis) 5 mg PO BID 09/03/22 09/15/22 Unknown History aspirin 81 mg tablet,delayed 81 mg PO QAM 09/03/22 09/15/22 Unknown History release atorvastatin 40 mg tablet 40 mg PO DAILY 09/03/22 09/15/22 Unknown History diltiazem HCl 120 mg 120 mg PO DAILY 09/03/22 09/15/22 Unknown History capsule,extended release 24 hr (Cardizem CD) doxazosin 2 mg tablet 2 mg PO DAILY 09/03/22 09/15/22 Unknown History metoprolol tartrate 100 mg tablet 100 mg PO BID 09/03/22 09/15/22 Unknown History Physical Exam Vital Signs and Narrative: Vital Signs: Last Vital Signs Temp 97.6 F 09/15/22 14:12 Pulse 80 09/15/22 16:07 Resp 13 09/15/22 16:07 BP 103/55 L 09/15/22 16:07 Pulse Ox 98 09/15/22 16:07 O2 Del Method 09/15/22 16:07 O2 Flow Rate 2 09/15/22 16:07 BMI result Body Mass Index 25.9 Const: Other: General resting comfortably,in no acute distress. Anicteric sclera Neck supple no JVD. CVS regular rate rhythm, Respiratory lungs clear to auscultation, no respiratory distress, no wheeze, no rhonchi. Gastrointestinal abdomen soft, nontender, bowel sounds audible, no guarding , no rigidity. Extremities no edema. Mild left hand swelling chronic Neuro speech clear, face symmetrical left upper extremity mild weakness. Psych appropriate affect Results Labs 09/15/22 12:01 09/15/22 12:00 Labs: Laboratory Results - last 24 hr 09/15/22 09/15/22 09/15/22 12:00 12:00 12:01 MCV 88.4 MCH 28.9 MCHC 32.7 RDW 15.2 Plt Count 212 MPV 11.7 Immature Gran % (Auto) 0.5 H Neut % (Auto) 45.7 Lymph % (Auto) 36.6 Woodson % (Auto) 11.1 H Eos % (Auto) 5.0 H Baso % (Auto) 1.1 Lymph # (Auto) 2.3 Woodson # (Auto) 0.7 Eos # (Auto) 0.3 Baso # (Auto) 0.1 Abs Immat Gran (auto) 0.03 Absolute Neuts (auto) 2.9 Absolute Nucleated RBC 0.000 Nucleated RBC % (auto) 0.0 PT INR APTT Anion Gap 15 Estim Creat Clear Calc 50.2 Estimated GFR > 60 Random Glucose 113 Lactic Acid 1.6 Calcium 8.6 Magnesium 1.4 L* Total Bilirubin 1.4 H AST 19 ALT 9 Alkaline Phosphatase 65 B-Natriuretic Peptide Total Protein 5.4 L Albumin 2.8 L Urine Color Urine Appearance Urine pH Ur Specific [place] Urine Protein Urine Glucose (UA) Urine Ketones Urine Blood Urine Nitrite Ur Leukocyte Esterase Urine RBC Urine WBC Ur Squamous Epith Cells Urine Bacteria Hyaline Casts Respiratory Panel John Adenovirus (Rapid PCR) B.pert (TEM-PCR) B.parapertussis DNA PCR C. pneumoniae DNA (PCR) Coronavirus OC43 (PCR) Coronavirus HKU1 (PCR) Coronavirus 229E (PCR) Coronavirus NL63 (PCR) Human Metapneumovir PCR Influenza A (RT-PCR) Influenza Type A (PCR) Influenza B (RT-PCR) Influenza Type B (PCR) M. pneumoniae (PCR) Parainfluenza 1 (PCR) Parainfluenza 2 (PCR) Parainfluenza 3 (PCR) Parainfluenza 4 (PCR) RSV (PCR) RSV RNA Qual (PCR) Entero/Rhino (PCR) SARS-CoV-2 RNA (RT-PCR) 09/15/22 09/15/22 09/15/22 12:01 12:01 12:06 MCV MCH MCHC RDW Plt Count MPV Immature Gran % (Auto) Neut % (Auto) Lymph % (Auto) Woodson % (Auto) Eos % (Auto) Baso % (Auto) Lymph # (Auto) Woodson # (Auto) Eos # (Auto) Baso # (Auto) Abs Immat Gran (auto) Absolute Neuts (auto) Absolute Nucleated RBC Nucleated RBC % (auto) PT 20.7 H INR 1.8 H APTT 32.0 Anion Gap Estim Creat Clear Calc Estimated GFR Random Glucose Lactic Acid Calcium Magnesium Total Bilirubin AST ALT Alkaline Phosphatase B-Natriuretic Peptide 163 H Total Protein Albumin Urine Color Urine Appearance Urine pH Ur Specific [place] Urine Protein Urine Glucose (UA) Urine Ketones Urine Blood Urine Nitrite Ur Leukocyte Esterase Urine RBC Urine WBC Ur Squamous Epith Cells Urine Bacteria Hyaline Casts Respiratory Panel John Adenovirus (Rapid PCR) B.pert (TEM-PCR) B.parapertussis DNA PCR C. pneumoniae DNA (PCR) Coronavirus OC43 (PCR) Coronavirus HKU1 (PCR) Coronavirus 229E (PCR) Coronavirus NL63 (PCR) Human Metapneumovir PCR Influenza A (RT-PCR) Influenza Type A (PCR) NEGATIVE Influenza B (RT-PCR) Influenza Type B (PCR) NEGATIVE M. pneumoniae (PCR) Parainfluenza 1 (PCR) Parainfluenza 2 (PCR) Parainfluenza 3 (PCR) Parainfluenza 4 (PCR) RSV (PCR) RSV RNA Qual (PCR) NEGATIVE Entero/Rhino (PCR) SARS-CoV-2 RNA (RT-PCR) NEGATIVE 09/15/22 09/15/22 12:33 15:25 MCV MCH MCHC RDW Plt Count MPV Immature Gran % (Auto) Neut % (Auto) Lymph % (Auto) Woodson % (Auto) Eos % (Auto) Baso % (Auto) Lymph # (Auto) Woodson # (Auto) Eos # (Auto) Baso # (Auto) Abs Immat Gran (auto) Absolute Neuts (auto) Absolute Nucleated RBC Nucleated RBC % (auto) PT INR APTT Anion Gap Estim Creat Clear Calc Estimated GFR Random Glucose Lactic Acid Calcium Magnesium Total Bilirubin AST ALT Alkaline Phosphatase B-Natriuretic Peptide Total Protein Albumin Urine Color Dark Yellow Urine Appearance Clear Urine pH 6.0 Ur Specific [place] 1.015 Urine Protein Trace Urine Glucose (UA) Negative Urine Ketones Trace Urine Blood Negative Urine Nitrite Negative Ur Leukocyte Esterase Small (1+) H Urine RBC 0-2 Urine WBC 0-5 Ur Squamous Epith Cells 0-2 Urine Bacteria None Seen Hyaline Casts 0-2 Respiratory Panel John See Note Adenovirus (Rapid PCR) Not Detected B.pert (TEM-PCR) Not Detected B.parapertussis DNA PCR Not Detected C. pneumoniae DNA (PCR) Not Detected Coronavirus OC43 (PCR) Not Detected Coronavirus HKU1 (PCR) Not Detected Coronavirus 229E (PCR) Not Detected Coronavirus NL63 (PCR) Not Detected Human Metapneumovir PCR Not Detected Influenza A (RT-PCR) Not Detected Influenza Type A (PCR) Influenza B (RT-PCR) Not Detected Influenza Type B (PCR) M. pneumoniae (PCR) Not Detected Parainfluenza 1 (PCR) Not Detected Parainfluenza 2 (PCR) Not Detected Parainfluenza 3 (PCR) Not Detected Parainfluenza 4 (PCR) Not Detected RSV (PCR) Not Detected RSV RNA Qual (PCR) Entero/Rhino (PCR) Not Detected SARS-CoV-2 RNA (RT-PCR) Not Detected Imaging Radiologist's Impressions: Impressions Chest X-Ray 09/15/22 12:53 IMPRESSION: No acute intrathoracic disease. Abdomen/Pelvis CT 09/15/22 14:20 IMPRESSION: 1. Dependent atelectasis left lung base. 2. Trace dependent left pleural effusion. 3. Cardiomegaly. 4. Stable bilateral adrenal adenomas. 5. No acute abnormality the abdomen or pelvis. Chest CT 09/15/22 14:20 IMPRESSION: 1. Dependent atelectasis left lung base. 2. Trace dependent left pleural effusion. 3. Cardiomegaly. 4. Stable bilateral adrenal adenomas. 5. No acute abnormality the abdomen or pelvis. 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 Hypotension with underlying history of hypertension No acute infection found, no recent fluid loss no nausea no vomiting Question related to multiple antihypertensive will hold Cardizem and metoprolol, monitor blood pressure closely On IV fluid normal saline Hypomagnesemia likely related to poor by mouth intake will replete and follow labs Hypokalemia replete and follow BMP Constipation no bowel movement in last 9 days history of chronic constipation wi ll place on MiraLax/Colace Paroxysmal atrial fibrillation continue Eliquis, hold Cardizem and metoprolol due to hypotension resume metoprolol once blood pressure allows Remote history of right MCA stroke, continue Eliquis aspirin and statin, Keppra for prevention of seizures. DVT prophylaxis on Eliquis Full code Patient need 2 night inpatient stay for hypotension and aggressive repletion of electrolyte abnormalities. Time Spent With Patient Time: Total time managing care of this patient today ____ minutes. Quality Stroke Does the patient have a stroke diagnosis?: No VTE Prior VTE?: No VTE Risk Level:: Medical - moderate - high VTE Device Contraindication: Treatment Not Indicated VTE Drug Contraindication: N/A - Med Ordered
[2022-09-15] MEDS: 0.9 % Sodium Chloride 1,000 ML 100 ML IVCONT (17:54)
--- NOTE | 2022-09-15 18:21 | PC.NURSE ---
CRUSHED MEDS IN PUDDING, pt does not like applesauce
--- NOTE | 2022-09-15 19:46 | PC.NURSE ---
Multiple attempts made to medicate pt with Asp as ordered. Pt refused all attempts. [place] text sent to .
--- NOTE | 2022-09-15 19:56 | PC.NURSE ---
Attempted to give RN report as pt is transferring to [facility] [place] [place] room 487 with no success. [place] text sent to GRETEL De Paz to call the ED when ready for report.
--- NOTE | 2022-09-15 20:37 | PC.NURSE ---
RN to RN report given to GRETEL Segura. Pt being transferred to [facility] room 487. Pt aware of plan of care.
[2022-09-16] VITALS (9 sets, daily range): BP systolic 131–148; BP diastolic 67–82; PULSE 73–145; RESP 18–20; TEMP 36–36.8; O2SAT 94–98
[2022-09-16] MEDS: 0.9 % Sodium Chloride Flush 3 ML SYRINGE IVFLUSH ×4 (00:18→23:59)
--- NOTE | 2022-09-16 06:24 | PC.NURSE ---
Patient left hand ad right knee noted to be swollen, present since last week per grandson at bedside. MD notified.
[2022-09-16 06:36] LABS: Anion Gap 15 (12-20); Blood Urea Nitrogen 10 mg/dL (9-16); Calcium 8.2 mg/dL (8.4-10.2); Carbon Dioxide 26 mmol/L (22-29); Chloride 102 mmol/L (96-108); Creatinine Clr Calc Pharmacy 61.3; Estimated Glomerular Filt Rate > 60; Glucose Random 85 mg/dL (60-115); Magnesium 1.6 mg/dL (1.6-2.6); Potassium 2.8 mmol/L (3.3-5.1); Sodium 140 mmol/L (135-145)
--- NOTE | 2022-09-16 08:47 | MHC.CM.PN ---
CM met with Patient, her Granddaughter/HCP/GREASER OPERATOR/Isabel, and Isabel's Son at bedside and addressed IMM with them (original was given to Isabel and a copy has been placed on the chart). Patient lives in an apartment with her Granddaughter, who is her Soy GREASER OPERATOR 40 hours/week and she explained that [facility] services recently ended. Home/resume GREASER OPERATOR services is the goal and CM has initiated and will follow for dc planning. Patient has received no Covid vax and her PCP is Dr. Opal Antunez.
[2022-09-16] MEDS: levETIRAcetam 250 MG TABLET PO ×2 (09:36→20:30)
[2022-09-16] MEDS: Apixaban 5 MG TABLET PO ×2 (09:36→20:30)
[2022-09-16] MEDS: Doxazosin Mesylate 2 MG TABLET PO (09:36)
[2022-09-16] MEDS: Atorvastatin Calcium 40 MG TABLET PO (09:36)
[2022-09-16] MEDS: Aspirin 81 MG TAB.CHEW PO (09:36)
[2022-09-16] MEDS: Potassium Chloride Packet 20 MEQ PACKET 40 MEQ PO ×2 (09:37→14:59)
[2022-09-16] MEDS: polyethylene glycoL 3350 17 GM POWD.PACK PO (09:37)
--- NOTE | 2022-09-16 13:55 | HO.PM.IMPN ---
Subjective Subjective Date of Service: 09/16/22 Interval History: Patient awake alert offers no acute complaints granddaughter at bedside, history obtained via gas line installer supervisor patient denies lightheadedness, no dizziness, no chest pain, no palpitation, no headache, is not on home oxygen denies recent bout of nausea, no vomiting, no diarrhea, denies urinary symptoms of urgency. Review of Systems Review of Systems: Yes all other systems are reviewed and are negative Physical Exam Vital Signs: Vital Signs: Last Vital Signs Temp 97.7 F 09/16/22 07:37 Pulse 90 09/16/22 07:37 Resp 18 09/16/22 07:37 BP 138/72 09/16/22 07:37 Pulse Ox 94 09/16/22 07:37 O2 Del Method 09/16/22 03:12 O2 Flow Rate 2 09/16/22 03:12 BMI result Body Mass Index 25.9 Const: Other: General? resting comfortably,in no acute distress. Anicteric sclera Neck supple no JVD. CVS? regular rate rhythm, Respiratory lungs clear to auscultation, no respiratory distress, no wheeze, no rhonchi. Gastrointestinal abdomen soft, nontender, bowel sounds audible, no guarding , no rigidity. Extremities no edema.? Mild left hand swelling chronic Neuro speech clear, face symmetrical left upper extremity chronic mild weakness. Psych appropriate affect Objective Data Active Medications Acetaminophen (Acetaminophen 325 Mg Tablet) 650 mg PO Q6H PRN PRN Reason: Pain, Mild (Pain Scale 1-3) Apixaban (Apixaban 5 Mg Tablet) 5 mg PO BID [facility] Last Admin: 09/16/22 09:36 Dose: 5 mg Documented By: RADHA Aspirin (Aspirin 81 Mg Tab.Chew) 81 mg PO DAILY [facility] Last Admin: 09/16/22 09:36 Dose: 81 mg Documented By: RADHA Atorvastatin Calcium (Atorvastatin Calcium 40 Mg Tablet) 40 mg PO DAILY [facility] Last Admin: 09/16/22 09:36 Dose: 40 mg Documented By: RADHA Benzonatate (Benzonatate 100 Mg Capsule) 100 mg PO TID PRN PRN Reason: Cough Docusate Sodium (Docusate Sodium 100 Mg Capsule) 100 mg PO BID [facility] Last Admin: 09/16/22 09:48 Dose: Not Given Documented By: RADHA Non-Admin Reason: Patient Refused Docusate Sodium (Docusate Sodium 100 Mg Capsule) 200 mg PO DAILY [facility] Last Admin: 09/16/22 09:48 Dose: Not Given Documented By: RADHA Non-Admin Reason: Patient Refused Doxazosin Mesylate (Doxazosin Mesylate 2 Mg Tablet) 2 mg PO DAILY [facility]; Protocol Last Admin: 09/16/22 09:36 Dose: 2 mg Documented By: RADHA Levetiracetam (Levetiracetam 250 Mg Tablet) 250 mg PO BID [facility] Last Admin: 09/16/22 09:36 Dose: 250 mg Documented By: RADHA Magnesium Hydroxide (Milk Of Magnesia 30 Ml Oral.Susp) 30 ml PO DAILY PRN PRN Reason: Constipation Magnesium Hydroxide (Milk Of Magnesia 30 Ml Oral.Susp) 30 ml PO DAILY PRN PRN Reason: constipation Ondansetron HCl (Ondansetron Hcl 4 Mg/2 Ml Vial) 4 mg IVPUSH Q8H PRN PRN Reason: Nausea and Vomiting Pharmacy Consult (Consult Rx Perform Med Rec) 1 each MISCELLANE ONCE PRN PRN Reason: Consult order Polyethylene Glycol (Polyethylene Glycol 3350 17 Gm Powd.Pack) 17 gm PO DAILY [facility] Last Admin: 09/16/22 09:37 Dose: 17 gm Documented By: RADHA Sodium Chloride (0.9 % Sodium Chloride Flush 3 Ml Syringe) 3 ml IVFLUSH QSHIFT [facility] Last Admin: 09/16/22 09:37 Dose: 3 ml Documented By: RADHA Labs 09/15/22 12:01 09/16/22 06:01 Labs: Laboratory Results - last 24 hr 09/15/22 09/15/22 09/16/22 12:06 15:25 06:01 PT 20.7 H INR 1.8 H Anion Gap 15 Estim Creat Clear Calc 61.3 Estimated GFR > 60 Random Glucose 85 Calcium 8.2 L Magnesium 1.6 Respiratory Panel John See Note Adenovirus (Rapid PCR) Not Detected B.pert (TEM-PCR) Not Detected B.parapertussis DNA PCR Not Detected C. pneumoniae DNA (PCR) Not Detected Coronavirus OC43 (PCR) Not Detected Coronavirus HKU1 (PCR) Not Detected Coronavirus 229E (PCR) Not Detected Coronavirus NL63 (PCR) Not Detected Human Metapneumovir PCR Not Detected Influenza A (RT-PCR) Not Detected Influenza B (RT-PCR) Not Detected M. pneumoniae (PCR) Not Detected Parainfluenza 1 (PCR) Not Detected Parainfluenza 2 (PCR) Not Detected Parainfluenza 3 (PCR) Not Detected Parainfluenza 4 (PCR) Not Detected RSV (PCR) Not Detected Entero/Rhino (PCR) Not Detected SARS-CoV-2 RNA (RT-PCR) Not Detected Microbiology Microbiology Results: Microbiology 09/15/22 Unknown Urine Culture - Preliminary Urine Catheterized - Straight Catheter Culture in progress. 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 Hypotension with underlying history of hypertension Blood pressure improved No acute infection found, no recent fluid loss, no nausea, no vomiting, no diarrhea. Question related to multiple antihypertensives will discontinue Cardizem Resume low-dose metoprolol and follow blood pressure closely. Hypoxia likely due to atelectasis, will add incentive spirometry and wean oxygen as tolerated, CT chest showed no acute abnormality. Hypomagnesemia likely related to poor by mouth intake repleted and normalized. Hypokalemia potassium dropped to 2.8 will aggressively replete and follow BMP. Constipation no bowel movement in last 9 days history of chronic constipation, added MiraLax/Colace and as needed milk of Mag if no result will give lactulose Paroxysmal atrial fibrillation continue Eliquis, hold Cardizem and resume low-dose metoprolol follow BP pulse closely Remote history of right MCA stroke, continue Eliquis aspirin and statin, Keppra for prevention of seizures. DVT prophylaxis on Eliquis Full code Patient need continued inpatient hospitalization for electrolyte replacement and close monitoring of blood pressure . Time Spent With Patient Time: Total time managing care of this patient today ____ minutes. Quality Stroke Does the patient have a stroke diagnosis?: No VTE Prior VTE?: No VTE Risk Level:: Medical - moderate - high VTE Device Contraindication: Treatment Not Indicated VTE Drug Contraindication: N/A - Med Ordered
[2022-09-16 14:59] LABS: Prot Elec - Albumin 2.2 g/dL (3.8-4.8); Prot Elec - Alpha1 0.4 g/dL (0.2-0.3); Prot Elec - Beta 1 0.2 g/dL (0.4-0.6); Prot Elec - Beta 2 0.3 g/dL (0.2-0.5); Prot Elec - Gamma 0.8 g/dL (0.8-1.7); Prot Elec - Total Protein 4.9 g/dL (6.1-8.1)
--- NOTE | 2022-09-16 17:10 | PC.NURSE ---
at 1702 , 1706 pt HR was increase up to 150s and then down to 130s, 120, and 100s, Assessed pt multiple times, pt asymptomatic and remained calm and resting in bed, MD notified. New order of Metoprolol 25 mg PO was put in but pt keep refusing to take the meds, notified at 1710 pt has an episode of Afib RVR with HR up to 160s. Assessed pt and pt was asymptomatic. A new order of IV Metoprolol 5mg/5mL was ordered and given. pt HR decreased with afib (pt baseline) in 100s. Continue to monitor
[2022-09-16] MEDS: Metoprolol Tartrate 5 MG/5 ML VIAL IVPUSH ×3 (17:23→23:59)
[2022-09-16] MEDS: Milk of Magnesia 30 ML ORAL.SUSP PO (20:41)
[2022-09-16] MEDS: Metoprolol Tartrate 25 MG TABLET PO (23:04)
--- NOTE | 2022-09-16 23:56 | PC.NURSE ---
2245; rapid rate afib, HR sustaining 130s-160s. On assessment, patient asymptomatic, denies pain, discomfort or palpitations, bp 148/77. Md notified, orders for IV Lopressor and PO Lopressor. Continue to monitor
[2022-09-16] MEDS: ondansetron HCL 4 MG/2 ML VIAL IVPUSH (23:58)
[2022-09-17] VITALS (8 sets, daily range): BP systolic 122–150; BP diastolic 61–89; PULSE 88–146; RESP 14–20; TEMP 36.1–36.7; O2SAT 94–100
--- NOTE | 2022-09-17 02:45 | MHC.PIE ---
P.AFIB RVR 130-150 I.Pt returned to AFIB,RVR,HR 120-150,BP 127/61. updated.New order for Lopressor 5mg IV X 1 now given E.Cont to monitor.
[2022-09-17] MEDS: Metoprolol Tartrate 5 MG/5 ML VIAL IVPUSH ×3 (03:20→12:41)
[2022-09-17 08:11] LABS: Blood Urea Nitrogen 12 mg/dL (9-16); Calcium 8.6 mg/dL (8.4-10.2); Creatinine Clr Calc Pharmacy 51.7; Estimated Glomerular Filt Rate > 60; Glucose Random 123 mg/dL (60-115)
[2022-09-17 08:18] LABS: Anion Gap 15 (12-20); Carbon Dioxide 26 mmol/L (22-29); Chloride 101 mmol/L (96-108); Potassium 4.4 mmol/L (3.3-5.1); Sodium 138 mmol/L (135-145)
[2022-09-17] MEDS: Atorvastatin Calcium 40 MG TABLET PO (09:06)
[2022-09-17] MEDS: dilTIAZem HCL CD 120 MG CAP.ER.DEG PO (09:06)
[2022-09-17] MEDS: Doxazosin Mesylate 2 MG TABLET PO (09:06)
[2022-09-17] MEDS: levETIRAcetam 250 MG TABLET PO ×3 (09:06→22:01)
[2022-09-17] MEDS: 0.9 % Sodium Chloride Flush 3 ML SYRINGE IVFLUSH ×2 (09:07→15:04)
[2022-09-17] MEDS: Aspirin 81 MG TAB.CHEW PO (09:07)
[2022-09-17] MEDS: polyethylene glycoL 3350 17 GM POWD.PACK PO (09:07)
[2022-09-17] MEDS: Apixaban 5 MG TABLET PO ×2 (09:07→21:50)
--- NOTE | 2022-09-17 10:46 | MHC.CM.PN ---
IMM 09/16/22 Female 81 DX Hypotension Per MD rounds no discharge today. Patient is in rapid afib. 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 Patient will require BLS transport.
--- NOTE | 2022-09-17 12:20 | P.CDIC_ITS ---
CDI Concurrent Query Documentation Clarification: PHYSICIAN'S DOCUMENTATION REQUEST Date of Query: 09/17/22 1220 Patient Name: Michaela Bragg Admit Date: 09/15/22 Dear Doctor, A review of the medical record indicates additional documentation may be needed. Please review below and update the documentation accordingly. Clinical Indicators: Is there a diagnosis that correlates with these lab findings below: Risk Factors/Clinical Indicators/Treatments Labs: Albumin on 09/15: 2.8 Albumin (PEP) on 09/15: 2.2 Based on the above, could you clarify in the Progress Notes the appropriate diagnosis, if significant, that supports the above abnormalities and additional evaluation, monitoring, and/or treatment rendered: * Hypoalbuminemia * Other (please specify) * Unable to determine Use of terms such as suspected, likely, concern for, or probable (associated with a specific diagnosis that is being evaluated, monitored, or treated as if it exists) are acceptable and can be coded in the inpatient setting, when documented at the time of discharge. Thank you, Estephania Palacio MS, RN, CCRN Extension: [phone] Please use your independent medical judgment in providing your response. THIS QUERY IS PART OF THE PERMANENT MEDICAL RECORD Provider Response: Other Other Diagnosis: see note
--- NOTE | 2022-09-17 12:58 | HO.PM.IMPN ---
Subjective Subjective Date of Service: 09/17/22 Interval History: Patient moved her bowel, had 1 episode of nausea and vomiting last night now feeling better denies abdominal pain, denies chest pain, no headache, no dizziness, no palpitations, tele monitor showed atrial fibrillation with ventricular rate in 130s. Review of Systems Review of Systems: Yes all other systems are reviewed and are negative Physical Exam Vital Signs: Vital Signs: Last Vital Signs Temp 97.4 F 09/17/22 11:33 Pulse 124 H 09/17/22 11:33 Resp 20 09/17/22 11:33 BP 122/63 09/17/22 11:33 Pulse Ox 97 09/17/22 11:33 O2 Del Method 09/17/22 11:33 O2 Flow Rate 1 09/17/22 11:33 BMI result Body Mass Index 25.9 Const: Other: General? resting comfortably,in no acute distress. Anicteric sclera Neck supple no JVD. CVS? irregular rate rhythm, Respiratory lungs clear to auscultation, no respiratory distress, no wheeze, no rhonchi. Gastrointestinal abdomen soft, nontender, bowel sounds audible, no guarding , no rigidity. Extremities no edema.? Mild left hand swelling chronic, left knee puffiness no tenderness, no warmth good range of motion. Neuro speech clear, face symmetrical left upper extremity chronic mild weakness. Psych appropriate affect Objective Data Active Medications Acetaminophen (Acetaminophen 325 Mg Tablet) 650 mg PO Q6H PRN PRN Reason: Pain, Mild (Pain Scale 1-3) Apixaban (Apixaban 5 Mg Tablet) 5 mg PO BID [facility] Last Admin: 09/17/22 09:07 Dose: 5 mg Documented By: RADHA Aspirin (Aspirin 81 Mg Tab.Chew) 81 mg PO DAILY [facility] Last Admin: 09/17/22 09:07 Dose: 81 mg Documented By: RADHA Atorvastatin Calcium (Atorvastatin Calcium 40 Mg Tablet) 40 mg PO DAILY [facility] Last Admin: 09/17/22 09:06 Dose: 40 mg Documented By: RADHA Benzonatate (Benzonatate 100 Mg Capsule) 100 mg PO TID PRN PRN Reason: Cough Diltiazem HCl (Diltiazem Hcl Cd 120 Mg Cap.Er.Deg) 120 mg PO DAILY [facility]; Protocol Last Admin: 09/17/22 09:06 Dose: 120 mg Documented By: RADHA Docusate Sodium (Docusate Sodium 100 Mg Capsule) 100 mg PO BID [facility] Last Admin: 09/17/22 09:07 Dose: Not Given Documented By: RADHA Non-Admin Reason: CANNOT CRUSH MED Docusate Sodium (Docusate Sodium 100 Mg Capsule) 200 mg PO DAILY [facility] Last Admin: 09/17/22 09:07 Dose: Not Given Documented By: RADHA Non-Admin Reason: CANNOT CRUSH MED Doxazosin Mesylate (Doxazosin Mesylate 2 Mg Tablet) 2 mg PO DAILY [facility]; Protocol Last Admin: 09/17/22 09:06 Dose: 2 mg Documented By: RADHA Levetiracetam (Levetiracetam 250 Mg Tablet) 250 mg PO BID [facility] Last Admin: 09/17/22 09:06 Dose: 250 mg Documented By: RADHA Magnesium Hydroxide (Milk Of Magnesia 30 Ml Oral.Susp) 30 ml PO DAILY PRN PRN Reason: Constipation Last Admin: 09/16/22 20:41 Dose: 30 ml Documented By: ELY Magnesium Hydroxide (Milk Of Magnesia 30 Ml Oral.Susp) 30 ml PO DAILY PRN PRN Reason: constipation Metoprolol Tartrate (Metoprolol Tartrate 5 Mg/5 Ml Vial) 5 mg IVPUSH Q6H [facility] Last Admin: 09/17/22 12:41 Dose: 5 mg Documented By: RADHA Ondansetron HCl (Ondansetron Hcl 4 Mg/2 Ml Vial) 4 mg IVPUSH Q8H PRN PRN Reason: Nausea and Vomiting Last Admin: 09/16/22 23:58 Dose: 4 mg Documented By: ROBERT Pharmacy Consult (Consult Rx Perform Med Rec) 1 each MISCELLANE ONCE PRN PRN Reason: Consult order Polyethylene Glycol (Polyethylene Glycol 3350 17 Gm Powd.Pack) 17 gm PO DAILY [facility] Last Admin: 09/17/22 09:07 Dose: 17 gm Documented By: RADHA Sodium Chloride (0.9 % Sodium Chloride Flush 3 Ml Syringe) 3 ml IVFLUSH QSHIFT [facility] Last Admin: 09/17/22 09:07 Dose: 3 ml Documented By: RADHA Labs 09/15/22 12:01 09/17/22 07:39 Labs: Laboratory Results - last 24 hr 09/15/22 09/17/22 14:23 07:39 Anion Gap 15 Estim Creat Clear Calc 51.7 Estimated GFR > 60 Random Glucose 123 H Calcium 8.6 Total Protein (PEP) 4.9 L Albumin (PEP) 2.2 L Tccuf-5-Dhszezgkr 0.4 H Dbpni-7-Ekqoxmhxd 1.0 H Bacj-8-Lqgsgbam 0.2 L Rpnx-2-Whsbfxbj 0.3 Gamma Globulins 0.8 PEP Interpretation SEE NOTE Microbiology Microbiology Results: Microbiology 09/15/22 Unknown Urine Culture - Preliminary Urine Catheterized - Straight Catheter Enterococcus/Streptococcus sp 09/15/22 12:06 Blood Culture - Preliminary Blood - Venous Prelim: GPC Gram Stain only 09/15/22 12:00 Blood Culture - Preliminary Blood - Venous No growth after 24 hours. 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 Hypotension with underlying history of hypertension Blood pressure improved No acute infection found, no recent fluid loss, no nausea, no vomiting, no diarrhea. Question related to multiple antihypertensives and decreased by mouth intake Hypoxia likely due to atelectasis, incentive spirometry and wean oxygen as tolerated, CT chest showed no acute abnormality. Hypomagnesemia likely related to poor by mouth intake repleted and normalized. Hypokalemia repleted and normalized Constipation resolved continue MiraLax/Colace and as needed milk of Mag Paroxysmal atrial fibrillation went into AFib with RVR last evening patient treated with IV Lopressor, Cardizem CD restarted, will place patient back on Lopressor 25 mg by mouth q.8 hours, continue Eliquis Ventricular rate improved to 98 this morning Remote history of right MCA stroke, continue Eliquis aspirin and statin, Keppra for prevention of seizures. Hypoalbuminemia question due to decreased by mouth intake will place on Ensure bid, mildly elevated globulin, follow complete report. DVT prophylaxis on Eliquis Full code Patient need continued inpatient hospitalization for AFib with RVR and close monitoring of blood pressure and pulse . Time Spent With Patient Time: Total time managing care of this patient today ____ minutes. Quality Stroke Does the patient have a stroke diagnosis?: No VTE Prior VTE?: No VTE Risk Level:: Medical - moderate - high VTE Device Contraindication: Treatment Not Indicated VTE Drug Contraindication: N/A - Med Ordered
--- NOTE | 2022-09-17 13:33 | MHC.CLN ---
RE: CONSULT PT WITH POOR PO INTAKE MD ADDED ENSURE BID TO INCREASE KCALS SUPP TO PROVIDE 700KCALS, 40G PROTEIN WITH 100% ACCEPTANCE WILL TRIAL MAGIC CUP TID WITH MEALS FOR ADDED ADDITIONAL CALORIES MONITOR PO INTAKE CLOSELY
[2022-09-17] MEDS: Metoprolol Tartrate 25 MG TABLET PO ×2 (14:58→21:49)
[2022-09-18] MEDS: 0.9 % Sodium Chloride Flush 3 ML SYRINGE IVFLUSH ×2 (01:00→08:39)
[2022-09-18 04:00] VITALS: BP 141/79; PULSE 106; RESP 16; TEMP 36.5; O2SAT 96
[2022-09-18 07:34] VITALS: BP 125/57; PULSE 99; RESP 12; TEMP 36.8; O2SAT 98
[2022-09-18] MEDS: levETIRAcetam 250 MG TABLET PO (08:37)
[2022-09-18] MEDS: Doxazosin Mesylate 2 MG TABLET PO (08:37)
[2022-09-18] MEDS: Atorvastatin Calcium 40 MG TABLET PO (08:37)
[2022-09-18] MEDS: Docusate Sodium 100 MG CAPSULE PO (08:38)
[2022-09-18] MEDS: Apixaban 5 MG TABLET PO (08:38)
[2022-09-18] MEDS: Metoprolol Tartrate 50 MG TABLET PO ×2 (08:38→15:55)
[2022-09-18] MEDS: Aspirin 81 MG TAB.CHEW PO (08:38)
[2022-09-18] MEDS: dilTIAZem HCL CD 120 MG CAP.ER.DEG PO (08:38)
[2022-09-18] MEDS: polyethylene glycoL 3350 17 GM POWD.PACK PO (08:39)
--- NOTE | 2022-09-18 11:53 | PM.DS ---
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, history of paroxysmal atrial fibrillation on Eliquis, history of essential hypertension recently patient evaluated in the emergency room on September 03 and diagnosed to have colitis was treated with antibiotics, on September 11 patient was re-evaluated in the emergency room with symptoms of nausea vomiting and was diagnosed to have UTI, antibiotic was prescribed but as per family pharmacy did not have the antibiotics so no antibiotic was dispensed, therefore patient was not treated, patient was brought in to [place] [facility] this morning since patient was noted to have low blood pressures at home after receiving morning antihypertensives, patient also complained of abdominal pain with last bowel movement 9 days ago, most of the history obtained by patient's granddaughter at bedside via american sign language interpreter since patient is somnolent easily arousable but unable to provide detailed history, patient had no chest pain, no palpitation, she is bedbound for last 2 months no history of alcohol no smoking patient tolerates diet no nausea, no vomiting, no recent fevers, workup in the emergency room showed a low magnesium 1.4, potassium 3.2, INR of 1.8, normal WBC, stable hematocrit and platelet count, CT abdomen pelvis and CT chest showed no acute abnormality other than moderate stool, urinalysis is unremarkable, on arrival patient was noted to have low blood pressures 81/50 patient was treated with IV fluids blood pressure now 103/55, patient is mentating fine is speech remains clear now being admitted to [facility] due to multiple electrolyte abnormality and hypotension. 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 Patient admitted with Hypotension with underlying history of hypertension, blood pressure medications Cardizem CD and metoprolol 100 mg b.i.d. were held blood pressure improved urinalysis as well as CT abdomen, CT chest Were unremarkable, patient blood pressure improved with IV fluids therefore blood pressure medications were reintroduced she is now being discharged home on Cardizem CD 1 20 mg home dose and dose of Lopressor has been reduced from 100 mg twice daily to 50 mg every 8 hours, recommend close outpatient blood pressure monitoring with PCP. Hypotension likely related to decreased by mouth intake. Hypoxia likely due to atelectasis, CT chest showed no acute abnormality, oxygenation improved. Hypomagnesemia likely related to poor by mouth intake repleted and normalized. Hypokalemia repleted and normalized Constipation resolved continue MiraLax/and as needed Colace. Paroxysmal atrial fibrillation went into AFib with RVR treated with IV Lopressor, Cardizem CD home dose and placed on Lopressor 50 mg q.8 hours with good heart rate control, continue Eliquis. Remote history of right MCA stroke, continue Eliquis aspirin and statin, Keppra for prevention of seizures. Hypoalbuminemia question due to decreased by mouth intake , recommend Ensure b.i.d.. Time Spent with Patient Time attestation: Total time managing care of this patient today ____ minutes. Discharge coordination time: Greater than 30 minutes Quality: Safe Use of Opioids Does Pt have an Active Cancer Diagnosis on the Problem List?: No Quality: Stroke Does the patient have a stroke diagnosis?: No Physical Exam Vital Signs: Vital Signs: Last Vital Signs Temp 98.3 F 09/18/22 07:34 Pulse 99 09/18/22 07:34 Resp 12 09/18/22 07:34 BP 125/57 L 09/18/22 07:34 Pulse Ox 98 09/18/22 07:34 O2 Del Method 09/18/22 07:34 O2 Flow Rate 1 09/18/22 07:34 BMI result Body Mass Index 25.9 Const: Other: General? resting comfortably,in no acute distress. Anicteric sclera Neck supple no JVD. CVS? irregular rate rhythm, Respiratory lungs clear to auscultation, no respiratory distress, no wheeze, no rhonchi. Gastrointestinal abdomen soft, nontender, bowel sounds audible, no guarding , no rigidity. Extremities no edema.? Mild left hand swelling chronic, left knee puffiness no tenderness, no warmth good range of motion. Neuro speech clear, face symmetrical left upper extremity chronic mild weakness. Psych appropriate affect DS: Data Data Completed and Pending Labs on day of discharge: Preliminary micro results at discharge 09/15/22 12:00 Blood Culture - Preliminary Blood - Venous No growth after 48 hours. Discharge Plan Discharge Anticipated Discharge Date/Time: 09/18/22 11:41 Patient Disposition: Home, Self-Care Discharge Diagnosis: Hypotension Atrial fibrillation with RVR Hypokalemia Hypo magnesemia Constipation Referrals: Opal Antunez, AUTOMOTIVE ENGINEERING TECHNICIAN [Primary Care Provider] - 1 Week Discharge Medications: New polyethylene glycol 3350 17 gram Powder In Packet 17 g PO DAILY Qty: 30 0RF docusate sodium 100 mg Capsule 100 mg PO NEEDED Qty: 30 0RF metoprolol tartrate 50 mg Tablet 50 mg PO TID Qty: 90 0RF Protocol: Hold for SBP/HR < HOLD for SBP < : 90 HOLD for HR < : 60 famotidine [Pepcid] 20 mg tablet 20 mg PO DAILY Qty: 30 0RF Continued levetiracetam 250 mg Tablet 250 mg PO BID 30 Days Qty: 60 0RF Eliquis 5 mg tablet 5 mg PO BID aspirin 81 mg tablet,delayed release (DR/EC) 81 mg PO QAM atorvastatin 40 mg tablet 40 mg PO DAILY doxazosin 2 mg tablet 2 mg PO DAILY diltiazem HCl [Cardizem CD] 120 mg capsule,extended release 24hr 120 mg PO DAILY Protocol: Hold for SBP/HR < HOLD for SBP < : 90 HOLD for HR < : 60 Discontinued metoprolol tartrate 100 mg tablet 100 mg PO BID Discharge Orders: Discharge Order (Routine); Ordered 09/18/22 Ordered By: Stefany Nowak Diet: Advance to usual diet Activity on Discharge: As tolerated Stand Alone Forms: Patient Portal Discharge page Care Plan Goals: Pepcid 20 mg by mouth daily for abdominal discomfort Dose of metoprolol reduced to 50 mg 3 times per day, stop metoprolol 100 mg twice daily ensure can once or twice daily. Health Concerns: Constipation take MiraLax daily, and use Colace as needed if noted to have no bowel movement in 2 days. Take all other home medications as before. Plan of Treatment: Outpatient follow-up with primary care physician. Assessment: as above
[2022-09-18 11:56] VITALS: BP 116/54; PULSE 101; RESP 12; TEMP 36.7; O2SAT 96
--- NOTE | 2022-09-18 13:14 | P.CDIC_ITS ---
CDI Concurrent Query Documentation Clarification: PHYSICIAN'S DOCUMENTATION REQUEST Date of Query: 09/18/22 1315 Patient Name: Michaela Bragg Admit Date: 09/15/22 Dear Doctor, A review of the medical record indicates additional documentation may be needed. Please review below and update the documentation accordingly. Clinical Indicators: Documentation on progress note dated [ ] included the diagnosis of sepsis. The patient's infectious clinical indicators include: Risk Factors/Clinical Indicators/Treatments Recognized standard criteria for this condition and other infectious definitions includes: Bacteremia Abnormal laboratory test - does not indicate a clinically ill patient Sepsis Systemic manifestations of infection, with 2 or more SIRS criteria which include: * Fever > 100.4?F or hypothermia < 96.8?F * Leukocytosis ? WBC > 12,000 or leukopenia, WBC < 4,000, or > 10% bands * Tachycardia- > 90 beats/minute * Tachypnea- RR > 20 breaths/minute or PaCO2 < 32mmHg Source: Merck Manual 2013 Documentation should include the known or suspected organism, and the underlying infection, such as UTI or pneumonia Severe Sepsis Sepsis with associated acute organ dysfunction, such as renal or respiratory failure Documentation should indicate the association between the sepsis and the organ dysfunction Septic Shock Severe sepsis with associated with circulatory failure, evidenced by hypotension and hypoperfusion Based on the above information and the recognized standard for sepsis, could you please clarify in the Progress Notes if this diagnoses is still accurate and reflective of the patient's condition to ensure quality of the medical record. * Sepsis is/was present and is a clinical diagnosis based on (please include this additional support in the medical record) * After study (the condition) has been ruled out * Other (please specify) * Unable to determine Use of terms such as suspected, likely, concern for, or probable (associated with a specific diagnosis that is being evaluated, monitored, or treated as if it exists) are acceptable and can be coded in the inpatient setting, when documented at the time of discharge. Thank you, Estephania Hernandez [insert CDI's credentials] Extension: [4-digit phone extension] Please use your independent medical judgment in providing your response. THIS QUERY IS PART OF THE PERMANENT MEDICAL RECORD
--- NOTE | 2022-09-18 13:19 | MHC.CM.PN ---
IMM 09/18/22 Patient is discharged to home today. [facility] services will resume. Patient will transport via [facility] 4pm oyster picker from [facility] [place]. He grdtr/[facility] will accept the patient from [facility] at home.
== END 2022-09-18 18:15 | disposition home or self-care (01) | DRG 315 ==
LOC: HO.ED 13:19 → HO.EDOVER 17:10 → HO.IMC 19:35 → HO.S3 09-17 23:31 → HO.IMC 09-17 23:42
PROVIDERS: Physician Assistant Medical; Admitting Provider Hospitalist; Emergency Provider Emergency Medicine; PCP Nurse Practitioner Primary Care; Visit Provider Hospitalist
DX: I95.9 Hypotension, unspecified (principal); I69.354 Hemiplegia and hemiparesis following cerebral infarction affecting left non-dominant side; J98.11 Atelectasis; E87.6 Hypokalemia; I48.0 Paroxysmal atrial fibrillation; I10 Essential (primary) hypertension; E88.09 Other disorders of plasma-protein metabolism, not elsewhere classified; E83.42 Hypomagnesemia; K59.09 Other constipation; Z20.822 Contact with and (suspected) exposure to COVID-19; Z88.0 Allergy status to penicillin; Z88.8 Allergy status to other drugs, medicaments and biological substances; Z79.01 Long term (current) use of anticoagulants; Z79.82 Long term (current) use of aspirin; Z79.899 Other long term (current) drug therapy
CPT/HCPCS: 0241U; 36415; 71045; 71260; 74177; 80048; 80053; 81001; 83605; 83735; 83880; 84165; 85025; 85610; 85730; 87040; 87086; 87088; 87147; 87186; 87205; 87633; 93005; 99285; J2405; J3475; Q9967

== ENCOUNTER 2022-09-25 13:33 | Inpatient (IN) | payer MEDICARE, MEDICAID, SELFPAY ==
--- NOTE | ~2022-09-25 | CT_ITS ---
EXAMINATION: CT ABDOMEN AND PELVIS WITHOUT CONTRAST CLINICAL INFORMATION: Severe abdominal pain COMPARISON: Previous CT of the abdomen and pelvis most recent 09/15/2022 TECHNIQUE: Multidetector volumetric imaging was performed from the superior aspect of the liver through the pubic symphysis. Sagittal and coronal reformatted images were obtained on the technologist's workstation. This CT examination was performed using dose optimization techniques as appropriate, variously including the following: *Automated exposure control *Adjustment of mA and/or kV according to patient size (this includes techniques or standardized protocols for targeted exams where dose is matched to indication/reason for exam; i.e. extremities or head) *Use of iterative reconstruction technique DLP: 505 mGy-cm FINDINGS: LUNG BASES: The heart is enlarged. There is coronary artery calcification. There is a small pericardial effusion. The thoracic aorta is slightly dilated and is tortuous. There are very small bilateral pleural effusions, left greater than right. There is subsegmental atelectasis in the left lower lobe. LIVER, GALLBLADDER, AND BILIARY TREE: The liver is normal in size, shape, and attenuation. No focal hepatic lesion or biliary ductal dilatation is present. The gallbladder is unremarkable with no evidence of radiopaque gallstones, gallbladder wall thickening, or obvious pericholecystic inflammatory changes. PANCREAS: Unremarkable. SPLEEN: Unremarkable. ADRENAL GLANDS: There is a stable low-attenuation right adrenal lesion measuring 1.5 x 3 cm. This likely represents a benign lipid rich adenoma. No imaging follow-up recommended. The left adrenal gland is normal. KIDNEYS AND URETERS: The kidneys are normal in size, shape, and attenuation. No hydronephrosis, hydroureter, or calculi seen. No perinephric stranding. BLADDER: Not optimally distended but appears unremarkable. GASTROINTESTINAL TRACT: There is stool throughout the colon suggestive of constipation. There is new wall thickening of the cecum questionable for colitis. There is new wall thickening and edema of the rectum questionable for proctitis. There is new mild fat stranding in the presacral space. Small and large bowel is otherwise normal. The appendix is normal. No ascites or free air. The stomach is normal. ABDOMINAL WALL: Small left inguinal hernia containing fat. LYMPH NODES: Normal. VASCULAR: There is atherosclerotic disease. No aneurysm. PELVIC VISCERA: Small uterine calcification probably representing a calcified fibroid. Uterus and adnexa are otherwise unremarkable. OSSEOUS STRUCTURES: Severe osteopenia. T12 and L1 vertebral body compression fractures and question mild L4 compression fracture versus Schmorl's node. This appears unchanged from recent exam 09/15/2022. CT/CT abdomen pelvis wo IV con IMPRESSION: Constipation. Question mild colitis of the cecum and mild proctitis. Other stable findings described above similar to recent exam 09/15/2022 Fleischner guidelines were followed.
--- NOTE | ~2022-09-25 | CT_ITS ---
EXAMINATION: CT head/brain wo IV con CLINICAL INFORMATION: Altered mental status COMPARISON: CT head 08/24/2022 TECHNIQUE: Contiguous axial imaging was performed from the skull base to vertex without intravenous contrast. Sagittal and coronal reformatted images were obtained. This CT examination was performed using dose optimization techniques as appropriate, variously including the following: * Automated exposure control * Adjustment of mA and/or kV according to patient size (this includes techniques or standardized protocols for targeted exams where dose is matched to indication/reason for exam; i.e. extremities or head) Use of iterative reconstruction technique DLP: 1058.89 mGy-cm mGy-cm FINDINGS: Continued evolution of a right MCA territory infarct with associated ex vacuo dilatation of the right lateral ventricle. No new territorial loss of ivy-white differentiation, noting MRI is a more sensitive modality for detection of acute ischemia. 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 No acute intracranial hemorrhage or extra-axial fluid collection. No mass lesion, significant mass effect, or herniation pattern. Intracranial calcifications atherosclerotic disease. 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 The orbits are grossly normal. Increased layering dependent debris in the left sphenoid sinus. The mastoid air cells are well aerated. Osseous structures are intact. CT/CT head/brain wo IV con IMPRESSION: Continued evolution of a right MCA territory infarct. 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 No new acute cranial abnormality, noting MRI is a more sensitive modality for detection of acute ischemia.
[2022-09-25 13:42] VITALS: BP 100/42; BP 85/47; PULSE 66; PULSE 71; RESP 18; TEMP 36.7; O2SAT 97; O2SAT 98; BMI 27.3
--- NOTE | 2022-09-25 15:39 | ECG_ITS ---
Test Reason : WEAKNESS Blood Pressure : / mmHG Vent. Rate : 094 BPM Atrial Rate : 000 BPM P-R Int : 000 ms QRS Dur : 088 ms QT Int : 348 ms P-R-T Axes : 000 006 233 degrees QTc Int : 435 ms Atrial fibrillation Nonspecific ST and T wave abnormality Abnormal ECG When compared with ECG of 15-SEP-2022 12:12, Vent. rate has increased BY 36 BPM Referred By: Darby Aguirre Electronically Signed By:LETTY PHILIP
[2022-09-25 16:00] VITALS: BP 123/57; PULSE 90; RESP 16; TEMP 36.8; O2SAT 95
--- NOTE | 2022-09-25 16:09 | ED_ITS ---
HPI - General Adult General Chief complaint: Altered Mental Status Stated complaint: ams,Abd pain Time Seen by Provider: 09/25/22 16:08 Source: patient, family and EMS Mode of arrival: EMS Limitations: other (patient poor historian ) History of Present Illness HPI narrative: This is an 81-year-old female history of atrial fibrillation anticoagulated on Eliquis, syncope, right MCA stroke in July 2022 status post thrombectomy in the right internal carotid artery at [facility], AAA, hypertension, colitis presenting to the emergency department with family was concerned that today patient had a brief episode of unresponsiveness just prior to arrival. Patient it is daughter reports that earlier today patient was also complaining of severe abdominal pain throughout, she tried to vomit however was unable to, an patient has she is feeling now she tells me she is feeling well and has no complaints. She tells me she just feels cold. According to daughter she has also been more weak than usual and slightly altered. Denies chest pain, shortness of breath, fevers, chills, headache, vision changes, dizziness, weakness, abdominal pain, nausea, vomiting, dizziness, changes in bowel habits or urination at this time. Related Data Home Medications Medication Instructions Recorded Confirmed apixaban 5 mg tablet (Eliquis) 5 mg PO BID 09/03/22 09/15/22 aspirin 81 mg tablet,delayed 81 mg PO QAM 09/03/22 09/15/22 release atorvastatin 40 mg tablet 40 mg PO DAILY 09/03/22 09/15/22 diltiazem HCl 120 mg 120 mg PO DAILY 09/03/22 09/15/22 capsule,extended release 24 hr (Cardizem CD) doxazosin 2 mg tablet 2 mg PO DAILY 09/03/22 09/15/22 Previous Rx's Medication Instructions Recorded levetiracetam 250 mg tablet 250 mg PO BID 30 days #60 tabs 08/29/22 docusate sodium 100 mg capsule 100 mg PO NEEDED constipation 09/18/22 #30 caps famotidine 20 mg tablet (Pepcid) 20 mg PO DAILY #30 tabs 09/18/22 metoprolol tartrate 50 mg tablet 50 mg PO TID #90 tabs 09/18/22 polyethylene glycol 3350 17 gram 17 g PO DAILY #30 ea 09/18/22 oral powder packet Allergies Allergy/AdvReac Type Severity Reaction Status Date / Time hydrochlorothiazide Allergy Mild UNKNOWN Verified 08/24/22 19:41 [Hydrochlorothiazide] penicillin G [Penicillin G] Allergy Mild UNKNOWN Verified 08/24/22 19:41 penicillin V Allergy Unknown Unknown Verified 08/24/22 19:41 chlorthalidone AdvReac Severe hyponatremi Verified 08/24/22 19:41 [CHLORTHALIDONE] a Review of Systems Review of Systems: Constitutional : No Weight loss, No Fever, No Chills, No Fatigue, No Malaise ENT/Mouth : No sore throat, No Rhinorrhea Eyes: No Eye Pain, No Swelling, No Redness Cardiovascular : No Chest Pain, No SOB, No Dyspnea on Exertion, No Orthopnea, No Edema, No Palpitations Respiratory : No Cough, No Sputum, No Wheezing Gastrointestinal : No Nausea, No Vomiting, No Diarrhea, No Constipation, No abdominal Pain, No Hematochezia, No Melena Genitourinary : No Dysuria, No Urinary Frequency, No Hematuria, Musculoskeletal : No joint pain, No Myalgias, No Joint Swelling Skin : No Skin Lesions, No rash Neuro : No Weakness, No Numbness, No Dizziness, No Headache Psych : No Anxiety/Panic, No Depression All other systems reviewed and are negative Yes all other systems are reviewed and are negative [facility] Past Medical History Attestation statement: The following information was validated with the patient. 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 Surgical History H/O carotid endarterectomy Family History Family History Mother Heart problem Social History Social History Household Members: Family and Caregiver Housing: Apartment Do you presently have visiting nurse or other home services: Yes (HOME CARE ADMINISTRATOR) Alcohol intake: never Patient Tobacco Use Status: Never used Tobacco Advance Directives: No Advance Directives Information Provided: No service: No Current occupational status: disabled Physical Exam ED Vital Signs: Vital Signs - 24 hr 09/25/22 13:42 09/25/22 16:00 09/25/22 19:07 Temperature 98.0 F 98.3 F 98.6 F Pulse Rate 66 90 94 Respiratory Rate 18 16 15 Blood Pressure 100/42 L 123/57 L 113/60 Pulse Oximetry 98 95 95 Oxygen Delivery Method Room Air Room Air Room Air 09/25/22 20:00 09/25/22 22:00 Temperature 98.6 F 98.2 F Pulse Rate 85 112 H Respiratory Rate 15 15 Blood Pressure 111/52 L 116/54 L Pulse Oximetry 95 98 Oxygen Delivery Method Room Air Room Air BMI result Body Mass Index 27.3 vss Appearance: Alert.? Oriented X3.? No acute distress.?Intermittent dry cough during exam Head: Normocephalic, atraumatic, no step-offs or deformities Eyes: Pupils equal, round and reactive to light.? ENT: Pharynx normal.? Neck: Normal inspection.? Neck supple.? CVS: Normal heart rate and rhythm.? Pulses normal.? Respiratory: No respiratory distress.? Breath sounds normal.? Abdomen: Soft and nontender.? Normoactive bowel sounds Skin: Skin warm and dry.? Normal skin color.? Normal skin turgor.? Extremities: No lower extremity edema.? No calf ttp. Global weakness. Back: No midline tenderness, no C-spine tenderness, full range of motion, no CVA tenderness bilaterally Neuro: Oriented X 3.? No motor deficit.? No sensory deficit. CN 2-12 intact Course Reevaluation(s) Reevaluation #1: CBC appears to be around patient's baseline. Chemistry with low magnesium 1.3, IV Mag given. Total bilirubin of 1.5 this appears to be around patient's baseline. Patient's troponin elevated 24.7 however, patient's troponin chronically elevated, EKG showing atrial fibrillation with premature ventricular conduction. No signs of ischemia, patient without chest pain. Patient's urine with trace leukocyte esterases. Patient is COVID positive. Could be contributing to patient's symptoms. Repeat troponin pending patient is now having dry cough. CT scan with no acute findings, I did discuss CT scan results with my attending Dr. Bowman I do not suspect acute stroke CT abd and pelvis with colits, proctitis patient w/ hx of this. Time: 23:25 Reevaluation #2: Patient too weak to stand up, now again reporting abdominal pain. Will give pain medicine for abdominal pain. Plan is to admit patient for syncopal episode, COVID-19, weakness, colitis. Patient with decreased p.o. intake as well, not eating and drinking much. Patient will be admitted to the hospital for further evaluation and treatment. Time: 23:35 Medications Administered Discontinued Medications Generic Name Dose Route Start Last Admin Trade Name Malcolm PRN Reason Stop Dose Admin Magnesium Sulfate 2 gm in 50 mls @ 25 mls/hr 09/25/22 17:07 09/25/22 17:39 Magnesium Sulfate/H2o IV 09/25/22 19:06 25 mls/hr ONCE ONE Administration Medical Decision Making Medical Decision Making [facility] Narrative: 1621 81-year-old female presents with daughter who is concerned that patient had an episode that lasted a few seconds of unresponsiveness, followed by abdominal pa in and significant nausea, patient tells me all her symptoms have subsided and she feels fine. She tells me she just feels cold. Physical exam global weakness ( no focal neuro deficits). Likely syncopal episode. Will rule out UTI, electrolyte abnormalities. Unlikely AAA, acute abdomen, intracranial hemorrhage or stroke. Plan at this time labs, imaging, urine. Differential Diagnosis Differential Diagnoses: The differential diagnosis associated with the presentation includes Likely syncopal episode. Will rule out UTI, electrolyte abnormalities. Unlikely AAA, acute abdomen, intracranial hemorrhage or stroke. Admission/Observation Consideration of admission/observation: Escalation of care including admission/observation considered Lab Data [facility] Lab Attestation statement: I reviewed the patient's lab results. 09/25/22 16:32 09/25/22 16:32 Labs: Lab Results 09/25/22 09/25/22 09/25/22 Range/Units 16:32 16:32 16:32 WBC 8.1 (4.8-10.8) X10*3/uL RBC 4.02 L (4.20-5.50) X10*6/uL Hgb 11.7 L (12.0-16.0) g/dl Hct 35.7 L (37.0-47.0) % MCV 88.8 (80.0-98.0) fL MCH 29.1 (27.0-33.0) pg MCHC 32.8 (31.0-35.0) g/dl RDW 15.6 (11.0-16.0) % Plt Count 240 (160-400) X10*3/uL MPV 11.3 (9.4-12.3) fL Immature Gran % (Auto) 0.9 H (0.0-0.4) % Neut % (Auto) 71.5 (45-73) % Lymph % (Auto) 17.0 L (20-40) % [place] % (Auto) 8.1 (2-11) % Eos % (Auto) 2.0 (0-4) % Baso % (Auto) 0.5 (0-2) % Lymph # (Auto) 1.4 (1.2-4.9) X10*3/uL [place] # (Auto) 0.7 (0.1-1.2) X10*3/uL Eos # (Auto) 0.2 (0.0-0.4) X10*3/uL Baso # (Auto) 0.0 (0.0-0.2) X10*3/uL Abs Immat Gran (auto) 0.07 H (0.00-0.03) X10*3/uL Absolute Neuts (auto) 5.8 (2.0-8.3) x10*3/uL Absolute Nucleated RBC 0.000 (0.0-0.012) X10*3/uL Nucleated RBC % (auto) 0.0 (0.0-0.2) /100WBC Sodium 141 (135-145) mmol/L Potassium 3.6 (3.3-5.1) mmol/L Chloride 99 (96-108) mmol/L Carbon Dioxide 32 H (22-29) mmol/L Anion Gap 14 (12-20) BUN 14 (9-16) mg/dL Creatinine 0.80 (0.5-1.4) mg/dL Estim Creat Clear Calc 44.3 Estimated GFR > 60 Random Glucose 118 H (60-115) mg/dL Calcium 8.9 (8.4-10.2) mg/dL Magnesium 1.3 L* (1.6-2.6) mg/dL Total Bilirubin 1.5 H (0.0-1.0) mg/dL AST 20 (5-31) U/L ALT 8 (0-31) U/L Alkaline Phosphatase 69 (39-117) U/L Troponin I High Sens 24.7 H (<3.5-17.0) ng/L B-Natriuretic Peptide (<100) pg/mL Total Protein 5.6 L (6.5-8.0) g/dL Albumin 3.1 L (3.5-5.0) g/dL Lipase 11 (8-78) U/L Urine Color Urine Appearance Urine pH (5.0-9.0) Ur Specific [place] (1.005-1.025) Urine Protein (Neg-Trace) mg/dL Urine Glucose (UA) (Negative) mg/dL Urine Ketones (Negative) mg/dL Urine Blood (Negative) Urine Nitrite (Negative) Ur Leukocyte Esterase (Negative) COVID-19 (SUZANNE) (Negative) COVID-19 Clin Com Influenza Type A (JES[facility]S) (Negative) Influenza Type B (JESÚS) (Negative) Influenza A & B Note 09/25/22 09/25/22 09/25/22 Range/Units 16:32 16:33 16:33 WBC (4.8-10.8) X10*3/uL RBC (4.20-5.50) X10*6/uL Hgb (12.0-16.0) g/dl Hct (37.0-47.0) % MCV (80.0-98.0) fL MCH (27.0-33.0) pg MCHC (31.0-35.0) g/dl RDW (11.0-16.0) % Plt Count (160-400) X10*3/uL MPV (9.4-12.3) fL Immature Gran % (Auto) (0.0-0.4) % Neut % (Auto) (45-73) % Lymph % (Auto) (20-40) % [place] % (Auto) (2-11) % Eos % (Auto) (0-4) % Baso % (Auto) (0-2) % Lymph # (Auto) (1.2-4.9) X10*3/uL [place] # (Auto) (0.1-1.2) X10*3/uL Eos # (Auto) (0.0-0.4) X10*3/uL Baso # (Auto) (0.0-0.2) X10*3/uL Abs Immat Gran (auto) (0.00-0.03) X10*3/uL Absolute Neuts (auto) (2.0-8.3) x10*3/uL Absolute Nucleated RBC (0.0-0.012) X10*3/uL Nucleated RBC % (auto) (0.0-0.2) /100WBC Sodium (135-145) mmol/L Potassium (3.3-5.1) mmol/L Chloride (96-108) mmol/L Carbon Dioxide (22-29) mmol/L Anion Gap (12-20) BUN (9-16) mg/dL Creatinine (0.5-1.4) mg/dL Estim Creat Clear Calc Estimated GFR Random Glucose (60-115) mg/dL Calcium (8.4-10.2) mg/dL Magnesium (1.6-2.6) mg/dL Total Bilirubin (0.0-1.0) mg/dL AST (5-31) U/L ALT (0-31) U/L Alkaline Phosphatase (39-117) U/L Troponin I High Sens (<3.5-17.0) ng/L B-Natriuretic Peptide 84 (<100) pg/mL Total Protein (6.5-8.0) g/dL Albumin (3.5-5.0) g/dL Lipase (8-78) U/L Urine Color Urine Appearance Urine pH (5.0-9.0) Ur Specific [place] (1.005-1.025) Urine Protein (Neg-Trace) mg/dL Urine Glucose (UA) (Negative) mg/dL Urine Ketones (Negative) mg/dL Urine Blood (Negative) Urine Nitrite (Negative) Ur Leukocyte Esterase (Negative) COVID-19 (SUZANNE) Positive A (Negative) COVID-19 Clin Com See Note Influenza Type A ([facility]S) Negative (Negative) Influenza Type B (JESÚS) Negative (Negative) Influenza A & B Note See Note 09/25/22 Range/Units 23:10 WBC (4.8-10.8) X10*3/uL RBC (4.20-5.50) X10*6/uL Hgb (12.0-16.0) g/dl Hct (37.0-47.0) % MCV (80.0-98.0) fL MCH (27.0-33.0) pg MCHC (31.0-35.0) g/dl RDW (11.0-16.0) % Plt Count (160-400) X10*3/uL MPV (9.4-12.3) fL Immature Gran % (Auto) (0.0-0.4) % Neut % (Auto) (45-73) % Lymph % (Auto) (20-40) % [place] % (Auto) (2-11) % Eos % (Auto) (0-4) % Baso % (Auto) (0-2) % Lymph # (Auto) (1.2-4.9) X10*3/uL [place] # (Auto) (0.1-1.2) X10*3/uL Eos # (Auto) (0.0-0.4) X10*3/uL Baso # (Auto) (0.0-0.2) X10*3/uL Abs Immat Gran (auto) (0.00-0.03) X10*3/uL Absolute Neuts (auto) (2.0-8.3) x10*3/uL Absolute Nucleated RBC (0.0-0.012) X10*3/uL Nucleated RBC % (auto) (0.0-0.2) /100WBC Sodium (135-145) mmol/L Potassium (3.3-5.1) mmol/L Chloride (96-108) mmol/L Carbon Dioxide (22-29) mmol/L Anion Gap (12-20) BUN (9-16) mg/dL Creatinine (0.5-1.4) mg/dL Estim Creat Clear Calc Estimated GFR Random Glucose (60-115) mg/dL Calcium (8.4-10.2) mg/dL Magnesium (1.6-2.6) mg/dL Total Bilirubin (0.0-1.0) mg/dL AST (5-31) U/L ALT (0-31) U/L Alkaline Phosphatase (39-117) U/L Troponin I High Sens (<3.5-17.0) ng/L B-Natriuretic Peptide (<100) pg/mL Total Protein (6.5-8.0) g/dL Albumin (3.5-5.0) g/dL Lipase (8-78) U/L Urine Color Dark Yellow Urine Appearance Cloudy Urine pH 5.0 (5.0-9.0) Ur Specific [place] 1.025 (1.005-1.025) Urine Protein Trace (Neg-Trace) mg/dL Urine Glucose (UA) Negative (Negative) mg/dL Urine Ketones Trace (Negative) mg/dL Urine Blood Negative (Negative) Urine Nitrite Negative (Negative) Ur Leukocyte Esterase Trace H (Negative) COVID-19 (SUZANNE) (Negative) COVID-19 Clin Com Influenza Type A (JES[facility]S) (Negative) Influenza Type B ([facility]ES[facility]S) (Negative) Influenza A & B Note Independent Interpretation I performed an independent interpretation of an: CT Scan Core Measures AMI core measures followed: Yes Measure exclusions: not indicated Critical Care Time Critical Care Time Critical Care Time: No Discharge Plan Discharge Clinical Impression: Syncope, Colitis, Physical deconditioning, Cough, Hypomagnesemia Patient Disposition: Admitted As Inpatient Prescriptions: No Action levetiracetam 250 mg Tablet 250 mg PO BID 30 Days Qty: 60 0RF Eliquis 5 mg tablet 5 mg PO BID aspirin 81 mg tablet,delayed release (DR/EC) 81 mg PO QAM atorvastatin 40 mg tablet 40 mg PO DAILY doxazosin 2 mg tablet 2 mg PO DAILY polyethylene glycol 3350 17 gram Powder In Packet 17 g PO DAILY Qty: 30 0RF docusate sodium 100 mg Capsule 100 mg PO NEEDED Qty: 30 0RF metoprolol tartrate 50 mg Tablet 50 mg PO TID Qty: 90 0RF Protocol: Hold for SBP/HR < HOLD for SBP < : 90 HOLD for HR < : 60 famotidine [Pepcid] 20 mg tablet 20 mg PO DAILY Qty: 30 0RF diltiazem HCl [Cardizem CD] 120 mg capsule,extended release 24hr 120 mg PO DAILY Protocol: Hold for SBP/HR < HOLD for SBP < : 90 HOLD for HR < : 60
--- NOTE | 2022-09-25 16:15 | MHC.EDTECH ---
THIS PCT ASSUMED CARE OF PT AT 1500 ,1600 ROUNDING DONE ,VITALS SIGN TAKEN ,EKG DONE ,FLU AND COVID SWAB COLLECTED , BLOOD DRAWN AND SENT TO LAB ,PT WAS SOILED ,CARE GIVEN ,PT GRAND DAUGHTER AT BEDSIDE .
[2022-09-25 16:39] LABS: MANUAL DIFF FLAG NO
[2022-09-25 16:41] LABS: Basophils Percent Auto 0.5 % (0-2); Eosinophils Absolute Auto 0.2 X10*3/uL (0.0-0.4); Hematocrit 35.7 % (37.0-47.0); Hemoglobin 11.7 g/dl (12.0-16.0); Imm Gran Abs Auto 0.07 X10*3/uL (0.00-0.03); Imm Gran Pct Auto 0.9 % (0.0-0.4); Lymphocytes Absolute Auto 1.4 X10*3/uL (1.2-4.9); Mean Corpuscular HGB Conc 32.8 g/dl (31.0-35.0); Mean Corpuscular Hemoglobin 29.1 pg (27.0-33.0); Mean Corpuscular Volume 88.8 fL (80.0-98.0); Mean Platelet Volume 11.3 fL (9.4-12.3); Monocytes Absolute Auto 0.7 X10*3/uL (0.1-1.2); Monocytes Percent Auto 8.1 % (2-11); Neutrophils Absolute Auto 5.8 x10*3/uL (2.0-8.3); Neutrophils Percent Auto 71.5 % (45-73); Platelet Count 240 X10*3/uL (160-400); Red Blood Count 4.02 X10*6/uL (4.20-5.50); Red Cell Distribution Width 15.6 % (11.0-16.0); White Blood Count 8.1 X10*3/uL (4.8-10.8)
[2022-09-25 16:51] LABS: COVID-19 Test Positive (Negative); IDNOW Serial# 16C4AD1C
[2022-09-25 17:00] LABS: IDNOW Serial# BCCEAD1C; Influenza A Negative (Negative); Influenza B2 Negative (Negative)
[2022-09-25 17:02] LABS: B Type Natriuretic Peptide 84 pg/mL (<100)
[2022-09-25 17:07] LABS: Troponin-I High Sensitivity 24.7 ng/L (<3.5-17.0)
[2022-09-25 17:08] LABS: Alanine Aminotransferase 8 U/L (0-31); Albumin Level 3.1 g/dL (3.5-5.0); Alkaline Phosphatase 69 U/L (39-117); Anion Gap 14 (12-20); Aspartate Amino Transferase 20 U/L (5-31); Bilirubin Total 1.5 mg/dL (0.0-1.0); Blood Urea Nitrogen 14 mg/dL (9-16); Calcium 8.9 mg/dL (8.4-10.2); Carbon Dioxide 32 mmol/L (22-29); Chloride 99 mmol/L (96-108); Creatinine Clr Calc Pharmacy 44.3; Estimated Glomerular Filt Rate > 60; Glucose Random 118 mg/dL (60-115); Lipase 11 U/L (8-78); Magnesium 1.3 mg/dL (1.6-2.6); Potassium 3.6 mmol/L (3.3-5.1); Sodium 141 mmol/L (135-145); Total Protein 5.6 g/dL (6.5-8.0)
[2022-09-25] MEDS: Magnesium Sulfate/H2O 2 GM/50 ML PIGGYBACK IV (17:39)
[2022-09-25 19:07] VITALS: BP 113/60; PULSE 94; RESP 15; TEMP 37; O2SAT 95
[2022-09-25 20:00] VITALS: BP 111/52; PULSE 85; RESP 15; TEMP 37; O2SAT 95
--- NOTE | 2022-09-25 20:00 | MHC.EDTECH ---
2000 rounding done ,vitals sign taken ,pt resting quietly ,pt grand daughter at bedside .
[2022-09-25 22:00] VITALS: BP 116/54; PULSE 112; RESP 15; TEMP 36.8; O2SAT 98
[2022-09-25 23:16] LABS: Appearance Urine Cloudy; Color Urine Dark Yellow; Glucose Urine UA Negative (Negative); Leukocyte Esterase Urine Trace (Negative); Nitrite Urine Negative (Negative); Specific Gravity - Urine 1.025 (1.005-1.025); UMIC TRIGGER UACC YES; Urine Blood Negative (Negative); Urine Ketones Trace mg/dL (Negative); Urine Protein Trace mg/dL (Neg-Trace)
[2022-09-25 23:28] LABS: Bacteria Urine None Seen (None Seen); Squamous Epithelial Cell Urine 0-2 /HPF (0-2); WBC Urine 0-5 /HPF (0-5)
[2022-09-26] VITALS (8 sets, daily range): BP systolic 105–144; BP diastolic 46–80; PULSE 88–122; RESP 13–17; TEMP 36.1–36.9; O2SAT 91–95; BMI 26.4; BMI 25.0
[2022-09-26] MEDS: Albuterol Sulfate 2.5 MG/0.5 ML VIAL.NEB 5 MG INHALE (00:02)
[2022-09-26 00:19] LABS: Alanine Aminotransferase 7 U/L (0-31); Albumin Level 2.9 g/dL (3.5-5.0); Alkaline Phosphatase 64 U/L (39-117); Anion Gap 14 (12-20); Aspartate Amino Transferase 20 U/L (5-31); Bilirubin Total 1.4 mg/dL (0.0-1.0); Blood Urea Nitrogen 14 mg/dL (9-16); Calcium 8.7 mg/dL (8.4-10.2); Carbon Dioxide 30 mmol/L (22-29); Chloride 100 mmol/L (96-108); Creatinine Clr Calc Pharmacy 48.5; Estimated Glomerular Filt Rate > 60; Glucose Random 105 mg/dL (60-115); Potassium 3.3 mmol/L (3.3-5.1); Sodium 141 mmol/L (135-145); Total Protein 5.4 g/dL (6.5-8.0)
[2022-09-26 00:21] LABS: Troponin-I High Sensitivity 23.7 ng/L (<3.5-17.0)
[2022-09-26] MEDS: Metoprolol Tartrate 50 MG TABLET PO ×2 (01:03→21:48)
[2022-09-26] MEDS: Metoprolol Tartrate 5 MG/5 ML VIAL IVPUSH (01:13)
--- NOTE | 2022-09-26 01:25 | MHC.EDTECH ---
Pt given pericare. bed pads changed/ warm blanket given call roberts in reach
--- NOTE | 2022-09-26 01:51 | P.HPHOSP_ITS ---
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 patient and granddaughter Romansh-speaking, history is obtained with the ED staff granddaughter is her full-time [employer]ER[employer], reports that she was given her bed bath, when she said her back in her wheelchair she noticed her to lose consciousness and lull her head. This lasted few seconds and patient regained consciousness. She does not remember the episode, does not remember what happened. On and gaining conscious this patient then started complaining of abdominal pain throughout, had Nausea and dry heaving with no vomiting. granddaughter also noted that her grandmother is slightly more confused than her baseline. On arrival to the ED patient hemodynamically stable with no significant abnormal vitals , while in the ED patient developed AFib with RVR with a heart rate in the 130s to 150s. Patient received metoprolol p.o. as well as IV push with improvement in her heart rate Labs are significant forWBC count of 8.1, hemoglobin of 11.7, hematocrit of 35.7, magnesium of 1.3, total bili of 1.5, troponin of 24.7 decreased to 23, albumin of 3.9, UA positive for leukocyte Estrace and WBC, COVID-19 positive it seems that her grandson was recently diagnosed with COVID-[address] shows continued evolution of the right MCA territory infarct with no acute cranial abnormality Abdominal pelvic CT shows severe constipation, mild colitis of the cecum and mild proctitis, Review of Systems Review of Systems: Yes all other systems are reviewed and are negative [facility] Medical History Acute right MCA stroke Atrial fibrillation HTN (hypertension) Right eye symptoms 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 Family History Mother Heart problem Surgical History H/O carotid endarterectomy Social History Household Members: Family and Caregiver Housing: Apartment Do you presently have visiting nurse or other home services: Yes ([employer]) Alcohol intake: never Patient Tobacco Use Status: Never used Tobacco Advance Directives: No Advance Directives Information Provided: No service: No Current occupational status: disabled Meds Allergies Allergy/AdvReac Type Severity Reaction Status Date / Time hydrochlorothiazide Allergy Mild UNKNOWN Verified 08/24/22 19:41 [Hydrochlorothiazide] penicillin G [Penicillin G] Allergy Mild UNKNOWN Verified 08/24/22 19:41 penicillin V Allergy Unknown Unknown Verified 08/24/22 19:41 chlorthalidone AdvReac Severe hyponatremi Verified 08/24/22 19:41 [CHLORTHALIDONE] a Active Medications: Current Medications Pharmacy Consult (Consult Rx Perform Med Rec) 1 each MISCELLANE ONCE PRN PRN Reason: Consult order Home Medications Medication Instructions Recorded Confirmed Last Taken Type apixaban 5 mg tablet (Eliquis) 5 mg PO BID 09/03/22 09/26/22 Unknown History aspirin 81 mg tablet,delayed 81 mg PO QAM 09/03/22 09/26/22 Unknown History release atorvastatin 40 mg tablet 40 mg PO DAILY 09/03/22 09/26/22 Unknown History diltiazem HCl 120 mg 120 mg PO DAILY 09/03/22 09/26/22 Unknown History capsule,extended release 24 hr (Cardizem CD) doxazosin 2 mg tablet 2 mg PO DAILY 09/03/22 09/26/22 Unknown History ondansetron 4 mg disintegrating 1 tab PO Q8H PRN nausea/vomiting 09/26/22 09/26/22 Unknown History tablet Physical Exam Vital Signs and Narrative: Vital Signs: Last Vital Signs Temp 98.3 F 09/26/22 01:35 Pulse 101 H 09/26/22 01:35 Resp 14 09/26/22 01:35 BP 105/46 L 09/26/22 01:35 Pulse Ox 94 09/26/22 01:35 O2 Del Method 09/26/22 01:35 BMI result Body Mass Index 27.3 Const: Other: patient alert, oriented to self, no acute distress appears very frail General: cooperative and no acute distress Eyes: General: appearance normal, both eyes and all related structures Resp: Effort & Inspection: normal respiratory effort Cardio: Other: tachycardic, irregular rhythm GI: Palpation (GI): Soft to palpation Auscultation: normal bowel sounds Skin: General skin exam: no rashes or lesions noted Extrem: General: Yes normal to inspection and Yes no pedal edema Results Labs 09/25/22 16:32 09/25/22 23:50 Labs: Laboratory Results - last 24 hr 09/25/22 09/25/22 09/25/22 16:32 16:32 16:32 MCV 88.8 MCH 29.1 MCHC 32.8 RDW 15.6 Plt Count 240 MPV 11.3 Immature Gran % (Auto) 0.9 H Neut % (Auto) 71.5 Lymph % (Auto) 17.0 L Sullivan % (Auto) 8.1 Eos % (Auto) 2.0 Baso % (Auto) 0.5 Lymph # (Auto) 1.4 Sullivan # (Auto) 0.7 Eos # (Auto) 0.2 Baso # (Auto) 0.0 Abs Immat Gran (auto) 0.07 H Absolute Neuts (auto) 5.8 Absolute Nucleated RBC 0.000 Nucleated RBC % (auto) 0.0 Anion Gap 14 Estim Creat Clear Calc 44.3 Estimated GFR > 60 Random Glucose 118 H Calcium 8.9 Magnesium 1.3 L* Total Bilirubin 1.5 H AST 20 ALT 8 Alkaline Phosphatase 69 Troponin I High Sens 24.7 H B-Natriuretic Peptide Total Protein 5.6 L Albumin 3.1 L Lipase 11 Urine Color Urine Appearance Urine pH Ur Specific [place] Urine Protein Urine Glucose (UA) Urine Ketones Urine Blood Urine Nitrite Ur Leukocyte Esterase Urine RBC Urine WBC Ur Squamous Epith Cells Urine Bacteria Hyaline Casts COVID-19 (SUZANNE) COVID-19 Clin Com Influenza Type A (JESÚS) Influenza Type B (JESÚS) Influenza A & B Note 09/25/22 09/25/22 09/25/22 16:32 16:33 16:33 MCV MCH MCHC RDW Plt Count MPV Immature Gran % (Auto) Neut % (Auto) Lymph % (Auto) Sullivan % (Auto) Eos % (Auto) Baso % (Auto) Lymph # (Auto) Sullivan # (Auto) Eos # (Auto) Baso # (Auto) Abs Immat Gran (auto) Absolute Neuts (auto) Absolute Nucleated RBC Nucleated RBC % (auto) Anion Gap Estim Creat Clear Calc Estimated GFR Random Glucose Calcium Magnesium Total Bilirubin AST ALT Alkaline Phosphatase Troponin I High Sens B-Natriuretic Peptide 84 Total Protein Albumin Lipase Urine Color Urine Appearance Urine pH Ur Specific [place] Urine Protein Urine Glucose (UA) Urine Ketones Urine Blood Urine Nitrite Ur Leukocyte Esterase Urine RBC Urine WBC Ur Squamous Epith Cells Urine Bacteria Hyaline Casts COVID-19 (SUZANNE) Positive A COVID-19 Clin Com See Note Influenza Type A (JESÚS) Negative Influenza Type B (JESÚS) Negative Influenza A & B Note See Note 09/25/22 09/25/22 09/25/22 23:10 23:50 23:50 MCV MCH MCHC RDW Plt Count MPV Immature Gran % (Auto) Neut % (Auto) Lymph % (Auto) Sullivan % (Auto) Eos % (Auto) Baso % (Auto) Lymph # (Auto) Sullivan # (Auto) Eos # (Auto) Baso # (Auto) Abs Immat Gran (auto) Absolute Neuts (auto) Absolute Nucleated RBC Nucleated RBC % (auto) Anion Gap 14 Estim Creat Clear Calc 48.5 Estimated GFR > 60 Random Glucose 105 Calcium 8.7 Magnesium Total Bilirubin 1.4 H AST 20 ALT 7 Alkaline Phosphatase 64 Troponin I High Sens 23.7 H B-Natriuretic Peptide Total Protein 5.4 L Albumin 2.9 L Lipase Urine Color Dark Yellow Urine Appearance Cloudy Urine pH 5.0 Ur Specific [place] 1.025 Urine Protein Trace Urine Glucose (UA) Negative Urine Ketones Trace Urine Blood Negative Urine Nitrite Negative Ur Leukocyte Esterase Trace H Urine RBC 6-10 H Urine WBC 0-5 Ur Squamous Epith Cells 0-2 Urine Bacteria None Seen Hyaline Casts 11-20 COVID-19 (SUZANNE) COVID-19 Clin Com Influenza Type A (JESÚS) Influenza Type B (JESÚS) Influenza A & B Note Imaging Radiologist's Impressions: Impressions Abdomen/Pelvis CT 09/25/22 18:15 IMPRESSION: Constipation. Question mild colitis of the cecum and mild proctitis. Other stable findings described above similar to recent exam 09/15/2022 Fleischner guidelines were followed. Head CT 09/25/22 18:15 IMPRESSION: Continued evolution of a right MCA territory infarct. 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 No new acute cranial abnormality, noting MRI is a more sensitive modality for detection of acute ischemia. Assessment and Plan (1) Syncope: Status: Acute (2) Colitis: Status: Acute (3) UTI (urinary tract infection): Status: Acute (4) Atrial fibrillation with RVR: Status: Acute (5) Hypomagnesemia: Status: Acute (6) Physical deconditioning: Status: Acute Plan 81-year-old female with past medical history of AFib among others presents to the hospital with syncopal episode, abdominal pain and nausea # syncope - unclear etiology - possibly secondary to acute infection as well as dehydration - will obtain orthostatic vitals - admit to telemetry # acute colitis - has abdominal pain, evidence of colitis on CT imaging - no leukocytosis, afebrile - will treat with IV fluids, IV antibiotics - clear liquid diet # severe constipation - will start her on aggressive bowel regimen - monitor BMs # UTI - positive UA, with altered mental changes - will treat with IV antibiotics - follow cultures # AFib with RVR - likely secondary to above - patient received p.o. metoprolol as well as IV push with improvement in her heart rate - will resume home rate control medications # hypo magnesemia - repleted - follow Mag level # physical deconditioning - consider PT OT before discharge # history of seizure disorder - continue Keppra DVT prophylaxis: Eliquis given patient's syncope, and other issues as mentioned above patient will require a minimum 2 nights inpatient hospital stay for further management and mo nitoring, this cannot be done at home or in any other setting Time Spent With Patient Time: Total time managing care of this patient today ____ minutes. Quality Stroke Does the patient have a stroke diagnosis?: No VTE Prior VTE?: No VTE Risk Level:: Medical - moderate - high VTE Device Contraindication: Treatment Not Indicated VTE Drug Contraindication: N/A - Med Ordered
[2022-09-26] MEDS: cefTRIAXone sodium 1 GM in 0.9 % Sodium Chloride 50 ML IV (02:57)
--- NOTE | 2022-09-26 04:59 | PC.NURSE ---
Assumed care of pt. at 1900. Pt. lying in bed at that time with granddaughter at bedside. Pt. was straight cath'd for urine. PT. had an episode of extreme tachycardia reaching 200bpm. Pt. was given metoprolol PO and IVP, which was effective in lowering her hr. Pt. will intermittently c/o pain, however, when returning with pain meds, pt. reports no pain. Pt. didn't want to take morphine earlier stating she doesn't want to take any drugs . Pt. had an episode of nausea and was offered zofran, however, zofran not given as pt. asleep and no longer reporting nausea when awakened. Pt. currently sleeping, respirations even and unlabored, under no apparent distress. Will continue to monitor.
--- NOTE | 2022-09-26 06:44 | PC.NURSE ---
oxycodone and morphine ordered for pain are still pending as pt. didn't want to take them at the time of the order.
[2022-09-26 07:01] LABS: MANUAL DIFF FLAG NO
[2022-09-26 07:05] LABS: Basophils Absolute Auto 0.1 X10*3/uL (0.0-0.2); Basophils Percent Auto 0.8 % (0-2); Eosinophils Absolute Auto 0.1 X10*3/uL (0.0-0.4); Eosinophils Percent Auto 1.7 % (0-4); Hematocrit 31.6 % (37.0-47.0); Hemoglobin 10.3 g/dl (12.0-16.0); Imm Gran Abs Auto 0.04 X10*3/uL (0.00-0.03); Imm Gran Pct Auto 0.6 % (0.0-0.4); Lymphocytes Absolute Auto 0.7 X10*3/uL (1.2-4.9); Lymphocytes Percent Auto 10.9 % (20-40); Mean Corpuscular HGB Conc 32.6 g/dl (31.0-35.0); Mean Corpuscular Hemoglobin 28.7 pg (27.0-33.0); Mean Platelet Volume 11.8 fL (9.4-12.3); Monocytes Absolute Auto 0.6 X10*3/uL (0.1-1.2); Monocytes Percent Auto 8.8 % (2-11); Neutrophils Absolute Auto 5.1 x10*3/uL (2.0-8.3); Neutrophils Percent Auto 77.2 % (45-73); Platelet Count 219 X10*3/uL (160-400); Red Blood Count 3.59 X10*6/uL (4.20-5.50); Red Cell Distribution Width 15.9 % (11.0-16.0); White Blood Count 6.6 X10*3/uL (4.8-10.8)
[2022-09-26] MEDS: metroNIDAZOLE/NS 500 MG/100 ML PIGGYBACK 100 MG IV ×3 (07:22→21:57)
[2022-09-26 07:25] LABS: Alanine Aminotransferase 8 U/L (0-31); Albumin Level 2.9 g/dL (3.5-5.0); Alkaline Phosphatase 67 U/L (39-117); Anion Gap 15 (12-20); Aspartate Amino Transferase 19 U/L (5-31); Bilirubin Total 1.1 mg/dL (0.0-1.0); Blood Urea Nitrogen 15 mg/dL (9-16); Calcium 8.7 mg/dL (8.4-10.2); Carbon Dioxide 30 mmol/L (22-29); Chloride 98 mmol/L (96-108); Creatinine Clr Calc Pharmacy 47.9; Estimated Glomerular Filt Rate > 60; Glucose Random 106 mg/dL (60-115); Magnesium 1.8 mg/dL (1.6-2.6); Sodium 140 mmol/L (135-145); Total Protein 5.3 g/dL (6.5-8.0)
--- NOTE | 2022-09-26 07:37 | MHC.EDTECH ---
with attempt to perform orthostatic vitals, it was unsuccessful. the pt was too weak to sit and stand. granddaughter stated the pt has not walked in three months. rn aware.
--- NOTE | 2022-09-26 08:14 | PC.NURSE ---
[place] [id number]
--- NOTE | 2022-09-26 08:32 | PHA.MEDREC ---
Pharmacy Consult ? Medication Reconciliation Pharmacy has reviewed the medication reconciliation completed by Jimena. Patient is also filling digoxin. This medications was not in the bag of medications patient brought. granddaughter could not confirm if patient was not on medication because her medications have change so much recently. I left digoxin unconfirm in medication and informed Dr. Noyola of the situation. Norma Langford, PharmD
[2022-09-26] MEDS: Milk of Magnesia 30 ML ORAL.SUSP PO (09:29)
--- NOTE | 2022-09-26 09:53 | PC.NURSE ---
pt was having afib RVR when came up to [facility]. HR is up to 180. pt is asymtomatic. MD Dr Noyola notified. pt refused all her meds this morning. pt was also lost IV access. therefore, a STAT order of IV Diltiazem 10 mg was given a 11:11. HR is decreased to 90s-110s.
[2022-09-26] MEDS: dilTIAZem HCL 50 MG/10 ML VIAL 10 MG IVPUSH ×2 (11:11→15:33)
--- NOTE | 2022-09-26 11:26 | PM.EVENT ---
Event Note Date of Service: 09/26/22 Event Note: Pt seen and examined, here with syncope, unclear etiology, but now noted to be in AFIB with RVR, unclear if compliant with meds, starting IV cardizem and to resume home meds Time Spent With Patient Time: Total time managing care of this patient today ____ minutes.
--- NOTE | 2022-09-26 14:13 | MHC.CM.PN ---
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
[2022-09-26] MEDS: 0.9 % Sodium Chloride Flush 3 ML SYRINGE IVFLUSH (15:06)
--- NOTE | 2022-09-26 15:35 | PC.NURSE ---
ot was afib on tele with uncontrol HR 130s-140s. MD DR Noyola notified 1520 pt HR up to 150s. MD Dr Noyola notified. IV push Diltiazem 10 mg was given at 1533 and started Cardizem gtt 10mg/hr per protocol at 1557. HR maintains between 90s and low 120s. awared
[2022-09-26] MEDS: dilTIAZem HCL 125 MG in 0.9 % Sodium Chloride 100 ML 10 MG IVCONT (15:57)
--- NOTE | 2022-09-26 18:05 | PC.NURSE ---
pt family reports that pt had an episode of nausea and vomited small amount yellow liquid. Zofran offered but pt refused
[2022-09-26] MEDS: Apixaban 5 MG TABLET PO (21:48)
[2022-09-26] MEDS: levETIRAcetam 250 MG TABLET PO (21:48)
[2022-09-27] VITALS: BP 137/58; PULSE 92; RESP 20; TEMP 37.1; O2SAT 94
[2022-09-27] MEDS: cefTRIAXone sodium 1 GM in 0.9 % Sodium Chloride 50 ML IV (01:15)
[2022-09-27 04:00] VITALS: BP 136/77; PULSE 98; RESP 20; TEMP 37.4; O2SAT 91
[2022-09-27] MEDS: metroNIDAZOLE/NS 500 MG/100 ML PIGGYBACK 100 MG IV (05:20)
[2022-09-27 08:00] VITALS: BP 146/73; PULSE 98; RESP 20; TEMP 37.2; O2SAT 91
[2022-09-27] MEDS: Aspirin Enteric Coated 81 MG TABLET.DR PO (08:09)
[2022-09-27] MEDS: polyethylene glycoL 3350 17 GM POWD.PACK PO (08:09)
[2022-09-27] MEDS: dilTIAZem HCL CD 120 MG CAP.ER.DEG PO (08:09)
[2022-09-27] MEDS: Metoprolol Tartrate 50 MG TABLET PO ×2 (08:09→15:18)
[2022-09-27] MEDS: Famotidine 20 MG TABLET PO (08:09)
[2022-09-27] MEDS: Atorvastatin Calcium 40 MG TABLET PO (08:09)
[2022-09-27] MEDS: 0.9 % Sodium Chloride Flush 3 ML SYRINGE IVFLUSH ×2 (08:09→15:18)
[2022-09-27] MEDS: Doxazosin Mesylate 2 MG TABLET PO (08:10)
[2022-09-27] MEDS: Apixaban 5 MG TABLET PO (08:10)
[2022-09-27] MEDS: levETIRAcetam 250 MG TABLET PO (08:10)
--- NOTE | 2022-09-27 09:46 | P.DS_ITS ---
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 Colitis presents to the hospital with granddaughter at bedside with complaints of an episode of unresponsiveness. ?patient and granddaughter Belgian-speaking, history is obtained with the ED staff ?granddaughter is her full-time [employer]PERINTENDENT, reports that she was given her bed bath, when she said her back in her wheelchair she noticed her to lose consciousness and lull her head.? This lasted few seconds and patient regained consciousness.? She does not remember the episode, does not remember what happened.? On and gaining conscious this patient then started complaining of abdominal pain throughout, had ? Nausea and dry heaving with no vomiting.? granddaughter also noted that her grandmother is slightly more confused than her baseline.? On arrival to the ED patient hemodynamically stable with no significant abnormal vitals , while in the ED patient developed AFib with RVR with a heart rate in the? 130s to 150s.? Patient received metoprolol p.o. as well as IV push with improvement in her heart rate Labs are significant forWBC count of 8.1, hemoglobin of 11.7, hematocrit of 35.7, magnesium of 1.3, total bili of 1.5, troponin of 24.7 decreased to 23, albumin of 3.9, UA positive for leukocyte Estrace and WBC, COVID-19 positive it seems that her grandson was recently diagnosed with COVID-[address] shows continued evolution of the right MCA territory infarct with no acute cranial abnormality Abdominal pelvic CT shows severe constipation, mild colitis of the cecum and mild proctitis Hospital course: ?81-year-old female with past medical history of AFib among others presents to the hospital with syncopal episode, abdominal pain? and nausea #? syncope--unclear etiology, probably related to afib with RVR, no other arrythmia noted, could also be related to dehydration. No further occurance in the hospital #?Abd pain ? mild colitis on CT, treated with Flagyl and ceftriaxone and will change to PO Ceftina and PO Flagyl, tolerating regular diet #? severe constipation--treated with bowel regimen #? UTI--no culture done, last UA showed enteroccusus, sensitive to Amoxillin #? AFib with RVR--patient was not taking meds, RVR was treated with IV Abx and now back on oral meds and eliquis for # hypOmagnesemia -? repleted -? follow Mag level #? physical deconditioning--PT recommended home with services #? history of seizure disorder -? continue Keppra Time Spent with Patient Time attestation: Total time managing care of this patient today ____ minutes. Discharge coordination time: Greater than 30 minutes Quality: Safe Use of Opioids Does Pt have an Active Cancer Diagnosis on the Problem List?: No Quality: Stroke Does the patient have a stroke diagnosis?: No Physical Exam Vital Signs: Vital Signs: Last Vital Signs Temp 98.9 F 09/27/22 08:00 Pulse 98 09/27/22 08:00 Resp 20 09/27/22 08:00 BP 146/73 H 09/27/22 08:00 Pulse Ox 91 L 09/27/22 08:00 O2 Del Method 09/27/22 08:00 BMI result Body Mass Index 25.0 Discharge Plan Discharge Anticipated Discharge Date/Time: 09/27/22 09:43 Patient Disposition: Home Health Service Discharge Diagnosis: AFIB,UTI, syncope Referrals: [facility] [Outside] - 1 Week Opal Antunez, BEHAVIORAL HEALTH CONSULTANT [Primary Care Provider] - 1 Week Discharge Medications: New magnesium oxide 400 mg magnesium capsule 400 mg PO DAILY Qty: 7 0RF Continued levetiracetam 250 mg Tablet 250 mg PO BID 30 Days Qty: 60 0RF aspirin 81 mg tablet,delayed release (DR/EC) 81 mg PO DAILY atorvastatin 40 mg tablet 40 mg PO DAILY metoprolol tartrate 50 mg Tablet 50 mg PO TID Qty: 90 0RF Protocol: Hold for SBP/HR < HOLD for SBP < : 90 HOLD for HR < : 60 famotidine [Pepcid] 20 mg tablet 20 mg PO DAILY Qty: 30 0RF Discontinued digoxin 125 mcg (0.125 mg) tablet 1 tab PO DAILY No Action potassium chloride 10 mEq capsule, extended release 10 meq PO DAILY Qty: 30 0RF docusate sodium 100 mg capsule 100 mg PO DAILY PRN (Reason: Constipation) Eliquis 2.5 mg Tablet 2.5 mg PO BID Qty: 60 0RF Rx Instructions: replaces prior dose of 5 mg bid digoxin 125 mcg (0.125 mg) Tablet 0.125 mg PO Q48H Qty: 15 0RF Discharge Orders: Discharge Order (Routine); Ordered 09/27/22 Ordered By: Jon Noyola Diet: Advance to usual diet Activity on Discharge: As tolerated Stand Alone Forms: Patient Portal Discharge page Care Plan Goals: full recovery from UTI Control of AFIB Health Concerns: UTI Atrial fibrilation Plan of Treatment: Take Zyvox 600 mg twice daily for 5 days for UTI Assessment: as above Discharge Date/Time: 09/27/22 18:25
[2022-09-27 10:52] LABS: Magnesium 1.5 mg/dL (1.6-2.6)
[2022-09-27 10:59] VITALS: BP 120/63; PULSE 92; RESP 20; TEMP 36.9; O2SAT 92
[2022-09-27 11:00] LABS: Digoxin < 0.2 ng/mL (0.8-2.0)
--- NOTE | 2022-09-27 12:36 | MHC.CM.PN ---
Patient has been medically cleared for dc to home today. Patient is active with [facility], who has been made aware of today's dc. Last IMM addressed yesterday.
[2022-09-27] MEDS: Magnesium Sulfate/H2O 2 GM/50 ML PIGGYBACK IV (12:54)
[2022-09-27 15:17] VITALS: BP 116/78; PULSE 97; RESP 17; TEMP 36.9; O2SAT 90
--- NOTE | 2022-09-27 16:18 | MHC.CM.PN ---
Patient will dc to home today at 5 PM via [facility]; CM has confirmed that family (Isabel) will be waiting to accept Patient when she arrives home.
== END 2022-09-27 18:25 | disposition home health service (06) | DRG 391 ==
LOC: HO.ED 23:37 → HO.EDOVER 09-26 01:59 → HO.IMC 09-26 07:52
PROVIDERS: Nurse Practitioner Family; Physician Assistant; Admitting Provider Internal Medicine; Emergency Provider Emergency Medicine Emergency Medical Services; PCP Nurse Practitioner Primary Care; Visit Provider Internal Medicine
DX: K52.9 Noninfective gastroenteritis and colitis, unspecified (principal); U07.1 COVID-19; N39.0 Urinary tract infection, site not specified; E86.0 Dehydration; K59.00 Constipation, unspecified; I48.91 Unspecified atrial fibrillation; G40.909 Epilepsy, unspecified, not intractable, without status epilepticus; E83.42 Hypomagnesemia; Z86.73 Personal history of transient ischemic attack (TIA), and cerebral infarction without residual deficits; Z88.0 Allergy status to penicillin; Z88.8 Allergy status to other drugs, medicaments and biological substances; Z79.01 Long term (current) use of anticoagulants; Z79.82 Long term (current) use of aspirin; Z79.899 Other long term (current) drug therapy
CPT/HCPCS: 36415; 70450; 74176; 80053; 80162; 81001; 83690; 83735; 83880; 84484; 85025; 87502; 87635; 93005; 94640; 97163; 99285; J0696; J3475

== ENCOUNTER 2022-10-10 15:56 | Emergency (ER) | payer MEDICARE, MEDICAID, SELFPAY ==
[2022-10-10 16:11] VITALS: BP 127/64; BP 92/62; PULSE 73; PULSE 84; RESP 13; TEMP 36.8; O2SAT 88; O2SAT 97; BMI 25.2
--- NOTE | 2022-10-10 16:20 | ED_ITS ---
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 Now brought by her daughter as she noticed her blood pressure on the lower side blood pressure was 86/47 pulse rate of 72 patient is not eating much for last 2 days not drinking enough fluid denies any complaints no dizziness no chest pain on arrival patient's blood pressure 127/64 decreased to 85/47 asymptomatic Related Data Home Medications Medication Instructions Recorded Confirmed apixaban 5 mg tablet (Eliquis) 5 mg PO BID 09/03/22 09/26/22 aspirin 81 mg tablet,delayed 81 mg PO QAM 09/03/22 09/26/22 release atorvastatin 40 mg tablet 40 mg PO DAILY 09/03/22 09/26/22 diltiazem HCl 120 mg 120 mg PO DAILY 09/03/22 09/26/22 capsule,extended release 24 hr (Cardizem CD) doxazosin 2 mg tablet 2 mg PO DAILY 09/03/22 09/26/22 ondansetron 4 mg disintegrating 1 tab PO Q8H PRN nausea/vomiting 09/26/22 09/26/22 tablet Previous Rx's Medication Instructions Recorded levetiracetam 250 mg tablet 250 mg PO BID 30 days #60 tabs 08/29/22 docusate sodium 100 mg capsule 100 mg PO NEEDED constipation 09/18/22 #30 caps famotidine 20 mg tablet (Pepcid) 20 mg PO DAILY #30 tabs 09/18/22 metoprolol tartrate 50 mg tablet 50 mg PO TID #90 tabs 09/18/22 linezolid 600 mg tablet (Zyvox) 600 mg PO BID #10 tabs 09/27/22 magnesium oxide 400 mg PO DAILY #7 caps 09/27/22 magnesium oxide 400 mg PO DAILY #30 caps 10/10/22 potassium chloride 10 mEq 10 meq PO DAILY #30 caps 10/10/22 capsule,extended release Allergies Allergy/AdvReac Type Severity Reaction Status Date / Time hydrochlorothiazide Allergy Mild UNKNOWN Verified 08/24/22 19:41 [Hydrochlorothiazide] penicillin G [Penicillin G] Allergy Mild UNKNOWN Verified 08/24/22 19:41 penicillin V Allergy Unknown Unknown Verified 08/24/22 19:41 chlorthalidone AdvReac Severe hyponatremi Verified 08/24/22 19:41 [CHLORTHALIDONE] a Review of Systems Review of Systems: Constitutional : No Weight loss, No Fever, No Chills ENT/Mouth : No sore throat, No Rhinorrhea Eyes: No Eye Pain, No Swelling Cardiovascular : No Chest Pain, no palpitations Respiratory : No Cough, No Sputum, no shortness of breath Gastrointestinal : no Nausea, No Vomiting, No Diarrhea, No abdominal Pain, no black stools Genitourinary : No Dysuria, No Urinary Frequency Musculoskeletal : No joint pain, No Myalgias, No Joint Swelling Skin : No Skin Lesions, No rash Neuro : ++ Weakness, No Numbness, No Dizziness, No Headache Psych : No Anxiety/Panic, No Depression Heme/Lymph: No Bruising, No Lymphadenopathy Endocrine : No Polyuria, No Polydipsia All other systems reviewed and are negative Yes all other systems are reviewed and are negative [facility] Past Medical History Medical History Acute right MCA stroke Atrial fibrillation HTN (hypertension) Right eye symptoms 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 Surgical History H/O carotid endarterectomy Family History Family History Mother Heart problem Social History Social History Household Members: Family Housing: Apartment Do you presently have visiting nurse or other home services: Yes Alcohol intake: never Patient Tobacco Use Status: Never used Tobacco Advance Directives: No Advance Directives Information Provided: Yes service: No Current occupational status: disabled Physical Exam ED Vital Signs: Vital Signs - 24 hr 10/10/22 16:11 10/10/22 18:25 10/10/22 18:37 Temperature 98.2 F 98.2 F 99.7 F Pulse Rate 73 83 70 Respiratory Rate 13 15 18 Blood Pressure 127/64 122/53 L 96/50 L Pulse Oximetry 97 97 95 Oxygen Delivery Method Room Air Room Air Room Air 10/10/22 20:19 10/10/22 20:38 Temperature 98.1 F 98.0 F Pulse Rate 68 79 Respiratory Rate 11 L 16 Blood Pressure 92/45 L 125/52 L Pulse Oximetry 95 95 Oxygen Delivery Method Room Air Room Air BMI result Body Mass Index 25.2 Appearance: Alert. Oriented X3. No acute distress. Thin built Eyes: PERRLA, No Nystagmus ENT: Pharynx normal. Oral Mucosa moist Neck: Normal inspection. Neck supple. CVS irregularly irregular heart rate no murmur rub or gallop. Pulses normal. Respiratory: No respiratory distress. Equal air entry bilateral, no wheezing/rales/rhonchi Abdomen: Soft and nontender. Bowel sounds are present, no mass palpable, no CVA tenderness Skin: Skin warm and dry. Normal skin color. Normal skin turgor. Extremities: No lower extremity edema. No calf tenderness Neuro: Oriented X 3. Residual left-sided weakness Medications Administered Discontinued Medications Generic Name Dose Route Start Last Admin Trade Name Freq PRN Reason Stop Dose Admin Sodium Chloride 500 mls @ 250 mls/hr 10/10/22 16:45 10/10/22 21:00 Ns IVCONT 10/10/22 18:44 Infused .Q2H RHIANNON Infusion Potassium Chloride 10 meq in 100 mls @ 100 mls/hr 10/10/22 19:58 10/10/22 21:11 Potassium Chloride/H20 IV 10/10/22 20:57 Infused ONCE ONE Infusion Magnesium Sulfate 2 gm in 50 mls @ 100 mls/hr 10/10/22 21:22 10/10/22 21:53 Magnesium Sulfate/H2o IV 10/10/22 21:51 100 mls/hr ONCE ONE Administration Medical Decision Making Medical Decision Making MDM Narrative: Patient with hypertension with poor oral intake noticed to have hypomagnesemia and hypo potassium level which was replaced patient started taking p.o. fluids IV fluids were given blood pressure improved patient hypertension likely from medication use and poor oral intake patient heart rate stays less than 100 during stay in the ER plan to stop diltiazem for now increase the dose of Lopressor 25 mg twice daily replace magnesium potassium daily follow as outpatient Lab Data MDM Lab Attestation statement: I reviewed the patient's lab results. 10/10/22 16:48 10/10/22 17:51 Labs: Lab Results 10/10/22 10/10/22 10/10/22 Range/Units 16:48 16:48 16:49 WBC 6.5 (4.8-10.8) X10*3/uL RBC 3.12 L (4.20-5.50) X10*6/uL Hgb 9.0 L (12.0-16.0) g/dl Hct 27.6 L (37.0-47.0) % MCV 88.5 (80.0-98.0) fL MCH 28.8 (27.0-33.0) pg MCHC 32.6 (31.0-35.0) g/dl RDW 15.7 (11.0-16.0) % Plt Count 153 L D (160-400) X10*3/uL MPV 12.2 (9.4-12.3) fL Immature Gran % (Auto) 0.9 H (0.0-0.4) % Neut % (Auto) 59.9 (45-73) % Lymph % (Auto) 23.9 (20-40) % [place] % (Auto) 14.0 H (2-11) % Eos % (Auto) 0.8 (0-4) % Baso % (Auto) 0.5 (0-2) % Lymph # (Auto) 1.5 (1.2-4.9) X10*3/uL [place] # (Auto) 0.9 (0.1-1.2) X10*3/uL Eos # (Auto) 0.1 (0.0-0.4) X10*3/uL Baso # (Auto) 0.0 (0.0-0.2) X10*3/uL Abs Immat Gran (auto) 0.06 H (0.00-0.03) X10*3/uL Absolute Neuts (auto) 3.9 (2.0-8.3) x10*3/uL Absolute Nucleated RBC 0.000 (0.0-0.012) X10*3/uL Nucleated RBC % (auto) 0.0 (0.0-0.2) /100WBC Sodium (135-145) mmol/L Potassium (3.3-5.1) mmol/L Chloride (96-108) mmol/L Carbon Dioxide (22-29) mmol/L Anion Gap (12-20) BUN (9-16) mg/dL Creatinine (0.5-1.4) mg/dL Estim Creat Clear Calc Estimated GFR Random Glucose (60-115) mg/dL Calcium (8.4-10.2) mg/dL Magnesium (1.6-2.6) mg/dL Total Bilirubin (0.0-1.0) mg/dL AST (5-31) U/L ALT (0-31) U/L Alkaline Phosphatase (39-117) U/L Troponin I High Sens 19.6 H (<3.5-17.0) ng/L Total Protein (6.5-8.0) g/dL Albumin (3.5-5.0) g/dL COVID-19 ([facility]ANNE) Negative (Negative) COVID-19 Clin Com See Note 10/10/22 Range/Units 17:51 WBC (4.8-10.8) X10*3/uL RBC (4.20-5.50) X10*6/uL Hgb (12.0-16.0) g/dl Hct (37.0-47.0) % MCV (80.0-98.0) fL MCH (27.0-33.0) pg MCHC (31.0-35.0) g/dl RDW (11.0-16.0) % Plt Count (160-400) X10*3/uL MPV (9.4-12.3) fL Immature Gran % (Auto) (0.0-0.4) % Neut % (Auto) (45-73) % Lymph % (Auto) (20-40) % [place] % (Auto) (2-11) % Eos % (Auto) (0-4) % Baso % (Auto) (0-2) % Lymph # (Auto) (1.2-4.9) X10*3/uL [place] # (Auto) (0.1-1.2) X10*3/uL Eos # (Auto) (0.0-0.4) X10*3/uL Baso # (Auto) (0.0-0.2) X10*3/uL Abs Immat Gran (auto) (0.00-0.03) X10*3/uL Absolute Neuts (auto) (2.0-8.3) x10*3/uL Absolute Nucleated RBC (0.0-0.012) X10*3/uL Nucleated RBC % (auto) (0.0-0.2) /100WBC Sodium 136 (135-145) mmol/L Potassium 3.0 L (3.3-5.1) mmol/L Chloride 94 L (96-108) mmol/L Carbon Dioxide 29 (22-29) mmol/L Anion Gap 16 (12-20) BUN 19 H (9-16) mg/dL Creatinine 0.82 (0.5-1.4) mg/dL Estim Creat Clear Calc 39.8 Estimated GFR > 60 Random Glucose 108 (60-115) mg/dL Calcium 7.9 L D (8.4-10.2) mg/dL Magnesium 1.3 L* (1.6-2.6) mg/dL Total Bilirubin 1.4 H (0.0-1.0) mg/dL AST 16 (5-31) U/L ALT 6 (0-31) U/L Alkaline Phosphatase 60 (39-117) U/L Troponin I High Sens (<3.5-17.0) ng/L Total Protein 5.2 L (6.5-8.0) g/dL Albumin 2.6 L (3.5-5.0) g/dL COVID-19 ([facility]NE) (Negative) COVID-19 Clin Com Independent Interpretation I performed an independent interpretation of an: EKG Interpretation: Atrial fibrillation with ventricular rate of 72 beats per minute nonspecific ST T wave changes no acute ischemia Discharge Plan Discharge Clinical Impression: Hypotension, Hypomagnesemia Patient Disposition: Home, Self-Care Instructions: Hypotension (ED), Hypomagnesemia (ED) Additional Instructions: Drink plenty of fluids Stop taking diltiazem for now Take metoprolol 25 mg twice daily only if blood pressure higher than 110/60 and heart rate higher than 100 Call preschool adviser on Thursday for follow up Report to the ER if heart rate higher than 120 or blood pressure less than 100/60 Continue taking magnesium oxide and potassium tablets Beber mucho l?quido Deje de edu diltiazem por ahora [place] metoprolol 25 mg dos veces al d?a solo si la presi?n arterial es superior a 110/60 y la frecuencia card?german superior a 100 Llamar al cardi?logo el lunes para seguimiento Informe a la madeline de emergencias si la frecuencia card?german es superior a 120 o la presi?n arterial es inferior a 100/60 Contin?e tomando las tabletas de ?xido de magnesio y potasio Prescriptions: New magnesium oxide 400 mg magnesium capsule 400 mg PO DAILY Qty: 30 0RF potassium chloride 10 mEq capsule, extended release 10 meq PO DAILY Qty: 30 0RF No Action levetiracetam 250 mg Tablet 250 mg PO BID 30 Days Qty: 60 0RF Eliquis 5 mg tablet 5 mg PO BID aspirin 81 mg tablet,delayed release (DR/EC) 81 mg PO QAM atorvastatin 40 mg tablet 40 mg PO DAILY doxazosin 2 mg tablet 2 mg PO DAILY ondansetron 4 mg tablet,disintegrating 1 tab PO Q8H PRN (Reason: nausea/vomiting) magnesium oxide 400 mg magnesium capsule 400 mg PO DAILY Qty: 7 0RF linezolid [Zyvox] 600 mg tablet 600 mg PO BID Qty: 10 0RF docusate sodium 100 mg Capsule 100 mg PO NEEDED Qty: 30 0RF metoprolol tartrate 50 mg Tablet 50 mg PO TID Qty: 90 0RF Protocol: Hold for SBP/HR < HOLD for SBP < : 90 HOLD for HR < : 60 famotidine [Pepcid] 20 mg tablet 20 mg PO DAILY Qty: 30 0RF diltiazem HCl [Cardizem CD] 120 mg capsule,extended release 24hr 120 mg PO DAILY Protocol: Hold for SBP/HR < HOLD for SBP < : 90 HOLD for HR < : 60 Print Language: Malaysian
--- NOTE | 2022-10-10 16:30 | PC.NURSE ---
granddaughter /TERMINOLOGIST reports pt vomited yesterday. reporting low BP after medication administration at approx 1300
--- NOTE | 2022-10-10 16:38 | ECG_ITS ---
Test Reason : weakness Blood Pressure : / mmHG Vent. Rate : 072 BPM Atrial Rate : 000 BPM P-R Int : 000 ms QRS Dur : 092 ms QT Int : 368 ms P-R-T Axes : 000 005 -68 degrees QTc Int : 402 ms Atrial fibrillation Nonspecific ST and T wave abnormality Abnormal ECG When compared with ECG of 25-SEP-2022 16:26, No significant change was found Referred By: Sam Angel Electronically Signed By:LETTY PHILIP
[2022-10-10 16:57] LABS: MANUAL DIFF FLAG NO
[2022-10-10 16:59] LABS: Basophils Percent Auto 0.5 % (0-2); Eosinophils Absolute Auto 0.1 X10*3/uL (0.0-0.4); Eosinophils Percent Auto 0.8 % (0-4); Hematocrit 27.6 % (37.0-47.0); Imm Gran Abs Auto 0.06 X10*3/uL (0.00-0.03); Imm Gran Pct Auto 0.9 % (0.0-0.4); Lymphocytes Absolute Auto 1.5 X10*3/uL (1.2-4.9); Lymphocytes Percent Auto 23.9 % (20-40); Mean Corpuscular HGB Conc 32.6 g/dl (31.0-35.0); Mean Corpuscular Hemoglobin 28.8 pg (27.0-33.0); Mean Corpuscular Volume 88.5 fL (80.0-98.0); Mean Platelet Volume 12.2 fL (9.4-12.3); Monocytes Absolute Auto 0.9 X10*3/uL (0.1-1.2); Neutrophils Absolute Auto 3.9 x10*3/uL (2.0-8.3); Neutrophils Percent Auto 59.9 % (45-73); Platelet Count 153 X10*3/uL (160-400); Red Blood Count 3.12 X10*6/uL (4.20-5.50); Red Cell Distribution Width 15.7 % (11.0-16.0); White Blood Count 6.5 X10*3/uL (4.8-10.8)
[2022-10-10 17:18] LABS: COVID-19 Test Negative (Negative); IDNOW Serial# BCCEAD1C
[2022-10-10 17:25] LABS: Troponin-I High Sensitivity 19.6 ng/L (<3.5-17.0)
[2022-10-10 18:25] VITALS: BP 122/53; PULSE 83; RESP 15; TEMP 36.8; O2SAT 97
[2022-10-10] MEDS: 0.9 % Sodium Chloride 500 ML 250 ML IVCONT (18:30)
[2022-10-10 18:37] VITALS: BP 96/50; PULSE 70; RESP 18; TEMP 37.6; O2SAT 95
[2022-10-10 18:55] LABS: Alanine Aminotransferase 6 U/L (0-31); Albumin Level 2.6 g/dL (3.5-5.0); Alkaline Phosphatase 60 U/L (39-117); Anion Gap 16 (12-20); Aspartate Amino Transferase 16 U/L (5-31); Bilirubin Total 1.4 mg/dL (0.0-1.0); Blood Urea Nitrogen 19 mg/dL (9-16); Calcium 7.9 mg/dL (8.4-10.2); Carbon Dioxide 29 mmol/L (22-29); Chloride 94 mmol/L (96-108); Creatinine Clr Calc Pharmacy 39.8; Estimated Glomerular Filt Rate > 60; Glucose Random 108 mg/dL (60-115); Sodium 136 mmol/L (135-145); Total Protein 5.2 g/dL (6.5-8.0)
[2022-10-10] MEDS: Potassium Chloride/H20 10 MEQ/100 ML PIGGYBACK 100 MEQ IV (20:11)
[2022-10-10 20:19] VITALS: BP 92/45; PULSE 68; RESP 11; TEMP 36.7; O2SAT 95
[2022-10-10 20:38] VITALS: BP 125/52; PULSE 79; RESP 16; TEMP 36.7; O2SAT 95
[2022-10-10 20:49] LABS: Magnesium 1.3 mg/dL (1.6-2.6)
[2022-10-10] MEDS: Magnesium Sulfate/H2O 2 GM/50 ML PIGGYBACK IV (21:53)
--- NOTE | 2022-10-10 23:59 | PC.NURSE ---
this rn assumed care of pt @ 2300. pt po challenged tolerated po fluids and sandwich well. pt grand daughter at bedside. awaiting ride home by ambulance
[2022-10-11 00:14] VITALS: BP 117/53; PULSE 85; RESP 12
--- NOTE | 2022-10-11 00:15 | PC.NURSE ---
computer programmer analyst utilized for discharge instructions. grand daughter verbalized understanding of discharge plan. ems report provided prior to ride home. iv removed at time of discharge
== END 2022-10-11 00:18 | disposition home or self-care (01) ==
PROVIDERS: Emergency Provider Internal Medicine
DX: I95.9 Hypotension, unspecified (principal); E83.42 Hypomagnesemia; I48.20 Chronic atrial fibrillation, unspecified; I10 Essential (primary) hypertension; Z86.73 Personal history of transient ischemic attack (TIA), and cerebral infarction without residual deficits; Z20.822 Contact with and (suspected) exposure to COVID-19
CPT/HCPCS: 80053; 83735; 84484; 85025; 87635; 93005; 96361; 96365; 96375; 99284; J3475

== ENCOUNTER 2022-10-13 17:28 | Observation (INO) | payer MEDICARE, MEDICAID, SELFPAY ==
--- NOTE | ~2022-10-13 | CT_ITS ---
EXAMINATION: CT CHEST WITHOUT CONTRAST CLINICAL INFORMATION: Concern for pneumonia COMPARISON: CT chest 09/15/2022. Chest x-ray 10/13/2022 TECHNIQUE: Multidetector volumetric CT imaging of the chest was done. Axial MIP volume rendering provided. Sagittal and coronal reformatted images were obtained. This CT examination was performed using dose optimization techniques as appropriate, variously including the following: *Automated exposure control *Adjustment of mA and/or kV according to patient size (this includes techniques or standardized protocols for targeted exams where dose is matched to indication/reason for exam; i.e. extremities or head) *Use of iterative reconstruction technique DLP: 276 mGy-cm FINDINGS: LUNGS: Compressive atelectasis at left lung base. Right lung normally aerated. MEDIASTINUM: Heart size is enlarged. Small volume pericardial effusion. Moderate volume of coronary calcification. There are calcifications of thoracic aorta and origin of great vessels. Thoracic aorta is tortuous. The No mediastinal mass or significant lymphadenopathy. CORONARY ARTERY CALCIFICATION: Moderate volume of coronary calcifications PLEURA: Trace dependent left pleural effusion. AXILLA: No lymphadenopathy. UPPER ABDOMEN: Stable 2 cm right adrenal adenoma. Stable 1.3 cm left adrenal adenoma. No further follow-up imaging recommended. OSSEOUS STRUCTURES: Multilevel degenerative spondylosis spine. Stable compression deformity of T12 and L1. CT/CT chest wo IV con IMPRESSION: 1. Compressive atelectasis at left lung base. 2. Trace dependent left pleural effusion. 3. Cardiomegaly. 4. Small volume pericardial effusion. Fleischner guidelines were followed.
--- NOTE | ~2022-10-13 | XR_ITS ---
EXAMINATION: XR CHEST CLINICAL INFORMATION: Low BP question pneumonia COMPARISON: CT chest 09/25/2022 TECHNIQUE: Frontal view of the chest was obtained. FINDINGS: The lungs are expanded with increased vascular markings question mild congestion. The heart size enlarged. Pulmonary vascularity is slightly prominent. Left retrocardiac lung base is not well-visualized question atelectasis versus infiltrate. Rest of lungs are expanded and clear. No gross bony abnormality seen. XR/XR chest 1V IMPRESSION: Mild cardiomegaly with increased pulmonary vascularity question mild congestion. Left lower lobe opacity question infiltrate versus atelectasis. This finding was noted on the previous CT chest 09/25/2022
[2022-10-13 17:40] VITALS: BP 109/46; BP 128/68; PULSE 106; PULSE 98; RESP 18; TEMP 36.8; O2SAT 95; BMI 21.4
--- NOTE | 2022-10-13 17:42 | ECG_ITS ---
Test Reason : WEAKNESS Blood Pressure : / mmHG Vent. Rate : 119 BPM Atrial Rate : 000 BPM P-R Int : 000 ms QRS Dur : 090 ms QT Int : 292 ms P-R-T Axes : 000 009 258 degrees QTc Int : 410 ms Atrial fibrillation with rapid ventricular response Nonspecific ST and T wave abnormality Abnormal ECG When compared with ECG of 10-OCT-2022 17:29, Vent. rate has increased BY 47 BPM Referred By: Edgardo Ordonez Electronically Signed By:Jacek Cali
[2022-10-13] MEDS: 0.9 % Sodium Chloride 1,000 ML 999 ML IV ×2 (18:31→19:33)
[2022-10-13 18:33] LABS: MANUAL DIFF FLAG NO
[2022-10-13 18:37] LABS: Basophils Absolute Auto 0.1 X10*3/uL (0.0-0.2); Eosinophils Absolute Auto 0.3 X10*3/uL (0.0-0.4); Eosinophils Percent Auto 6.7 % (0-4); Hematocrit 29.2 % (37.0-47.0); Hemoglobin 9.5 g/dl (12.0-16.0); Imm Gran Abs Auto 0.02 X10*3/uL (0.00-0.03); Imm Gran Pct Auto 0.4 % (0.0-0.4); Lymphocytes Absolute Auto 1.7 X10*3/uL (1.2-4.9); Lymphocytes Percent Auto 33.9 % (20-40); Mean Corpuscular HGB Conc 32.5 g/dl (31.0-35.0); Mean Corpuscular Hemoglobin 29.1 pg (27.0-33.0); Mean Corpuscular Volume 89.3 fL (80.0-98.0); Mean Platelet Volume 12.1 fL (9.4-12.3); Monocytes Absolute Auto 0.5 X10*3/uL (0.1-1.2); Monocytes Percent Auto 9.8 % (2-11); Neutrophils Absolute Auto 2.5 x10*3/uL (2.0-8.3); Neutrophils Percent Auto 48.2 % (45-73); Platelet Count 241 X10*3/uL (160-400); Red Blood Count 3.27 X10*6/uL (4.20-5.50); Red Cell Distribution Width 15.3 % (11.0-16.0); White Blood Count 5.1 X10*3/uL (4.8-10.8)
[2022-10-13 18:56] LABS: COVID-19 Test Negative (Negative); IDNOW Serial# 9DB6401D
[2022-10-13 18:57] LABS: Lactic Acid 2.8 mmol/L (0.5-2.0)
[2022-10-13 19:18] LABS: Alanine Aminotransferase 10 U/L (0-31); Albumin Level 2.5 g/dL (3.5-5.0); Alkaline Phosphatase 59 U/L (39-117); Anion Gap 12 (12-20); Aspartate Amino Transferase 22 U/L (5-31); Bilirubin Total 0.8 mg/dL (0.0-1.0); Blood Urea Nitrogen 12 mg/dL (9-16); Calcium 8.4 mg/dL (8.4-10.2); Carbon Dioxide 31 mmol/L (22-29); Chloride 100 mmol/L (96-108); Creatinine Clr Calc Pharmacy 36.8; Estimated Glomerular Filt Rate > 60; Glucose Random 125 mg/dL (60-115); Magnesium 1.4 mg/dL (1.6-2.6); Potassium 2.9 mmol/L (3.3-5.1); Sodium 140 mmol/L (135-145); Total Protein 4.8 g/dL (6.5-8.0)
[2022-10-13] MEDS: cefTRIAXone sodium 1 GM in 0.9 % Sodium Chloride 50 ML IV (19:33)
[2022-10-13] MEDS: Potassium Chloride Packet 20 MEQ PACKET 40 MEQ PO (19:36)
[2022-10-13] MEDS: Magnesium Sulfate/H2O 2 GM/50 ML PIGGYBACK IV (20:16)
[2022-10-13 20:31] LABS: Reflex Lactate? Lactic Acid Added
--- NOTE | 2022-10-13 21:19 | ED.GENADULT ---
HPI - General Adult General Chief complaint: General Medical Stated complaint: low bp Time Seen by Provider: 10/13/22 17:41 Source: patient and family Mode of arrival: ambulatory Limitations: no limitations History of Present Illness HPI narrative: This is an 81-year-old female presents to the emergency department with low blood pressures at home, has had multiple medication changes and patient is not sure why her blood pressure so low. 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 Patient was told to take half her dose of metoprolol however according to the daughter patient has still been taking 50 mg p.o. t.i.d., patient also taking diltiazem however according to patient's daughter has not been taking this lately because she was advise to stop it by a hospitalist from this hospital. Patient unclear on what med she should be taking. Reports some weakness however this is normal for patient. Denies chest pain, shortness of breath, nausea, vomiting, headache, vision changes, dizziness. Eating and drinking per usual with good appetite. Related Data Home Medications Medication Instructions Recorded Confirmed apixaban 5 mg tablet (Eliquis) 5 mg PO BID 09/03/22 09/26/22 aspirin 81 mg tablet,delayed 81 mg PO DAILY 09/03/22 09/26/22 release atorvastatin 40 mg tablet 40 mg PO DAILY 09/03/22 09/26/22 diltiazem HCl 120 mg 120 mg PO DAILY 09/03/22 09/26/22 capsule,extended release 24 hr (Cardizem CD) doxazosin 2 mg tablet 2 mg PO DAILY 09/03/22 09/26/22 docusate sodium 100 mg capsule 100 mg PO DAILY PRN Constipation 10/13/22 10/13/22 Previous Rx's Medication Instructions Recorded levetiracetam 250 mg tablet 250 mg PO BID 30 days #60 tabs 08/29/22 famotidine 20 mg tablet (Pepcid) 20 mg PO DAILY #30 tabs 09/18/22 metoprolol tartrate 50 mg tablet 50 mg PO TID #90 tabs 09/18/22 magnesium oxide 400 mg PO DAILY #7 caps 09/27/22 potassium chloride 10 mEq 10 meq PO DAILY #30 caps 10/10/22 capsule,extended release Allergies Allergy/AdvReac Type Severity Reaction Status Date / Time hydrochlorothiazide Allergy Mild UNKNOWN Verified 08/24/22 19:41 [Hydrochlorothiazide] penicillin G [Penicillin G] Allergy Mild UNKNOWN Verified 08/24/22 19:41 penicillin V Allergy Unknown Unknown Verified 08/24/22 19:41 chlorthalidone AdvReac Severe hyponatremi Verified 08/24/22 19:41 [CHLORTHALIDONE] a Review of Systems Review of Systems: Constitutional : No Weight loss, No Fever, No Chills, No Fatigue, No Malaise ENT/Mouth : No sore throat, No Rhinorrhea Eyes: No Eye Pain, No Swelling, No Redness Cardiovascular : No Chest Pain, No SOB, No Dyspnea on Exertion, No Orthopnea, No Edema, No Palpitations Respiratory : No Cough, No Sputum, No Wheezing Gastrointestinal : No Nausea, No Vomiting, No Diarrhea, No Constipation, No abdominal Pain, No Hematochezia, No Melena Genitourinary : No Dysuria, No Urinary Frequency, No Hematuria, Musculoskeletal : No joint pain, No Myalgias, No Joint Swelling Skin : No Skin Lesions, No rash Neuro : + Weakness, No Numbness, No Dizziness, No Headache Psych : No Anxiety/Panic, No Depression All other systems reviewed and are negative Yes all other systems are reviewed and are negative [facility] Past Medical History Attestation statement: The following information was validated with the patient. 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 Surgical History H/O carotid endarterectomy Family History Family History Mother Heart problem Social History Social History Household Members: Family Housing: Apartment Do you presently have visiting nurse or other home services: Yes Alcohol intake: never Patient Tobacco Use Status: Never used Tobacco Smoked in Last 30 Days: No Use of substances other than those prescribed or required for medical reasons: No Advance Directives: Yes Advance Directives Information Provided: No Advance Directives on File: No service: No Current occupational status: disabled Physical Exam ED Vital Signs: Vital Signs - 24 hr 10/13/22 17:40 Temperature 98.3 F Pulse Rate 106 H Respiratory Rate 18 Blood Pressure 109/46 L Pulse Oximetry 95 Oxygen Delivery Method Room Air BMI result Body Mass Index 21.4 Patient's blood pressure soft however upon chart review this is around patient's baseline. However, upon chart review this is around patient's baseline. Appearance: Alert.? Oriented X3.? No acute distress.? Head: Normocephalic, atraumatic, no step-offs or deformities Eyes: Pupils equal, round and reactive to light.? ENT: Pharynx normal.? Neck: Normal inspection.? Neck supple.? CVS: Normal heart rate and rhythm.? Pulses normal.? Respiratory: No respiratory distress.? Breath sounds normal.? Abdomen: Soft and nontender.? Skin: Skin warm and dry.? Normal skin color.? Normal skin turgor.? Extremities: No lower extremity edema.? No calf ttp, negative john. global weakness throughout. Neuro: Oriented X 3.? No motor deficit.? No sensory deficit. CN 2-12 intact Course Course Course Narrative: case discussed w/ attending Dr. Patricio. Agrees w/ tx plan. Reevaluation(s) Reevaluation #1: CBC with a baseline normocytic anemia. Potassium 2.9 Oral potassium given, mag 1.4 mag ordered. Lactic 2.8 concerns for possible pna atbx, and fluids ordered. No signs of severe sepsis. X-ray concerning for possible pneumonia, CT of chest will be ordered to further evaluate this finding. Will repeat chemistry Time: 21:33 Reevaluation #2: Spoke to Cardiology who recommends Metoprolol 25 mg PO TID and dc diltiazem. Also recommend admission for observation. Hypotenion and tachycardia likley from meds, juanley from infection. CT of the chest with compressive atelectasis at the left lung base. Trace dependent left pleural effusion. Cardiomegaly. Small volume pericardial effusion. Discussed this case with hospitalist who will admit patient. Time: 23:19 Medications Administered Discontinued Medications Generic Name Dose Route Start Last Admin Trade Name Freq PRN Reason Stop Dose Admin Sodium Chloride 1,000 mls @ 999 mls/hr 10/13/22 17:45 10/13/22 19:33 Ns IV 10/13/22 18:45 Infused .Q1H1M RHIANNON Infusion Sodium Chloride 1,000 mls @ 999 mls/hr 10/13/22 19:15 10/13/22 21:00 Ns IV 10/13/22 20:15 Infused .Q1H1M RHIANNON Infusion Ceftriaxone Sodium 1 gm/ 50 mls @ 100 mls/hr 10/13/22 19:12 10/13/22 20:14 Sodium Chloride IV 10/13/22 19:41 Infused ONCE ONE Infusion Magnesium Sulfate 2 gm in 50 mls @ 25 mls/hr 10/13/22 19:18 10/13/22 22:39 Magnesium Sulfate/H2o IV 10/13/22 21:17 Infused ONCE ONE Infusion Potassium Chloride 40 meq 10/13/22 19:23 10/13/22 19:36 Potassium Chloride Packet 20 Meq Packet PO 10/13/22 19:24 40 meq ONCE ONE Administration Medical Decision Making Medical Decision Making [facility] Narrative: 81-year-old female presents with low blood pressures at home. Denies urinary symptoms, URI symptoms, medical complaints other than weakness. Physical exam with global weakness. NIH stroke scale 0. Likely secondary to medication error or confusion. I do not suspect infection. will rule out electrolyte abnormalities and UTI. Will also rule out pneumonia has another possible source of infection although unlikely. Patient on apixaban i do not suspect PE or ACS (no cp or sob). Low bp unlikely related to orthostatic hypotension denies dizziness or vision changes, unlikely stroke posterior stroke. Plan at this time labs, imaging, urine. Differential Diagnosis Differential Diagnoses: The differential diagnosis associated with the presentation includes Likely secondary to medication error or confusion. I do not suspect infection. will rule out electrolyte abnormalities and UTI. Will also rule out pneumonia has another possible source of infection although unlikely. Patient on apixaban i do not suspect PE or ACS. Low bp unlikley related to orthostatic hypotension denies dizziness or vision changes, unlikley stroke posterior stroke Admission/Observation Consideration of admission/observation: Escalation of care including admission/observation considered Possible hospital admission Lab Data [facility] Lab Attestation statement: I reviewed the patient's lab results. 10/13/22 18:25 10/13/22 18:54 Labs: Lab Results 10/13/22 10/13/22 10/13/22 Range/Units 18:25 18:25 18:25 WBC 5.1 (4.8-10.8) X10*3/uL RBC 3.27 L (4.20-5.50) X10*6/uL Hgb 9.5 L (12.0-16.0) g/dl Hct 29.2 L (37.0-47.0) % MCV 89.3 (80.0-98.0) fL MCH 29.1 (27.0-33.0) pg MCHC 32.5 (31.0-35.0) g/dl RDW 15.3 (11.0-16.0) % Plt Count 241 D (160-400) X10*3/uL MPV 12.1 (9.4-12.3) fL Immature Gran % (Auto) 0.4 (0.0-0.4) % Neut % (Auto) 48.2 (45-73) % Lymph % (Auto) 33.9 (20-40) % [place] % (Auto) 9.8 (2-11) % Eos % (Auto) 6.7 H (0-4) % Baso % (Auto) 1.0 (0-2) % Lymph # (Auto) 1.7 (1.2-4.9) X10*3/uL [place] # (Auto) 0.5 (0.1-1.2) X10*3/uL Eos # (Auto) 0.3 (0.0-0.4) X10*3/uL Baso # (Auto) 0.1 (0.0-0.2) X10*3/uL Abs Immat Gran (auto) 0.02 (0.00-0.03) X10*3/uL Absolute Neuts (auto) 2.5 (2.0-8.3) x10*3/uL Absolute Nucleated RBC 0.000 (0.0-0.012) X10*3/uL Nucleated RBC % (auto) 0.0 (0.0-0.2) /100WBC Sodium (135-145) mmol/L Potassium (3.3-5.1) mmol/L Chloride (96-108) mmol/L Carbon Dioxide (22-29) mmol/L Anion Gap (12-20) BUN (9-16) mg/dL Creatinine (0.5-1.4) mg/dL Estim Creat Clear Calc Estimated GFR Random Glucose (60-115) mg/dL Lactic Acid 2.8 H* (0.5-2.0) mmol/L Lactic Acid F/U @ 2Hr (0.5-2.0) mmol/L Calcium (8.4-10.2) mg/dL Magnesium (1.6-2.6) mg/dL Total Bilirubin (0.0-1.0) mg/dL AST (5-31) U/L ALT (0-31) U/L Alkaline Phosphatase (39-117) U/L Total Protein (6.5-8.0) g/dL Albumin (3.5-5.0) g/dL COVID-19 (SUZANNE) Negative (Negative) COVID-19 Clin Com See Note 10/13/22 10/13/22 10/13/22 Range/Units 18:54 22:14 22:14 WBC (4.8-10.8) X10*3/uL RBC (4.20-5.50) X10*6/uL Hgb (12.0-16.0) g/dl Hct (37.0-47.0) % MCV (80.0-98.0) fL MCH (27.0-33.0) pg MCHC (31.0-35.0) g/dl RDW (11.0-16.0) % Plt Count (160-400) X10*3/uL MPV (9.4-12.3) fL Immature Gran % (Auto) (0.0-0.4) % Neut % (Auto) (45-73) % Lymph % (Auto) (20-40) % [place] % (Auto) (2-11) % Eos % (Auto) (0-4) % Baso % (Auto) (0-2) % Lymph # (Auto) (1.2-4.9) X10*3/uL [place] # (Auto) (0.1-1.2) X10*3/uL Eos # (Auto) (0.0-0.4) X10*3/uL Baso # (Auto) (0.0-0.2) X10*3/uL Abs Immat Gran (auto) (0.00-0.03) X10*3/uL Absolute Neuts (auto) (2.0-8.3) x10*3/uL Absolute Nucleated RBC (0.0-0.012) X10*3/uL Nucleated RBC % (auto) (0.0-0.2) /100WBC Sodium 140 140 (135-145) mmol/L Potassium 2.9 L 3.3 (3.3-5.1) mmol/L Chloride 100 104 (96-108) mmol/L Carbon Dioxide 31 H 28 (22-29) mmol/L Anion Gap 12 11 L (12-20) BUN 12 10 (9-16) mg/dL Creatinine 0.83 0.71 (0.5-1.4) mg/dL Estim Creat Clear Calc 36.8 43.1 Estimated GFR > 60 > 60 Random Glucose 125 H 105 (60-115) mg/dL Lactic Acid (0.5-2.0) mmol/L Lactic Acid F/U @ 2Hr 1.5 (0.5-2.0) mmol/L Calcium 8.4 D 8.0 L (8.4-10.2) mg/dL Magnesium 1.4 L* (1.6-2.6) mg/dL Total Bilirubin 0.8 (0.0-1.0) mg/dL AST 22 (5-31) U/L ALT 10 (0-31) U/L Alkaline Phosphatase 59 (39-117) U/L Total Protein 4.8 L (6.5-8.0) g/dL Albumin 2.5 L (3.5-5.0) g/dL COVID-19 (SUZANNE) (Negative) COVID-19 Clin Com Independent Interpretation I performed an independent interpretation of an: EKG ( Ventricular rate of 119, MS varies, QT/ QTC normal. QRS normal. EKG with atrial fibrillation with rapid ventricular response. no ST elevations or inversions concerning for ischemia.) and Plain X-Ray (XR/XR chest 1V IMPRESSION: Mild cardiomegaly with increased pulmonary vascularity question mild congestion. Left lower lobe opacity question infiltrate versus atelectasis. This finding was noted on the previous CT chest 09/25/2022) Radiology Impression Discussion of test interpretation with radiology: I have reviewed the radiologist's reading. Core Measures AMI core measures followed: Yes Measure exclusions: not indicated Critical Care Time Critical Care Time Critical Care Time: Yes Total Critical Care Time: 35 Attestation: I attest to this time spent taking care of the patient, obtaining history, physical, reviewing labs, imaging, speaking to my attending Discharge Plan Discharge Clinical Impression: Persistent atrial fibrillation, Hypotension, Hypokalemia, Hypomagnesemia Patient Disposition: Admitted As Inpatient Instructions: A-fib (Atrial Fibrillation) (ED), Hypokalemia (ED), Hypotension (ED), Hypomagnesemia (ED), Blood Thinners (ED) Additional Instructions: Take your medications as prescribed. If you were prescribed antibiotics today, it is important that you take your medication to their entirety, do not skip any doses, do not finish them early. Follow-up with your primary care provider this week. Return to the emergency department with new or worsening symptoms. Such as fevers, chills, chest pain, shortness of breath, nausea, vomiting, dizziness, headache, vision changes, lethargy In case of emergency call 911 Prescriptions: No Action levetiracetam 250 mg Tablet 250 mg PO BID 30 Days Qty: 60 0RF Eliquis 5 mg tablet 5 mg PO BID aspirin 81 mg tablet,delayed release (DR/EC) 81 mg PO DAILY atorvastatin 40 mg tablet 40 mg PO DAILY doxazosin 2 mg tablet 2 mg PO DAILY magnesium oxide 400 mg magnesium capsule 400 mg PO DAILY Qty: 7 0RF potassium chloride 10 mEq capsule, extended release 10 meq PO DAILY Qty: 30 0RF docusate sodium 100 mg capsule 100 mg PO DAILY PRN (Reason: Constipation) metoprolol tartrate 50 mg Tablet 50 mg PO TID Qty: 90 0RF Protocol: Hold for SBP/HR < HOLD for SBP < : 90 HOLD for HR < : 60 famotidine [Pepcid] 20 mg tablet 20 mg PO DAILY Qty: 30 0RF diltiazem HCl [Cardizem CD] 120 mg capsule,extended release 24hr 120 mg PO DAILY Protocol: Hold for SBP/HR < HOLD for SBP < : 90 HOLD for HR < : 60
--- NOTE | 2022-10-13 22:29 | PM.IMHP ---
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 History obtained by family at bedside. Patient was found to be hypotensive with systolic in the 80s about 3 days prior to presentation and on the day of presentation. Patient was recently admitted and discharged on 09/18/2022 for hypotension when Lopressor was reduced from 100 mg b.i.d. to 50 mg every 8 hours along with Cardizem 120 mg. Patient denies chest discomfort, dizziness, lightheadedness, shortness of breath. Patient denies any symptoms at this time. Patient denies fever, chills, chest discomfort, cough, abdominal pain, changes in urinary or bowel habits In the emergency department, cardiology was consulted who recommended admission and reducing metoprolol to 25 mg t.i.d.. Also recommended stopping Cardizem p.o. 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 Family History Mother Heart problem Surgical History H/O carotid endarterectomy Social History Household Members: Family Housing: Apartment Do you presently have visiting nurse or other home services: Yes Alcohol intake: never Patient Tobacco Use Status: Never used Tobacco Smoked in Last 30 Days: No Use of substances other than those prescribed or required for medical reasons: No Advance Directives: Yes Advance Directives Information Provided: No Advance Directives on File: No service: No Current occupational status: disabled Meds Allergies Allergy/AdvReac Type Severity Reaction Status Date / Time hydrochlorothiazide Allergy Mild UNKNOWN Verified 08/24/22 19:41 [Hydrochlorothiazide] penicillin G [Penicillin G] Allergy Mild UNKNOWN Verified 08/24/22 19:41 penicillin V Allergy Unknown Unknown Verified 08/24/22 19:41 chlorthalidone AdvReac Severe hyponatremi Verified 08/24/22 19:41 [CHLORTHALIDONE] a Active Medications: Current Medications Metoprolol Tartrate (Metoprolol Tartrate 25 Mg Tablet) 25 mg PO TID RHIANNON; Protocol Pharmacy Consult (Consult Rx Perform Med Rec) 1 each MISCELLANE ONCE PRN PRN Reason: Consult order Home Medications Medication Instructions Recorded Confirmed Last Taken Type apixaban 5 mg tablet (Eliquis) 5 mg PO BID 09/03/22 09/26/22 Unknown History aspirin 81 mg tablet,delayed 81 mg PO DAILY 09/03/22 09/26/22 Unknown History release atorvastatin 40 mg tablet 40 mg PO DAILY 09/03/22 09/26/22 Unknown History diltiazem HCl 120 mg 120 mg PO DAILY 09/03/22 09/26/22 Unknown History capsule,extended release 24 hr (Cardizem CD) doxazosin 2 mg tablet 2 mg PO DAILY 09/03/22 09/26/22 Unknown History docusate sodium 100 mg capsule 100 mg PO DAILY PRN Constipation 10/13/22 10/13/22 Unknown History Physical Exam Vital Signs and Narrative: Vital Signs: Last Vital Signs Temp 98.3 F 10/13/22 17:40 Pulse 106 H 10/13/22 17:40 Resp 18 10/13/22 17:40 BP 109/46 L 10/13/22 17:40 Pulse Ox 95 10/13/22 17:40 O2 Del Method 10/13/22 17:40 BMI result Body Mass Index 21.4 elderly female lying in bed in no distress Neck supple, no JVD irregularly irregular, S1-S2 heard Regular breath sounds bilaterally, no wheezing or crackles appreciated Abdomen soft nontender, no guarding, no rigidity Patient is awake, alert and oriented to self and place ; no focal motor deficit Psych: Normal mood No pedal edema Results Labs 10/13/22 18:25 10/13/22 18:54 Labs: Laboratory Results - last 24 hr 0310/13/22 10/13/22 18:25 18:25 18:25 MCV 89.3 MCH 29.1 MCHC 32.5 RDW 15.3 Plt Count 241 D MPV 12.1 Immature Gran % (Auto) 0.4 Neut % (Auto) 48.2 Lymph % (Auto) 33.9 [place] % (Auto) 9.8 Eos % (Auto) 6.7 H Baso % (Auto) 1.0 Lymph # (Auto) 1.7 [place] # (Auto) 0.5 Eos # (Auto) 0.3 Baso # (Auto) 0.1 Abs Immat Gran (auto) 0.02 Absolute Neuts (auto) 2.5 Absolute Nucleated RBC 0.000 Nucleated RBC % (auto) 0.0 Anion Gap Estim Creat Clear Calc Estimated GFR Random Glucose Lactic Acid 2.8 H* Calcium Magnesium Total Bilirubin AST ALT Alkaline Phosphatase Total Protein Albumin COVID-19 (SUZANNE) Negative COVID-19 Clin Com See Note 10/13/22 18:54 MCV MCH MCHC RDW Plt Count MPV Immature Gran % (Auto) Neut % (Auto) Lymph % (Auto) [place] % (Auto) Eos % (Auto) Baso % (Auto) Lymph # (Auto) [place] # (Auto) Eos # (Auto) Baso # (Auto) Abs Immat Gran (auto) Absolute Neuts (auto) Absolute Nucleated RBC Nucleated RBC % (auto) Anion Gap 12 Estim Creat Clear Calc 36.8 Estimated GFR > 60 Random Glucose 125 H Lactic Acid Calcium 8.4 D Magnesium 1.4 L* Total Bilirubin 0.8 AST 22 ALT 10 Alkaline Phosphatase 59 Total Protein 4.8 L Albumin 2.5 L COVID-19 (SUZANNE) COVID-19 Clin Com Imaging Radiologist's Impressions: Impressions Chest X-Ray 10/13/22 18:05 IMPRESSION: Mild cardiomegaly with increased pulmonary vascularity question mild congestion. Left lower lobe opacity question infiltrate versus atelectasis. 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 ?#. Hypotension:?with underlying history of hypertension: Likely related to multiple rate-controlling agents. Cardiology consulted from the ER, appreciate assistance. Will reduce metoprolol dose and hold Cardizem as per Cardiology recommendations. Titrate and optimize prior to discharge. #. Hypokalemia and hypomagnesemia : Repleted #. Lactic acidosis: due to hypotension, not due to sepsis #. Imaging with infiltrate versus atelectasis: Patient without fever, chills and cough. Will not continue empiric antibiotics for possible pneumonia as patient likely has atelectasis. Reviewed previous CT ?#. paroxysmal atrial fibrillation on Eliquis.? Continue rate-controlling agents as above ?#. right MCA stroke:? On antiplatelet agent and statin.?On Keppra to prevent seizures ?#. Chronic normocytic anemia:?Hb above transfusion threshold Med rec pending DVT prophylaxis:? Eliquis Full code Cardiac diet Time Spent With Patient Time: Total time managing care of this patient today ____ minutes. Quality Stroke Does the patient have a stroke diagnosis?: No VTE Prior VTE?: No VTE Risk Level:: Medical - moderate - high VTE Device Contraindication: Treatment Not Indicated VTE Drug Contraindication: N/A - Med Ordered
[2022-10-13 22:43] LABS: ~Lactic Acid-LAB USE ONLY 1.5 mmol/L (0.5-2.0)
[2022-10-13 22:46] LABS: Anion Gap 11 (12-20); Blood Urea Nitrogen 10 mg/dL (9-16); Carbon Dioxide 28 mmol/L (22-29); Chloride 104 mmol/L (96-108); Creatinine Clr Calc Pharmacy 43.1; Estimated Glomerular Filt Rate > 60; Glucose Random 105 mg/dL (60-115); Potassium 3.3 mmol/L (3.3-5.1); Sodium 140 mmol/L (135-145)
[2022-10-14] VITALS (8 sets, daily range): BP systolic 120–147; BP diastolic 55–96; PULSE 84–116; RESP 13–22; TEMP 36.1–37.1; O2SAT 95–97
[2022-10-14] MEDS: Potassium Chloride/H20 10 MEQ/100 ML PIGGYBACK 100 MEQ IV ×4 (00:03→05:14)
[2022-10-14] MEDS: 0.9 % Sodium Chloride Flush 3 ML SYRINGE IVFLUSH ×2 (00:06→08:03)
[2022-10-14] MEDS: Metoprolol Tartrate 5 MG/5 ML VIAL IVPUSH ×2 (02:00→06:27)
--- NOTE | 2022-10-14 07:43 | PC.NURSE ---
Patient primarily [place]ic speaaking daughter at bedside translating no chest pain or SOB noted patient AOx 4 neuros intact some discomfort post potassium infusion IV flushed with good effect
--- NOTE | 2022-10-14 07:49 | PHA.MEDREC ---
Pharmacy Consult ? Medication Reconciliation Pharmacy has completed the medication reconciliation. Patient stopped metoprolol but did not reduce her metoprolol as advised Scot
[2022-10-14] MEDS: Metoprolol Tartrate 25 MG TABLET PO (08:02)
--- NOTE | 2022-10-14 08:17 | MHC.EDTECH ---
Stool and urine incontinence care done at this time. Pt linens changed and resting comfortably. Bed in low, locked position. Call roberts in reach, able to make needs known.
--- NOTE | 2022-10-14 08:30 | PC.NURSE ---
Patient incontinent of urine open area left buttock no drainage noted will CTM
[2022-10-14] MEDS: levETIRAcetam 250 MG TABLET PO (08:49)
[2022-10-14] MEDS: Atorvastatin Calcium 40 MG TABLET PO (08:49)
[2022-10-14] MEDS: Famotidine 20 MG TABLET PO (08:50)
[2022-10-14] MEDS: Apixaban 2.5 MG TABLET PO (08:50)
[2022-10-14] MEDS: Magnesium Oxide 400 MG TABLET PO (08:50)
--- NOTE | 2022-10-14 10:39 | PC.NURSE ---
Patient resting comfortably no distress noted will CTM
--- NOTE | 2022-10-14 13:06 | P.PNIM_ITS ---
Subjective Subjective Date of Service: 10/14/22 Interval History: This history was taken in Sami from the patient. hypotension resolved denies cough or fever wants to go home Review of Systems Review of Systems: Yes all other systems are reviewed and are negative Physical Exam Vital Signs: Vital Signs: Last Vital Signs Temp 98.7 F 10/14/22 07:21 Pulse 105 H 10/14/22 11:29 Resp 18 10/14/22 11:29 BP 147/96 H 10/14/22 11:29 Pulse Ox 95 10/14/22 11:29 O2 Del Method 10/14/22 11:29 BMI result Body Mass Index 21.4 Gen: in no acute distress HEENT: sclera anicteric, moist mucus membranes Neck: supple Lungs: clear to auscultation bilaterally Heart: irregularly irregular, no murmurs Abd: soft, non-tender, non-distended Ext: no edema Skin: warm/well-perfused Neuro: alert and oriented x3, no focal findings Psych: appropriate affect Objective Data Active Medications Acetaminophen (Acetaminophen 325 Mg Tablet) 650 mg PO Q6H PRN PRN Reason: Pain, Mild (Pain Scale 1-3) Apixaban (Apixaban 2.5 Mg Tablet) 2.5 mg PO BID ON LICENSE OF [facility] Last Admin: 10/14/22 08:50 Dose: 2.5 mg Documented By: DENNYS Atorvastatin Calcium (Atorvastatin Calcium 40 Mg Tablet) 40 mg PO DAILY ON LICENSE OF [facility] Last Admin: 10/14/22 08:49 Dose: 40 mg Documented By: DENNYS Docusate Sodium (Docusate Sodium 100 Mg Capsule) 100 mg PO DAILY PRN PRN Reason: Constipation Famotidine (Famotidine 20 Mg Tablet) 20 mg PO DAILY ON LICENSE OF [facility] Last Admin: 10/14/22 08:50 Dose: 20 mg Documented By: DENNYS Levetiracetam (Levetiracetam 250 Mg Tablet) 250 mg PO BID ON LICENSE OF [facility] Last Admin: 10/14/22 08:49 Dose: 250 mg Documented By: DENNYS Magnesium Oxide (Magnesium Oxide 400 Mg Tablet) 400 mg PO DAILY ON LICENSE OF [facility] Last Admin: 10/14/22 08:50 Dose: 400 mg Documented By: DENNYS Melatonin (Melatonin 3 Mg Tablet) 6 mg PO BEDTIME PRN PRN Reason: Insomnia Metoprolol Tartrate (Metoprolol Tartrate 25 Mg Tablet) 25 mg PO TID ON LICENSE OF [facility]; Protocol Last Admin: 10/14/22 08:02 Dose: 25 mg Documented By: DENNYS Ondansetron HCl (Ondansetron Hcl 4 Mg/2 Ml Vial) 4 mg IVPUSH Q8H PRN PRN Reason: Nausea and Vomiting Pharmacy Consult (Consult Rx Perform Med Rec) 1 each MISCELLANE ONCE PRN PRN Reason: Consult order Potassium Chloride (Potassium Chloride Er 10 Meq Capsule.Er) 10 meq PO DAILY ON LICENSE OF [facility] Last Admin: 10/14/22 08:50 Dose: 10 meq Documented By: DENNYS Sodium Chloride (0.9 % Sodium Chloride Flush 3 Ml Syringe) 3 ml IVFLUSH QSHIFT ON LICENSE OF [facility] Last Admin: 10/14/22 08:03 Dose: 3 ml Documented By: DENNYS Labs 10/13/22 18:25 10/13/22 22:14 Labs: Laboratory Results - last 24 hr 10/13/22 10/13/22 10/13/22 18:25 18:25 18:25 MCV 89.3 MCH 29.1 MCHC 32.5 RDW 15.3 Plt Count 241 D MPV 12.1 Immature Gran % (Auto) 0.4 Neut % (Auto) 48.2 Lymph % (Auto) 33.9 [place] % (Auto) 9.8 Eos % (Auto) 6.7 H Baso % (Auto) 1.0 Lymph # (Auto) 1.7 [place] # (Auto) 0.5 Eos # (Auto) 0.3 Baso # (Auto) 0.1 Abs Immat Gran (auto) 0.02 Absolute Neuts (auto) 2.5 Absolute Nucleated RBC 0.000 Nucleated RBC % (auto) 0.0 Anion Gap Estim Creat Clear Calc Estimated GFR Random Glucose Lactic Acid 2.8 H* Lactic Acid F/U @ 2Hr Calcium Magnesium Total Bilirubin AST ALT Alkaline Phosphatase Total Protein Albumin COVID-19 (SUZANNE) Negative COVID-19 Clin Com See Note 10/13/22 10/13/22 10/13/22 18:54 22:14 22:14 MCV MCH MCHC RDW Plt Count MPV Immature Gran % (Auto) Neut % (Auto) Lymph % (Auto) [place] % (Auto) Eos % (Auto) Baso % (Auto) Lymph # (Auto) [place] # (Auto) Eos # (Auto) Baso # (Auto) Abs Immat Gran (auto) Absolute Neuts (auto) Absolute Nucleated RBC Nucleated RBC % (auto) Anion Gap 12 11 L Estim Creat Clear Calc 36.8 43.1 Estimated GFR > 60 > 60 Random Glucose 125 H 105 Lactic Acid Lactic Acid F/U @ 2Hr 1.5 Calcium 8.4 D 8.0 L Magnesium 1.4 L* Total Bilirubin 0.8 AST 22 ALT 10 Alkaline Phosphatase 59 Total Protein 4.8 L Albumin 2.5 L COVID-19 (SUZANNE) COVID-19 Clin Com Assessment and Plan (1) Hypotension: Status: Acute (2) Hypokalemia: Status: Acute (3) Hypomagnesemia: Status: Acute Plan d#2 81yo F with HTN, hx CVA s/p thrombectomy, pAF on apixaban, brought in due to hypotension [SBP in 80s] without symptoms. Recent admission + discharge 09/18/22 for hypotension- at that time, metoprolol was reduced from 100 mg bid to 50 mg tid # hypotension - Cardiology consult pending, diltiazem discontinued and metoprolol reduced to 25 mg tid per their recommendations. Also d/c doxazosin. No signs of sepsis and suspect lactate elevation due to hypotension # hypoK - repleted, recheck level in AM # hypoMg - repleted, recheck level in AM, continue oral maintenance dose # L lung atelecatsis - IS, no further antibiotic treatment # chronic AF - continue apixaban for AC - continue metoprolol for RC; dose reduced as above; also stopped diltiazem # hx R MCA CVA - continue ASA + statin - continue levetiracteam for sz prevention # chronic anemia - Hb at baseline # VTE ppx: apixaban # dispo: likely home with VNA In my clinical judgment, the patient requires continued inpatient hospitaliz ation for the following reasons: monitoring BP + electrlytes Time Spent With Patient Time: Total time managing care of this patient today __41__ minutes. Quality Stroke Does the patient have a stroke diagnosis?: No VTE Prior VTE?: No VTE Risk Level:: Medical - moderate - high VTE Device Contraindication: Treatment Not Indicated VTE Drug Contraindication: N/A - Med Ordered
--- NOTE | 2022-10-14 14:07 | PC.NURSE ---
Patient resting comfortably grand daughter at bedside david tolerated PO food and fluids food brought from home rice and beans with some chicken
--- NOTE | 2022-10-14 14:59 | PM.CNCAR ---
History of Present Illness History of Present Illness Date of Service: 10/14/22 Requesting physician: Catherine Honeycutt / [facility] Chief complaint: Hypotension Narrative: 81-year-old female with chronic atrial fibrillation presenting for low blood pressures. She was diltiazem and metoprolol at home and was noticing low blood pressures and came to the emergency department. She was admitted for overnight observation. She has no chest discomfort shortness of breath. She was eating lunch and the time she was seen and was denying any significant symptoms. Telemetry was showing AFib with RVR. Her diltiazem was stopped on admission and metoprolol was started at 25 mg 3 times a day. This was increased to 50 mg 3 times a day. 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 Family History Family History Mother Heart problem Surgical History Surgical History H/O carotid endarterectomy Social History Social History Household Members: Family Housing: Apartment Do you presently have visiting nurse or other home services: Yes Alcohol intake: never Patient Tobacco Use Status: Never used Tobacco Smoked in Last 30 Days: No Use of substances other than those prescribed or required for medical reasons: No Advance Directives: Yes Advance Directives on File: Yes Advance Directives Date on File: 10/14/22 service: No Current occupational status: disabled Meds Allergies Allergy/AdvReac Type Severity Reaction Status Date / Time hydrochlorothiazide Allergy Mild UNKNOWN Verified 08/24/22 19:41 [Hydrochlorothiazide] penicillin G [Penicillin G] Allergy Mild UNKNOWN Verified 08/24/22 19:41 penicillin V Allergy Unknown Unknown Verified 08/24/22 19:41 chlorthalidone AdvReac Severe hyponatremi Verified 08/24/22 19:41 [CHLORTHALIDONE] a Active Medications: Current Medications Acetaminophen (Acetaminophen 325 Mg Tablet) 650 mg PO Q6H PRN PRN Reason: Pain, Mild (Pain Scale 1-3) Apixaban (Apixaban 2.5 Mg Tablet) 2.5 mg PO BID [facility] Last Admin: 10/14/22 08:50 Dose: 2.5 mg Aspirin (Aspirin Enteric Coated 81 Mg Tablet.Dr) 81 mg PO DAILY [facility] Atorvastatin Calcium (Atorvastatin Calcium 40 Mg Tablet) 40 mg PO DAILY [facility] Last Admin: 10/14/22 08:49 Dose: 40 mg Digoxin (Digoxin 0.125 Mg Tablet) 0.125 mg PO Q48H [facility] Docusate Sodium (Docusate Sodium 100 Mg Capsule) 100 mg PO DAILY PRN PRN Reason: Constipation Famotidine (Famotidine 20 Mg Tablet) 20 mg PO DAILY [facility] Last Admin: 10/14/22 08:50 Dose: 20 mg Levetiracetam (Levetiracetam 250 Mg Tablet) 250 mg PO BID [facility] Last Admin: 10/14/22 08:49 Dose: 250 mg Magnesium Oxide (Magnesium Oxide 400 Mg Tablet) 400 mg PO DAILY [facility] Last Admin: 10/14/22 08:50 Dose: 400 mg Melatonin (Melatonin 3 Mg Tablet) 6 mg PO BEDTIME PRN PRN Reason: Insomnia Metoprolol Tartrate (Metoprolol Tartrate 50 Mg Tablet) 50 mg PO TID [facility]; Protocol Ondansetron HCl (Ondansetron Hcl 4 Mg/2 Ml Vial) 4 mg IVPUSH Q8H PRN PRN Reason: Nausea and Vomiting Pharmacy Consult (Consult Rx Perform Med Rec) 1 each MISCELLANE ONCE PRN PRN Reason: Consult order Potassium Chloride (Potassium Chloride Er 10 Meq Capsule.Er) 10 meq PO DAILY [facility] Last Admin: 10/14/22 08:50 Dose: 10 meq Sodium Chloride (0.9 % Sodium Chloride Flush 3 Ml Syringe) [address] [facility] Last Admin: 10/14/22 08:03 Dose: 3 ml Home Medications Medication Instructions Recorded Confirmed Last Taken Type aspirin 81 mg tablet,delayed 81 mg PO DAILY 09/03/22 10/14/22 Unknown History release atorvastatin 40 mg tablet 40 mg PO DAILY 09/03/22 10/14/22 Unknown History docusate sodium 100 mg capsule 100 mg PO DAILY PRN Constipation 10/13/22 10/14/22 Unknown History Physical Exam Vital Signs: Vital Signs: Last Vital Signs Temp 98.7 F 10/14/22 07:21 Pulse 98 10/14/22 13:59 Resp 22 H 10/14/22 13:59 BP 120/59 L 10/14/22 13:59 Pulse Ox 97 10/14/22 13:59 O2 Del Method 10/14/22 13:59 BMI result Body Mass Index 21.4 GENERAL APPEARANCE: in no acute distress, pleasant. NECK: no carotid bruit, no jugular venous distention. SKIN: no suspicious lesions, warm and dry. HEART: no murmurs, irregular rate and rhythm. Tachycardic. LUNGS: clear to auscultation bilaterally. ABDOMEN: soft, nontender. EXTREMITIES: no edema. PERIPHERAL PULSES: equal. Objective Labs and Meds 10/13/22 18:25 10/13/22 22:14 Lab results: Laboratory Results - last 24 hr 10/13/22 10/13/22 10/13/22 18:25 18:25 18:25 WBC 5.1 RBC 3.27 L Hgb 9.5 L Hct 29.2 L MCV 89.3 MCH 29.1 MCHC 32.5 RDW 15.3 Plt Count 241 D MPV 12.1 Immature Gran % (Auto) 0.4 Neut % (Auto) 48.2 Lymph % (Auto) 33.9 [place] % (Auto) 9.8 Eos % (Auto) 6.7 H Baso % (Auto) 1.0 Lymph # (Auto) 1.7 [place] # (Auto) 0.5 Eos # (Auto) 0.3 Baso # (Auto) 0.1 Abs Immat Gran (auto) 0.02 Absolute Neuts (auto) 2.5 Absolute Nucleated RBC 0.000 Nucleated RBC % (auto) 0.0 Sodium Potassium Chloride Carbon Dioxide Anion Gap BUN Creatinine Estim Creat Clear Calc Estimated GFR Random Glucose Lactic Acid 2.8 H* Lactic Acid F/U @ 2Hr Calcium Magnesium Total Bilirubin AST ALT Alkaline Phosphatase Total Protein Albumin COVID-19 (SUZANNE) Negative COVID-19 Clin Com See Note 10/13/22 10/13/22 10/13/22 18:54 22:14 22:14 WBC RBC Hgb Hct MCV MCH MCHC RDW Plt Count MPV Immature Gran % (Auto) Neut % (Auto) Lymph % (Auto) [place] % (Auto) Eos % (Auto) Baso % (Auto) Lymph # (Auto) [place] # (Auto) Eos # (Auto) Baso # (Auto) Abs Immat Gran (auto) Absolute Neuts (auto) Absolute Nucleated RBC Nucleated RBC % (auto) Sodium 140 140 Potassium 2.9 L 3.3 Chloride 100 104 Carbon Dioxide 31 H 28 Anion Gap 12 11 L BUN 12 10 Creatinine 0.83 0.71 Estim Creat Clear Calc 36.8 43.1 Estimated GFR > 60 > 60 Random Glucose 125 H 105 Lactic Acid Lactic Acid F/U @ 2Hr 1.5 Calcium 8.4 D 8.0 L Magnesium 1.4 L* Total Bilirubin 0.8 AST 22 ALT 10 Alkaline Phosphatase 59 Total Protein 4.8 L Albumin 2.5 L COVID-19 (SUZANNE) COVID-19 Clin Com Imaging Radiologist's impression: Impressions Chest X-Ray 10/13/22 18:05 IMPRESSION: Mild cardiomegaly with increased pulmonary vascularity question mild congestion. Left lower lobe opacity question infiltrate versus atelectasis. This finding was noted on the previous CT chest 09/25/[address] 10/13/22 22:54 IMPRESSION: 1. Compressive atelectasis at left lung base. 2. Trace dependent left pleural effusion. 3. Cardiomegaly. 4. Small volume pericardial effusion. Fleischner guidelines were followed. Assessment and Plan (1) Hypotension: Status: Acute (2) Atrial fibrillation with RVR: Status: Acute Plan 81-year-old female with AFib with RVR and hypotension. She was unable to tolerate diltiazem and metoprolol combination. Diltiazem has been discontinued. Metoprolol was increased back to home dose of 50 mg 3 times a day. Digoxin has been added at 125 mcg every other day. I think she can be discharged home on 50 mg 3 times a day of metoprolol tartrate and digoxin 125 mcg every other day. Diltiazem should be discontinued. Thank you for allowing me to participate in the care of your patient. Please feel free to contact me if you have any questions. Time Spent With Patient Time: Total time managing care of this patient today ____ minutes. Procedures Date of Service Date of Service: 10/14/22
--- NOTE | 2022-10-14 15:04 | P.DS_ITS ---
DS: Providers Provider Date of Service: 10/14/22 Date of admission: 10/13/22 22:41 Date of discharge: 10/14/22 Primary care physician: Opal Antunez NP Consults: 10/13/22 22:50 Consult to Cardiology Routine Consulting Provider: [facility] Cardi[facility] Services Reason for consultation: Hypotension Has provider been notified: Yes DS: Diagnosis Discharge Diagnosis (1) Hypotension: Status: Acute (2) Hypokalemia: Status: Acute (3) Hypomagnesemia: Status: Acute (4) Persistent atrial fibrillation: Status: Acute DS: Summary Hospital Course Hospital Course: from admission H+P by hospitalist George Candelario MD, 10/13/22: ?this is a 81-year-old female with pertinent history of essential hypertension, 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 History obtained by family at bedside.? Patient was found to be hypotensive with systolic in the 80s about 3 days prior to presentation and on the day of presentation.? Patient was recently admitted and discharged on 09/18/2022 for hypotension when Lopressor was reduced from 100 mg b.i.d. to 50 mg every 8 hours? along with Cardizem 120 mg.? Patient denies chest discomfort, dizziness, lightheadedness, shortness of breath.? Patient denies any symptoms at this time.? Patient denies fever, chills, chest discomfort, cough, abdominal pain, changes in urinary or bowel habits In the emergency department, cardiology was consulted who recommended admission and reducing metoprolol to 25 mg t.i.d..? Also recommended stopping Cardizem p.o. 81yo F with HTN, hx CVA s/p thrombectomy, pAF on apixaban, brought in due to hypotension [SBP in 80s] without symptoms.? Recent admission + discharge 09/18/22 for hypotension- at that time, metoprolol was reduced from 100 mg bid to 50 mg tid. Cardiology was consulted. Diltiazem and doxazosin were discontinued. Blood pressure normalized. No signs of sepsis; suspect lactate elevation due to hypotension. Hypokalemia and hypomagnesemia were repleted. CT showed L lung atelectasis, not pnuemonia. Per cardiology, digoxin 125 mcg every other day was added for rate control. She was discharged home and should follow-up with Primary care and Cardiology in 1-2 weeks. Time Spent with Patient Time attestation: Total time managing care of this patient today _35___ minutes. Discharge coordination time: Greater than 30 minutes Quality: Safe Use of Opioids Does Pt have an Active Cancer Diagnosis on the Problem List?: No Quality: Stroke Does the patient have a stroke diagnosis?: No Physical Exam Vital Signs: Vital Signs: Last Vital Signs Temp 98.7 F 10/14/22 07:21 Pulse 98 10/14/22 13:59 Resp 22 H 10/14/22 13:59 BP 120/59 L 10/14/22 13:59 Pulse Ox 97 10/14/22 13:59 O2 Del Method 10/14/22 13:59 BMI result Body Mass Index 21.4 Gen: in no acute distress HEENT: sclera anicteric, moist mucus membranes Neck: supple Lungs: clear to auscultation bilaterally Heart: irregularly irregular, no murmurs Abd: soft, non-tender, non-distended Ext: no edema Skin: warm/well-perfused Neuro: alert and oriented x3, no focal findings Psych: appropriate affect DS: Data Data Completed and Pending Completed studies during hospitalization [Text1]: Laboratory Results WBC 5.1 X10*3/uL (4.8-10.8) 10/13/22 18:25 RBC 3.27 X10*6/uL (4.20-5.50) L 10/13/22 18:25 Hgb 9.5 g/dl (12.0-16.0) L 10/13/22 18:25 Hct 29.2 % (37.0-47.0) L 10/13/22 18:25 MCV 89.3 fL (80.0-98.0) 10/13/22 18:25 MCH 29.1 pg (27.0-33.0) 10/13/22 18:25 MCHC 32.5 g/dl (31.0-35.0) 10/13/22 18:25 RDW 15.3 % (11.0-16.0) 10/13/22 18:25 Plt Count 241 X10*3/uL (160-400) D 10/13/22 18:25 MPV 12.1 fL (9.4-12.3) 10/13/22 18:25 Immature Gran % (Auto) 0.4 % (0.0-0.4) 10/13/22 18:25 Neut % (Auto) 48.2 % (45-73) 10/13/22 18:25 Lymph % (Auto) 33.9 % (20-40) 10/13/22 18:25 [place] % (Auto) 9.8 % (2-11) 10/13/22 18:25 Eos % (Auto) 6.7 % (0-4) H 10/13/22 18:25 Baso % (Auto) 1.0 % (0-2) 10/13/22 18:25 Lymph # (Auto) 1.7 X10*3/uL (1.2-4.9) 10/13/22 18:25 [place] # (Auto) 0.5 X10*3/uL (0.1-1.2) 10/13/22 18:25 Eos # (Auto) 0.3 X10*3/uL (0.0-0.4) 10/13/22 18:25 Baso # (Auto) 0.1 X10*3/uL (0.0-0.2) 10/13/22 18:25 Abs Immat Gran (auto) 0.02 X10*3/uL (0.00-0.03) 10/13/22 18:25 Absolute Neuts (auto) 2.5 x10*3/uL (2.0-8.3) 10/13/22 18:25 Absolute Nucleated RBC 0.000 X10*3/uL (0.0-0.012) 10/13/22 18:25 Nucleated RBC % (auto) 0.0 /100WBC (0.0-0.2) 10/13/22 18:25 Sodium 140 mmol/L (135-145) 10/13/22 22:14 Potassium 3.3 mmol/L (3.3-5.1) 10/13/22 22:14 Chloride 104 mmol/L (96-108) 10/13/22 22:14 Carbon Dioxide 28 mmol/L (22-29) 10/13/22 22:14 Anion Gap 11 (12-20) L 10/13/22 22:14 BUN 10 mg/dL (9-16) 10/13/22 22:14 Creatinine 0.71 mg/dL (0.5-1.4) 10/13/22 22:14 Estim Creat Clear Calc 43.1 10/13/22 22:14 Estimated GFR > 60 10/13/22 22:14 Random Glucose 105 mg/dL (60-115) 10/13/22 22:14 Lactic Acid 2.8 mmol/L (0.5-2.0) H* 10/13/22 18:25 Lactic Acid F/U @ 2Hr 1.5 mmol/L (0.5-2.0) 10/13/22 22:14 Calcium 8.0 mg/dL (8.4-10.2) L 10/13/22 22:14 Magnesium 1.4 mg/dL (1.6-2.6) L* 10/13/22 18:54 Total Bilirubin 0.8 mg/dL (0.0-1.0) 10/13/22 18:54 AST 22 U/L (5-31) 10/13/22 18:54 ALT 10 U/L (0-31) 10/13/22 18:54 Alkaline Phosphatase 59 U/L (39-117) 10/13/22 18:54 Total Protein 4.8 g/dL (6.5-8.0) L 10/13/22 18:54 Albumin 2.5 g/dL (3.5-5.0) L 10/13/22 18:54 COVID-19 (SUZANNE) Negative (Negative) 10/13/22 18:25 COVID-19 Clin Com See Note 10/13/22 18:25 Impressions Chest X-Ray 10/13/22 18:05 IMPRESSION: Mild cardiomegaly with increased pulmonary vascularity question mild congestion. Left lower lobe opacity question infiltrate versus atelectasis. This finding was noted on the previous CT chest 09/25/[address] 10/13/22 22:54 IMPRESSION: 1. Compressive atelectasis at left lung base. 2. Trace dependent left pleural effusion. 3. Cardiomegaly. 4. Small volume pericardial effusion. Fleischner guidelines were followed. Discharge Plan Discharge Patient Disposition: Home Health Service Discharge Diagnosis: atrial fibrillation, hypotension, hypokalemia, hypomagnesemia Referrals: Opal Antunez, [facility] [Primary Care Provider] - 1 Week Discharge Medications: New Eliquis 2.5 mg Tablet 2.5 mg PO BID Qty: 60 0RF Rx Instructions: replaces prior dose of 5 mg bid digoxin 125 mcg (0.125 mg) Tablet 0.125 mg PO Q48H Qty: 15 0RF Continued levetiracetam 250 mg Tablet 250 mg PO BID 30 Days Qty: 60 0RF aspirin 81 mg tablet,delayed release (DR/EC) 81 mg PO DAILY atorvastatin 40 mg tablet 40 mg PO DAILY magnesium oxide 400 mg magnesium capsule 400 mg PO DAILY Qty: 7 0RF potassium chloride 10 mEq capsule, extended release 10 meq PO DAILY Qty: 30 0RF docusate sodium 100 mg capsule 100 mg PO DAILY PRN (Reason: Constipation) metoprolol tartrate 50 mg Tablet 50 mg PO TID Qty: 90 0RF Protocol: Hold for SBP/HR < HOLD for SBP < : 90 HOLD for HR < : 60 famotidine [Pepcid] 20 mg tablet 20 mg PO DAILY Qty: 30 0RF Discontinued Eliquis 5 mg tablet 5 mg PO BID doxazosin 2 mg tablet 2 mg PO DAILY Diet: Advance to usual diet Activity on Discharge: As tolerated Stand Alone Forms: Patient Portal Discharge page Activity Restrictions/Additional Instructions: Take your medications as prescribed. If you were prescribed antibiotics today, it is important that you take your medication to their entirety, do not skip any doses, do not finish them early. Follow-up with your primary care provider this week. Return to the emergency department with new or worsening symptoms. Such as fevers, chills, chest pain, shortness of breath, nausea, vomiting, dizziness, headache, vision changes, lethargy In case of emergency call 911 Care Plan Goals: normal blood pressure and good rate control Health Concerns: atrial fibrillation, hypotension, hypokalemia, hypomagnesemia Plan of Treatment: Stop diltiazem Stop doxazosin Take metoprolol 50 mg 3x a day plus digoxin 125 mcg every other day Follow up with Cardiology at [facility] in 2 weeks Assessment: See Discharge Summary. Patient Instructions: A-fib (Atrial Fibrillation) (ED), Hypokalemia (ED), Hypotension (ED), Hypomagnesemia (ED), Blood Thinners (ED)
--- NOTE | 2022-10-14 16:06 | MHC.CM.PN ---
CM spoke with both Daughter/Maryuri with [employer] and Granddaughter/DIRECTOR CARD/Isabel at listed phone numbers and addressed ODELL with Maryuri (original to be mailed to Maryuri and a copy to be placed on the chart). Patient lives with her Granddaughter/DIRECTOR CARD and is mostly bedbounbd. Home/resume said services is the goal and CM has initiated and will follow for dc planning. Patient does not appear to be covid vax'd and her PCP is Dr.Eli Antunez.
--- NOTE | 2022-10-14 19:14 | PC.NURSE ---
assumed care of patient at 1900
--- NOTE | 2022-10-14 21:10 | PC.NURSE ---
patient refusing all medications
--- NOTE | 2022-10-14 21:10 | PC.NURSE ---
report called to [facility] RN - patient to be transported upstairs to bed [id number]
--- NOTE | 2022-10-15 | ECG_ITS ---
Test Reason : tachy Blood Pressure : / mmHG Vent. Rate : 176 BPM Atrial Rate : 174 BPM P-R Int : 000 ms QRS Dur : 096 ms QT Int : 274 ms P-R-T Axes : 000 016 110 degrees QTc Int : 468 ms Poor data quality Undetermined rhythm likely Afib ST & T wave abnormality, consider lateral ischemia Abnormal ECG When compared with ECG of 13-OCT-2022 18:12, Poor data quality in current ECG precludes serial comparison Referred By: Missael Candelario Electronically Signed By:Jacek Cali
[2022-10-15 05:58] VITALS: BP 119/89; PULSE 80; RESP 18; TEMP 37.1; O2SAT 96
[2022-10-15] MEDS: Metoprolol Tartrate 5 MG/5 ML VIAL IVPUSH (06:51)
[2022-10-15 07:17] VITALS: BP 147/63; PULSE 62; RESP 20; TEMP 36.7; O2SAT 94
--- NOTE | 2022-10-15 10:32 | PC.NURSE ---
10:32 with grandson at bedside, pt A&O x 2. pt refused assessment and medications this morning. MD notified.
[2022-10-15 11:26] VITALS: BP 137/60; PULSE 112; RESP 20; TEMP 37.3; O2SAT 93
[2022-10-15] MEDS: Metoprolol Tartrate 50 MG TABLET PO (12:39)
--- NOTE | 2022-10-15 15:06 | PM.DS ---
DS: Providers Provider Date of Service: 10/15/22 Date of admission: 10/13/22 22:41 Date of discharge: 10/15/22 Primary care physician: Opal Antunez NP Consults: 10/13/22 22:50 Consult to Cardiology Routine Consulting Provider: 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 History obtained by family at bedside.? Patient was found to be hypotensive with systolic in the 80s about 3 days prior to presentation and on the day of presentation.? Patient was recently admitted and discharged on 09/18/2022 for hypotension when Lopressor was reduced from 100 mg b.i.d. to 50 mg every 8 hours? along with Cardizem 120 mg.? Patient denies chest discomfort, dizziness, lightheadedness, shortness of breath.? Patient denies any symptoms at this time.? Patient denies fever, chills, chest discomfort, cough, abdominal pain, changes in urinary or bowel habits In the emergency department, cardiology was consulted who recommended admission and reducing metoprolol to 25 mg t.i.d..? Also recommended stopping Cardizem p.o. 81yo F with HTN, hx CVA s/p thrombectomy, pAF on apixaban, brought in due to hypotension [SBP in 80s] without symptoms.? Recent admission + discharge 09/18/22 for hypotension- at that time, metoprolol was reduced from 100 mg bid to 50 mg tid. Cardiology was consulted. Diltiazem and doxazosin were discontinued. Blood pressure normalized. No signs of sepsis; suspect lactate elevation due to hypotension. Hypokalemia and hypomagnesemia were repleted. CT showed L lung atelectasis, not pnuemonia. Per cardiology, digoxin 125 mcg every other day was added for rate control. She was discharged home and should follow-up with Primary care and Cardiology in 1-2 weeks. Time Spent with Patient Time attestation: Total time managing care of this patient today ____ minutes. Discharge coordination time: Greater than 30 minutes Quality: Safe Use of Opioids Does Pt have an Active Cancer Diagnosis on the Problem List?: No Quality: Stroke Does the patient have a stroke diagnosis?: No Physical Exam Vital Signs: Vital Signs: Last Vital Signs Temp 99.1 F 10/15/22 11:26 Pulse 112 H 10/15/22 11:26 Resp 20 10/15/22 11:26 BP 137/60 10/15/22 11:26 Pulse Ox 93 10/15/22 11:26 O2 Del Method 10/15/22 11:26 BMI result Body Mass Index 21.4 Const: Other: Awake confused Resp: Other: Clear to auscultation bilaterally no rales rhonchi wheezes Cardio: Other: No S4; positive S1-S2; no S3 murmurs rubs or gallops irregularly irregular Extrem: Other: No edema bilaterally DS: Data Data Completed and Pending Labs on day of discharge: Preliminary micro results at discharge 10/13/22 18:53 Blood Culture - Preliminary Blood - Venous No growth after 24 hours. 10/13/22 18:25 Blood Culture - Preliminary Blood - Venous No growth after 24 hours. 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 [Primary Care Provider] - 1 Week Discharge Medications: New Eliquis 2.5 mg Tablet 2.5 mg PO BID Qty: 60 0RF Rx Instructions: replaces prior dose of 5 mg bid digoxin 125 mcg (0.125 mg) Tablet 0.125 mg PO Q48H Qty: 15 0RF Continued levetiracetam 250 mg Tablet 250 mg PO BID 30 Days Qty: 60 0RF aspirin 81 mg tablet,delayed release (DR/EC) 81 mg PO DAILY atorvastatin 40 mg tablet 40 mg PO DAILY magnesium oxide 400 mg magnesium capsule 400 mg PO DAILY Qty: 7 0RF potassium chloride 10 mEq capsule, extended release 10 meq PO DAILY Qty: 30 0RF docusate sodium 100 mg capsule 100 mg PO DAILY PRN (Reason: Constipation) metoprolol tartrate 50 mg Tablet 50 mg PO TID Qty: 90 0RF Protocol: Hold for SBP/HR < HOLD for SBP < : 90 HOLD for HR < : 60 famotidine [Pepcid] 20 mg tablet 20 mg PO DAILY Qty: 30 0RF Discontinued Eliquis 5 mg tablet 5 mg PO BID doxazosin 2 mg tablet 2 mg PO DAILY Discharge Orders: Discharge Order (Routine); Ordered 10/15/22 Ordered By: Montez Monaco Diet: Advance to usual diet Activity on Discharge: As tolerated Stand Alone Forms: Patient Portal Discharge page Activity Restrictions/Additional Instructions: Take your medications as prescribed. If you were prescribed antibiotics today, it is important that you take your medication to their entirety, do not skip any doses, do not finish them early. Follow-up with your primary care provider this week. Return to the emergency department with new or worsening symptoms. Such as fevers, chills, chest pain, shortness of breath, nausea, vomiting, dizziness, headache, vision changes, lethargy In case of emergency call 911 Care Plan Goals: normal blood pressure and good rate control Health Concerns: atrial fibrillation, hypotension, hypokalemia, hypomagnesemia Plan of Treatment: Stop diltiazem Stop doxazosin Take metoprolol 50 mg 3x a day plus digoxin 125 mcg every other day [place] [facility] [place] 2 [place] Assessment: See Discharge Summary. Patient Instructions: A-fib (Atrial Fibrillation) (ED), Hypokalemia (ED), Hypotension (ED), Hypomagnesemia (ED), Blood Thinners (ED)
--- NOTE | 2022-10-15 15:07 | MHC.CM.PN ---
PER HOSPITALIST PT MEDICALLY CLEARED FOR D/C HOME W/[facility] OF [facility], HOSPITALIST REPORTS HE HAS SPOKE AND PT CAN RETURN ANY TIME VIA BLS, PER SH[facility] THEY CAN TRANSPORT AT 5PM.
[2022-10-15 15:09] VITALS: BP 144/76; PULSE 108; RESP 18; TEMP 37; O2SAT 96
--- NOTE | 2022-10-15 15:33 | PC.NURSE ---
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 IV out, pt to be transported via ambulance back home around 17:00
== END 2022-10-15 17:26 | disposition home health service (06) ==
LOC: HO.ED 23:21 → HO.EDOVER 23:42 → HO.IMC 10-14 15:20 → HO.EDOVER 10-14 16:01 → HO.IMC 10-14 19:50
PROVIDERS: Family Medicine; Physician Assistant; Admitting Provider Student in an Organized Health Care Education/Training Program; Emergency Provider Emergency Medicine Emergency Medical Services; PCP Nurse Practitioner Primary Care; Visit Provider Hospitalist
DX: I95.9 Hypotension, unspecified (principal); I48.91 Unspecified atrial fibrillation; E87.6 Hypokalemia; E83.42 Hypomagnesemia; Z20.822 Contact with and (suspected) exposure to COVID-19; E87.20 Acidosis, unspecified; R53.1 Weakness; I10 Essential (primary) hypertension; D64.9 Anemia, unspecified; Z86.73 Personal history of transient ischemic attack (TIA), and cerebral infarction without residual deficits; Z79.01 Long term (current) use of anticoagulants; Z79.02 Long term (current) use of antithrombotics/antiplatelets; Z79.82 Long term (current) use of aspirin; Z79.899 Other long term (current) drug therapy
CPT/HCPCS: 36415; 51701; 71045; 71250; 80048; 80053; 83605; 83735; 85025; 87040; 87635; 93005; 96361; 96365; 96366; 96367; 96375; 96376; 99222; 99285; J0696; J3475

== ENCOUNTER 2022-11-04 17:18 | Emergency (ER) | payer MEDICARE, MEDICAID, SELFPAY ==
--- NOTE | 2022-11-04 | ECG_ITS ---
Test Reason : syncope Blood Pressure : / mmHG Vent. Rate : 091 BPM Atrial Rate : 000 BPM P-R Int : 000 ms QRS Dur : 092 ms QT Int : 184 ms P-R-T Axes : 000 -03 257 degrees QTc Int : 226 ms Atrial fibrillation Nonspecific T wave abnormality Abnormal ECG When compared with ECG of 15-OCT-2022 06:18, Poor data quality on previous ECG Referred By: Generic ED Physician Electronically Signed By:Jacek Cali
--- NOTE | ~2022-11-04 | XR_ITS ---
EXAMINATION: XR CHEST CLINICAL INFORMATION: Shortness of breath COMPARISON: Chest radiograph and CT chest dated 10/13/2022 TECHNIQUE: 2 views of the chest were obtained. FINDINGS: Since the prior study, a left-sided pleural effusion has decreased in size but persists and is small. Left basilar atelectasis is present. Heart size is mildly enlarged. There is mild upper zone redistribution suggesting mild pulmonary vascular congestion but no gross pulmonary edema. No right-sided pleural effusion. Right paratracheal soft tissue density secondary to an ectatic great vessels are seen on the prior CT scan. XR/XR chest 2V IMPRESSION: Mild cardiomegaly with mild pulmonary vascular congestion and decreased size left pleural effusion.
[2022-11-04 17:34] VITALS: BP 119/61; BP 137/70; PULSE 104; PULSE 120; RESP 22; TEMP 36.3; O2SAT 97; BMI 21.4
[2022-11-04 18:17] VITALS: BP 124/64; PULSE 99; RESP 16; O2SAT 97
--- NOTE | 2022-11-04 18:31 | ED_ITS ---
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 Patient was apparently sitting in her wheelchair when she went to have a bowel movement. The patient apparently passed out, slumped in her chair for a few minutes. She regained consciousness and is currently acting at her baseline It is unclear exactly how long she was unconscious She has no complaints or concerns at this time. No chest pain, shortness of breath Patient denies any headaches, blurry vision, nausea vomiting The patient was admitted here a few weeks ago due to hypotension and had several medication adjustments She reports that she has been doing fine at home for the last few weeks Related Data Home Medications Medication Instructions Recorded Confirmed aspirin 81 mg tablet,delayed 81 mg PO DAILY 09/03/22 10/14/22 release atorvastatin 40 mg tablet 40 mg PO DAILY 09/03/22 10/14/22 docusate sodium 100 mg capsule 100 mg PO DAILY PRN Constipation 10/13/22 10/14/22 Previous Rx's Medication Instructions Recorded levetiracetam 250 mg tablet 250 mg PO BID 30 days #60 tabs 08/29/22 famotidine 20 mg tablet (Pepcid) 20 mg PO DAILY #30 tabs 09/18/22 metoprolol tartrate 50 mg tablet 50 mg PO TID #90 tabs 09/18/22 magnesium oxide 400 mg PO DAILY #7 caps 09/27/22 potassium chloride 10 mEq 10 meq PO DAILY #30 caps 10/10/22 capsule,extended release apixaban 2.5 mg tablet (Eliquis) 2.5 mg PO BID #60 tabs 10/14/22 digoxin 125 mcg (0.125 mg) tablet 0.125 mg PO Q48H #15 tabs 10/14/22 Allergies Allergy/AdvReac Type Severity Reaction Status Date / Time hydrochlorothiazide Allergy Mild UNKNOWN Verified 08/24/22 19:41 [Hydrochlorothiazide] penicillin G [Penicillin G] Allergy Mild UNKNOWN Verified 08/24/22 19:41 penicillin V Allergy Unknown Unknown Verified 08/24/22 19:41 chlorthalidone AdvReac Severe hyponatremi Verified 08/24/22 19:41 [CHLORTHALIDONE] a Review of Systems Constitutional: Constitutional: Reports as per HPI, Denies chills, Denies fatigue, Denies fever(s) and Denies headache(s) ENT: Denies headache(s) Cardiovascular: Cardiovascular: Denies chest pain, Reports Loss of Consciousness and Denies dyspnea Respiratory: Respiratory: Denies cough and Denies dyspnea Gastrointestinal: Gastrointestinal: Denies abdominal pain, Denies constipation and Denies vomiting Genitourinary: Genitourinary: Denies dysuria Neurologic: Denies headache(s) and Denies focal weakness Endocrine: Endocrine: Denies fatigue [facility] Past Medical History Medical History Acute right MCA stroke Atrial fibrillation HTN (hypertension) Right eye symptoms 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 Surgical History H/O carotid endarterectomy Family History Family History Mother Heart problem Social History Social History Household Members: Family Housing: Apartment Do you presently have visiting nurse or other home services: Yes Alcohol intake: never Patient Tobacco Use Status: Never used Tobacco Smoked in Last 30 Days: No Use of substances other than those prescribed or required for medical reasons: No Advance Directives: Yes Advance Directives on File: Yes Advance Directives Date on File: 10/14/22 service: No Current occupational status: disabled Physical Exam ED Vital Signs: Vital Signs - 24 hr 11/04/22 17:34 11/04/22 18:17 11/04/22 21:09 Temperature 97.4 F Pulse Rate 104 H 99 Respiratory Rate 22 H 16 Blood Pressure 119/61 124/64 Pulse Oximetry 97 97 Oxygen Delivery Method Room Air Room Air 11/04/22 21:09 11/04/22 22:22 11/04/22 22:44 Temperature 97.8 F Pulse Rate 96 100 99 Respiratory Rate 21 H 16 15 Blood Pressure 114/80 120/66 134/67 Pulse Oximetry 97 96 95 Oxygen Delivery Method Room Air Room Air Room Air BMI result Body Mass Index 21.4 Const General: comfortable, no acute distress, alert and awake Nutritional Appearance: well nourished and underweight Orientation/consciousness: patient oriented x3 HENMT Head: Yes normocephalic and Yes atraumatic Throat: Yes posterior oropharynx normal Eyes Eyelids: Yes eyelids normal Conjunctivae: conjunctivae normal Sclerae: sclerae normal Pupils: pupils not ERRL EOM: Nystagmus present (Left lateral) Neck Neck: Yes full ROM Resp Effort & Inspection: normal respiratory effort, able to speak in complete sentences, no audible wheezes and not labored Auscultation: clear to auscultation bilaterally Cardio Rate: regular rate Rhythm: regular rhythm GI Inspection: No distended Palpation (GI): Soft to palpation, not firm, nontender, no guarding and not rigid Auscultation: normoactive bowel sounds Skin General skin exam: no rashes or lesions noted and elasticity normal Neuro General: patient oriented x3 Cranial nerves: Yes CN's II-XII intact bilaterally, No Equal, round and reactive pupils present, Yes Bilaterally intact EOM present and Yes Nystagmus present (Left lateral) Cognition (Neuro): normal cognition Extrem Other: Moving all extremities well without any obvious deformities Course Reevaluation(s) Reevaluation #1: Patient's workup largely unremarkable, her potassium was low at 2.9 which was replaced. Her troponin was elevated to the 46. She does have a chronically elevated troponin. However given the reported syncopal episode this was repeated and was decreasing to 45. The patient remains asymptomatic with stable vital signs. She is stable for discharge at this time Time: 22:52 Medications Administered Discontinued Medications Generic Name Dose Route Start Last Admin Trade Name Freq PRN Reason Stop Dose Admin Potassium Chloride 40 meq 11/04/22 21:18 11/04/22 21:34 Potassium Chloride Er 20 Meq Tab.Er.Prt PO 11/04/22 21:19 40 meq ONCE ONE Administration Medical Decision Making Medical Decision Making [facility] Narrative: 82-year-old female past medical history significant for AFib anticoagulated with Eliquis presents for evaluation of a reported syncopal episode while she was seated having a bowel movement. Patient most likely had a vasovagal syncopal e pisode. She currently has no complaints. Vital signs are within normal limits. EKG is nonischemic. Will check basic labs, troponin, chest x-ray, if the patient remains without any acute findings and remains asymptomatic, she can safely be discharged back home with her family. Differential Diagnosis Vasovagal syncope Hypotension Cardiac arrhythmia ACS less likely Orthostatic Dehydration Lab Data 11/04/22 20:17 11/04/22 19:14 Labs: Lab Results 11/04/22 11/04/22 11/04/22 Range/Units 19:14 19:14 19:14 WBC (4.8-10.8) X10*3/uL RBC (4.20-5.50) X10*6/uL Hgb (12.0-16.0) g/dl Hct (37.0-47.0) % MCV (80.0-98.0) fL MCH (27.0-33.0) pg MCHC (31.0-35.0) g/dl RDW (11.0-16.0) % Plt Count (160-400) X10*3/uL MPV (9.4-12.3) fL Immature Gran % (Auto) (0.0-0.4) % Neut % (Auto) (45-73) % Lymph % (Auto) (20-40) % [place] % (Auto) (2-11) % Eos % (Auto) (0-4) % Baso % (Auto) (0-2) % Lymph # (Auto) (1.2-4.9) X10*3/uL [place] # (Auto) (0.1-1.2) X10*3/uL Eos # (Auto) (0.0-0.4) X10*3/uL Baso # (Auto) (0.0-0.2) X10*3/uL Abs Immat Gran (auto) (0.00-0.03) X10*3/uL Absolute Neuts (auto) (2.0-8.3) x10*3/uL Absolute Nucleated RBC (0.0-0.012) X10*3/uL Nucleated RBC % (auto) (0.0-0.2) /100WBC Smear Tech's Comments PT 15.3 H (10.0-13.1) SEC INR 1.3 H (0.9-1.1) APTT 25.7 L (26.0-36.4) SEC Sodium 138 (135-145) mmol/L Potassium 2.9 L (3.3-5.1) mmol/L Chloride 90 L (96-108) mmol/L Carbon Dioxide 31 H (22-29) mmol/L Anion Gap 20 (12-20) BUN 17 H (9-16) mg/dL Creatinine 0.79 (0.5-1.4) mg/dL Estim Creat Clear Calc 38.0 Estimated GFR > 60 Random Glucose 113 (60-115) mg/dL Calcium 8.9 D (8.4-10.2) mg/dL Total Bilirubin 1.4 H (0.0-1.0) mg/dL AST 35 H (5-31) U/L ALT 13 (0-31) U/L Alkaline Phosphatase 75 (39-117) U/L Troponin I High Sens 49.1 H D (<3.5-17.0) ng/L Total Protein 6.8 (6.5-8.0) g/dL Albumin 3.4 L (3.5-5.0) g/dL 11/04/22 11/04/22 Range/Units 20:17 21:02 WBC 6.3 (4.8-10.8) X10*3/uL RBC 3.57 L (4.20-5.50) X10*6/uL Hgb 10.5 L (12.0-16.0) g/dl Hct 32.4 L (37.0-47.0) % MCV 90.8 (80.0-98.0) fL MCH 29.4 (27.0-33.0) pg MCHC 32.4 (31.0-35.0) g/dl RDW 15.6 (11.0-16.0) % Plt Count 232 (160-400) X10*3/uL MPV 11.1 (9.4-12.3) fL Immature Gran % (Auto) 0.6 H (0.0-0.4) % Neut % (Auto) 61.9 (45-73) % Lymph % (Auto) 31.7 (20-40) % [place] % (Auto) 5.2 (2-11) % Eos % (Auto) 0.3 (0-4) % Baso % (Auto) 0.3 (0-2) % Lymph # (Auto) 2.0 (1.2-4.9) X10*3/uL [place] # (Auto) 0.3 (0.1-1.2) X10*3/uL Eos # (Auto) 0.0 (0.0-0.4) X10*3/uL Baso # (Auto) 0.0 (0.0-0.2) X10*3/uL Abs Immat Gran (auto) 0.04 H (0.00-0.03) X10*3/uL Absolute Neuts (auto) 3.9 (2.0-8.3) x10*3/uL Absolute Nucleated RBC 0.000 (0.0-0.012) X10*3/uL Nucleated RBC % (auto) 0.0 (0.0-0.2) /100WBC Smear Tech's Comments VERIFIED PT (10.0-13.1) SEC INR (0.9-1.1) APTT (26.0-36.4) SEC Sodium (135-145) mmol/L Potassium (3.3-5.1) mmol/L Chloride (96-108) mmol/L Carbon Dioxide (22-29) mmol/L Anion Gap (12-20) BUN (9-16) mg/dL Creatinine (0.5-1.4) mg/dL Estim Creat Clear Calc Estimated GFR Random Glucose (60-115) mg/dL Calcium (8.4-10.2) mg/dL Total Bilirubin (0.0-1.0) mg/dL AST (5-31) U/L ALT (0-31) U/L Alkaline Phosphatase (39-117) U/L Troponin I High Sens 45.0 H (<3.5-17.0) ng/L Total Protein (6.5-8.0) g/dL Albumin (3.5-5.0) g/dL Discharge Plan Discharge Clinical Impression: Vasovagal syncope, Acute hypokalemia Patient Disposition: Home, Self-Care Instructions: Syncope in Older Adults (ED) Additional Instructions: Your workup was significant for a low potassium at 2.9. This was replaced with oral potassium. You should follow-up with your doctor within 1 week to have this lab result repeated Prescriptions: No Action levetiracetam 250 mg Tablet 250 mg PO BID 30 Days Qty: 60 0RF aspirin 81 mg tablet,delayed release (DR/EC) 81 mg PO DAILY atorvastatin 40 mg tablet 40 mg PO DAILY magnesium oxide 400 mg magnesium capsule 400 mg PO DAILY Qty: 7 0RF potassium chloride 10 mEq capsule, extended release 10 meq PO DAILY Qty: 30 0RF docusate sodium 100 mg capsule 100 mg PO DAILY PRN (Reason: Constipation) Eliquis 2.5 mg Tablet 2.5 mg PO BID Qty: 60 0RF Rx Instructions: replaces prior dose of 5 mg bid digoxin 125 mcg (0.125 mg) Tablet 0.125 mg PO Q48H Qty: 15 0RF metoprolol tartrate 50 mg Tablet 50 mg PO TID Qty: 90 0RF Protocol: Hold for SBP/HR < HOLD for SBP < : 90 HOLD for HR < : 60 famotidine [Pepcid] 20 mg tablet 20 mg PO DAILY Qty: 30 0RF
--- NOTE | 2022-11-04 18:31 | PC.NURSE ---
This RN and GRETEL Rodriguez attempted to draw blood from pt, unsuccessful. Will have another person attempt
[2022-11-04 19:39] LABS: INTERNATIONAL NORM RATIO 1.3 (0.9-1.1); Prothrombin Time 15.3 SEC (10.0-13.1)
[2022-11-04 19:42] LABS: Partial Thromboplastin Time 25.7 SEC (26.0-36.4)
[2022-11-04 19:51] LABS: Troponin-I High Sensitivity 49.1 ng/L (<3.5-17.0)
[2022-11-04 19:53] LABS: Alanine Aminotransferase 13 U/L (0-31); Albumin Level 3.4 g/dL (3.5-5.0); Alkaline Phosphatase 75 U/L (39-117); Anion Gap 20 (12-20); Aspartate Amino Transferase 35 U/L (5-31); Bilirubin Total 1.4 mg/dL (0.0-1.0); Blood Urea Nitrogen 17 mg/dL (9-16); Calcium 8.9 mg/dL (8.4-10.2); Carbon Dioxide 31 mmol/L (22-29); Chloride 90 mmol/L (96-108); Estimated Glomerular Filt Rate > 60; Glucose Random 113 mg/dL (60-115); Potassium 2.9 mmol/L (3.3-5.1); Sodium 138 mmol/L (135-145); Total Protein 6.8 g/dL (6.5-8.0)
[2022-11-04 20:27] LABS: Basophils Percent Auto 0.3 % (0-2); Eosinophils Percent Auto 0.3 % (0-4); Hematocrit 32.4 % (37.0-47.0); Hemoglobin 10.5 g/dl (12.0-16.0); Imm Gran Abs Auto 0.04 X10*3/uL (0.00-0.03); Imm Gran Pct Auto 0.6 % (0.0-0.4); Lymphocytes Percent Auto 31.7 % (20-40); MANUAL DIFF FLAG SCAN; Mean Corpuscular HGB Conc 32.4 g/dl (31.0-35.0); Mean Corpuscular Hemoglobin 29.4 pg (27.0-33.0); Mean Corpuscular Volume 90.8 fL (80.0-98.0); Mean Platelet Volume 11.1 fL (9.4-12.3); Monocytes Absolute Auto 0.3 X10*3/uL (0.1-1.2); Monocytes Percent Auto 5.2 % (2-11); Neutrophils Absolute Auto 3.9 x10*3/uL (2.0-8.3); Neutrophils Percent Auto 61.9 % (45-73); Platelet Count 232 X10*3/uL (160-400); Red Blood Count 3.57 X10*6/uL (4.20-5.50); Red Cell Distribution Width 15.6 % (11.0-16.0); SCAN SMEAR FLAG 1; White Blood Count 6.3 X10*3/uL (4.8-10.8)
[2022-11-04 21:06] LABS: SLIDE REVIEW VERIFIED
[2022-11-04 21:09] VITALS: BP 114/80; PULSE 101; PULSE 96; RESP 21; TEMP 36.6; O2SAT 97
[2022-11-04] MEDS: Potassium Chloride ER 20 MEQ TAB.ER.PRT 40 MEQ PO (21:34)
[2022-11-04 22:22] VITALS: BP 120/66; PULSE 100; RESP 16; O2SAT 96
[2022-11-04 22:44] VITALS: BP 134/67; PULSE 99; RESP 15; O2SAT 95
[2022-11-04 23:35] VITALS: BP 146/59; PULSE 98; RESP 16; TEMP 36.3; O2SAT 94
--- NOTE | 2022-11-04 23:55 | MHC.EDTECH ---
This tech assumed care of patient at 2300 patient's vitals were obtained and is resting comfortable at this time,awaiting ems transport back home.Call roberts in reach
== END 2022-11-05 00:28 | disposition home or self-care (01) ==
PROVIDERS: Physician Assistant; Emergency Provider Emergency Medicine
DX: R55 Syncope and collapse (principal); E87.6 Hypokalemia; R06.02 Shortness of breath; I10 Essential (primary) hypertension; I48.19 Other persistent atrial fibrillation; R63.6 Underweight; Z68.21 Body mass index [BMI] 21.0-21.9, adult; Z86.73 Personal history of transient ischemic attack (TIA), and cerebral infarction without residual deficits; Z79.82 Long term (current) use of aspirin; Z79.02 Long term (current) use of antithrombotics/antiplatelets; Z79.899 Other long term (current) drug therapy; Z79.01 Long term (current) use of anticoagulants
CPT/HCPCS: 36415; 71046; 80053; 84484; 85025; 85610; 85730; 93005; 99284; 99285

== ENCOUNTER 2022-12-01 11:08 | Emergency (ER) | payer MEDICARE, MEDICAID, SELFPAY ==
--- NOTE | 2022-12-01 11:14 | ECG_ITS ---
Test Reason : chest pain Blood Pressure : / mmHG Vent. Rate : 102 BPM Atrial Rate : 000 BPM P-R Int : 000 ms QRS Dur : 086 ms QT Int : 314 ms P-R-T Axes : 000 -11 144 degrees QTc Int : 409 ms Atrial fibrillation with rapid ventricular response Minimal voltage criteria for LVH, may be normal variant ( R in aVL ) ST & T wave abnormality, consider lateral ischemia Abnormal ECG When compared with ECG of 04-NOV-2022 18:11, Nonspecific T wave abnormality no longer evident in Anterior leads Inverted T waves have replaced nonspecific T wave abnormality in Lateral leads QT has lengthened Referred By: Won Patricio Electronically Signed By:BINH BELCHER MD
--- NOTE | 2022-12-01 11:20 | ED.GENADULT ---
HPI - General Adult General Chief complaint: Nausea/Vomiting/Diarrhea Stated complaint: vomiting Time Seen by Provider: 12/01/22 11:14 Source: patient, family and EMS Mode of arrival: EMS Limitations: no limitations History of Present Illness HPI narrative: 82-year-old female presents with nausea vomiting x1, generalized weakness. Patient recently had a stroke with some left-sided residual deficits. Today para leak, patient has had nausea, at least 1 episode of nonbilious nonbloody emesis. She has had no fevers or chills. She denies any abdominal pain. She denies any active symptoms at this time. She denies any chest pain, lightheadedness, palpitations. There is no clear relieving or exacerbating features. Patient describes her symptoms as mild to moderate. There is no pain associated with her symptoms. Her weakness is stable compared to baseline. Related Data Home Medications Medication Instructions Recorded Confirmed atorvastatin 40 mg tablet 40 mg PO DAILY 09/03/22 12/01/22 docusate sodium 100 mg capsule 100 mg PO DAILY PRN Constipation 10/13/22 12/01/22 Previous Rx's Medication Instructions Recorded famotidine 20 mg tablet (Pepcid) 20 mg PO DAILY #30 tabs 09/18/22 magnesium oxide 400 mg PO DAILY #7 caps 09/27/22 apixaban 2.5 mg tablet (Eliquis) 2.5 mg PO BID #90 tabs 11/12/22 aspirin 81 mg tablet,delayed 81 mg PO DAILY #90 tabs 11/12/22 release digoxin 125 mcg (0.125 mg) tablet 0.125 mg PO Q48H 90 days #45 tabs 11/12/22 metoprolol tartrate 50 mg tablet 50 mg PO TID 90 days #270 tabs 11/12/22 ondansetron 4 mg disintegrating 4 mg PO Q8H PRN nausea and 12/01/22 tablet vomiting #10 tabs Allergies Allergy/AdvReac Type Severity Reaction Status Date / Time hydrochlorothiazide Allergy Mild UNKNOWN Verified 08/24/22 19:41 [Hydrochlorothiazide] penicillin G [Penicillin G] Allergy Mild UNKNOWN Verified 08/24/22 19:41 penicillin V Allergy Unknown Unknown Verified 08/24/22 19:41 chlorthalidone AdvReac Severe hyponatremi Verified 08/24/22 19:41 [CHLORTHALIDONE] a PMFSH Past Medical History Medical History Acute right MCA stroke Atrial fibrillation HTN (hypertension) Persistent atrial fibrillation Right eye symptoms 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 Surgical History H/O carotid endarterectomy Family History Family History Mother Heart problem Social History Social History Household Members: Family Housing: Apartment Do you presently have visiting nurse or other home services: Yes Alcohol intake: never Patient Tobacco Use Status: Never used Tobacco Smoked in Last 30 Days: No Use of substances other than those prescribed or required for medical reasons: No Advance Directives: Yes Advance Directives on File: Yes Advance Directives Date on File: 10/14/22 service: No Current occupational status: disabled Physical Exam ED Vital Signs: Vital Signs - 24 hr 12/01/22 11:21 Temperature 98.0 F Pulse Rate 101 H Respiratory Rate 16 Blood Pressure 112/78 Pulse Oximetry 95 Oxygen Delivery Method Room Air BMI result Body Mass Index 20.1 GEN: Well developed, no acute distress, alert, oriented HEENT: Normocephalic, atraumatic, normal external ears, nose appears normal, no oropharyngeal edema or exudates Eyes: Corneal opacification of the left, dysconjugate gaze Neck: Supple, no lymphadenopathy Respiratory: Talks in complete sentences, no respiratory distress, clear to auscultation bilaterally Cardiovascular: Regular rate and rhythm, no murmurs rubs or gallops Abdomen: Soft, nontender, nondistended, no guarding, no rebound Back: No CVA tenderness Extremities: No clubbing cyanosis or edema Skin: No rash Course Course Course Narrative: 82-year-old female with history of stroke presents with nausea vomiting. She denies any abdominal pain. Examination is unremarkable with exception of some mild weakness on left side, dysconjugate gaze in either corneal opacification versus lenticular opacification. Patient receive IV fluids, antiemetics, EKG, cardiac enzymes as well as additional laboratory results to hopeless with the diagnosis. Reevaluation(s) Reevaluation #1: Patient has no symptoms at this time. We are p.o. challenging her. Her cardiac enzymes remained stable although elevated from her baseline. I doubt that this represents acute cardiac ischemia. I do not believe further testing would be necessary. So long as patient can tolerate some crackers in fluids and keep herself appropriately hydrated home, I believe patient can be discharged safely home with the care of her family. Time: 15:01 Reevaluation #2: tolerated PO. Will d/c Time: 15:29 Medications Administered Discontinued Medications Generic Name Dose Route Start Last Admin Trade Name Malcolm PRN Reason Stop Dose Admin Sodium Chloride 1,000 mls @ 999 mls/hr 12/01/22 11:15 12/01/22 11:45 Ns IV 12/01/22 12:15 999 mls/hr .Q1H1M RHIANNON Administration Morphine Sulfate 4 mg 12/01/22 11:14 12/01/22 12:16 Morphine Sulfate 4 Mg/Ml Cartridge IVPUSH 12/01/22 11:15 Not Given ONCE ONE Protocol Medical Decision Making Medical Decision Making [facility] Narrative: [age] for old female with history of CVA presents with nausea vomiting. My evaluation, patient is well-appearing, no acute distress, mild weakness left side, abdomen is soft, nontender, nondistended. There is no rebound no guarding. She is not tachycardic. She offers no come unclear etiology of her nausea vomiting, could be IBD, IBS, gastritis, peptic ulcer, gastroenteritis, dysmotility, etc.. Patient will receive IV fluids, antiemetics, re-evaluate. Will also check cardiac enzymes and chest x-ray. Differential Diagnosis Differential Diagnoses: The differential diagnosis associated with the presentation includes (See above) Admission/Observation Consideration of admission/observation: Escalation of care including admission/observation considered Lab Data [facility] Lab Attestation statement: I reviewed the patient's lab results. 12/01/22 11:35 12/01/22 11:35 Labs: Lab Results 12/01/22 12/01/22 12/01/22 Range/Units 11:35 11:35 11:35 WBC 4.9 (4.8-10.8) X10*3/uL RBC 3.98 L (4.20-5.50) X10*6/uL Hgb 12.0 (12.0-16.0) g/dl Hct 36.5 L (37.0-47.0) % MCV 91.7 (80.0-98.0) fL MCH 30.2 (27.0-33.0) pg MCHC 32.9 (31.0-35.0) g/dl RDW 14.8 (11.0-16.0) % Plt Count 233 (160-400) X10*3/uL MPV 11.4 (9.4-12.3) fL Immature Gran % (Auto) 0.2 (0.0-0.4) % Neut % (Auto) 41.5 L (45-73) % Lymph % (Auto) 43.8 H (20-40) % [place] % (Auto) 10.3 (2-11) % Eos % (Auto) 2.6 (0-4) % Baso % (Auto) 1.6 (0-2) % Lymph # (Auto) 2.2 (1.2-4.9) X10*3/uL [place] # (Auto) 0.5 (0.1-1.2) X10*3/uL Eos # (Auto) 0.1 (0.0-0.4) X10*3/uL Baso # (Auto) 0.1 (0.0-0.2) X10*3/uL Abs Immat Gran (auto) 0.01 (0.00-0.03) X10*3/uL Absolute Neuts (auto) 2.0 (2.0-8.3) x10*3/uL Absolute Nucleated RBC 0.000 (0.0-0.012) X10*3/uL Nucleated RBC % (auto) 0.0 (0.0-0.2) /100WBC Sodium 139 (135-145) mmol/L Potassium 3.7 D (3.3-5.1) mmol/L Chloride 97 (96-108) mmol/L Carbon Dioxide 29 (22-29) mmol/L Anion Gap 17 (12-20) BUN 12 (9-16) mg/dL Creatinine 0.74 (0.5-1.4) mg/dL Estim Creat Clear Calc 44.6 Estimated GFR > 60 Random Glucose 94 (60-115) mg/dL Calcium 9.4 (8.4-10.2) mg/dL Total Bilirubin 1.2 H (0.0-1.0) mg/dL AST 27 (5-31) U/L ALT 10 (0-31) U/L Alkaline Phosphatase 61 (39-117) U/L Troponin I High Sens 68.3 H* D (<3.5-17.0) ng/L Total Protein 6.0 L (6.5-8.0) g/dL Albumin 3.1 L (3.5-5.0) g/dL Lipase 7 L (8-78) U/L 12/01/22 Range/Units 14:24 WBC (4.8-10.8) X10*3/uL RBC (4.20-5.50) X10*6/uL Hgb (12.0-16.0) g/dl Hct (37.0-47.0) % MCV (80.0-98.0) fL MCH (27.0-33.0) pg MCHC (31.0-35.0) g/dl RDW (11.0-16.0) % Plt Count (160-400) X10*3/uL MPV (9.4-12.3) fL Immature Gran % (Auto) (0.0-0.4) % Neut % (Auto) (45-73) % Lymph % (Auto) (20-40) % [place] % (Auto) (2-11) % Eos % (Auto) (0-4) % Baso % (Auto) (0-2) % Lymph # (Auto) (1.2-4.9) X10*3/uL [place] # (Auto) (0.1-1.2) X10*3/uL Eos # (Auto) (0.0-0.4) X10*3/uL Baso # (Auto) (0.0-0.2) X10*3/uL Abs Immat Gran (auto) (0.00-0.03) X10*3/uL Absolute Neuts (auto) (2.0-8.3) x10*3/uL Absolute Nucleated RBC (0.0-0.012) X10*3/uL Nucleated RBC % (auto) (0.0-0.2) /100WBC Sodium (135-145) mmol/L Potassium (3.3-5.1) mmol/L Chloride (96-108) mmol/L Carbon Dioxide (22-29) mmol/L Anion Gap (12-20) BUN (9-16) mg/dL Creatinine (0.5-1.4) mg/dL Estim Creat Clear Calc Estimated GFR Random Glucose (60-115) mg/dL Calcium (8.4-10.2) mg/dL Total Bilirubin (0.0-1.0) mg/dL AST (5-31) U/L ALT (0-31) U/L Alkaline Phosphatase (39-117) U/L Troponin I High Sens 66.2 H* (<3.5-17.0) ng/L Total Protein (6.5-8.0) g/dL Albumin (3.5-5.0) g/dL Lipase (8-78) U/L Independent Interpretation I performed an independent interpretation of an: EKG (Atrial fibrillation heart rate 102, no acute ST elevations or depressions, nonspecific STT wave changes, in part due to tremulousness, LVH by criteria) Independent Historian Clinical information obtained from an independent historian. History obtained from or confirmed by: EMS External Record Review External record reviewed: Inpatient record (Discharge summary) Discharge Plan Discharge Clinical Impression: Nausea & vomiting Patient Disposition: Home, Self-Care Instructions: Acute Nausea and Vomiting (ED) Prescriptions: New ondansetron 4 mg tablet,disintegrating 4 mg PO Q8H PRN (Reason: nausea and vomiting) Qty: 10 0RF No Action Eliquis 2.5 mg tablet 2.5 mg PO BID Qty: 90 3RF Rx Instructions: replaces prior dose of 5 mg bid aspirin 81 mg tablet,delayed release (DR/EC) 81 mg PO DAILY Qty: 90 3RF metoprolol tartrate 50 mg tablet 50 mg PO TID 90 Days Qty: 270 3RF Protocol: Hold for SBP/HR < HOLD for SBP < : 90 HOLD for HR < : 60 digoxin 125 mcg (0.125 mg) tablet 0.125 mg PO Q48H 90 Days Qty: 45 3RF atorvastatin 40 mg tablet 40 mg PO DAILY magnesium oxide 400 mg magnesium capsule 400 mg PO DAILY Qty: 7 0RF docusate sodium 100 mg capsule 100 mg PO DAILY PRN (Reason: Constipation) famotidine [Pepcid] 20 mg tablet 20 mg PO DAILY Qty: 30 0RF Referrals: Physician,Unknown J [Primary Care Provider] - (primary care patient.)
[2022-12-01 11:21] VITALS: BP 112/78; PULSE 101; RESP 16; TEMP 36.7; O2SAT 95; BMI 20.1
[2022-12-01 11:39] LABS: MANUAL DIFF FLAG NO
[2022-12-01 11:41] LABS: Basophils Absolute Auto 0.1 X10*3/uL (0.0-0.2); Basophils Percent Auto 1.6 % (0-2); Eosinophils Absolute Auto 0.1 X10*3/uL (0.0-0.4); Eosinophils Percent Auto 2.6 % (0-4); Hematocrit 36.5 % (37.0-47.0); Imm Gran Abs Auto 0.01 X10*3/uL (0.00-0.03); Imm Gran Pct Auto 0.2 % (0.0-0.4); Lymphocytes Absolute Auto 2.2 X10*3/uL (1.2-4.9); Lymphocytes Percent Auto 43.8 % (20-40); Mean Corpuscular HGB Conc 32.9 g/dl (31.0-35.0); Mean Corpuscular Hemoglobin 30.2 pg (27.0-33.0); Mean Corpuscular Volume 91.7 fL (80.0-98.0); Mean Platelet Volume 11.4 fL (9.4-12.3); Monocytes Absolute Auto 0.5 X10*3/uL (0.1-1.2); Monocytes Percent Auto 10.3 % (2-11); Neutrophils Percent Auto 41.5 % (45-73); Platelet Count 233 X10*3/uL (160-400); Red Blood Count 3.98 X10*6/uL (4.20-5.50); Red Cell Distribution Width 14.8 % (11.0-16.0); White Blood Count 4.9 X10*3/uL (4.8-10.8)
[2022-12-01] MEDS: 0.9 % Sodium Chloride 1,000 ML 999 ML IV (11:45)
[2022-12-01 11:55] LABS: Alanine Aminotransferase 10 U/L (0-31); Albumin Level 3.1 g/dL (3.5-5.0); Alkaline Phosphatase 61 U/L (39-117); Anion Gap 17 (12-20); Aspartate Amino Transferase 27 U/L (5-31); Bilirubin Total 1.2 mg/dL (0.0-1.0); Blood Urea Nitrogen 12 mg/dL (9-16); Calcium 9.4 mg/dL (8.4-10.2); Carbon Dioxide 29 mmol/L (22-29); Chloride 97 mmol/L (96-108); Creatinine Clr Calc Pharmacy 44.6; Estimated Glomerular Filt Rate > 60; Glucose Random 94 mg/dL (60-115); Lipase 7 U/L (8-78); Potassium 3.7 mmol/L (3.3-5.1); Sodium 139 mmol/L (135-145)
--- NOTE | 2022-12-01 12:10 | PHA.MEDREC ---
Pharmacy Consult ? Medication Reconciliation Pharmacy has completed the medication reconciliation. Patients daughter states that she only takes medications listed but there is claim history for levetiracetam 250mg bid from August 2022 but daughter doesn't think she takes anymore
[2022-12-01 12:47] LABS: Troponin-I High Sensitivity 68.3 ng/L (<3.5-17.0)
[2022-12-01 14:57] LABS: Troponin-I High Sensitivity 66.2 ng/L (<3.5-17.0)
== END 2022-12-01 17:12 | disposition home or self-care (01) ==
PROVIDERS: Emergency Provider Emergency Medicine
DX: R07.89 Other chest pain (principal); R11.2 Nausea with vomiting, unspecified; Z79.899 Other long term (current) drug therapy
CPT/HCPCS: 36415; 80053; 83690; 84484; 85025; 93005; 96360; 96361; 99284; 99285

== ENCOUNTER 2022-12-11 10:24 | Emergency (ER) | payer MEDICARE, MEDICAID, SELFPAY ==
--- NOTE | ~2022-12-11 | CT_ITS ---
EXAMINATION: CT ABDOMEN AND PELVIS WITHOUT CONTRAST CLINICAL INFORMATION: Diffuse abdominal pain. Nausea, vomiting, diarrhea. COMPARISON: 09/25/2022 TECHNIQUE: Multidetector volumetric imaging was performed from the superior aspect of the liver through the pubic symphysis. Sagittal and coronal reformatted images were obtained on the technologist's workstation. This CT examination was performed using dose optimization techniques as appropriate, variously including the following: *Automated exposure control *Adjustment of mA and/or kV according to patient size (this includes techniques or standardized protocols for targeted exams where dose is matched to indication/reason for exam; i.e. extremities or head) *Use of iterative reconstruction technique DLP: 327 mGy-cm FINDINGS: LUNG BASES: Bibasilar atelectasis. The heart is prominent. Small pericardial effusion. Coronary artery calcifications. LIVER, GALLBLADDER, AND BILIARY TREE: The liver is normal in size, shape, and attenuation. No focal hepatic lesion or biliary ductal dilatation is present. The gallbladder is unremarkable with no evidence of radiopaque gallstones, gallbladder wall thickening, or obvious pericholecystic inflammatory changes. PANCREAS: Atrophic pancreas with no focal abnormality. SPLEEN: Unremarkable. ADRENAL GLANDS: Unremarkable. KIDNEYS AND URETERS: The kidneys are normal in size, shape, and attenuation. No hydronephrosis, hydroureter, or calculi seen. No perinephric stranding. BLADDER: Unremarkable. GASTROINTESTINAL TRACT: The stomach is unremarkable. Normal caliber small bowel. Duodenal diverticulum noted. There is no bowel obstruction. Normal appendix. No colonic wall thickening or inflammation. No free air or free fluid. ABDOMINAL WALL: No significant hernia is appreciated. LYMPH NODES: Normal. VASCULAR: Normal caliber aorta with moderate to severe diffuse atherosclerotic calcification. PELVIC VISCERA: Calcifications associated with the atrophic uterus, possibly representing fibroids. No adnexal mass. OSSEOUS STRUCTURES: No acute or suspicious osseous abnormality. Multilevel vertebral body compression deformities are similar to prior imaging. Mild degenerative changes of the hips. CT/CT abdomen pelvis wo IV con IMPRESSION: 1. No acute findings in the abdomen or pelvis. No inflammatory changes. 2. Small pericardial effusion. Fleischner guidelines were followed.
[2022-12-11 10:41] VITALS: BP 126/82; BP 155/81; PULSE 102; PULSE 112; RESP 16; TEMP 37.6; O2SAT 94; O2SAT 95; BMI 18.5
[2022-12-11 10:59] VITALS: PULSE 128; RESP 16
--- NOTE | 2022-12-11 11:00 | ECG_ITS ---
Test Reason : a fib Blood Pressure : / mmHG Vent. Rate : 125 BPM Atrial Rate : 000 BPM P-R Int : 000 ms QRS Dur : 088 ms QT Int : 308 ms P-R-T Axes : 000 -08 002 degrees QTc Int : 444 ms Atrial fibrillation with rapid ventricular response with premature ventricular or aberrantly conducted complexes Moderate voltage criteria for LVH, may be normal variant ( R in aVL , Neri product ) Nonspecific ST and T wave abnormality Abnormal ECG When compared with ECG of 01-DEC-2022 11:27, T wave inversion less evident in Lateral leads Referred By: Apurva Jarrell Electronically Signed By:LETTY PHILIP
--- NOTE | 2022-12-11 11:01 | ED_ITS ---
HPI - General Adult General Chief complaint: Nausea/Vomiting/Diarrhea Stated complaint: WEAK,ABD PAIN,VOMITING X1 WEEK Time Seen by Provider: 12/11/22 10:33 Source: patient, RN notes reviewed and old records reviewed Mode of arrival: ambulatory History of Present Illness HPI narrative: 82-year-old female with past medical history of AFib on Eliquis, HTN, CVA with left-sided residual deficits, presenting to the ED complaining of nausea, vomiting, and dark brownish/black diarrhea x 11 days. Family reports decreased p.o. intake/unable to keep anything down including medications, and abdominal discomfort. Denies known fever, chills, dysuria/hematuria, suspicious food intake. Onset (ago): week(s) Related Data Home Medications Medication Instructions Recorded Confirmed atorvastatin 40 mg tablet 40 mg PO DAILY 09/03/22 12/01/22 docusate sodium 100 mg capsule 100 mg PO DAILY PRN Constipation 10/13/22 12/01/22 Previous Rx's Medication Instructions Recorded famotidine 20 mg tablet (Pepcid) 20 mg PO DAILY #30 tabs 09/18/22 magnesium oxide 400 mg PO DAILY #7 caps 09/27/22 apixaban 2.5 mg tablet (Eliquis) 2.5 mg PO BID #90 tabs 11/12/22 aspirin 81 mg tablet,delayed 81 mg PO DAILY #90 tabs 11/12/22 release digoxin 125 mcg (0.125 mg) tablet 0.125 mg PO Q48H 90 days #45 tabs 11/12/22 metoprolol tartrate 50 mg tablet 50 mg PO TID 90 days #270 tabs 11/12/22 ondansetron 4 mg disintegrating 4 mg PO Q8H PRN nausea and 12/01/22 tablet vomiting #10 tabs ondansetron 4 mg disintegrating 4 mg PO Q8H PRN nausea and 12/11/22 tablet vomiting #20 tabs Allergies Allergy/AdvReac Type Severity Reaction Status Date / Time hydrochlorothiazide Allergy Mild UNKNOWN Verified 12/11/22 10:58 [Hydrochlorothiazide] penicillin G [Penicillin G] Allergy Mild UNKNOWN Verified 12/11/22 10:58 penicillin V Allergy Unknown Unknown Verified 12/11/22 10:58 chlorthalidone AdvReac Severe hyponatremi Verified 12/11/22 10:58 [CHLORTHALIDONE] a Review of Systems Review of Systems: Constitutional: No Fever, No Chills, No Fatigue, No Malaise ENT/Mouth: No Ear Pain, No Nasal Congestion, No sore throat, No Rhinorrhea, No Swallowing Difficulty Eyes: No Eye Pain, No Swelling, No Redness Cardiovascular: No Chest Pain, No SOB, No Edema Respiratory: No Cough, No Sputum, No Dyspnea Gastrointestinal: + Nausea, + Vomiting, + Diarrhea, No Constipation, + Abdominal pain, No Hematochezia, +dark stool Genitourinary: No Dysuria, No Urinary Frequency, No Hematuria Musculoskeletal: No joint pain, No Myalgias, No Joint Swelling Skin: No Skin Lesions, No rash Neuro: No Weakness, No Headache Yes all other systems are reviewed and are negative Constitutional: Constitutional: Reports as per [facility] Past Medical History Attestation statement: The following information was validated with the patient. 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 Surgical History H/O carotid endarterectomy Family History Family History Mother Heart problem Social History Social History Household Members: Family Housing: Apartment Do you presently have visiting nurse or other home services: Yes Alcohol intake: never Patient Tobacco Use Status: Never used Tobacco Smoked in Last 30 Days: No Use of substances other than those prescribed or required for medical reasons: No Advance Directives: Yes Advance Directives on File: Yes Advance Directives Date on File: 10/14/22 service: No Current occupational status: disabled Physical Exam ED Vital Signs: Vital Signs - 24 hr 12/11/22 10:41 12/11/22 10:59 12/11/22 14:47 Temperature 99.7 F Pulse Rate 112 H 128 H 118 H Respiratory Rate 16 16 12 Blood Pressure 155/81 H 156/75 H Pulse Oximetry 94 98 Oxygen Delivery Method Room Air Room Air 12/11/22 16:06 12/11/22 16:20 12/11/22 20:32 Temperature 97.7 F Pulse Rate 107 H 91 86 Respiratory Rate 16 16 16 Blood Pressure 148/84 H 156/81 H 135/61 Pulse Oximetry 97 Oxygen Delivery Method Room Air BMI result Body Mass Index 18.5 Const General: cooperative and no acute distress Nutritional Appearance: thin Limitations: no limitations HENMT Head: Yes normal to inspection and Yes atraumatic Ears: hearing grossly normal bilaterally General nose exam: Normal external nose present Face and sinus: Yes normal facial exam Eyes General: appearance normal, both eyes and all related structures EOM: EOMs intact bilaterally Neck Neck: Yes normal visual inspection and Yes no meningeal signs Resp Effort & Inspection: normal respiratory effort and no respiratory distress Auscultation: clear to auscultation bilaterally Cardio Rate: regular rate Heart sounds: S1 normal heart sound present and S2 normal heart sound present GI Inspection: Yes normal to inspection Palpation (GI): Soft to palpation, nontender, no guarding and not rigid Skin Rashes: no rashes Wounds: no wounds Neuro Other: Left-sided weakness (baseline) General: tone normal and no meningeal signs Extrem General: Yes normal to inspection and Yes no pedal edema Course Course Course Narrative: -1440-- delay in care as unable to obtain access on patient after multiple times by different people - heart rate now controlled in the s we load patient with p.o. metoprolol - no leukocytosis. H&H stable. Troponin 25.9, (elevated priors) > will obtain 3 hour repeat - occult stool negative -1630-- ED care transferred to [facility] pending repeat troponin, CT AP and p.o. challenge. Dispo per results Reevaluation(s) Reevaluation #1: Patient's repeat troponin essentially unchanged. Will proceed with p.o. trials. Patient's CT scan does not show any acute intra-abdominal pathology, does show a small pericardial effusion which appears unchanged when compared to October 13, 2022. She is able tolerate p.o. without any further vomiting. I discussed all the results with the patient and her family at bedside. Family is concerned the patient has intermittent vomiting. We will refer the patient to GI, however again she was able to tolerate her dinner tonight without any issues. Time: 20:50 Medications Administered Discontinued Medications Generic Name Dose Route Start Last Admin Trade Name Freq PRN Reason Stop Dose Admin Sodium Chloride 1,000 mls @ 999 mls/hr 12/11/22 11:00 12/11/22 18:19 Ns IV 12/11/22 12:00 Infused .Q1H1M RHIANNON Infusion Metoprolol Tartrate 5 mg 12/11/22 11:03 12/11/22 14:48 Metoprolol Tartrate 5 Mg/5 Ml Vial IVPUSH 12/11/22 11:04 5 mg ONCE ONE Administration Metoprolol Tartrate 25 mg 12/11/22 15:23 12/11/22 16:18 Metoprolol Tartrate 25 Mg Tablet PO 12/11/22 15:24 25 mg ONCE ONE Administration Protocol Ondansetron HCl 4 mg 12/11/22 12:18 12/11/22 14:48 Ondansetron Hcl 4 Mg/2 Ml Vial IVPUSH 12/11/22 12:19 4 mg ONCE ONE Administration Medical Decision Making Medical Decision Making MDM Narrative: 82-year-old female with past medical history of AFib on Eliquis, HTN, CVA with left-sided residual deficits, presenting to the ED complaining of nausea, vomiting, and dark brownish/black diarrhea x 11 days. On exam tachycardic initially to 112, bouncing to 128, AFib with RVR on the monitor, NAD, nontoxic appearing, abdomen soft/nontender, yellow stool noted on rectal. Concern for intra-abdominal infection including colitis/diverticulitis/appendicitis vs metabolic abnormalities including dehydration vs UTI. Lower suspicion for ACS. Suspect AFib with RVR secondary to medication noncompliance from nausea/vomiting Plan: EKG, labs, UA, CT AP, IV Zofran/IVF, rate control med, re-evaluate Please refer to course for remaining clinical decision making, interpretation of labs/imaging results, and discussions with consultants and/or family members. Differential Diagnosis Differential Diagnoses: The differential diagnosis associated with the presentation includes As above Admission/Observation Consideration of admission/observation: Escalation of care including admission/observation considered Lab Data [facility] Lab Attestation statement: I reviewed the patient's lab results. 12/11/22 14:32 12/11/22 14:31 Labs: Lab Results 12/11/22 12/11/22 12/11/22 Range/Units 14:31 14:31 14:31 WBC (4.8-10.8) X10*3/uL RBC (4.20-5.50) X10*6/uL Hgb (12.0-16.0) g/dl Hct (37.0-47.0) % MCV (80.0-98.0) fL MCH (27.0-33.0) pg MCHC (31.0-35.0) g/dl RDW (11.0-16.0) % Plt Count (160-400) X10*3/uL MPV (9.4-12.3) fL Immature Gran % (Auto) (0.0-0.4) % Neut % (Auto) (45-73) % Lymph % (Auto) (20-40) % [place] % (Auto) (2-11) % Eos % (Auto) (0-4) % Baso % (Auto) (0-2) % Lymph # (Auto) (1.2-4.9) X10*3/uL [place] # (Auto) (0.1-1.2) X10*3/uL Eos # (Auto) (0.0-0.4) X10*3/uL Baso # (Auto) (0.0-0.2) X10*3/uL Abs Immat Gran (auto) (0.00-0.03) X10*3/uL Absolute Neuts (auto) (2.0-8.3) x10*3/uL Absolute Nucleated RBC (0.0-0.012) X10*3/uL Nucleated RBC % (auto) (0.0-0.2) /100WBC PT 12.9 (10.0-13.1) SEC INR 1.1 (0.9-1.1) Sodium 139 (135-145) mmol/L Potassium 5.1 D (3.3-5.1) mmol/L Chloride 100 (96-108) mmol/L Carbon Dioxide 26 (22-29) mmol/L Anion Gap 18 (12-20) BUN 20 H (9-16) mg/dL Creatinine 0.69 (0.5-1.4) mg/dL Estim Creat Clear Calc 41.1 Estimated GFR > 60 Random Glucose 92 (60-115) mg/dL Calcium 8.8 D (8.4-10.2) mg/dL Magnesium 1.7 (1.6-2.6) mg/dL Total Bilirubin 1.2 H (0.0-1.0) mg/dL Direct Bilirubin 0.2 (0.0-0.5) mg/dL AST 22 (5-31) U/L ALT 6 (0-31) U/L Alkaline Phosphatase 60 (39-117) U/L Troponin I High Sens 25.9 H D (<3.5-17.0) ng/L Total Protein 7.0 (6.5-8.0) g/dL Albumin 3.1 L (3.5-5.0) g/dL Lipase 8 (8-78) U/L Stool Occult Blood (NEGATIVE) 12/11/22 12/11/22 12/11/22 Range/Units 14:32 15:02 18:06 WBC 6.0 (4.8-10.8) X10*3/uL RBC 3.97 L (4.20-5.50) X10*6/uL Hgb 11.7 L (12.0-16.0) g/dl Hct 36.8 L (37.0-47.0) % MCV 92.7 (80.0-98.0) fL MCH 29.5 (27.0-33.0) pg MCHC 31.8 (31.0-35.0) g/dl RDW 14.6 (11.0-16.0) % Plt Count 146 L D (160-400) X10*3/uL MPV 11.8 (9.4-12.3) fL Immature Gran % (Auto) 0.3 (0.0-0.4) % Neut % (Auto) 61.0 (45-73) % Lymph % (Auto) 27.6 (20-40) % [place] % (Auto) 9.9 (2-11) % Eos % (Auto) 0.2 (0-4) % Baso % (Auto) 1.0 (0-2) % Lymph # (Auto) 1.6 (1.2-4.9) X10*3/uL [place] # (Auto) 0.6 (0.1-1.2) X10*3/uL Eos # (Auto) 0.0 (0.0-0.4) X10*3/uL Baso # (Auto) 0.1 (0.0-0.2) X10*3/uL Abs Immat Gran (auto) 0.02 (0.00-0.03) X10*3/uL Absolute Neuts (auto) 3.6 (2.0-8.3) x10*3/uL Absolute Nucleated RBC 0.000 (0.0-0.012) X10*3/uL Nucleated RBC % (auto) 0.0 (0.0-0.2) /100WBC PT (10.0-13.1) SEC INR (0.9-1.1) Sodium (135-145) mmol/L Potassium (3.3-5.1) mmol/L Chloride (96-108) mmol/L Carbon Dioxide (22-29) mmol/L Anion Gap (12-20) BUN (9-16) mg/dL Creatinine (0.5-1.4) mg/dL Estim Creat Clear Calc Estimated GFR Random Glucose (60-115) mg/dL Calcium (8.4-10.2) mg/dL Magnesium (1.6-2.6) mg/dL Total Bilirubin (0.0-1.0) mg/dL Direct Bilirubin (0.0-0.5) mg/dL AST (5-31) U/L ALT (0-31) U/L Alkaline Phosphatase (39-117) U/L Troponin I High Sens 29.4 H (<3.5-17.0) ng/L Total Protein (6.5-8.0) g/dL Albumin (3.5-5.0) g/dL Lipase (8-78) U/L Stool Occult Blood NEGATIVE (NEGATIVE) Independent Interpretation I performed an independent interpretation of an: EKG (EKG AFib with RVR at a rate of 125. QTC 444. No STEMI) Radiology Impression Discussion of test interpretation with radiology: I have reviewed the radiologist's reading. External Record Review External record reviewed: Inpatient record, Office record, Outpatient record, Prior outpatient labs, Prior outpatient radiology, Primary care record and Outside ED record Tests considered The following testing was considered but not selected: As above Critical Care Time Critical Care Time Critical Care Time: Yes Total Critical Care Time: 40 Attestation: I have personally provided critical care time exclusive of time spent on separately billable procedures. Time includes review of lab data, radiology results, discussion with consultants, and monitoring for potential decompensa tion. Intervention performed as documented. Discharge Plan Discharge Clinical Impression: Atrial fibrillation with RVR, Nausea & vomiting, Diarrhea Patient Disposition: Home, Self-Care Instructions: Acute Nausea and Vomiting (ED) Additional Instructions: Your workup in the emergency room today was reassuring. Make sure you are taking all of your medications to help keep your AFib under control You may use Zofran for nausea or vomiting Follow-up with Gastroenterology, Dr. Tyler Prescriptions: New ondansetron 4 mg tablet,disintegrating 4 mg PO Q8H PRN (Reason: nausea and vomiting) Qty: 20 0RF No Action Eliquis 2.5 mg tablet 2.5 mg PO BID Qty: 90 3RF Rx Instructions: replaces prior dose of 5 mg bid aspirin 81 mg tablet,delayed release (DR/EC) 81 mg PO DAILY Qty: 90 3RF metoprolol tartrate 50 mg tablet 50 mg PO TID 90 Days Qty: 270 3RF Protocol: Hold for SBP/HR < HOLD for SBP < : 90 HOLD for HR < : 60 digoxin 125 mcg (0.125 mg) tablet 0.125 mg PO Q48H 90 Days Qty: 45 3RF atorvastatin 40 mg tablet 40 mg PO DAILY magnesium oxide 400 mg magnesium capsule 400 mg PO DAILY Qty: 7 0RF docusate sodium 100 mg capsule 100 mg PO DAILY PRN (Reason: Constipation) famotidine [Pepcid] 20 mg tablet 20 mg PO DAILY Qty: 30 0RF ondansetron 4 mg tablet,disintegrating 4 mg PO Q8H PRN (Reason: nausea and vomiting) Qty: 10 0RF
[2022-12-11 14:37] LABS: MANUAL DIFF FLAG NO
[2022-12-11 14:39] LABS: Basophils Absolute Auto 0.1 X10*3/uL (0.0-0.2); Eosinophils Percent Auto 0.2 % (0-4); Hematocrit 36.8 % (37.0-47.0); Hemoglobin 11.7 g/dl (12.0-16.0); Imm Gran Abs Auto 0.02 X10*3/uL (0.00-0.03); Imm Gran Pct Auto 0.3 % (0.0-0.4); Lymphocytes Absolute Auto 1.6 X10*3/uL (1.2-4.9); Lymphocytes Percent Auto 27.6 % (20-40); Mean Corpuscular HGB Conc 31.8 g/dl (31.0-35.0); Mean Corpuscular Hemoglobin 29.5 pg (27.0-33.0); Mean Corpuscular Volume 92.7 fL (80.0-98.0); Mean Platelet Volume 11.8 fL (9.4-12.3); Monocytes Absolute Auto 0.6 X10*3/uL (0.1-1.2); Monocytes Percent Auto 9.9 % (2-11); Neutrophils Absolute Auto 3.6 x10*3/uL (2.0-8.3); Platelet Count 146 X10*3/uL (160-400); Red Blood Count 3.97 X10*6/uL (4.20-5.50); Red Cell Distribution Width 14.6 % (11.0-16.0)
[2022-12-11 14:47] VITALS: BP 156/75; PULSE 118; RESP 12; O2SAT 98
[2022-12-11] MEDS: Metoprolol Tartrate 5 MG/5 ML VIAL IVPUSH (14:48)
[2022-12-11] MEDS: ondansetron HCL 4 MG/2 ML VIAL IVPUSH (14:48)
[2022-12-11] MEDS: 0.9 % Sodium Chloride 1,000 ML 999 ML IV (14:51)
[2022-12-11 14:52] LABS: INTERNATIONAL NORM RATIO 1.1 (0.9-1.1); Prothrombin Time 12.9 SEC (10.0-13.1)
[2022-12-11 15:02] LABS: Troponin-I High Sensitivity 25.9 ng/L (<3.5-17.0)
[2022-12-11 15:09] LABS: OBS Int Ctl Valid YES; OBS1 NEGATIVE (NEGATIVE)
[2022-12-11 15:22] LABS: Alanine Aminotransferase 6 U/L (0-31); Albumin Level 3.1 g/dL (3.5-5.0); Alkaline Phosphatase 60 U/L (39-117); Anion Gap 18 (12-20); Aspartate Amino Transferase 22 U/L (5-31); Bilirubin Direct 0.2 mg/dL (0.0-0.5); Bilirubin Total 1.2 mg/dL (0.0-1.0); Blood Urea Nitrogen 20 mg/dL (9-16); Calcium 8.8 mg/dL (8.4-10.2); Carbon Dioxide 26 mmol/L (22-29); Chloride 100 mmol/L (96-108); Creatinine Clr Calc Pharmacy 41.1; Estimated Glomerular Filt Rate > 60; Glucose Random 92 mg/dL (60-115); Lipase 8 U/L (8-78); Magnesium 1.7 mg/dL (1.6-2.6); Potassium 5.1 mmol/L (3.3-5.1); Sodium 139 mmol/L (135-145)
[2022-12-11 16:06] VITALS: BP 148/84; PULSE 107; RESP 16; O2SAT 97
--- NOTE | 2022-12-11 16:10 | PC.NURSE ---
Pt on stretcher, airway open and patent, no obvious signs of distress, no difficulty/labored breathing, equal chest rise and fall. Lung sounds reveal slight rhonchi in lower right and left lungs. Upper left and right lung sounds clr. Pt in controlled atrial fibrillation on monitor. Bowel sounds hypoactive all dimas. No edema noted. Pt daughter reports that patient has been vomiting and unable to keep anything down for the past 11 days. Pt daughter reports that patient hasn't been taking her medications either due to vomiting them up. Pt reports the abdominal pain is medial and comes and goes and feels better after she vomits.
[2022-12-11] MEDS: Metoprolol Tartrate 25 MG TABLET PO (16:18)
[2022-12-11 16:20] VITALS: BP 156/81; PULSE 91; RESP 16
[2022-12-11 18:34] LABS: Troponin-I High Sensitivity 29.4 ng/L (<3.5-17.0)
[2022-12-11 20:32] VITALS: BP 135/61; PULSE 86; RESP 16; TEMP 36.5
== END 2022-12-11 22:33 | disposition home or self-care (01) ==
PROVIDERS: Physician Assistant; Emergency Provider Emergency Medicine; PCP Nurse Practitioner Primary Care
DX: I48.20 Chronic atrial fibrillation, unspecified (principal); R11.2 Nausea with vomiting, unspecified; R19.7 Diarrhea, unspecified; R10.2 Pelvic and perineal pain; Z79.899 Other long term (current) drug therapy
CPT/HCPCS: 36415; 74176; 80048; 80076; 82272; 83690; 83735; 84484; 85025; 85610; 93005; 96361; 96374; 96375; 99284; 99285; J2405

== ENCOUNTER 2023-01-10 15:50 | Inpatient (IN) | payer OTHER, SELFPAY ==
[2023-01-10] VITALS (9 sets, daily range): BP systolic 104–117; BP diastolic 59–74; PULSE 71–145; RESP 13–20; TEMP 36.3–36.8; O2SAT 93–100; BMI 16.6
--- NOTE | ~2023-01-10 | XR_ITS ---
EXAMINATION: XR CHEST CLINICAL INFORMATION: Generalized weakness COMPARISON: Prior chest 11/04/2022 TECHNIQUE: Frontal view of the chest was obtained. FINDINGS: No acute significant abnormality is noted involving the heart, lungs, mediastinum, bony thorax or soft tissues. Minimal calcification of the dorsal aorta unchanged. Previously noted pleural effusion on the left has cleared XR/XR chest 1V IMPRESSION: No acute disease.
--- NOTE | 2023-01-10 16:51 | ED_ITS ---
HPI - General Adult General Chief complaint: Weakness Stated complaint: infection tongue Time Seen by Provider: 01/10/23 16:50 Source: patient, family (Granddaughter) and drum plater Mode of arrival: ambulatory Limitations: no limitations History of Present Illness HPI narrative: 82-year-old female with PMH significant for AFib on Eliquis, HTN, CVA with left hemiparesis, patient normally lives home with family bed ridden and dependent on her most of her daily activity, family reporting decreased p.o. i ntake, family also is questioning tongue infection. Patient otherwise is communicating normally with the family, been fed by the family. No fever, no chills, no significant change in the patient's daily activity, patient wear diaper 23/02, no blood in the urine or stool noted by the family. Patient was seen twice last month for similar symptoms. Related Data Home Medications Medication Instructions Recorded Confirmed atorvastatin 40 mg tablet 40 mg PO BEDTIME 09/03/22 01/10/23 docusate sodium 100 mg capsule 100 mg PO DAILY PRN Constipation 10/13/22 01/10/23 Previous Rx's Medication Instructions Recorded famotidine 20 mg tablet (Pepcid) 20 mg PO DAILY #30 tabs 09/18/22 apixaban 2.5 mg tablet (Eliquis) 2.5 mg PO BID #90 tabs 11/12/22 aspirin 81 mg tablet,delayed 81 mg PO DAILY #90 tabs 11/12/22 release digoxin 125 mcg (0.125 mg) tablet 0.125 mg PO Q48H 90 days #45 tabs 11/12/22 metoprolol tartrate 50 mg tablet 50 mg PO TID 90 days #270 tabs 11/12/22 ondansetron 4 mg disintegrating 4 mg PO Q8H PRN nausea and 12/01/22 tablet vomiting #10 tabs Allergies Allergy/AdvReac Type Severity Reaction Status Date / Time hydrochlorothiazide Allergy Mild UNKNOWN Verified 12/11/22 10:58 [Hydrochlorothiazide] penicillin G [Penicillin G] Allergy Mild UNKNOWN Verified 12/11/22 10:58 penicillin V Allergy Unknown Unknown Verified 12/11/22 10:58 chlorthalidone AdvReac Severe hyponatremi Verified 12/11/22 10:58 [CHLORTHALIDONE] a Review of Systems Review of Systems: Yes all other systems are reviewed and are negative PMFSH Past Medical History Medical History Acute right MCA stroke Atrial fibrillation HTN (hypertension) Persistent atrial fibrillation Right eye symptoms 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 Surgical History H/O carotid endarterectomy Family History Family History Mother Heart problem Social History Social History Household Members: Family Housing: Apartment Do you presently have visiting nurse or other home services: Yes Alcohol intake: unknown Patient Tobacco Use Status: Never used Tobacco Smoked in Last 30 Days: No Advance Directives: Yes Advance Directives on File: Yes Advance Directives Date on File: 10/14/22 service: No Current occupational status: disabled Physical Exam ED Vital Signs: Vital Signs - 24 hr 01/10/23 16:08 01/10/23 17:29 01/10/23 17:30 Temperature 98.3 F Pulse Rate 71 145 H Pulse Rate [Apical] 145 H Respiratory Rate 20 Blood Pressure 117/74 Pulse Oximetry 93 Oxygen Delivery Method Room Air 01/10/23 17:48 Temperature Pulse Rate 96 Pulse Rate [Apical] Respiratory Rate 14 Blood Pressure Pulse Oximetry Oxygen Delivery Method BMI result Body Mass Index 16.6 Vital signs have been reviewed as appeared to be correct. Blood pressure normal. Heart rate normal. Respiration rate normal. Temperature normal. Oxygen saturation normal. Appearance: Alert. No acute distress. Able to communicate limited historian. Head: Normal external exam. Normocephalic. Atraumatic. No Recio signs noted. No raccoon eyes noted Eyes: PERRLA. EOMI. Conjunctiva and sclera normal. Eyelids normal. ENT: TM's Normal. Pharynx normal. Uvula midline. Dry mucous membranes. No trismus noted. No drooling noted. No muffled voice noted. Neck: Normal inspection. Neck supple. FROM. No adenopathy. Thyroid Normal. No meningeal signs. No neck mass noted. CVS: Normal heart rate and rhythm. Heart sound normal. No murmurs noted. Pulses normal throughout. Respiratory: No respiratory distress. Painless inspiration. Breath sounds normal. No wheezes/rales/rhonchi noted. Chest nontender. No accessory muscle usage noted or decreased air movement noted. Abdomen: Soft and nontender. Bowel sounds normal in all 4 quadrants. No distention noted. No organomegaly noted. No visible injury noted. Back: No CVA tenderness. Full range of motion noted. Skin: Skin warm and dry. Normal skin color. Normal skin turgor. No rashes/lesions/lacerations noted. Extremities: No lower extremity edema. Extremities exhibit normal range of motion. Extremities nontender. Neuro: Oriented X 3. Cranial nerve exam: II-XII are grossly intact No motor deficit. No sensory deficit. Reflexes normal. Course Course Course Narrative: Failure to thrive, rapid atrial fibrillation, dehydration and hypernatremia. Will start hydration, admit. Reevaluation(s) Reevaluation #1: Lactic acidosis due to dehydration, no source of infection patient is not an septic shock or severe sepsis at this point. Time: 21:29 Reevaluation #2: Urine now is showing UTI since patient is meeting criteria for severe sepsis, check blood culture/repeat lactic acid, continue with hydration, ceftriaxone. Time: 22:24 Medications Administered Generic Name Dose Route Start Last Admin Trade Name Freq PRN Reason Stop Dose Admin Enoxaparin Sodium 40 mg 01/10/23 22:45 01/10/23 23:31 Enoxaparin Sodium 40 Mg/0.4 Ml Syringe SUBCUT 40 mg DAILY RHIANNON Administration Diltiazem HCl 125 mg/ Sodium 125 mls @ 0 mls/hr 01/10/23 18:15 01/10/23 20:27 Chloride IVCONT 10 mg/hr .Q0M RHIANNON 10 mls/hr Administration Protocol Per Protocol Dextrose/Sodium Chloride 1,000 mls @ 100 mls/hr 01/10/23 19:15 01/10/23 20:07 D51/2ns IVCONT 100 mls/hr .Q10H RHIANNON Administration Discontinued Medications Generic Name Dose Route Start Last Admin Trade Name Freq PRN Reason Stop Dose Admin Diltiazem HCl 15 mg 01/10/23 17:26 01/10/23 17:47 Diltiazem Hcl 50 Mg/10 Ml Vial IVPUSH 01/10/23 17:27 15 mg STAT STA Administration Sodium Chloride 1,000 mls @ 999 mls/hr 01/10/23 16:59 01/10/23 18:23 Ns IV 01/10/23 17:59 Infused .Q1H1M ONE Infusion Sodium Chloride 1,000 mls @ 999 mls/hr 01/10/23 19:21 01/10/23 22:32 Ns IV 01/10/23 20:21 Infused .Q1H1M ONE Infusion Ceftriaxone Sodium 1 gm/ 50 mls @ 100 mls/hr 01/10/23 22:26 01/11/23 00:23 Sodium Chloride IV 01/10/23 22:55 Infused ONCE ONE Infusion Procedures Central Line Placement Left Femoral: Time Out Performed: Yes Patient Placed on Monitor/Pulse Ox: Yes MD Prep: mask, gown and gloves Central Line Prep: Povidone-Iodine 1% Local Anesthetic: lidocaine 1% Amount of anesthesia used (mL): 3 Ultrasound Used for Placement: Yes Central Line Lumen Inserted: triple Post Procedure: sutured in place, good blood return, all ports aspirated, flushed, capped and sterile dressing applied Patient Tolerated Procedure: no complications Complications: none Medical Decision Making Differential Diagnosis Differential Diagnoses: The differential diagnosis associated with the presentation includes (Dehydration, electrolyte abnormalities, severe anemia, ACS, rapid atrial fibrillation.) Admission/Observation Consideration of admission/observation: Escalation of care including admissi on/observation considered Consult Healthcare Provider Management of the patient was discussed with: Hospitalist (Dr. Monaco) Lab Data MDM Lab Attestation statement: I reviewed the patient's lab results. 01/10/23 18:35 01/10/23 18:15 Labs: Lab Results 01/10/23 01/10/23 01/10/23 Range/Units 18:15 19:26 19:26 Sodium 152 H (135-145) mmol/L Potassium 3.8 D (3.3-5.1) mmol/L Chloride 111 H (96-108) mmol/L Carbon Dioxide 24 (22-29) mmol/L Anion Gap 21 H (12-20) BUN 67 H (9-16) mg/dL Creatinine 0.88 (0.5-1.4) mg/dL Estim Creat Clear Calc 28.0 Estimated GFR > 60 Random Glucose 103 (60-115) mg/dL Lactic Acid 3.6 H* (0.5-2.0) mmol/L Calcium 9.0 (8.4-10.2) mg/dL Total Bilirubin 1.5 H (0.0-1.0) mg/dL Direct Bilirubin 0.4 (0.0-0.5) mg/dL AST 12 (5-31) U/L ALT 5 (0-31) U/L Alkaline Phosphatase 57 (39-117) U/L Troponin I High Sens 96.6 H* D (<3.5-17.0) ng/L Total Protein 6.2 L (6.5-8.0) g/dL Albumin 3.2 L (3.5-5.0) g/dL Lipase 16 (8-78) U/L Independent Interpretation I performed an independent interpretation of an: Plain X-Ray (No acute intrathoracic pathology.) Radiology Impression Discussion of test interpretation with radiology: I have reviewed the radiologist's reading. Discharge Plan Discharge Clinical Impression: Dehydration, Atrial fibrillation with RVR, Acute UTI Patient Disposition: Admitted As Inpatient
--- NOTE | 2023-01-10 17:00 | ECG_ITS ---
Test Reason : WEAKNESS Blood Pressure : / mmHG Vent. Rate : 155 BPM Atrial Rate : 000 BPM P-R Int : 000 ms QRS Dur : 082 ms QT Int : 288 ms P-R-T Axes : 000 -02 199 degrees QTc Int : 462 ms Atrial fibrillation with rapid ventricular response with premature ventricular or aberrantly conducted complexes Moderate voltage criteria for LVH, may be normal variant ( R in aVL , [place] product ) Abnormal ECG When compared with ECG of 11-DEC-2022 11:08, No significant change was found Referred By: Rebecca Solorzano Electronically Signed By:Jacek Cali
[2023-01-10] MEDS: 0.9 % Sodium Chloride 1,000 ML 999 ML IV ×2 (17:17→20:07)
--- NOTE | 2023-01-10 17:28 | PC.NURSE ---
pt placed on harness puller and found to be in a rapid afib rvr. she has iv access and fluids are infusing.
[2023-01-10] MEDS: dilTIAZem HCL 50 MG/10 ML VIAL 15 MG IVPUSH (17:47)
[2023-01-10 18:44] LABS: Alanine Aminotransferase 5 U/L (0-31); Albumin Level 3.2 g/dL (3.5-5.0); Alkaline Phosphatase 57 U/L (39-117); Anion Gap 21 (12-20); Aspartate Amino Transferase 12 U/L (5-31); Bilirubin Direct 0.4 mg/dL (0.0-0.5); Bilirubin Total 1.5 mg/dL (0.0-1.0); Blood Urea Nitrogen 67 mg/dL (9-16); Carbon Dioxide 24 mmol/L (22-29); Chloride 111 mmol/L (96-108); Estimated Glomerular Filt Rate > 60; Glucose Random 103 mg/dL (60-115); Lipase 16 U/L (8-78); Potassium 3.8 mmol/L (3.3-5.1); Sodium 152 mmol/L (135-145); Total Protein 6.2 g/dL (6.5-8.0)
--- NOTE | 2023-01-10 19:09 | P.HPHOSP_ITS ---
History of Present Illness Date of Service: 01/10/23 Chief Complaint: weakness, poor po intake 82-year-old female with PMH significant for AFib on Eliquis, HTN, CVA with left hemiparesis presents to the ED with grandaughter and great- granddaughter with whom she resides, for evaluation of generalized weakness and poor PO intake. She lives home with family and is bed ridden, dependent on her family for most ADL's including feeding and wears a brief for incontinence at baseline. She was seen several times last month for unspecified GI illness with nausea/vomiting/diarrhea. These symptoms have resolved but for the last three weeks, family reports she has not eaten much at all and is barely consuming fluids. Family reports she has been communicating less than normal and is typically nonverbal with strangers. They are also concerned about the appearance of her tongue which they feel may be infected. In the ED, patient found to be in AFiv with RVR, rate up to 180 on monitor. No hypotension, vitals otherwise stable. Due to the degree dehydration/hypovolemia, multiple attempts were made to collect labs. However, muliple specimens hemolyzed. CBC unavailable. Creatinine 0.88, BUN 67, sodium 1 52, potassium 3.8, chloride 111, anion gap 21, initial lactic acid 3.6, initial troponin 96.6, BNP pending. Lipase normal. UA with straight cath pending. CXR without any cardiopulmonary disease. 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 Family History Mother Heart problem Surgical History H/O carotid endarterectomy Social History Household Members: Family Housing: Apartment Do you presently have visiting nurse or other home services: Yes Alcohol intake: unknown Patient Tobacco Use Status: Never used Tobacco Smoked in Last 30 Days: No Advance Directives: Yes Advance Directives on File: Yes Advance Directives Date on File: 10/14/22 service: No Current occupational status: disabled Meds Allergies Allergy/AdvReac Type Severity Reaction Status Date / Time hydrochlorothiazide Allergy Mild UNKNOWN Verified 12/11/22 10:58 [Hydrochlorothiazide] penicillin G [Penicillin G] Allergy Mild UNKNOWN Verified 12/11/22 10:58 penicillin V Allergy Unknown Unknown Verified 12/11/22 10:58 chlorthalidone AdvReac Severe hyponatremi Verified 12/11/22 10:58 [CHLORTHALIDONE] a Active Medications: Current Medications Diltiazem HCl 125 mg/ Sodium (Chloride) 125 mls @ 0 mls/hr IVCONT .Q0M RHIANNON; Protocol Dextrose/Sodium Chloride (D51/2ns) 1,000 mls @ 100 mls/hr IVCONT .Q10H [facility] Home Medications Medication Instructions Recorded Confirmed Last Taken Type atorvastatin 40 mg tablet 40 mg PO BEDTIME 09/03/22 01/10/23 11/27/22 History docusate sodium 100 mg capsule 100 mg PO DAILY PRN Constipation 10/13/22 01/10/23 11/27/22 History Physical Exam Vital Signs and Narrative: Vital Signs: Last Vital Signs Temp 98.3 F 01/10/23 16:08 Pulse 96 01/10/23 17:48 Resp 14 01/10/23 17:48 BP 117/74 01/10/23 16:08 Pulse Ox 93 01/10/23 16:08 O2 Del Method Room Air 01/10/23 16:08 BMI result Body Mass Index 16.6 Constitutional - Awake and Alert, cachectic appearing, No apparent distress Eyes - PERRLA, EOMI Mouth/tongue- mucosa and tongue very dry, geographic tongue Cardiovascular - S1S2, RRR, No edema Respiratory - Normal lung expansion, Normal respiratory effort, No respiratory distress, CTA bilaterally Gastrointestinal - NT / ND; +BS; No rebound or guarding Extremities - no calf tenderness bilaterally, no swelling Skin - Warm/Dry. Skin tenting noted Neurological - Alert, not speaking only responding to grandaughter. Oriented to self Results Labs 01/10/23 18:35 01/10/23 18:15 Labs: Laboratory Results - last 24 hr 01/10/23 18:15 Anion Gap 21 H Estim Creat Clear Calc 28.0 Estimated GFR > 60 Random Glucose 103 Calcium 9.0 Total Bilirubin 1.5 H Direct Bilirubin 0.4 AST 12 ALT 5 Alkaline Phosphatase 57 Total Protein 6.2 L Albumin 3.2 L Lipase 16 Assessment and Plan (1) Atrial fibrillation with RVR: Status: Acute (2) Dehydration: Status: Acute (3) Adult failure to thrive: Status: Acute Plan 82-year-old female with PMH significant for AFib on Eliquis, HTN, CVA with left hemiparesis #Persistent atrial fibrillation- with RVR -Likely related to hypovolemia/dehydration -In the ED, rates to 180. Given 15mg IV push dilt with improvement to 130-140 -Last echo 07/10/22 from [facility]: Normal LV systolic function, EF 55-65%, unable to assess diastolic function due to atrial fibrillation. No regional wall abnormality. -Continue cardizem drip -Continue PO rate control drugs. Continue digoxin -Continue eliquis for anticoagulation -Cardiac diet -Admit to telemetry -Cardiology consult #Elevated troponin- likely demand due to above -initial 96.6. Repeat lab am (multiple attempts to collect blood with hemolyzed specimen.) -EKG shows afib with rvr, rate 155, nonspecific st abnormality. No COREY or depression -Pt denies chest pain #Failure to thrive -Pt underweight with moderate malnutrition protein deficiency -Poor PO intake x 3 weeks following unspecified GI illness with weight loss -gastroenterology consult -Ensures, nutrition evaluation -Encourage PO intake #Acute hypernatremia- hyperosmolar due to poor PO intake -Mild Na 152. Received 1L IV NS in ED. Repeat BMP -D5 1/2 NS @100ml/hr -Follow lytes #Acute dehydration- in setting of above -BUN elevated at 67, Creat normal -IVF as above -Follow BMP/lytes #Acute lactic acidosis -due to dehyderation, now severe sepsis -continue ivf #HTN- bp soft -hold antihypertensives for now #Hx CVA with sequala left sided hemiparesis -continue asa, eliquis, statin DVT prophylaxis- eliquis Full code Health Care proxy- Asha Cerda (granddaughter) Multiple attempts made to collect CBC, repeat trop, repeat BMP but specimen hemolyzed. Given results would not likely change course, further attempts were not made. Patients labs will be redrawn AM. UA/UC is pending. Pt requires inpt stay at least 2 midnights for management of afib with rvr on cardizem drip requiring close cardiac monitoring and expert consultation as well as for management of failure to thrive. Time Spent With Patient Time: Total time managing care of this patient today ____ minutes. Quality Stroke Does the patient have a stroke diagnosis?: No VTE Prior VTE?: No VTE Risk Level:: Medical - moderate - high VTE Device Contraindication: Treatment Not Indicated VTE Drug Contraindication: N/A - Med Ordered
[2023-01-10 19:49] LABS: Lactic Acid 3.6 mmol/L (0.5-2.0)
[2023-01-10 20:03] LABS: Troponin-I High Sensitivity 96.6 ng/L (<3.5-17.0)
[2023-01-10] MEDS: Dextrose 5 % and 0.45 % NaCl 1,000 ML 100 ML IVCONT (20:07)
[2023-01-10] MEDS: dilTIAZem HCL 125 MG in 0.9 % Sodium Chloride 100 ML 10 MG IVCONT (20:27)
--- NOTE | 2023-01-10 20:54 | PC.NURSE ---
pt assessed, pt fraigle, responsive to care, fluids and Cardizem infusing will cont to monitor
--- NOTE | 2023-01-10 20:55 | PHA.MEDREC ---
Med rec complete, spoke with daughter who also had all the pharmacy bottles with her. Pharmacy Consult ? Medication Reconciliation Pharmacy has completed the medication reconciliation.
--- NOTE | 2023-01-10 21:21 | PC.NURSE ---
straight cath for urine tolerated well
[2023-01-10 21:24] LABS: Appearance Urine Clear; Color Urine Yellow; Glucose Urine UA Negative (Negative); Leukocyte Esterase Urine Large (3+) (Negative); Nitrite Urine Negative (Negative); UMIC TRIGGER UACC YES; Urine Blood Negative (Negative); Urine Ketones Negative (Negative); Urine Protein Negative (Neg-Trace)
[2023-01-10 21:28] LABS: Reflex Lactate? Lactic Acid Added
[2023-01-10 21:40] LABS: Bacteria Urine None Seen (None Seen); RBC Urine >20 /HPF (0-2); Squamous Epithelial Cell Urine 0-2 /HPF (0-2); UACC Culture Trigger YES; WBC Urine 21-50 /HPF (0-5)
[2023-01-10 21:49] LABS: B Type Natriuretic Peptide 36 pg/mL (<100)
--- NOTE | 2023-01-10 21:51 | PC.NURSE ---
pt failed swallow eval
[2023-01-10] MEDS: Enoxaparin Sodium 40 MG/0.4 ML SYRINGE SUBCUT (23:31)
[2023-01-10] MEDS: cefTRIAXone sodium 1 GM in 0.9 % Sodium Chloride 50 ML IV (23:32)
[2023-01-11] VITALS (7 sets, daily range): BP systolic 92–135; BP diastolic 48–80; PULSE 71–116; RESP 11–20; TEMP 35.9–36.6; O2SAT 91–98; BMI 19.7
--- NOTE | 2023-01-11 01:09 | PC.NURSE ---
pt has a left femoral cvp line placed by Dr. Solorzano tolerated well. labs sent
[2023-01-11 01:29] LABS: Lactic Acid 1.5 mmol/L (0.5-2.0)
[2023-01-11 01:43] LABS: Anion Gap 15 (12-20); Blood Urea Nitrogen 51 mg/dL (9-16); Calcium 8.2 mg/dL (8.4-10.2); Carbon Dioxide 25 mmol/L (22-29); Chloride 114 mmol/L (96-108); Creatinine Clr Calc Pharmacy 34.7; Estimated Glomerular Filt Rate > 60; Glucose Random 171 mg/dL (60-115); Potassium 2.7 mmol/L (3.3-5.1); Sodium 151 mmol/L (135-145)
[2023-01-11 01:50] LABS: Troponin-I High Sensitivity 66.2 ng/L (<3.5-17.0)
--- NOTE | 2023-01-11 02:40 | PC.NURSE ---
Luis valladares d/c by Dr. Candelario
--- NOTE | 2023-01-11 03:07 | PM.EVENT ---
Event Note Date of Service: 01/11/23 Event Note: Patient failed bedside swallow study as per the nurse. Will make patient NPO. Consulting speech. Hold Eliquis and initiate therapeutic Lovenox. Time Spent With Patient Time: Total time managing care of this patient today ____ minutes.
[2023-01-11] MEDS: Potassium Chloride/H20 10 MEQ/100 ML PIGGYBACK 100 MEQ IV ×4 (04:09→08:25)
[2023-01-11] MEDS: Dextrose 5 % and 0.45 % NaCl 1,000 ML 100 ML IVCONT ×2 (05:15→14:34)
--- NOTE | 2023-01-11 05:18 | PC.NURSE ---
pt assessed, sleeping, granddaughter at bedside
--- NOTE | 2023-01-11 07:03 | HO.PM.IMPN ---
Subjective Subjective Date of Service: 01/11/23 Interval History: f/u on adult failure to thrive, afib with rvr, hypernatremia minimially responsive, farail Physical Exam Vital Signs: Vital Signs: Last Vital Signs Temp 98.3 F 01/10/23 16:08 Pulse 99 01/11/23 05:16 Resp 11 L 01/11/23 05:16 BP 92/48 L 01/11/23 05:16 Pulse Ox 96 01/11/23 05:16 O2 Del Method Room Air 01/11/23 05:16 BMI result Body Mass Index 16.6 Const: Other: General: frail not resonsive Resp: CTA bilateral CVS: S1,S2,RRR GI: +BS, NT, no distention Skin: No rash Neuro: motor grossly intact Psych: flat Objective Data Active Medications Acetaminophen (Acetaminophen 325 Mg Tablet) 650 mg PO Q6H PRN PRN Reason: Pain, Mild (Pain Scale 1-3) Docusate Sodium (Docusate Sodium 100 Mg Capsule) 100 mg PO DAILY PRN PRN Reason: Constipation Docusate Sodium (Docusate Sodium 100 Mg Capsule) 100 mg PO DAILY PRN PRN Reason: Constipation Enoxaparin Sodium (Enoxaparin Sodium 40 Mg/0.4 Ml Syringe) 40 mg SUBCUT DAILY [facility] Last Admin: 01/10/23 23:31 Dose: 40 mg Documented By: EDMUND Diltiazem HCl 125 mg/ Sodium (Chloride) 125 mls @ 0 mls/hr IVCONT .Q0M [facility]; Protocol Last Titration: 01/11/23 03:44 Dose: 0 mg/hr, 0 mls/hr Documented By: EDMUND Dextrose/Sodium Chloride (D51/2ns) 1,000 mls @ 100 mls/hr IVCONT .Q10H [facility] Last Admin: 01/11/23 05:15 Dose: 100 mls/hr Documented By: EDMUND Potassium Chloride (Potassium Chloride/H20) 10 meq in 100 mls @ 100 mls/hr IV Q1H [facility] Stop: 01/11/23 07:44 Last Admin: 01/11/23 06:22 Dose: 100 mls/hr Documented By: EDMUND Ondansetron HCl (Ondansetron Hcl 4 Mg/2 Ml Vial) 4 mg IVPUSH Q8H PRN PRN Reason: Nausea and Vomiting Pharmacy Consult (Consult Rx Perform Med Rec) 1 each MISCELLANE ONCE PRN PRN Reason: Consult order Sodium Chloride (0.9 % Sodium Chloride Flush 3 Ml Syringe) 3 ml IVFLUSH QSHIFT [facility] Last Admin: 01/11/23 00:52 Dose: Not Given Documented By: EDMUND Non-Admin Reason: Previously Administered Labs 01/10/23 20:59 01/11/23 01:05 Labs: Laboratory Results - last 24 hr 01/10/23 01/10/23 01/10/23 18:15 19:26 19:26 MCV MCH MCHC RDW Plt Count MPV Immature Gran % (Auto) Neut % (Auto) Lymph % (Auto) [place] % (Auto) Eos % (Auto) Baso % (Auto) Lymph # (Auto) [place] # (Auto) Eos # (Auto) Baso # (Auto) Abs Immat Gran (auto) Absolute Neuts (auto) Absolute Nucleated RBC Nucleated RBC % (auto) PT INR APTT Anion Gap 21 H Estim Creat Clear Calc 28.0 Estimated GFR > 60 Random Glucose 103 Lactic Acid 3.6 H* Calcium 9.0 Total Bilirubin 1.5 H Direct Bilirubin 0.4 AST 12 ALT 5 Alkaline Phosphatase 57 Troponin I High Sens 96.6 H* D B-Natriuretic Peptide Total Protein 6.2 L Albumin 3.2 L Lipase 16 Urine Color Urine Appearance Urine pH Ur Specific [place] Urine Protein Urine Glucose (UA) Urine Ketones Urine Blood Urine Nitrite Ur Leukocyte Esterase Urine RBC Urine WBC Ur Squamous Epith Cells Urine Bacteria Hyaline Casts Urine Yeast 01/10/23 01/10/23 01/10/23 20:59 20:59 20:59 MCV Cancelled MCH Cancelled MCHC Cancelled RDW Cancelled Plt Count Cancelled MPV Cancelled Immature Gran % (Auto) Cancelled Neut % (Auto) Cancelled Lymph % (Auto) Cancelled [place] % (Auto) Cancelled Eos % (Auto) Cancelled Baso % (Auto) Cancelled Lymph # (Auto) Cancelled [place] # (Auto) Cancelled Eos # (Auto) Cancelled Baso # (Auto) Cancelled Abs Immat Gran (auto) Cancelled Absolute Neuts (auto) Cancelled Absolute Nucleated RBC Cancelled Nucleated RBC % (auto) Cancelled PT Cancelled INR Cancelled APTT Cancelled Anion Gap Estim Creat Clear Calc Estimated GFR Random Glucose Lactic Acid Calcium Total Bilirubin Direct Bilirubin AST ALT Alkaline Phosphatase Troponin I High Sens B-Natriuretic Peptide 36 Total Protein Albumin Lipase Urine Color Urine Appearance Urine pH Ur Specific [place] Urine Protein Urine Glucose (UA) Urine Ketones Urine Blood Urine Nitrite Ur Leukocyte Esterase Urine RBC Urine WBC Ur Squamous Epith Cells Urine Bacteria Hyaline Casts Urine Yeast 01/10/23 01/11/23 01/11/23 21:18 01:05 01:05 MCV MCH MCHC RDW Plt Count MPV Immature Gran % (Auto) Neut % (Auto) Lymph % (Auto) [place] % (Auto) Eos % (Auto) Baso % (Auto) Lymph # (Auto) [place] # (Auto) Eos # (Auto) Baso # (Auto) Abs Immat Gran (auto) Absolute Neuts (auto) Absolute Nucleated RBC Nucleated RBC % (auto) PT INR APTT Anion Gap 15 Estim Creat Clear Calc 34.7 Estimated GFR > 60 Random Glucose 171 H Lactic Acid 1.5 Calcium 8.2 L D Total Bilirubin Direct Bilirubin AST ALT Alkaline Phosphatase Troponin I High Sens B-Natriuretic Peptide Total Protein Albumin Lipase Urine Color Yellow Urine Appearance Clear Urine pH 5.0 Ur Specific [place] 1.020 Urine Protein Negative Urine Glucose (UA) Negative Urine Ketones Negative Urine Blood Negative Urine Nitrite Negative Ur Leukocyte Esterase Large (3+) H Urine RBC >20 H Urine WBC 21-50 H Ur Squamous Epith Cells 0-2 Urine Bacteria None Seen Hyaline Casts 6-10 Urine Yeast Present 01/11/23 01:05 MCV MCH MCHC RDW Plt Count MPV Immature Gran % (Auto) Neut % (Auto) Lymph % (Auto) [place] % (Auto) Eos % (Auto) Baso % (Auto) Lymph # (Auto) [place] # (Auto) Eos # (Auto) Baso # (Auto) Abs Immat Gran (auto) Absolute Neuts (auto) Absolute Nucleated RBC Nucleated RBC % (auto) PT INR APTT Anion Gap Estim Creat Clear Calc Estimated GFR Random Glucose Lactic Acid Calcium Total Bilirubin Direct Bilirubin AST ALT Alkaline Phosphatase Troponin I High Sens 66.2 H* B-Natriuretic Peptide Total Protein Albumin Lipase Urine Color Urine Appearance Urine pH Ur Specific [place] Urine Protein Urine Glucose (UA) Urine Ketones Urine Blood Urine Nitrite Ur Leukocyte Esterase Urine RBC Urine WBC Ur Squamous Epith Cells Urine Bacteria Hyaline Casts Urine Yeast Assessment and Plan (1) Acute UTI: Status: Acute (2) Atrial fibrillation with RVR: Status: Acute (3) Dehydration: Status: Acute (4) Adult failure to thrive: Status: Acute Plan 82-year-old female with PMH significant for AFib on Eliquis, HTN, CVA with left hemiparesis #Persistent atrial fibrillation- with RVR -continue IV cardizem and attempt to restart oral meds, -lovenox for anticoagulation until able to take PO #Elevated troponin- likely demand due to above -No further work up indicated at this time #Failure to thrive, moderate protien calory malnutrition? -Poor PO intake x 3 weeks following unspecified GI illness with weight loss -gastroenterology consult -Ensures, nutrition evaluation #Acute hypernatremia--d/t dedhydatation and free water deficit -IV fluid replacement with D5/1/2NS once BP is better #Acute dehydration- in setting of above -BUN elevated at 67, Creat normal -IVF as above -Follow BMP/lytes #Acute lactic acidosis -due to dehyderation, now severe sepsis -continue ivf #HTN- bp soft -hold antihypertensives for now #Hx CVA with sequala left sided hemiparesis -continue asa, eliquis, statin DVT prophylaxis- eliquis Full code Health Care proxy- Asha Cerda (granddaughter) Pt requires inpt stay at least 2 midnights for management of afib with rvr on cardizem drip requiring close cardiac monitoring and expert consultation as well as for management of failure to thrive. Overall poor prognosis, discussed with daughter who is agreable to DNR/DNI and Hospice care at home Time Spent With Patient Time: Total time managing care of this patient today ____ minutes. Quality Stroke Does the patient have a stroke diagnosis?: No VTE Prior VTE?: No VTE Risk Level:: Medical - moderate - high VTE Device Contraindication: Treatment Not Indicated VTE Drug Contraindication: N/A - Med Ordered
[2023-01-11 07:21] LABS: MANUAL DIFF FLAG NO
[2023-01-11 07:23] LABS: Basophils Percent Auto 0.2 % (0-2); Eosinophils Percent Auto 0.4 % (0-4); Hematocrit 31.6 % (37.0-47.0); Hemoglobin 10.3 g/dl (12.0-16.0); Imm Gran Abs Auto 0.03 X10*3/uL (0.00-0.03); Imm Gran Pct Auto 0.7 % (0.0-0.4); Lymphocytes Absolute Auto 1.4 X10*3/uL (1.2-4.9); Lymphocytes Percent Auto 30.4 % (20-40); Mean Corpuscular HGB Conc 32.6 g/dl (31.0-35.0); Mean Corpuscular Hemoglobin 29.3 pg (27.0-33.0); Mean Corpuscular Volume 89.8 fL (80.0-98.0); Mean Platelet Volume 11.1 fL (9.4-12.3); Monocytes Absolute Auto 0.2 X10*3/uL (0.1-1.2); Monocytes Percent Auto 4.9 % (2-11); NRBC Pct Auto 0.4 /100WBC (0.0-0.2); Neutrophils Absolute Auto 2.9 x10*3/uL (2.0-8.3); Neutrophils Percent Auto 63.4 % (45-73); Red Blood Count 3.52 X10*6/uL (4.20-5.50); Red Cell Distribution Width 15.8 % (11.0-16.0); White Blood Count 4.5 X10*3/uL (4.8-10.8)
[2023-01-11 07:25] LABS: Platelet Count 96 X10*3/uL (160-400)
[2023-01-11 07:40] LABS: Anion Gap 11 (12-20); Blood Urea Nitrogen 44 mg/dL (9-16); Carbon Dioxide 26 mmol/L (22-29); Chloride 114 mmol/L (96-108); Creatinine Clr Calc Pharmacy 37.9; Estimated Glomerular Filt Rate > 60; Glucose Random 174 mg/dL (60-115); Potassium 3.1 mmol/L (3.3-5.1); Sodium 148 mmol/L (135-145)
--- NOTE | 2023-01-11 11:09 | P.CONCA_ITS ---
History of Present Illness History of Present Illness Date of Service: 01/11/23 Requesting physician: Jon Noyola Chief complaint: afib rvr, failure to thrive Narrative: 82-year-old female who was known history of atrial fibrillation and was rate controlled the past presenting with failure to thrive in AFib with RVR. She has stroke previously and as per the granddaughter, she has not been eating and drinking and slowly going downhill. Again she was not eating and drinking and was brought in. She was noticed to be in AFib with RVR. She looks quite dehy drated. She has hypernatremia and is getting D5W and half normal saline. She is denying any chest pain. Overall denying of any complaints currently. She is saying she is not hungry. She was seen with language interpreter. 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 Family History Family History Mother Heart problem Surgical History Surgical History H/O carotid endarterectomy Social History Social History Household Members: Family Housing: Apartment Do you presently have visiting nurse or other home services: No Unable to assess alcohol history related to: Unable to respond Alcohol intake: unknown Patient Tobacco Use Status: Never used Tobacco Advance Directives Date on File: 10/14/22 service: No Current occupational status: disabled Meds Allergies Allergy/AdvReac Type Severity Reaction Status Date / Time hydrochlorothiazide Allergy Mild UNKNOWN Verified 12/11/22 10:58 [Hydrochlorothiazide] penicillin G [Penicillin G] Allergy Mild UNKNOWN Verified 12/11/22 10:58 penicillin V Allergy Unknown Unknown Verified 12/11/22 10:58 chlorthalidone AdvReac Severe hyponatremi Verified 12/11/22 10:58 [CHLORTHALIDONE] a Active Medications: Current Medications Acetaminophen (Acetaminophen 325 Mg Tablet) 650 mg PO Q6H PRN PRN Reason: Pain, Mild (Pain Scale 1-3) Docusate Sodium (Docusate Sodium 100 Mg Capsule) 100 mg PO DAILY PRN PRN Reason: Constipation Docusate Sodium (Docusate Sodium 100 Mg Capsule) 100 mg PO DAILY PRN PRN Reason: Constipation Enoxaparin Sodium (Enoxaparin Sodium 40 Mg/0.4 Ml Syringe) 40 mg SUBCUT DAILY [facility] Last Admin: 01/10/23 23:31 Dose: 40 mg Diltiazem HCl 125 mg/ Sodium (Chloride) 125 mls @ 0 mls/hr IVCONT .Q0M [facility]; Protocol Last Titration: 01/11/23 03:44 Dose: 0 mg/hr, 0 mls/hr Dextrose/Sodium Chloride (D51/2ns) 1,000 mls @ 100 mls/hr IVCONT .Q10H [facility] Last Admin: 01/11/23 05:15 Dose: 100 mls/hr Ondansetron HCl (Ondansetron Hcl 4 Mg/2 Ml Vial) 4 mg IVPUSH Q8H PRN PRN Reason: Nausea and Vomiting Pharmacy Consult (Consult Rx Perform Med Rec) 1 each MISCELLANE ONCE PRN PRN Reason: Consult order Sodium Chloride (0.9 % Sodium Chloride Flush 3 Ml Syringe) 3 ml IVFLUSH QSHIFT [facility] Last Admin: 01/11/23 08:20 Dose: Not Given Home Medications Medication Instructions Recorded Confirmed Last Taken Type atorvastatin 40 mg tablet 40 mg PO BEDTIME 09/03/22 01/10/23 11/27/22 History docusate sodium 100 mg capsule 100 mg PO DAILY PRN Constipation 10/13/22 01/10/23 11/27/22 History Physical Exam Vital Signs: Vital Signs: Last Vital Signs Temp 97.8 F 01/11/23 08:39 Pulse 116 H 01/11/23 08:39 Resp 17 01/11/23 08:39 BP 123/80 01/11/23 08:39 Pulse Ox 91 L 01/11/23 08:39 O2 Del Method Room Air 01/11/23 08:39 BMI result Body Mass Index 19.7 GENERAL APPEARANCE: in no acute distress, frail. Dry mucous membranes. NECK: no carotid bruit, no jugular venous distention. SKIN: no suspicious lesions, warm and dry. HEART: no murmurs, irregular rate and rhythm. Tachycardic. LUNGS: clear to auscultation bilaterally. ABDOMEN: soft, nontender. EXTREMITIES: no edema. PERIPHERAL PULSES: equal. Objective Labs and Meds 01/11/23 07:17 01/11/23 07:17 Lab results: Laboratory Results - last 24 hr 01/10/23 01/10/23 01/10/23 18:15 19:26 19:26 WBC RBC Hgb Hct MCV MCH MCHC RDW Plt Count MPV Immature Gran % (Auto) Neut % (Auto) Lymph % (Auto) [place] % (Auto) Eos % (Auto) Baso % (Auto) Lymph # (Auto) [place] # (Auto) Eos # (Auto) Baso # (Auto) Abs Immat Gran (auto) Absolute Neuts (auto) Absolute Nucleated RBC Nucleated RBC % (auto) PT INR APTT Sodium 152 H Potassium 3.8 D Chloride 111 H Carbon Dioxide 24 Anion Gap 21 H BUN 67 H Creatinine 0.88 Estim Creat Clear Calc 28.0 Estimated GFR > 60 Random Glucose 103 Lactic Acid 3.6 H* Calcium 9.0 Total Bilirubin 1.5 H Direct Bilirubin 0.4 AST 12 ALT 5 Alkaline Phosphatase 57 Troponin I High Sens 96.6 H* D B-Natriuretic Peptide Total Protein 6.2 L Albumin 3.2 L Lipase 16 Urine Color Urine Appearance Urine pH Ur Specific [place] Urine Protein Urine Glucose (UA) Urine Ketones Urine Blood Urine Nitrite Ur Leukocyte Esterase Urine RBC Urine WBC Ur Squamous Epith Cells Urine Bacteria Hyaline Casts Urine Yeast 01/10/23 01/10/23 01/10/23 20:59 20:59 20:59 WBC Cancelled RBC Cancelled Hgb Cancelled Hct Cancelled MCV Cancelled MCH Cancelled MCHC Cancelled RDW Cancelled Plt Count Cancelled MPV Cancelled Immature Gran % (Auto) Cancelled Neut % (Auto) Cancelled Lymph % (Auto) Cancelled [place] % (Auto) Cancelled Eos % (Auto) Cancelled Baso % (Auto) Cancelled Lymph # (Auto) Cancelled [place] # (Auto) Cancelled Eos # (Auto) Cancelled Baso # (Auto) Cancelled Abs Immat Gran (auto) Cancelled Absolute Neuts (auto) Cancelled Absolute Nucleated RBC Cancelled Nucleated RBC % (auto) Cancelled PT Cancelled INR Cancelled APTT Cancelled Sodium Potassium Chloride Carbon Dioxide Anion Gap BUN Creatinine Estim Creat Clear Calc Estimated GFR Random Glucose Lactic Acid Calcium Total Bilirubin Direct Bilirubin AST ALT Alkaline Phosphatase Troponin I High Sens B-Natriuretic Peptide 36 Total Protein Albumin Lipase Urine Color Urine Appearance Urine pH Ur Specific [place] Urine Protein Urine Glucose (UA) Urine Ketones Urine Blood Urine Nitrite Ur Leukocyte Esterase Urine RBC Urine WBC Ur Squamous Epith Cells Urine Bacteria Hyaline Casts Urine Yeast 01/10/23 01/11/23 01/11/23 21:18 01:05 01:05 WBC RBC Hgb Hct MCV MCH MCHC RDW Plt Count MPV Immature Gran % (Auto) Neut % (Auto) Lymph % (Auto) [place] % (Auto) Eos % (Auto) Baso % (Auto) Lymph # (Auto) [place] # (Auto) Eos # (Auto) Baso # (Auto) Abs Immat Gran (auto) Absolute Neuts (auto) Absolute Nucleated RBC Nucleated RBC % (auto) PT INR APTT Sodium 151 H Potassium 2.7 L D Chloride 114 H Carbon Dioxide 25 Anion Gap 15 BUN 51 H Creatinine 0.71 Estim Creat Clear Calc 34.7 Estimated GFR > 60 Random Glucose 171 H Lactic Acid 1.5 Calcium 8.2 L D Total Bilirubin Direct Bilirubin AST ALT Alkaline Phosphatase Troponin I High Sens B-Natriuretic Peptide Total Protein Albumin Lipase Urine Color Yellow Urine Appearance Clear Urine pH 5.0 Ur Specific [place] 1.020 Urine Protein Negative Urine Glucose (UA) Negative Urine Ketones Negative Urine Blood Negative Urine Nitrite Negative Ur Leukocyte Esterase Large (3+) H Urine RBC >20 H Urine WBC 21-50 H Ur Squamous Epith Cells 0-2 Urine Bacteria None Seen Hyaline Casts 6-10 Urine Yeast Present 01/11/23 01/11/23 01/11/23 01:05 07:17 07:17 WBC 4.5 L RBC 3.52 L Hgb 10.3 L Hct 31.6 L MCV 89.8 MCH 29.3 MCHC 32.6 RDW 15.8 Plt Count 96 L D MPV 11.1 Immature Gran % (Auto) 0.7 H Neut % (Auto) 63.4 Lymph % (Auto) 30.4 [place] % (Auto) 4.9 Eos % (Auto) 0.4 Baso % (Auto) 0.2 Lymph # (Auto) 1.4 [place] # (Auto) 0.2 Eos # (Auto) 0.0 Baso # (Auto) 0.0 Abs Immat Gran (auto) 0.03 Absolute Neuts (auto) 2.9 Absolute Nucleated RBC 0.020 H Nucleated RBC % (auto) 0.4 H PT INR APTT Sodium 148 H Potassium 3.1 L Chloride 114 H Carbon Dioxide 26 Anion Gap 11 L BUN 44 H Creatinine 0.65 Estim Creat Clear Calc 37.9 Estimated GFR > 60 Random Glucose 174 H Lactic Acid Calcium 8.0 L Total Bilirubin Direct Bilirubin AST ALT Alkaline Phosphatase Troponin I High Sens 66.2 H* B-Natriuretic Peptide Total Protein Albumin Lipase Urine Color Urine Appearance Urine pH Ur Specific [place] Urine Protein Urine Glucose (UA) Urine Ketones Urine Blood Urine Nitrite Ur Leukocyte Esterase Urine RBC Urine WBC Ur Squamous Epith Cells Urine Bacteria Hyaline Casts Urine Yeast Imaging Radiologist's impression: Impressions Chest X-Ray 01/10/23 18:53 IMPRESSION: No acute disease. Assessment and Plan (1) Adult failure to thrive: Status: Acute (2) Atrial fibrillation with RVR: Status: Acute Plan 82-year-old female with known history of atrial fibrillation presenting with failure to thrive and AFib with RVR. Clinically dehydrated. Has not been eating and drinking. Also has concern for urinary tract infection. As per the granddaughter since her stroke the patient has not been eating and drinking and spends lot of time sleeping. AFib with RVR is not a primary issue and is secondary to her ongoing medical issues including dehydration and UTI. Unable to take orally right now so can get Cardizem drip for now. Hydration with IV fluids. Overall her outlook is not good and prognosis is guarded. I have explained this to the granddaughter that when we start seeing situations like these where patient stop eating and drinking, this is generally not a good sign. Supportive care. Will follow along. Thank you for allowing me to participate in the care of your patient. Please feel free to contact me if you have any questions. Time Spent With Patient Time: Total time managing care of this patient today ____ minutes. Procedures Date of Service Date of Service: 01/11/23
[2023-01-11] MEDS: Enoxaparin Sodium 40 MG/0.4 ML SYRINGE SUBCUT (11:36)
--- NOTE | 2023-01-11 14:08 | MHC.CM.PN ---
Addendum entered by Lorraine Scruggs 01/11/23 16:01: PT LIVES WITH HER GRAND DAUGHTER WHO IS HER FT FLOWER PLANTER. PT HAS A HOSPITAL BED AND ALL OTHER NECESSARY EQUIPMENT AT HOME ALREADY SHE HAS A HCP ON FILE IMM DELIVERED FAMILY'S GOAL IS TO TAKE HER HOME TOMORROW WITH NEW HLC SERVICES AND RESUMPTION OF HER FLOWER PLANTER SHE WILL NEED BLS TRANSPORT Original Note: CM INFORMED A GOALS OF CARE DISCUSSION TOOK PLACE WITH PT/HCP AND THE HCP/DAUGHTER WOULD BE INTERESTED IN TAKING THE PT HOME ON HOSPICE EARLY POSSIBLE. A REFERRAL WAS MADE TO [facility] A MESSAGE INFORMING THEM THE GOAL IS TO DC TOMORROW
[2023-01-12] VITALS: BP 123/76; PULSE 109; RESP 20; TEMP 36.3; O2SAT 98
[2023-01-12] MEDS: Dextrose 5 % and 0.45 % NaCl 1,000 ML 100 ML IVCONT (00:38)
[2023-01-12 04:00] VITALS: BP 117/81; PULSE 88; RESP 16; TEMP 36.4; O2SAT 98
[2023-01-12] MEDS: dilTIAZem HCL 50 MG/10 ML VIAL 10 MG IVPUSH (05:32)
[2023-01-12 07:41] VITALS: BP 135/89; PULSE 117; RESP 16; TEMP 36.4; O2SAT 95
[2023-01-12 07:48] VITALS: BP 142/99; PULSE 113; RESP 12; TEMP 36.3
[2023-01-12 08:50] LABS: Blood Urea Nitrogen 21 mg/dL (9-16); Calcium 7.3 mg/dL (8.4-10.2); Creatinine Clr Calc Pharmacy 50.1; Estimated Glomerular Filt Rate > 60; Glucose Random 127 mg/dL (60-115)
[2023-01-12 09:03] LABS: Anion Gap 13 (12-20); Carbon Dioxide 20 mmol/L (22-29); Chloride 110 mmol/L (96-108); Potassium 2.4 mmol/L (3.3-5.1); Sodium 141 mmol/L (135-145)
[2023-01-12] MEDS: Enoxaparin Sodium 40 MG/0.4 ML SYRINGE SUBCUT (11:11)
--- NOTE | 2023-01-12 11:24 | PM.DS ---
DS: Providers Provider Date of Service: 01/12/23 Date of admission: 01/10/23 20:09 Primary care physician: Opal Antunez NP Consults: 01/10/23 20:21 Consult to Cardiology Routine Consulting Provider: [facility] [place] [facility] Cardiovascular Services Reason for consultation: afib rvr Has provider been notified: Yes DS: Diagnosis Discharge Diagnosis (1) Acute UTI: Status: Acute (2) Atrial fibrillation with RVR: Status: Acute (3) Dehydration: Status: Acute (4) Adult failure to thrive: Status: Acute DS: Summary Hospital Course Hospital Course: Chief Complaint: weakness, poor po intake 82-year-old female with PMH significant for AFib on Eliquis, HTN, CVA with left hemiparesis presents to the ED with grandaughter and great-granddaughter with whom she resides, for evaluation of generalized weakness and poor PO intake. She lives home with family and is bed ridden, dependent on her family for most ADL's including feeding and wears a brief for incontinence at baseline. She was seen several times last month for unspecified GI illness with nausea/vomiting/diarrhea. These symptoms have resolved but for the last three weeks, family reports she has not eaten much at all and is barely consuming fluids. Family reports she has been communicating less than normal and is typically nonverbal with strangers. They are also concerned about the appearance of her tongue which they feel may be infected. In the ED, patient found to be in AFiv with RVR, rate up to 180 on monitor. No hypotension, vitals otherwise stable.? Due to the degree dehydration/hypovolemia, multiple attempts were made to collect labs.? However, muliple specimens hemolyzed. CBC unavailable.? Creatinine 0.88, BUN 67, sodium 152, potassium 3.8, chloride 111, anion gap 21, initial lactic acid 3.6, initial troponin 96.6, BNP pending.? Lipase normal.? UA with straight cath pending.? CXR without any cardiopulmonary disease. Hospital course: This patient with multiple medical problems iwht notable left hemiparsis from strokepresented with weakness poor oral intake and foud to be in AFIB with RVR, elevated troponin, JUSTINA, acute lactic acidosis, severe dehydration, hypernatremia, Hypokalemia, Hypotension and weight loss and adult failure to thrive. According to the family she has been declining at home and was no longer eating. Aggresive management with IV fluid was instituted in attempt to correct dehydration, IV med to treat AFIB with RVR, unfortunately despite all effort she's not able to take anything by mouth and speech recommends NPO. Following goals of care conversation with her daughter who is child day care center worker and health care proxy, we reached a decision to make to make her DNR/DNI and to halt all other other treatment and to return home with hospice/comfort care only. Although patient miguel in principle is still in agreement for DNI/DNI, she does not want to sing a MOLST form. Following multiple conversations with her with an photonic laboratory technician to explain that it doesn't her agreed upon management, she would not sing and therefore VNS not able to attend to her as hospice patient, she will instead go home with routine HHS and the topic of official hospice can be revisited in the near future. Over her prognosis remains poor, and the family accepts that she's dying and want no further care and they want her to be comfortable at home. She's not eating or taking meds by mouth therefore routine meds stop but if able to take them family may give them to her. Morphine and ativan have been prescribed for comfort, respriatory distresss and anxiety. #Persistent atrial fibrillation- with RVR #Elevated troponin- likely demand due to above #Failure to thrive, moderate protien calory? malnutrition? #Acute hypernatremia--d/t dedhydatation and free water deficit #Acute lactic acidosis #HTN- bp soft #Hx CVA with sequala left sided hemiparesis Time Spent with Patient Time attestation: Total time managing care of this patient today ____ minutes. Discharge coordination time: Greater than 30 minutes Quality: Safe Use of Opioids Does Pt have an Active Cancer Diagnosis on the Problem List?: No Quality: Stroke Does the patient have a stroke diagnosis?: No Physical Exam Vital Signs: Vital Signs: Last Vital Signs Temp 97.4 F 01/12/23 07:48 Pulse 113 H 01/12/23 07:48 Resp 12 01/12/23 07:48 BP 142/99 H 01/12/23 07:48 Pulse Ox 95 01/12/23 07:41 O2 Del Method Room Air 01/12/23 07:48 BMI result Body Mass Index 19.7 DS: Data Data Completed and Pending Labs on day of discharge: Laboratory Results - last 24 hr 01/12/23 07:49 Sodium 141 Potassium 2.4 L* D Chloride 110 H Carbon Dioxide 20 L Anion Gap 13 BUN 21 H Creatinine 0.57 Estim Creat Clear Calc 50.1 Estimated GFR > 60 Random Glucose 127 H Calcium 7.3 L D Preliminary micro results at discharge 01/10/23 20:59 Blood Culture - Preliminary Blood - Venous No growth after 24 hours. 01/10/23 19:45 Blood Culture - Preliminary Blood - Venous No growth after 24 hours. Discharge Plan Discharge Anticipated Discharge Date/Time: 01/12/23 11:22 Patient Disposition: Home Health Service Discharge Diagnosis: Failure to thrive Referrals: [facility] [Outside] - 1 Week Opal Antunez NP [Primary Care Provider] - 1 Week Discharge Medications: New morphine concentrate 100 mg/5 mL (20 mg/mL) solution 5 mg PO Q3H PRN (Reason: pain/comfort) 15 Days Qty: 30 0RF Rx Instructions: Partial Fill upon patient request. atropine 1 % Drops 2 drp BUCCAL DAILY Qty: 5 0RF lorazepam [Lorazepam Intensol] 2 mg/mL concentrate 0.5 mg PO Q4H PRN (Reason: anxiety/restlessness) Qty: 30 0RF Discontinued Eliquis 2.5 mg tablet 2.5 mg PO BID Qty: 90 3RF Rx Instructions: replaces prior dose of 5 mg bid aspirin 81 mg tablet,delayed release (DR/EC) 81 mg PO DAILY Qty: 90 3RF metoprolol tartrate 50 mg tablet 50 mg PO TID 90 Days Qty: 270 3RF Protocol: Hold for SBP/HR < HOLD for SBP < : 90 HOLD for HR < : 60 digoxin 125 mcg (0.125 mg) tablet 0.125 mg PO Q48H 90 Days Qty: 45 3RF atorvastatin 40 mg tablet 40 mg PO BEDTIME docusate sodium 100 mg capsule 100 mg PO DAILY PRN (Reason: Constipation) famotidine [Pepcid] 20 mg tablet 20 mg PO DAILY Qty: 30 0RF ondansetron 4 mg tablet,disintegrating 4 mg PO Q8H PRN (Reason: nausea and vomiting) Qty: 10 0RF Discharge Orders: Discharge Order (Routine); Ordered 01/12/23 Ordered By: Jon Noyola Diet: Advance to usual diet Activity on Discharge: As tolerated Stand Alone Forms: Patient Portal Discharge page Care Plan Goals: Hospice/comfort care Health Concerns: See discharge summer Plan of Treatment: Home with hospice care with goal of comfort measures only take morphine for comfort or respiratory distress take Ativan for anxiety May continue your usual medication as before if you change your mind about hospice care Assessment: as above
[2023-01-12 11:29] VITALS: BP 116/65; PULSE 104; RESP 12; TEMP 36.9
--- NOTE | 2023-01-12 11:32 | MHC.CM.PN ---
Per ROUNDS discussion, Patient is medically cleared for dc to home today, with Hospice. Patient will dc to home today at 1PM, via [facility] with [facility] (CM confirmed with Patient's Daughter/Asha @ [phone], with telephonic [employer], that family will be home waiting to care for Patient). Last IMM addressed yesterday.
--- NOTE | 2023-01-12 13:28 | MHC.SLORD ---
Speech Language Pathology Order Status: [employer] TAPPER HELPER attempted to see pt for bedside swallow eval this morning. Pt was not cooperative w/ the exam, would not accept any PO. Pt is confused. Pt turning face away, swatting w/ arms, and not opening her mouth despite encouragement. Notified MD, RN, RD via [place] Message.
--- NOTE | 2023-01-12 14:37 | MHC.CM.PN ---
Family (Daughter/ Ellen and Granddaughter/NIKKI/Neris) have decided they want Patient to go home with [facility] rather than [facility]. [facility] was unable to allow Patient's Grandson to ride with Patient in the ambulance and this is extremely important to Patient and family to assist with Patient's fears and comfort level. [facility] will pick Patient up at 3PM to transport Patient home and will allow Patient's Grandson to ride along with her.
--- NOTE | 2023-01-12 14:49 | MHC.CM.PN ---
CM has informed Granddaughter/VICE PRESIDENT FIXED INCOME/Isabel and Isabel's Son that [facility] SOC is Thursday01/14/2023; they approve of this dc plan. has also been made aware of the change in plan.
[2023-01-12 15:22] VITALS: BP 114/60; PULSE 67; RESP 20; TEMP 36.4; O2SAT 92
--- NOTE | 2023-01-12 15:27 | MHC.CM.PN ---
, RN, CM and [facility] Captain Waiter spoke with Daughter/HCP/Ellen at listed # on speaker phone. Asha confirmed several times that she wants her Mother to return home today, via Ambulance(with her Grandson traveling in the ambulance with her). Amilcar does NOT WANT HOSPICE, just [facility] and is aware that SOC is Thursday01/14/23.[facility] to transport Patient to home, where she lives with her Granddaughter/ARCHITECTURAL INSPECTOR/Isabel who will be waiting for her (Per Isabel, Patient is NEVER left unattended/alone.
--- NOTE | 2023-01-12 15:35 | PC.NURSE ---
MD verified with daughter over the phone with puppet maker and this RN the goals of care for her mother. Daughter requests patient to be discharged home today with no further treatment, by ambulance. Family educated on pain and anxiety medication scripts sent to pharmacy. Family educated on continuing home medications if patient is able to tolerate PO. TLC to left femoral removed, pressure dressing applied. Catheter tip intact upon being discontinued. Dressing C/D/I on discharge.
== END 2023-01-12 16:40 | disposition home health service (06) | DRG 872 ==
LOC: HO.ED 19:25 → HO.EDOVER 20:17 → HO.IMC 01-11 05:52
PROVIDERS: Admitting Provider Physician Assistant; Emergency Provider Emergency Medicine; PCP Nurse Practitioner Primary Care; Visit Provider Internal Medicine
DX: A41.9 Sepsis, unspecified organism (principal); I48.19 Other persistent atrial fibrillation; E44.0 Moderate protein-calorie malnutrition; E87.0 Hyperosmolality and hypernatremia; Z68.1 Body mass index [BMI] 19.9 or less, adult; N39.0 Urinary tract infection, site not specified; E87.21 Acute metabolic acidosis; I69.354 Hemiplegia and hemiparesis following cerebral infarction affecting left non-dominant side; N17.9 Acute kidney failure, unspecified; E86.1 Hypovolemia; Z66 Do not resuscitate; R65.20 Severe sepsis without septic shock; I10 Essential (primary) hypertension; E86.0 Dehydration; Z74.01 Bed confinement status; R62.7 Adult failure to thrive; Z88.9 Allergy status to unspecified drugs, medicaments and biological substances; Z79.01 Long term (current) use of anticoagulants; Z79.899 Other long term (current) drug therapy
CPT/HCPCS: 36415; 71045; 80048; 80076; 81001; 83605; 83690; 83880; 84484; 85025; 87040; 87086; 92950; 93005; 99285; J0696; J1650